=== PATIENT | male | born 1955 | race African-American/Black ===

== ENCOUNTER 2016-11-27 11:49 | Inpatient (IN) | payer OTHER, MEDICARE ==
--- NOTE | 2016-11-27 12:17 | ER Document Report ---
ED Neuro Symptoms/Deficit - General Time seen by provider: 12:13 Mode of Arrival: Medic Information source: Emergency Med Personnel Notes: Patient is a 61-year-old male presenting to the emergency department for stroke- like symptoms. Patient has a history of stage V renal disease and is on dialysis. Patient's baseline is able to ambulate without assistance and is able to speak normally. Patient was at dialysis today at [facility]. During his dialysis treatment today the patient started answering questions inappropriately ; patient also had weak legs with an unsteady gait. Patient nodded his head yes to [facility] staff when asked if he had chest pain; patient was given aspirin at this time. Patient continued to have chest pain with EMS. 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 Patient has a history of three-vessel bypass in 2012, a stent in 2013, type II diabetes mellitus, hypertension, hypercholesterolemia, and the patient is also on Plavix. Patient has a physician in his left upper extremity. Patient is wearing a glove on his left hand. Patient has no known allergies. TRAVEL OUTSIDE OF THE [place] IN LAST 30 DAYS: No - HPI Onset: Other - see HPI note Baseline Gait: Walks w/o assistance Decreased ability to stand/walk: Weak Associated symptoms: Chest pain <ANGEL THOMPSON - Last Filed: 11/27/16 13:04> - General Notes: The patient was brought to emergency room from dialysis by EMS for the onset of strokelike symptoms. They report he normally walks and talks well, but he showed altered mental status about 30 minutes prior to arrival. On emergency room arrival, the patient is alert, he seems to understand and respond appropriately. He does not speak. He is found to have a temperature of 102.3 He does move all of his extremities , he just does not talk. He was given Tylenol and later began to talk some. At this time he is alert and oriented, reports he has had cough and congestion starting 1-2 days ago. He reports he did have dialysis today. His lab work is unremarkable and consistent with a viral type or flu type illness. His chest x-ray does show some basilar densities which could be atelectasis, small effusion, or infiltrate. There is stable cardiomegaly. CT scan shows spotty chronic white matter disease changes with multiple lacunar infarcts primarily in the thalamus and basal ganglia. There is nothing acute seen on the head CT. The patient is not a TPA candidate, he is on Plavix, he had dialysis today, his initial symptoms suggested a fascia possibly due to stroke, but his fever suggested an alternative diagnosis. Treating with Tylenol and time has proven this decision to be correct. I do not think it is possible to exclude a TIA as part of the diagnosis. The patient does smoke about one half pack per day. He does live by himself. His primary care provider is the [facility]. <PAULINO CLIFFORD - Last Filed: 11/27/16 16:19> - General Stated Complaint: STROKE ALERT - Related Data Allergies/Adverse Reactions: No Known Allergies Allergy (Verified 11/17/14 17:17) Past Medical History - General Information source: Patient - Social History Smoking Status: Current Every Day Smoker Family History: None - Past Medical History Cardiac Medical History: Reports: Hx Coronary Artery Disease, Hx Hypercholesterolemia, Hx Hypertension Endocrine Medical History: Reports: Hx Diabetes Mellitus Type 2 Renal/ Medical History: Reports: Hx End Stage Renal Disease - Stage V with dialysis, Hx Hemodialysis Musculoskeltal Medical History: Reports Hx Arthritis - generalized Past Surgical History: Reports: Hx Cardiac Surgery - bypass 2012, 1 stent 2012, Hx Coronary Artery Bypass Graft, Hx Coronary Stent, Hx Orthopedic Surgery, Hx Vascular Surgery - Immunizations Immunizations up to date: Yes Hx Diphtheria, Pertussis, Tetanus Vaccination: Yes Hx Pneumococcal Vaccination: 07/07/14 <ANGEL THOMPSON - Last Filed: 11/27/16 13:04> Review of Systems - Review of Systems Constitutional: No symptoms reported EENT: No symptoms reported Cardiovascular: No symptoms reported Respiratory: No symptoms reported Gastrointestinal: No symptoms reported Genitourinary: No symptoms reported Male Genitourinary: No symptoms reported Musculoskeletal: No symptoms reported Skin: No symptoms reported Hematologic/Lymphatic: No symptoms reported Neurological/Psychological: See HPI -: Yes All other systems reviewed and negative <ANGEL THOMPSON - Last Filed: 11/27/16 13:04> Physical Exam - Vital signs Interpretation: Febrile - General General appearance: Alert, Other - Patient is asphasic In distress: Mild - HEENT Head: Normocephalic, Atraumatic Eyes: Normal Pupils: PERRL Mucous membranes: Moist - Respiratory Respiratory status: No respiratory distress Chest status: Nontender Breath sounds: Normal Chest palpation: Normal - Cardiovascular Rhythm: Regular Heart sounds: Normal auscultation Murmur: No - Abdominal Inspection: Normal Distension: No distension Bowel sounds: Normal Tenderness: Nontender Organomegaly: No organomegaly - Back Back: Normal, Nontender - Extremities General upper extremity: Normal inspection, Normal ROM, Other - Decreased strength in the left hand, however patient has a fistula in the left upper arm which may have caused some and neurovascular damage; patient is also wearing a glove on his left hand General lower extremity: Normal inspection, Normal ROM, Normal strength - Neurological Neuro grossly intact: Yes Cognition: Normal Jamee Coma Scale Eye Opening: Spontaneous [place] Coma Scale Verbal: None Jamee Coma Scale Motor: Obeys Commands Jamee Coma Scale Total: 11 Speech: Other - Patient is not talking, but does clear his throat once during exam <ANGEL THOMPSON - Last Filed: 11/27/16 13:04> - Vital signs Vitals: Resp Pulse Ox 23 H 94 11/27/16 12:06 11/27/16 12:06 <PAULINO CLIFFORD - Last Filed: 11/27/16 16:19> Course - Laboratory Result Diagrams: 11/27/16 12:18 11/27/16 12:18 <ANGEL THOMPSON - Last Filed: 11/27/16 13:04> - Re-evaluation Re-evalutation: 11/27/16 16:18 The patient's flu test eventually came back and is negative. Given that he was febrile, seemed confused with neurological impairment, has had a congested cough for few days, has a chest x-ray that has left basilar densities and pneumonia cannot be excluded, he will be started on antibiotics. - Vital Signs Vital signs: Temp Pulse Resp BP Pulse Ox 102.3 F H 90 27 H 149/64 H 95 11/27/16 12:27 11/27/16 12:34 11/27/16 14:31 11/27/16 14:31 11/27/16 14:31 - Laboratory Result Diagrams: 11/27/16 12:18 11/27/16 12:18 Laboratory results interpreted by me: 11/27/16 11/27/16 11/27/16 12:18 12:18 13:15 Hgb 13.4 L RDW 15.2 H Lymphocytes % (Manual) 6 L Chloride 93 L Creatinine 4.61 H Est GFR ( Amer) 16 L Est GFR (Non-Af Amer) 13 L Alkaline Phosphatase 139 H Total Protein 8.6 H Urine Protein 100 H Urine Glucose (UA) 50 H - Diagnostic Test Radiology reviewed: Image reviewed, Reports reviewed - Chest x-ray shows left basilar density, atelectasis versus effusion versus infiltrate. There is stable cardiomegaly. CT scan shows spotty chronic white matter disease with multiple lacunar infarcts, primarily in the [place] and basal ganglia. - EKG Interpretation by Me EKG shows normal: Sinus rhythm, [place], Intervals, ST-T Waves. abnormal: QRS Complexes - Old anterior infarct VS LVH Rate: Normal - 90 Rhythm: NSR P Waves: LAE When compared to previous EKG there are: No significant change - Consults Dr. Grande Time consulted: 16:05 Consulted provider: will come to ER <PAULINO CLIFFORD - Last Filed: 11/27/16 16:19> Critical Care Note - Critical Care Note Total time excluding time spent on procedures (mins): 35 <PAULINO CLIFFORD - Last Filed: 11/27/16 16:19> ED Alteplase Inc/Exc Criteria - Inclusion Criteria: 1: Patient presented to ED within 3 hours of acute ischemic stroke symptom onset ? -: Yes 2: Did baseline CT exclude intracranial hemorrhage and/or other risk factors? -: Yes 3: Is the age of the patient 18 years of age or greater? -: Yes : If any of the above questions are answered "NO" then stop, patient is not a candidate for Alteplase, : If all of the above questions are answered "YES" then continue with Exclusion Criteria. - Exclusion Criteria: 1: Is there evidence of intracranial hemorrhage on baseline CT? -: No 2: Is there suspicion of subarachnoid hemorrhage (even if CT negative)? -: No 3: Is there a history of serious head trauma, recent previous stroke or PR within 3 months? -: No 4: Does the patient have a clinical presentation consistent with PR or post-PR pericarditis? -: No 5: Is there history of intracranial hemorrhage? -: No 6: On repeated measurement is Systolic BP greater than 185mmHg or Diastolic BP greater that 110 mmHg and is aggressive treatment needed to reduce blood pressure to these limits (e.g. constant infusion of an anti-hypertensive)? -: No 7: Did the patient awake with stroke symptoms? -: No 8: Has the patient had a lumbar puncture or an arterial puncture at a non- compressile site within 7 days? -: No 9: With in the last 14 days did the patient have surgery or major trauma? -: No 10: Is the patient or less than 2 weeks? -: No 11: Was there any active bleeding or acute trauma? -: No 12: Does the patient have intracranial neoplasm, arteriovenous malformation or aneurysm? -: No 13: Does the patient have abnormal glucose (less than 50 or greater than 400mg/ dl)? Record glucose in Comment. -: No 14: Patient has rapidly improving symptoms at the time Alteplase is to be Administered. -: No 15: Does the patient have any risks for bleeding, including but not limited to: a.: Current use of Coumadin with PT greater than 15 seconds or INR greater than 1.7. b.: Current use of Pradaxa (Dabigatran). c.: Heparin administereed within the past 48 hours and PTT elevated. d.: Platelet count less than 100,000/mm. e.: Major surgery or serious trauma within 14 days. f.: Gastrointestinal or gynecological urinary bleeding within 14 days. g.: Myocardial Infarction (PR) within 3 months. -: Yes - patient is on Plavix, patient is a dialysis patient who had dialysis today : If the answer to any of the above questions is "YES" then stop, the patient is not a candidate for Alteplase. : If the answer to all of the above questions is "NO" then the patient may be eligible for the Administration of Alteplase. : If the patient is noted to have seizure activity at onset of Stroke symptoms; Consult Neurologist for further evaluation. - The patient is: -: Included and is eligible to receive Alteplase. *Initiate bed placement at higher level of care* --: No Reviewd risks & benefits of thrombolytic therapy: I have reviewed the risks and benefits of thrombolytic therapy with the patient and/or his/her family. -: Excluded and not eligible to receive Alteplase for the above exclusions. -: Excluded and not eligible to receive Alteplase for other reasons (specify in comments): <DARRIN,PAULINO - Last Filed: 11/27/16 16:19> ED NIH Stroke Scale Discharge <ANGEL THOMPSON - Last Filed: 11/27/16 13:04> - Discharge Admitting Provider: Hospitalist Unit Admitted: IMCU <PAULINO CLIFFORD - Last Filed: 11/27/16 16:19> - Discharge Clinical Impression: Aphasia, Influenza-like illness, Chronic renal failure, stage 5 Fever Qualifiers: Fever type: unspecified Qualified Code(s): R50.9 - Fever, unspecified TIA (transient ischemic attack) Qualifiers: Transient cerebral ischemia type: unspecified Qualified Code(s): G45.9 - Transient cerebral ischemic attack, unspecified Condition: Stable Disposition: ADMITTED INPATIENT Referrals: ESDRAS DE LA GARZA MD [Primary Care Provider] - Follow up as needed Scribe Documentation - Scribe Written by Scribe:: Angel Thompson 11/27/16 12:55 acting as scribe for :: Darrin <ANGEL THOMPSON - Last Filed: 11/27/16 13:04>
[2016-11-27 12:43] LABS: PARTIAL THROMBOPLASTIN TIME 34.1 SEC (23.5-35.8)
[2016-11-27 12:45] LABS: PROTHROMBIN TIME 14.2 SEC (11.4-15.4)
[2016-11-27 12:46] LABS: HEMOGLOBIN 13.4 g/dL (13.5-17.0); HGB HCT DIFFERENCE 0.2; MEAN CORPUSCULAR HEMOGLOBIN 30.8 pg (27.0-33.4); MEAN CORPUSCULAR HGB CONC 33.5 g/dL (32.0-36.0); MEAN CORPUSCULAR VOLUME 92 fl (80-97); RED BLOOD COUNT 4.35 10^6/uL (4.35-5.55); RED CELL DISTRIBUTION WIDTH 15.2 % (11.5-14.0); WHITE BLOOD COUNT 8.2 10^3/uL (4.0-10.5)
[2016-11-27 13:05] LABS: ALANINE AMINOTRANSFERASE 30 U/L (21-72); ALBUMIN 4.8 g/dL (3.5-5.0); ALKALINE PHOSPHATASE 139 U/L (38-126); ANION GAP 19 (5-19); ASPARTATE AMINO TRANSFERASE 18 U/L (17-59); BILIRUBIN,TOTAL 1.2 mg/dL (0.2-1.3); BLOOD UREA NITROGEN 18 mg/dL (7-20); CALCIUM 8.5 mg/dL (8.4-10.2); CARBON DIOXIDE 30 mmol/L (22-30); CHLORIDE 93 mmol/L (98-107); CREATINE KINASE 128 U/L (55-170); CREATININE RESULT 4.61 mg/dL (0.52-1.25); GLUCOSE 92 mg/dL (75-110); POTASSIUM 3.9 mmol/L (3.6-5.0); TOTAL PROTEIN 8.6 g/dL (6.3-8.2)
[2016-11-27 13:09] LABS: CREATINE KINASE MB 1.21 ng/mL (<4.55)
[2016-11-27 13:16] LABS: TROPONIN I < 0.012 ng/mL
[2016-11-27 13:27] LABS: ANISOCYTOSIS SLIGHT; BASOPHILS % (MANUAL) 1 % (0-2); EOSINOPHILS % (MANUAL) 3 % (0-6); LYMPHOCYTES % (MANUAL) 6 % (13-45); POLYCHROMASIA SLIGHT; TOTAL CELLS COUNTED 100; TOXIC GRANULATION SLIGHT; TOXIC VACUOLATION PRESENT
[2016-11-27 13:50] LABS: APPEARANCE,URINE SLIGHTLY-CLOUDY; BILIRUBIN,URINE NEGATIVE (NEGATIVE); GLUCOSE, URINE 50 mg/dL (NEGATIVE); KETONES,URINE NEGATIVE (NEGATIVE); LEUKOCYTE ESTERASE,URINE NEGATIVE (NEGATIVE); NITRITE,URINE NEGATIVE (NEGATIVE); PROTEIN,URINE 100 mg/dL (NEGATIVE); URINE SPECIFIC GRAVITY 1.014; UROBILINOGEN,URINE NEGATIVE mg/dL (<2.0)
[2016-11-27] MEDS ORDERED: ACETAMINOPHEN 325 MG TABLET PO ONE (14:03)
[2016-11-27] MEDS ORDERED: CEFTRIAXONE 1 GM/D5W RTU 50 ML IV ONE (16:17)
[2016-11-27] MEDS ORDERED: AZITHROMYCIN INJ 500 MG VIAL IV ONE (16:18)
[2016-11-27] MEDS ORDERED: ONDANSETRON HCL INJ/PF 4 MG/2 ML SDV IV PRN (16:37)
--- NOTE | 2016-11-27 18:33 | PDOC H&P ---
History of Present Illness Admission Date/PCP: 11/27/16 16:45 FOZIA KINGSTON MD Patient complains of: Inability to talk History of Present Illness: ANASTASIA PERALTA is a 61 year old male who presents to the emergency department from hemodialysis when he suddenly became aphasic. He had just completed his usual session and showed no effects until he suddenly became unresponsive. Reportedly his eyes were open but he was having difficulty following commands and was nonverbal. He is followed by Dr. Vallejo in nephrology and Dr. Sullivan at the [facility]. On arrival in the emergency department he was noted to be febrile at 102.3 and his aphasia gradually resolved since about time I saw him he was back to baseline. He remembers completing his dialysis and then having difficulty understanding what people were saying to him and getting his words out. He denies headache, vision changes, hearing changes, numbness tingling, difficulty swallowing, unilateral weakness and states she's never had anything like this before. He states he was in his usual state of health prior to this. He denies chest pain, palpitations, fever and chills prior today, cough with phlegm or shortness of breath. Chest x-ray shows possible left greater than right basilar airspace disease so we were asked to admit the patient for further evaluation of possible TIA and possible community acquired pneumonia. Past Medical History Cardiac Medical History: Reports: Coronary Artery Disease, Hyperlipidema, Hypertension Denies: Myocardial Infarction Pulmonary Medical History: Denies: Asthma, Bronchitis, Chronic Obstructive Pulmonary Disease (COPD), Pneumonia, Tuberculosis Neurological Medical History: Denies: Seizures Endocrine Medical History: Reports: Diabetes Mellitus Type 2 Renal/ Medical History: Reports: End Stage Renal Disease - Stage V with dialysis Musculoskeltal Medical History: Reports: Arthritis - generalized Psychiatric Medical History: Denies: Depression Hematology: Reports: Anemia - currently Past Surgical History Past Surgical History: Reports: Coronary Artery Bypass Graft, Coronary Stent, Orthopedic Surgery, Vascular Surgery Denies: Pacemaker Social History Smoking Status: Current Every Day Smoker Frequency of Alcohol Use: None Hx Recreational Drug Use: No Hx Prescription Drug Abuse: No - Advance Directive Resuscitation Status: Full Code Family History Family History: None Parental Family History Reviewed: Yes Children Family History Reviewed: Yes Sibling(s) Family History Reviewed.: Yes Medication/Allergy Home Medications: Amlodipine Besylate [Norvasc 10 mg Tablet] 10 mg PO DAILY 11/27/16 Aspirin [Aspirin 81 mg Chewable Tablet] 81 mg PO DAILY 11/27/16 B Complex & C No.20/Folic Acid [Renal Caps Softgel] 1 cap PO DAILY 11/27/16 Calcium Acetate [Phoslo 667 mg Capsule] 2 cap PO ASDIR PRN 11/27/16 Carvedilol [Coreg 25 mg Tablet] 25 mg PO Q12 11/27/16 Clonidine HCl [Catapres 0.1 mg Tablet] 0.1 mg PO Q8 11/27/16 Docusate Calcium [Stool Softener] 240 mg PO BID 11/27/16 Ferrous Sulfate 324 mg PO BID 11/27/16 Hydralazine HCl [Apresoline 25 mg Tablet] 25 mg PO Q8 11/27/16 Insulin Aspart [Novolog Insulin (Aspart) 100 unit/mL] 0 units SQ ASDIR PRN 11/27 Insulin Glargine,Hum.rec.anlog [Lantus] 10 units SQ QHS 11/27/16 Isosorbide Mononitrate [Imdur 60 mg Tablet.er] 60 mg PO DAILY 11/27/16 Losartan Potassium [Cozaar 100 mg Tablet] 100 mg PO QAM 11/27/16 Oxycodone HCl/Acetaminophen [Percocet 5-325 mg Tablet] 1 tab PO Q6HP PRN Pravastatin Sodium [Pravachol] 40 mg PO QHS 11/27/16 Allergies/Adverse Reactions: No Known Allergies Allergy (Verified 11/17/14 17:17) Review of Systems Constitutional: ABSENT: chills, fever(s), headache(s), weight gain, weight loss Eyes: ABSENT: visual disturbances Ears: ABSENT: hearing changes Cardiovascular: ABSENT: chest pain, dyspnea on exertion, edema, orthropnea, palpitations Respiratory: ABSENT: cough, hemoptysis Gastrointestinal: ABSENT: abdominal pain, constipation, diarrhea, hematemesis, hematochezia, nausea, vomiting Genitourinary: ABSENT: dysuria, hematuria Musculoskeletal: ABSENT: joint swelling Integumentary: ABSENT: rash, wounds Neurological: PRESENT: abnormal speech, confusion, dizziness. ABSENT: abnormal gait, focal weakness, lack of coordination, numbness, paresthesias, syncope, tingling Psychiatric: ABSENT: anxiety, depression Endocrine: ABSENT: cold intolerance, heat intolerance, polydipsia, polyuria Hematologic/Lymphatic: ABSENT: easy bleeding, easy bruising Physical Exam Vital Signs: Temp Pulse Resp BP Pulse Ox 100.6 F H 76 22 H 128/69 H 96 11/27/16 17:00 11/27/16 17:00 11/27/16 17:01 11/27/16 17:01 11/27/16 17:01 PHYSICAL EXAM GENERAL: NAD; well developed, well nourished; no obese; alert and oriented to person, place, time, situation; speech clear and lucid. HEENT: normocephalic, atraumatic; EOMI, PERRLA, no conjunctival injection, no scleral icterus; oral mucosa moist, neck supple, no LAD, normal ROM RESPIRATORY: no accessory muscle use, no increased WOB, good air entry bilaterally; no wheezes, rales, rhonchi; bibasilar inspiratory crackles CARDIO: no JVD; RRR; no systolic murmur; no tachycardia VASCULAR: no carotid bruit; no abdominal bruit; no pallor; 2+ radial, DP pulse ; normal capillary refill; left arm AV fistula with palpable thrill and audible bruit GI: soft; nondistended; normal bowel sounds; no hepato spleno megaly; no rebound, rigidity, guarding; nontender NEURO: normal patella reflexes; normal sensation; normal motor function; no gait abnls; no dysarthria; no nystagmus; tongue protrudes midline; normal finger to nose; able to cross midline with finger to ear MSK: 5/5 strength; normal ROM hips; ambulatory without assistance; no tenderness EXTREMITIES: no calf tender; no palpable cords in calf; no clubbing, cyanosis , pedal edema PSYCH: normal affect, normal mood SKIN: warm; moist; no petechiae; no telengectasias; no jaundice; no rash Results Laboratory Results: Labs reviewed, no leukocytosis, serum creatinine at baseline, electrolyte unremarkable, LFTs unremarkable, first troponin and CK-MB were negative EKG Comments: EKG shows sinus rhythm with a rate of 90, corrected QT interval of 455 and no ischemic changes. Impressions: Chest X-Ray 11/27/16 11:51 IMPRESSION: Left basilar densities as noted above. Cardiomegaly. Other findings as noted above Head CT 11/27/16 11:51 IMPRESSION: Spotty chronic white matter disease. No CT evidence of acute findings. Status: Image reviewed by me - Appears to me to be bibasilar right equal to left airspace disease when compared to prior chest x-ray does look different. Assessment & Plan - Diagnosis (1) Pneumonia Qualifiers: Pneumonia type: due to unspecified organism Lung location: lower lobe of lung Is this a current diagnosis for this admission?: YesPlan: Start empiric Rocephin and azithromycin for community acquired pneumonia. I suspect this is the source of his fever and perhaps even his aphasia as a once his fever broke his symptoms resolved. Follow-up blood cultures from the ER as he is clearly at risk for bacteremias (2) Aphasia Is this a current diagnosis for this admission?: YesPlan: Unclear etiology but likely related to the above. We'll perform carotid Dopplers and noncontrasted MRI of the brain to look for acute ischemic disease. CT scan shows old lacunar infarcts raising the possibility of same. (3) Chronic renal failure, stage 5 Is this a current diagnosis for this admission?: YesPlan: Consult Dr. Vallejo for her hemodialysis orders. (4) TIA (transient ischemic attack) Qualifiers: Transient cerebral ischemia type: unspecified Qualified Code(s): G45.9 - Transient cerebral ischemic attack, unspecified Is this a current diagnosis for this admission?: YesPlan: As above. Neuro checks through the night. (5) Type I diabetes mellitus Qualifiers: Diabetes mellitus complication status: with kidney complications Diabetes mellitus complication detail: with chronic kidney disease Chronic kidney disease stage: on chronic dialysis Qualified Code(s): E10.22 - Type 1 diabetes mellitus with diabetic chronic kidney disease; N18.6 - End stage renal disease; Z99.2 - Dependence on renal dialysis Is this a current diagnosis for this admission?: YesPlan: Continue home basal bolus insulin. - Time Time Spent: Greater than 70 Minutes Medications reviewed and adjusted accordingly: Yes Anticipated discharge: Home Within: within 48 hours
[2016-11-27] MEDS: HEPARIN SOD (PORCINE) 5,000 UNIT/ML 1 ML SYRINGE SUBCUT SCH (21:50)
--- NOTE | 2016-11-27 22:03 | EKG REPORT ---
SEVERITY:- ABNORMAL ECG - SINUS RHYTHM PROBABLE LEFT ATRIAL ABNORMALITY ANTERIOR INFARCT, AGE INDETERMINATE : Confirmed by: Angela Alba MD 27-Nov-2016 22:02:53
[2016-11-28] MEDS: ACETAMINOPHEN 325 MG TABLET PO PRN ×3 (00:09→23:03)
[2016-11-28] MEDS: LANSOPRAZOLE 15 MG TAB.RAP.DR PO SCH (05:42)
[2016-11-28] MEDS: HEPARIN SOD (PORCINE) 5,000 UNIT/ML 1 ML SYRINGE SUBCUT SCH ×3 (05:42→23:05)
[2016-11-28 07:34] LABS: ABSOLUTE BASOPHILS # (AUTO) 0.1 10^3/uL (0.0-0.2); ABSOLUTE EOSINOPHILS # (AUTO) 0.1 10^3/uL (0.0-0.6); ABSOLUTE LYMPHOCYTES (AUTO) 0.3 10^3/uL (0.5-4.7); ABSOLUTE MONOCYTES (AUTO) 0.9 10^3/uL (0.1-1.4); ABSOLUTE NEUT (AUTO) 3.7 10^3/uL (1.7-8.2); BASOPHILS % (AUTO) 1.7 % (0-2); EOSINOPHILS % (AUTO) 2.2 % (0-6); HEMATOCRIT 40.1 % (37.9-51.0); HEMOGLOBIN 13.3 g/dL (13.5-17.0); HGB HCT DIFFERENCE -0.2; LYMPHOCYTES % (AUTO) 5.6 % (13-45); MEAN CORPUSCULAR HEMOGLOBIN 30.4 pg (27.0-33.4); MEAN CORPUSCULAR HGB CONC 33.1 g/dL (32.0-36.0); MEAN CORPUSCULAR VOLUME 92 fl (80-97); MONOCYTES % (AUTO) 18.4 % (3-13); RED BLOOD COUNT 4.37 10^6/uL (4.35-5.55); RED CELL DISTRIBUTION WIDTH 15.2 % (11.5-14.0); SEGMENTED NEUTROPHILS % (AUTO) 72.1 % (42-78); WHITE BLOOD COUNT 5.2 10^3/uL (4.0-10.5)
[2016-11-28] MEDS: ASPIRIN 81 MG TABLET, ENT COATED PO SCH (10:40)
[2016-11-28] MEDS ORDERED: CALCIUM ACETATE 667 MG CAPSULE PO PRN (11:09)
[2016-11-28] MEDS ORDERED: OXYCODONE-ACETAMINOPHEN 5-325 MG TABLET PO PRN (11:09)
[2016-11-28] MEDS ORDERED: INSULIN LISPRO 100 UNIT/ML 3 ML VIAL SUBCUT PRN (11:12)
[2016-11-28] MEDS ORDERED: DEXTROSE 40% GEL 15 GM TUBE PO PRN ×2 (11:12)
[2016-11-28] MEDS ORDERED: GLUCAGON,HUMAN RECOMB 1 MG INJ IM PRN (11:12)
[2016-11-28] MEDS ORDERED: DEXTROSE 50%-WATER 25 GM/50 ML DISP.SYRIN IV PRN ×2 (11:12)
[2016-11-28] MEDS ORDERED: AMLODIPINE BESYLATE 10 MG TABLET PO ONE (13:00)
--- NOTE | 2016-11-28 13:38 | PDOC PROGRESS REPORT ---
Subjective Progress Note for:: 11/28/16 Subjective:: Reason for visit: Follow-up TIA, pneumonia Hospital course: ANASTASIA PERALTA is a 61 year old male who presents to the emergency department from hemodialysis when he suddenly became aphasic. He had just completed his usual session and showed no effects until he suddenly became unresponsive. Reportedly his eyes were open but he was having difficulty following commands and was nonverbal. He is followed by Dr. Vallejo in nephrology and Dr. Sullivan at the [place]. On arrival in the emergency department he was noted to be febrile at 102.3 and his aphasia gradually resolved since about time I saw him he was back to baseline. He remembers completing his dialysis and then having difficulty understanding what people were saying to him and getting his words out. He denies headache, vision changes, hearing changes, numbness tingling, difficulty swallowing, unilateral weakness and states she's never had anything like this before. He states he was in his usual state of health prior to this. He denies chest pain, palpitations, fever and chills prior today, cough with phlegm or shortness of breath. Chest x-ray shows possible left greater than right basilar airspace disease so we were asked to admit the patient for further evaluation of possible TIA and possible community acquired pneumonia. Patient was admitted to the hospital monitored overnight without any significant arrhythmias, his neurologic test through the night were normal. He has not had recurrence of his symptoms of aphasia. He continues to have at least low-grade fevers 100.8 again today. He underwent an MRI that was negative for acute ischemic disease. Carotid Dopplers show bilateral plaque but no hemodynamically significant stenosis. Subjective: Patient reports no recurrence of his neurologic symptoms, no confusion, dysphagia, odynophagia, slurred speech, unilateral weakness, headache , numbness tingling, chest pain or palpitations. He is unaware of his fevers. ROS: per HPI plus a total of 10 systems reviewed, pertinent positives and negatives noted above, remaining systems negative. Physical Exam Vital Signs: Temp Pulse Resp BP Pulse Ox 100.8 F H 86 16 161/66 H 90 L 11/28/16 12:05 11/28/16 12:05 11/28/16 12:05 11/28/16 12:05 11/28/16 12:05 Intake & Output 11/27/16 11/28/16 11/29/16 06:59 06:59 06:59 Intake Total 240 Balance 240 Weight 71.3 kg PHYSICAL EXAM GENERAL: NAD; well developed, well nourished; no obese; alert and oriented to person, place, time, situation; speech clear and lucid. HEENT: normocephalic, atraumatic; EOMI, PERRLA, no conjunctival injection, no scleral icterus; oral mucosa moist, RESPIRATORY: no accessory muscle use, no increased WOB, good air entry bilaterally; no wheezes, rales, rhonchi; persistent bibasilar inspiratory crackles CARDIO: no JVD; RRR; no systolic murmur; no tachycardia VASCULAR: no carotid bruit; no abdominal bruit; no pallor; 2+ radial, DP pulse ; normal capillary refill; left arm AV fistula with palpable thrill and audible bruit GI: soft; nondistended; normal bowel sounds; no hepato spleno megaly; no rebound, rigidity, guarding; nontender NEURO: normal patella reflexes; normal sensation; normal motor function; no gait abnls; no dysarthria; MSK: 5/5 strength; normal ROM hips; ambulatory without assistance; no tenderness EXTREMITIES: no calf tender; no palpable cords in calf; no clubbing, cyanosis ; trace bilateral pedal edema PSYCH: normal affect, normal mood SKIN: warm; moist; no petechiae; no telengectasias; no jaundice; no rash Results Laboratory Results: 11/28/16 07:19 11/28/16 07:19 WBC 5.2 RBC 4.37 Hgb 13.3 L Hct 40.1 MCV 92 MCH 30.4 MCHC 33.1 RDW 15.2 H Plt Count 177 Seg Neutrophils % 72.1 Lymphocytes % 5.6 L Monocytes % 18.4 H Eosinophils % 2.2 Basophils % 1.7 Absolute Neutrophils 3.7 Absolute Lymphocytes 0.3 L Absolute Monocytes 0.9 Absolute Eosinophils 0.1 Absolute Basophils 0.1 Labs reviewed, no significant change. Impressions: Head MRI 11/27/16 00:00 IMPRESSION: ATROPHY AND CHRONIC MICRO-VASCULAR ISCHEMIC CHANGES. OTHERWISE NORMAL MRI OF THE BRAIN WITHOUT INTRAVENOUS GADOLINIUM CONTRAST. Chest X-Ray 11/27/16 11:51 IMPRESSION: Left basilar densities as noted above. Cardiomegaly. Other findings as noted above Head CT 11/27/16 11:51 IMPRESSION: Spotty chronic white matter disease. No CT evidence of acute findings. Carotid Doppler Study 11/28/16 00:00 IMPRESSION: NO HEMODYNAMICALLY SIGNIFICANT STENOSIS. Status: Imported from PACS - Reports reviewed Assessment & Plan - Diagnosis (1) Pneumonia Qualifiers: Pneumonia type: due to unspecified organism Lung location: lower lobe of lung Is this a current diagnosis for this admission?: YesPlan: Continue empiric Rocephin and azithromycin for community acquired pneumonia. I suspect this is the source of his fever and perhaps even his aphasia as a once his fever broke his symptoms resolved. Follow-up blood cultures from the ER as he is clearly at risk for bacteremias (2) Aphasia Is this a current diagnosis for this admission?: YesPlan: Unclear etiology but likely related to the above and resolved without recurrence. Evaluation otherwise negative. Continue antiplatelet therapy and statin therapy from home. (3) Chronic renal failure, stage 5 Is this a current diagnosis for this admission?: YesPlan: Consult Dr. Vallejo for her hemodialysis orders. (4) TIA (transient ischemic attack) Qualifiers: Transient cerebral ischemia type: unspecified Qualified Code(s): G45.9 - Transient cerebral ischemic attack, unspecified Is this a current diagnosis for this admission?: YesPlan: As above. Neuro checks were negative through the night. (5) Type I diabetes mellitus Qualifiers: Diabetes mellitus complication status: with kidney complications Diabetes mellitus complication detail: with chronic kidney disease Chronic kidney disease stage: on chronic dialysis Qualified Code(s): E10.22 - Type 1 diabetes mellitus with diabetic chronic kidney disease; N18.1 - Chronic kidney disease, stage 1 Is this a current diagnosis for this admission?: YesPlan: Continue home basal bolus insulin. (6) Hypertension associated with chronic kidney disease due to type 2 diabetes mellitus Is this a current diagnosis for this admission?: YesPlan: Resume home regimen and titrate to effect. - Time Time Spent with patient: 25-34 minutes Medications reviewed and adjusted accordingly: Yes Anticipated discharge: Home Within: within 24 hours - Plan Summary Plan Summary: At this point we are hostage to his culture result I'm hesitant to discharge him without knowing for sure there is not a bacteremia contributed to his presentation.
[2016-11-28] MEDS: CLONIDINE HCL 0.1 MG TABLET PO SCH ×2 (14:58→23:06)
[2016-11-28] MEDS: HYDRALAZINE HCL 25 MG TABLET PO SCH ×2 (14:58→23:04)
[2016-11-28] MEDS: CEFTRIAXONE 1 GM/D5W RTU 1 GM/50 ML RTUPB IV SCH (17:04)
[2016-11-28] MEDS: DOCUSATE SODIUM 100 MG CAPSULE PO SCH (17:05)
[2016-11-28] MEDS: FERROUS SULFATE 325 MG TABLET PO SCH (17:06)
[2016-11-28] MEDS: CALCIUM ACETATE 667 MG CAPSULE PO SCH (17:06)
[2016-11-28] MEDS: AZITHROMYCIN 500 MG in DEXTROSE 5%-WATER 250 ML IV SCH (17:38)
[2016-11-28] MEDS ORDERED: (PENDING PHARMACY ID) (Docusate Calcium [Stool Softener] 240 MG) PO SCH (18:00)
[2016-11-28] MEDS ORDERED: (PENDING PHARMACY ID) (Ferrous Sulfate [Ferrous Sulfate] 324 MG) PO SCH (18:00)
[2016-11-28] MEDS ORDERED: (PENDING PHARMACY ID) (Pravastatin Sodium [Pravachol] 40 MG) PO SCH (22:00)
[2016-11-28] MEDS ORDERED: INSULIN GLARGINE,HUM.REC.ANLOG 1,000 UNIT/10 ML UNIT SUBCUT SCH ×2 (22:00)
[2016-11-28] MEDS ORDERED: ATORVASTATIN CALCIUM 10 MG TABLET PO SCH (22:00)
[2016-11-28] MEDS: CARVEDILOL 12.5 MG TABLET PO SCH (23:03)
[2016-11-28] MEDS: ATORVASTATIN CALCIUM 10 MG TABLET PO SCH (23:04)
[2016-11-29] MEDS: LANSOPRAZOLE 15 MG TAB.RAP.DR PO SCH (06:24)
[2016-11-29] MEDS: HEPARIN SOD (PORCINE) 5,000 UNIT/ML 1 ML SYRINGE SUBCUT SCH ×3 (06:25→22:28)
[2016-11-29] MEDS: HYDRALAZINE HCL 25 MG TABLET PO SCH ×3 (06:25→22:28)
[2016-11-29] MEDS: CLONIDINE HCL 0.1 MG TABLET PO SCH ×3 (06:25→22:28)
[2016-11-29] MEDS: AMLODIPINE BESYLATE 10 MG TABLET PO SCH (13:27)
[2016-11-29] MEDS: CALCIUM ACETATE 667 MG CAPSULE PO SCH ×2 (13:27→18:13)
[2016-11-29] MEDS: ISOSORBIDE MONONITRATE 60 MG TAB.ER.24H PO SCH (13:27)
[2016-11-29] MEDS: ASPIRIN 81 MG TABLET, ENT COATED PO SCH (13:28)
[2016-11-29] MEDS: FERROUS SULFATE 325 MG TABLET PO SCH ×2 (13:28→18:17)
[2016-11-29] MEDS: CARVEDILOL 12.5 MG TABLET PO SCH ×2 (13:28→22:27)
[2016-11-29] MEDS: DOCUSATE SODIUM 100 MG CAPSULE PO SCH ×2 (13:29→18:12)
[2016-11-29 15:31] LABS: BLOOD UREA NITROGEN 59 mg/dL (7-20); CALCIUM 8.3 mg/dL (8.4-10.2); CARBON DIOXIDE 23 mmol/L (22-30); CHLORIDE 91 mmol/L (98-107); CREATININE RESULT 9.27 mg/dL (0.52-1.25); GLUCOSE 203 mg/dL (75-110); MAGNESIUM 2.1 mg/dL (1.6-2.3); SODIUM 134.9 mmol/L (137-145)
[2016-11-29 15:33] LABS: ANION GAP 21 (5-19)
--- NOTE | 2016-11-29 16:48 | PDOC PROGRESS REPORT ---
Subjective Progress Note for:: 11/29/16 Subjective:: Reason for visit: Follow-up TIA, pneumonia Hospital course: ANASTASIA PERALTA is a 61 year old male who presents to the emergency department from hemodialysis when he suddenly became aphasic. He had just completed his usual session and showed no effects until he suddenly became unresponsive. Reportedly his eyes were open but he was having difficulty following commands and was nonverbal. He is followed by Dr. Vallejo in nephrology and Dr. Sullivan at the [place]. On arrival in the emergency department he was noted to be febrile at 102.3 and his aphasia gradually resolved since about time I saw him he was back to baseline. He remembers completing his dialysis and then having difficulty understanding what people were saying to him and getting his words out. He denies headache, vision changes, hearing changes, numbness tingling, difficulty swallowing, unilateral weakness and states she's never had anything like this before. He states he was in his usual state of health prior to this. He denies chest pain, palpitations, fever and chills prior today, cough with phlegm or shortness of breath. Chest x-ray shows possible left greater than right basilar airspace disease so we were asked to admit the patient for further evaluation of possible TIA and possible community acquired pneumonia. Patient was admitted to the hospital monitored overnight without any significant arrhythmias, his neurologic test through the night were normal. He has not had recurrence of his symptoms of aphasia. He continues to have at least low-grade fevers 100.8 again today. He underwent an MRI that was negative for acute ischemic disease. Carotid Dopplers show bilateral plaque but no hemodynamically significant stenosis. Subjective: His temperature seems to have broken, he continues to complain of a dry hacking cough largely nonproductive of phlegm but overall feels better than when he came in. He's had no recurrence of his neurologic symptoms. Currently he denies chest pain, palpitations, nausea vomiting or diarrhea. ROS: per HPI plus a total of 10 systems reviewed, pertinent positives and negatives noted above, remaining systems negative. Physical Exam Vital Signs: Temp Pulse Resp BP Pulse Ox 98.6 F 74 16 112/82 94 11/29/16 11:02 11/29/16 11:02 11/29/16 11:02 11/29/16 11:02 11/29/16 11:02 Intake & Output 11/28/16 11/29/16 11/30/16 06:59 06:59 06:59 Intake Total 1030 Output Total 0 Balance 1030 Weight 72.6 kg PHYSICAL EXAM GENERAL: NAD; well developed, well nourished; no obese; alert and oriented to person, place, time, situation; speech clear and lucid. HEENT: normocephalic, atraumatic; EOMI, PERRLA, no conjunctival injection, no scleral icterus; oral mucosa moist, RESPIRATORY: no accessory muscle use, no increased WOB, good air entry bilaterally; no wheezes, rales, rhonchi; persistent bibasilar inspiratory crackles unchanged CARDIO: no JVD; RRR; no systolic murmur; no tachycardia VASCULAR: no carotid bruit; no abdominal bruit; no pallor; 2+ radial, DP pulse ; normal capillary refill; left arm AV fistula with palpable thrill and audible bruit GI: soft; nondistended; normal bowel sounds; no hepato spleno megaly; no rebound, rigidity, guarding; nontender NEURO: normal patella reflexes; normal sensation; normal motor function; no gait abnls, ambulating in the room without assistance; no dysarthria; MSK: 5/5 strength; normal ROM hips; no tenderness EXTREMITIES: no calf tender; no palpable cords in calf; no clubbing, cyanosis ; trace bilateral pedal edema PSYCH: normal affect, normal mood SKIN: warm; moist; no petechiae; no telengectasias; no jaundice; no rash Results Laboratory Results: 11/29/16 11:40 11/29/16 11/29/16 11:40 11:40 Sodium 134.9 L Potassium 4.0 Chloride 91 L Carbon Dioxide 23 Anion Gap 21 H BUN 59 H Creatinine 9.27 H Est GFR ( Amer) 7 L Est GFR (Non-Af Amer) 6 L Glucose 203 H Calcium 8.3 L Phosphorus 6.5 H Magnesium 2.1 Assessment & Plan - Diagnosis (1) Pneumonia Qualifiers: Pneumonia type: due to unspecified organism Lung location: lower lobe of lung Is this a current diagnosis for this admission?: YesPlan: Continue empiric Rocephin and azithromycin for community acquired pneumonia. I suspect this is the source of his fever and perhaps even his aphasia as a once his fever broke his symptoms resolved. blood cultures from the ER negative for bacteremias (2) Aphasia Is this a current diagnosis for this admission?: YesPlan: Unclear etiology but likely related to the above and resolved without recurrence. Evaluation otherwise negative. Continue antiplatelet therapy and statin therapy from home. (3) Chronic renal failure, stage 5 Is this a current diagnosis for this admission?: YesPlan: Consulted Dr. Vallejo anticipate hemodialysis tomorrow. (4) TIA (transient ischemic attack) Qualifiers: Transient cerebral ischemia type: unspecified Qualified Code(s): G45.9 - Transient cerebral ischemic attack, unspecified Is this a current diagnosis for this admission?: YesPlan: Continue antiplatelet and statin therapy and antihypertensives As noted above. Neuro checks were negative and he said no recurrence. (5) Type I diabetes mellitus Qualifiers: Diabetes mellitus complication status: with kidney complications Diabetes mellitus complication detail: with chronic kidney disease Chronic kidney disease stage: on chronic dialysis Qualified Code(s): E10.22 - Type 1 diabetes mellitus with diabetic chronic kidney disease; N18.1 - Chronic kidney disease, stage 1 Is this a current diagnosis for this admission?: YesPlan: Continue home basal bolus insulin. Blood sugars under 200 during this hospitalization (6) Hypertension associated with chronic kidney disease due to type 2 diabetes mellitus Is this a current diagnosis for this admission?: YesPlan: Pretty well-controlled on home regimen; titrate to effect. - Time Time Spent with patient: 25-34 minutes Anticipated discharge: Home Within: within 24 hours - Plan Summary Plan Summary: Disposition discharge home after dialysis tomorrow.
[2016-11-29] MEDS: CEFTRIAXONE 1 GM/D5W RTU 1 GM/50 ML RTUPB IV SCH (18:18)
[2016-11-29] MEDS: AZITHROMYCIN 500 MG in DEXTROSE 5%-WATER 250 ML IV SCH (18:22)
--- NOTE | 2016-11-29 19:41 | PDOC CONSULTATION ---
Consultation Consult Date: 11/29/16 Consult reason:: Evaluation towards hemodialysis. History of Present Illness Admission Date/PCP: 11/28/16 12:54 FOZIA KINGSTON MD History of Present Illness: ANASTASIA PERALTA is a 61 year old male who presents to the emergency department from [facility] when he suddenly became aphasic and weak on his right side. He says he is quite vague about what really happened to him in that time . He thinks he could have become unresponsive. Reportedly his eyes were open but he was having difficulty following commands and was nonverbal. Then sent to the ER from the dialysis unit for further evaluation and management. On arrival in the emergency department he was noted to be febrile at 102.3 and his aphasia gradually resolved over a period of may be 3 -4 hours or so. He remembers completing his dialysis and then having difficulty understanding what people were saying to him and getting his words out. He denies headache, vision changes, hearing changes, numbness tingling, difficulty swallowing, unilateral weakness and states she's never had anything like this before. He states he was in his usual state of health prior to this. He denies chest pain , palpitations, fever and chills prior today, cough with phlegm or shortness of breath. Chest x-ray shows possible left greater than right basilar airspace disease. He has been admitted in undergoing a provisional diagnosis of left-sided pneumonia and TIA. Currently he feels he is almost back to his normal self. He is able to talk in understand and comprehend. He has got good strength on on his right side. Past Medical History Cardiac Medical History: Reports: Coronary Artery Disease, Hyperlipidemia, Hypertension-primary Denies: Myocardial Infarction Pulmonary Medical History: Denies: Asthma, Bronchitis, Chronic Obstructive Pulmonary Disease (COPD), Pneumonia, Tuberculosis Neurological Medical History: Denies: Seizures Endocrine Medical History: Reports: Diabetes Mellitus Type 2 Renal/ Medical History: Reports: End Stage Renal Disease - Stage V with dialysis Musculoskeltal Medical History: Reports: Arthritis - generalized Psychiatric Medical History: Denies: Depression Past Surgical History Past Surgical History: Reports: Coronary Artery Bypass Graft, Coronary Stent, Orthopedic Surgery, Vascular Surgery Denies: Pacemaker Social History Smoking Status: Current Some Day Smoker Cigarettes Packs Per Day: 0.5 Number of Years Smokin Frequency of Alcohol Use: None Hx Recreational Drug Use: No Drugs: None Hx Prescription Drug Abuse: No - Advance Directive Resuscitation Status: Full Code Family History Parental Family History Reviewed: Yes - negative for ESRD Children Family History Reviewed: No Sibling(s) Family History Reviewed.: No Medication/Allergy Home Medications: Amlodipine Besylate [Norvasc 10 mg Tablet] 10 mg PO DAILY 11/27/16 Aspirin [Aspirin 81 mg Chewable Tablet] 81 mg PO DAILY 11/27/16 B Complex & C No.20/Folic Acid [Renal Caps Softgel] 1 cap PO DAILY 11/27/16 Calcium Acetate [Phoslo 667 mg Capsule] 2 cap PO ASDIR PRN 11/27/16 Carvedilol [Coreg 25 mg Tablet] 25 mg PO Q12 11/27/16 Clonidine HCl [Catapres 0.1 mg Tablet] 0.1 mg PO Q8 11/27/16 Docusate Calcium [Stool Softener] 240 mg PO BID 11/27/16 Ferrous Sulfate 324 mg PO BID 11/27/16 Hydralazine HCl [Apresoline 25 mg Tablet] 25 mg PO Q8 11/27/16 Insulin Aspart [Novolog Insulin (Aspart) 100 unit/mL] 0 units SQ ASDIR PRN 11/27 Insulin Glargine,Hum.rec.anlog [Lantus] 10 units SQ QHS 11/27/16 Isosorbide Mononitrate [Imdur 60 mg Tablet.er] 60 mg PO DAILY 11/27/16 Losartan Potassium [Cozaar 100 mg Tablet] 100 mg PO QAM 11/27/16 Oxycodone HCl/Acetaminophen [Percocet 5-325 mg Tablet] 1 tab PO Q6HP PRN Pravastatin Sodium [Pravachol] 40 mg PO QHS 11/27/16 Allergies/Adverse Reactions: No Known Allergies Allergy (Verified 11/17/14 17:17) Review of Systems Review of Systems: Constitutional: [PRESENT: as per HPI. ABSENT: chills, fever(s), headache(s), weight gain, weight loss] Eyes: [ABSENT: visual disturbances] Ears: [ABSENT: hearing changes] Cardiovascular: [ABSENT: chest pain, dyspnea on exertion, edema, orthropnea, palpitations] Respiratory: [ABSENT: cough, hemoptysis] Gastrointestinal: [ABSENT: abdominal pain, constipation, diarrhea, hematemesis, hematochezia, nausea, vomiting] Genitourinary: [ABSENT: dysuria, hematuria] Musculoskeletal: [ABSENT: joint swelling] Integumentary: [ABSENT: rash, wounds] Psychiatric: [ABSENT: anxiety, depression, homicidal ideation, suicidal ideation ] Endocrine: [ABSENT: cold intolerance, heat intolerance, polydipsia, polyuria] Hematologic/Lymphatic: [ABSENT: easy bleeding, easy bruising, lymphadenopathy] Physical Exam Vital Signs: Temp Pulse Resp BP Pulse Ox 99.1 F 72 16 129/51 H 92 11/29/16 15:12 11/29/16 15:12 11/29/16 15:12 11/29/16 15:12 11/29/16 15:12 Intake & Output 11/28/16 11/29/16 11/30/16 06:59 06:59 06:59 Intake Total 1030 350 Output Total 0 0 Balance 1030 350 Weight 72.6 kg General appearance: PRESENT: no acute distress Eye exam: PRESENT: conjunctiva pink, EOMI, PERRLA. ABSENT: nystagmus, periorbital swelling, scleral icterus Mouth exam: PRESENT: moist, neck supple Neck exam: ABSENT: lymphadenopathy, meningismus, tenderness, thyromegaly, tracheal deviation Respiratory exam: PRESENT: clear to auscultation lor, symmetrical. ABSENT: crackles, rhonchi Cardiovascular exam: PRESENT: +S1, +S2, systolic murmur GI/Abdominal exam: PRESENT: soft. ABSENT: distended, firm, mass, tenderness Extremities exam: ABSENT: pedal edema Neurological exam: PRESENT: alert, awake, oriented to person, oriented to place , oriented to time. ABSENT: motor sensory deficit Psychiatric exam: PRESENT: flat affect Skin exam: PRESENT: normal color, warm. ABSENT: cyanosis, dry, erythema, mottled Results Laboratory Results: 11/29/16 11:40 11/29/16 11/29/16 11:40 11:40 Sodium 134.9 L Potassium 4.0 Chloride 91 L Carbon Dioxide 23 Anion Gap 21 H BUN 59 H Creatinine 9.27 H Est GFR ( Amer) 7 L Est GFR (Non-Af Amer) 6 L Glucose 203 H Calcium 8.3 L Phosphorus 6.5 H Magnesium 2.1 Impressions: Head MRI 11/27/16 00:00 IMPRESSION: ATROPHY AND CHRONIC MICRO-VASCULAR ISCHEMIC CHANGES. OTHERWISE NORMAL MRI OF THE BRAIN WITHOUT INTRAVENOUS GADOLINIUM CONTRAST. Chest X-Ray 11/27/16 11:51 IMPRESSION: Left basilar densities as noted above. Cardiomegaly. Other findings as noted above Head CT 11/27/16 11:51 IMPRESSION: Spotty chronic white matter disease. No CT evidence of acute findings. Carotid Doppler Study 11/28/16 00:00 IMPRESSION: NO HEMODYNAMICALLY SIGNIFICANT STENOSIS. Assessment & Plan - Diagnosis (1) Hypertension associated with chronic kidney disease due to type 2 diabetes mellitus Is this a current diagnosis for this admission?: YesPlan: Controlled (2) Pneumonia Qualifiers: Pneumonia type: due to unspecified organism Lung location: lower lobe of lung Is this a current diagnosis for this admission?: YesPlan: On Antibiotics. Cultures negative. (3) TIA (transient ischemic attack) Qualifiers: Transient cerebral ischemia type: unspecified Qualified Code(s): G45.9 - Transient cerebral ischemic attack, unspecified Is this a current diagnosis for this admission?: YesPlan: Has made complete recovery. So far evaluations neurologically including carotid Dopplers are negative for any significant stenosis. (4) CKD (chronic kidney disease) stage V requiring chronic dialysis Plan: Plan for dialysis in the morning. Orders have been placed.
[2016-11-29] MEDS ORDERED: INSULIN GLARGINE,HUM.REC.ANLOG 1,000 UNIT/10 ML UNIT SUBCUT SCH (22:00)
[2016-11-29] MEDS: ATORVASTATIN CALCIUM 10 MG TABLET PO SCH (22:27)
[2016-11-30 07:00] LABS: HEMATOCRIT 34.8 % (37.9-51.0); HEMOGLOBIN 11.7 g/dL (13.5-17.0); HGB HCT DIFFERENCE 0.3; MEAN CORPUSCULAR HEMOGLOBIN 30.7 pg (27.0-33.4); MEAN CORPUSCULAR HGB CONC 33.6 g/dL (32.0-36.0); MEAN CORPUSCULAR VOLUME 91 fl (80-97); RED BLOOD COUNT 3.81 10^6/uL (4.35-5.55); RED CELL DISTRIBUTION WIDTH 15.4 % (11.5-14.0); WHITE BLOOD COUNT 3.5 10^3/uL (4.0-10.5)
[2016-11-30] MEDS: LANSOPRAZOLE 15 MG TAB.RAP.DR PO SCH (07:20)
[2016-11-30] MEDS: HEPARIN SOD (PORCINE) 5,000 UNIT/ML 1 ML SYRINGE SUBCUT SCH ×2 (07:21→14:29)
[2016-11-30 07:37] LABS: BLOOD UREA NITROGEN 67 mg/dL (7-20); CALCIUM 8.5 mg/dL (8.4-10.2); CARBON DIOXIDE 24 mmol/L (22-30); CHLORIDE 90 mmol/L (98-107); CREATININE RESULT 11.12 mg/dL (0.52-1.25); GLUCOSE 119 mg/dL (75-110); SODIUM 135.1 mmol/L (137-145)
[2016-11-30 07:52] LABS: ANION GAP 21 (5-19)
[2016-11-30] MEDS: FERROUS SULFATE 325 MG TABLET PO SCH ×2 (14:29→18:44)
[2016-11-30] MEDS: ISOSORBIDE MONONITRATE 60 MG TAB.ER.24H PO SCH (14:29)
[2016-11-30] MEDS: ASPIRIN 81 MG TABLET, ENT COATED PO SCH (14:29)
[2016-11-30] MEDS: CALCIUM ACETATE 667 MG CAPSULE PO SCH ×2 (14:29→18:44)
[2016-11-30] MEDS: HYDRALAZINE HCL 25 MG TABLET PO SCH (14:29)
[2016-11-30] MEDS: CLONIDINE HCL 0.1 MG TABLET PO SCH (14:29)
[2016-11-30] MEDS: DOCUSATE SODIUM 100 MG CAPSULE PO SCH ×2 (14:29→18:44)
[2016-11-30] MEDS: CARVEDILOL 12.5 MG TABLET PO SCH (14:29)
[2016-11-30] MEDS: AMLODIPINE BESYLATE 10 MG TABLET PO SCH (14:29)
--- NOTE | 2016-11-30 15:49 | PDOC PROGRESS REPORT ---
Subjective Progress Note for:: 11/30/16 Subjective:: Patient was seen on hemodialysis today. He is undergoing dialysis without any issues.Orders were discussed with Vivienne the treating dialysis nurse. Will remove 1 L of fluid. It looks like he has made a complete recovery of the deficits that he came in with and is in the process of being discharged home soon. Physical Exam Vital Signs: Temp Pulse Resp BP Pulse Ox 98.8 F 66 20 131/70 H 90 L 11/30/16 12:15 11/30/16 12:15 11/30/16 12:15 11/30/16 12:15 11/30/16 12:15 Intake & Output 11/29/16 11/30/16 12/01/16 06:59 06:59 06:59 Intake Total 1030 837 360 Output Total 0 0 Balance 1030 837 360 Weight 72.6 kg 71.3 kg General appearance: PRESENT: no acute distress Respiratory exam: PRESENT: clear to auscultation lor. ABSENT: crackles, rhonchi Cardiovascular exam: PRESENT: +S1, +S2, systolic murmur GI/Abdominal exam: PRESENT: soft. ABSENT: distended, firm, mass, tenderness Neurological exam: PRESENT: alert, awake, oriented to person, oriented to place , oriented to time Results Laboratory Results: 11/30/16 06:51 11/30/16 06:51 11/30/16 11/30/16 06:51 06:51 WBC 3.5 L RBC 3.81 L Hgb 11.7 L Hct 34.8 L MCV 91 MCH 30.7 MCHC 33.6 RDW 15.4 H Plt Count 137 L Sodium 135.1 L Potassium 4.0 Chloride 90 L Carbon Dioxide 24 Anion Gap 21 H BUN 67 H Creatinine 11.12 H Est GFR ( Amer) 6 L Est GFR (Non-Af Amer) 5 L Glucose 119 H Calcium 8.5 Impressions: Head MRI 11/27/16 00:00 IMPRESSION: ATROPHY AND CHRONIC MICRO-VASCULAR ISCHEMIC CHANGES. OTHERWISE NORMAL MRI OF THE BRAIN WITHOUT INTRAVENOUS GADOLINIUM CONTRAST. Chest X-Ray 11/27/16 11:51 IMPRESSION: Left basilar densities as noted above. Cardiomegaly. Other findings as noted above Head CT 11/27/16 11:51 IMPRESSION: Spotty chronic white matter disease. No CT evidence of acute findings. Carotid Doppler Study 11/28/16 00:00 IMPRESSION: NO HEMODYNAMICALLY SIGNIFICANT STENOSIS. Assessment & Plan - Diagnosis (1) Hypertension associated with chronic kidney disease due to type 2 diabetes mellitus Is this a current diagnosis for this admission?: Yes (2) Pneumonia Qualifiers: Pneumonia type: due to unspecified organism Lung location: lower lobe of lung Is this a current diagnosis for this admission?: YesPlan: On Antibiotics. Cultures negative. (3) TIA (transient ischemic attack) Qualifiers: Transient cerebral ischemia type: unspecified Qualified Code(s): G45.9 - Transient cerebral ischemic attack, unspecified Is this a current diagnosis for this admission?: Yes (4) CKD (chronic kidney disease) stage V requiring chronic dialysis Plan: He is undergoing dialysis currently. No issues seen on dialysis. Orders as discussed with the treating dialysis nurse.
[2016-11-30 16:59] VITALS: BP 143/67
[2016-11-30] MEDS: AZITHROMYCIN 500 MG in DEXTROSE 5%-WATER 250 ML IV SCH (18:44)
[2016-11-30] MEDS: CEFTRIAXONE 1 GM/D5W RTU 1 GM/50 ML RTUPB IV SCH (18:44)
--- NOTE | 2016-12-01 14:52 | PDOC DISCHARGE SUMMARY ---
General - Admit/Disc Date/PCP Admission Date/Primary Care Provider: 11/28/16 12:54 FOZIA KINGSTON MD Discharge Date: 11/30/16 - Discharge Diagnosis (1) Pneumonia Is this a current diagnosis for this admission?: YesSummary: Continue another week of outpatient oral antibiotics. (2) Aphasia Is this a current diagnosis for this admission?: YesSummary: Completely resolved without recurrence and likely related to the high fever on presentation from the above. He has remained afebrile over the last 48 hours. (3) Chronic renal failure, stage 5 Is this a current diagnosis for this admission?: YesSummary: Resume his usual hemodialysis regimen per nephrology's instructions. (4) TIA (transient ischemic attack) Is this a current diagnosis for this admission?: YesSummary: Resolution of his symptoms, continue antiplatelet therapy as primary prophylaxis. (5) Type I diabetes mellitus Is this a current diagnosis for this admission?: Yes (6) Hypertension associated with chronic kidney disease due to type 2 diabetes mellitus Is this a current diagnosis for this admission?: Yes - Additional Information Resuscitation Status: Full Code Discharge Diet: Other (Comments) - RENAL Discharge Activity: Activity As Tolerated Home Medications: Amlodipine Besylate [Norvasc 10 mg Tablet] 10 mg PO DAILY 11/27/16 Aspirin [Aspirin 81 mg Chewable Tablet] 81 mg PO DAILY 11/27/16 B Complex & C No.20/Folic Acid [Renal Caps Softgel] 1 cap PO DAILY 11/27/16 Calcium Acetate [Phoslo 667 mg Capsule] 2 cap PO ASDIR PRN 11/27/16 Carvedilol [Coreg 25 mg Tablet] 25 mg PO Q12 11/27/16 Clonidine HCl [Catapres 0.1 mg Tablet] 0.1 mg PO Q8 11/27/16 Docusate Calcium [Stool Softener] 240 mg PO BID 11/27/16 Ferrous Sulfate 324 mg PO BID 11/27/16 Hydralazine HCl [Apresoline 25 mg Tablet] 25 mg PO Q8 11/27/16 Insulin Aspart [Novolog Insulin (Aspart) 100 unit/mL] 0 units SQ ASDIR PRN 11/27 Insulin Glargine,Hum.rec.anlog [Lantus] 10 units SQ QHS 11/27/16 Isosorbide Mononitrate [Imdur 60 mg Tablet.er] 60 mg PO DAILY 11/27/16 Losartan Potassium [Cozaar 100 mg Tablet] 100 mg PO QAM 11/27/16 Oxycodone HCl/Acetaminophen [Percocet 5-325 mg Tablet] 1 tab PO Q6HP PRN Pravastatin Sodium [Pravachol] 40 mg PO QHS 11/27/16 Acetaminophen [Tylenol 325 mg Tablet] 650 mg PO Q4HP PRN tablet 11/30/16 Azithromycin 500 mg PO DAILY #7 tablet 11/30/16 Cefdinir [Omnicef 300 mg Capsule] 1 cap PO Q48HS #5 capsule 11/30/16 History of Present Illness Patient complains of: ANASTASIA PERALTA is a 61 year old male who presents to the emergency department from hemodialysis when he suddenly became aphasic. History of Present Illness: He had just completed his usual session and showed no effects until he suddenly became unresponsive. Reportedly his eyes were open but he was having difficulty following commands and was nonverbal. Hospital Course Hospital Course: On arrival in the emergency department he was noted to be febrile at 102.3 and his aphasia gradually resolved since about time I saw him he was back to baseline. He remembers completing his dialysis and then having difficulty understanding what people were saying to him and getting his words out. He denies headache, vision changes, hearing changes, numbness tingling, difficulty swallowing, unilateral weakness and states she's never had anything like this before. He states he was in his usual state of health prior to this. He denies chest pain, palpitations, fever and chills prior today, cough with phlegm or shortness of breath. Chest x-ray shows possible left greater than right basilar airspace disease so we were asked to admit the patient for further evaluation of possible TIA and possible community acquired pneumonia. Patient was admitted to the hospital monitored overnight without any significant arrhythmias, his neurologic test through the night were normal. He has not had recurrence of his symptoms of aphasia. He continues to have at least low-grade fevers 100.8 for the first 24 hours. He underwent an MRI that was negative for acute ischemic disease. Carotid Dopplers show bilateral plaque but no hemodynamically significant stenosis. He was started on appropriate antibiotics for community-acquired pneumonia and gradually over the course of the next several days showed improvement in his respiratory status and decreased cough and phlegm and resolution of his fevers. Nephrology was consult and perform hemodialysis during his hospitalization anticipating return to his usual regimen at discharge. On the day of discharge the patient is back to baseline, he does complain of weakness which is common after his hemodialysis session, but he expresses no concerns to me about being discharged home today. Physical Exam Vital Signs: Temp Pulse Resp BP Pulse Ox 98.8 F 66 20 143/67 H 90 L 11/30/16 16:57 11/30/16 16:57 11/30/16 16:57 11/30/16 16:57 11/30/16 16:57 Intake & Output 11/30/16 12/01/16 12/02/16 06:59 06:59 06:59 Intake Total 837 537 Output Total 0 1800 Balance 837 -1263 Weight 71.3 kg PHYSICAL EXAM GENERAL: NAD; well developed, well nourished; no obese; alert and oriented to person, place, time, situation; speech clear and lucid. HEENT: normocephalic, atraumatic; EOMI, PERRLA, no conjunctival injection, no scleral icterus; oral mucosa moist, RESPIRATORY: no accessory muscle use, no increased WOB, good air entry bilaterally; no wheezes, rales, rhonchi; persistent bibasilar inspiratory crackles unchanged CARDIO: no JVD; RRR; no systolic murmur; no tachycardia VASCULAR: no carotid bruit; no abdominal bruit; no pallor; 2+ radial, DP pulse ; normal capillary refill; left arm AV fistula with palpable thrill and audible bruit GI: soft; nondistended; normal bowel sounds; no hepato spleno megaly; no rebound, rigidity, guarding; nontender NEURO: normal patella reflexes; normal sensation; normal motor function; no gait abnls, ambulating in the room without assistance; no dysarthria; MSK: 5/5 strength; normal ROM hips; no tenderness EXTREMITIES: no calf tender; no palpable cords in calf; no clubbing, cyanosis ; trace bilateral pedal edema PSYCH: normal affect, normal mood SKIN: warm; moist; no petechiae; no telengectasias; no jaundice; no rash Results Laboratory Results: 11/30/16 06:51 11/30/16 06:51 Impressions: Head MRI 11/27/16 00:00 IMPRESSION: ATROPHY AND CHRONIC MICRO-VASCULAR ISCHEMIC CHANGES. OTHERWISE NORMAL MRI OF THE BRAIN WITHOUT INTRAVENOUS GADOLINIUM CONTRAST. Chest X-Ray 11/27/16 11:51 IMPRESSION: Left basilar densities as noted above. Cardiomegaly. Other findings as noted above Head CT 11/27/16 11:51 IMPRESSION: Spotty chronic white matter disease. No CT evidence of acute findings. Carotid Doppler Study 11/28/16 00:00 IMPRESSION: NO HEMODYNAMICALLY SIGNIFICANT STENOSIS. Qualifiers PATEINT BEING DISCHARGED WITH ANY OF THE FOLLOWING DIAGNOSIS?: No VTE patient discharged on overlapping Therapy?: Yes Plan Discharge Plan: Follow-up with his PCP in one week, resume his usual hemodialysis regimen. Return to the emergency department for any change in his condition. Time Spent: Greater than 30 Minutes
== END 2016-11-30 19:28 | disposition home or self-care (01) | DRG 194 ==
LOC: ER 11:49 → EH 16:37 → INTOOBSV 16:37 → EH 16:45 → UNDOADMIN 16:45 → 3S 19:06 → OBSVTOIN 11-28 12:54
PROVIDERS: ADMIT Internal Medicine; ATTEND Internal Medicine
PROC: 5A1D00Z (ICD-10-PCS; principal; 2016-11-30)
DX: J18.9 Pneumonia, unspecified organism (principal); G45.9 Transient cerebral ischemic attack, unspecified; R47.01 Aphasia; N18.5 Chronic kidney disease, stage 5; I12.0 Hypertensive chronic kidney disease with stage 5 chronic kidney disease or end stage renal disease; E10.22 Type 1 diabetes mellitus with diabetic chronic kidney disease; Z99.2 Dependence on renal dialysis; Z79.4 Long term (current) use of insulin
CPT/HCPCS: 36415; 51701; 70450; 70551; 71010; 80048; 80053; 81001; 82550; 82553; 82962; 83605; 83735; 84100; 84484; 85025; 85027; 85610; 85730; 87040; 87804; 93005; 93010; 93880; 94799; 99291; G0378; J0456; J0696; J1644; J1815; J3490; J7060

== ENCOUNTER 2016-12-03 11:33 | Inpatient (IN) | payer OTHER, MEDICARE ==
[2016-12-03] MEDS ORDERED: NORMAL SALINE 1000 ML 1,000 ML IV ONE (11:55)
[2016-12-03 11:59] LABS: VENOUS BLOOD BASE EXCESS 4.7 mmol/L; VENOUS BLOOD HCO3 30.1 mmol/L (20-32); VENOUS BLOOD PH 7.42 (7.30-7.42)
[2016-12-03 12:00] LABS: ABSOLUTE BASOPHILS # (AUTO) 0.1 10^3/uL (0.0-0.2); ABSOLUTE EOSINOPHILS # (AUTO) 0.1 10^3/uL (0.0-0.6); ABSOLUTE LYMPHOCYTES (AUTO) 1.2 10^3/uL (0.5-4.7); EOSINOPHILS % (AUTO) 2.6 % (0-6); HEMATOCRIT 35.4 % (37.9-51.0); HEMOGLOBIN 11.7 g/dL (13.5-17.0); HGB HCT DIFFERENCE -0.3; LYMPHOCYTES % (AUTO) 21.6 % (13-45); MEAN CORPUSCULAR HEMOGLOBIN 30.3 pg (27.0-33.4); MEAN CORPUSCULAR VOLUME 92 fl (80-97); MONOCYTES % (AUTO) 19.3 % (3-13); RED BLOOD COUNT 3.85 10^6/uL (4.35-5.55); RED CELL DISTRIBUTION WIDTH 15.2 % (11.5-14.0); SEGMENTED NEUTROPHILS % (AUTO) 55.5 % (42-78); WHITE BLOOD COUNT 5.3 10^3/uL (4.0-10.5)
[2016-12-03 12:08] LABS: PROTHROMBIN TIME 14.4 SEC (11.4-15.4)
[2016-12-03 12:11] LABS: ALANINE AMINOTRANSFERASE 38 U/L (21-72); ALBUMIN 3.7 g/dL (3.5-5.0); ALKALINE PHOSPHATASE 72 U/L (38-126); ASPARTATE AMINO TRANSFERASE 26 U/L (17-59); BILIRUBIN,TOTAL 0.8 mg/dL (0.2-1.3); BLOOD UREA NITROGEN 55 mg/dL (7-20); CALCIUM 8.4 mg/dL (8.4-10.2); CHLORIDE 93 mmol/L (98-107); CREATININE RESULT 9.54 mg/dL (0.52-1.25); GLUCOSE 163 mg/dL (75-110); TOTAL PROTEIN 6.9 g/dL (6.3-8.2)
[2016-12-03 12:22] LABS: CARBON DIOXIDE 28 mmol/L (22-30); SODIUM 141.2 mmol/L (137-145)
[2016-12-03 12:29] LABS: ANION GAP 20 (5-19)
--- NOTE | 2016-12-03 12:42 | ER Document Report ---
ED General - General Chief Complaint: Respiratory Distress Stated Complaint: RESPIRATORY PROBLEMS Mode of Arrival: Medic Information source: Patient Notes: 61-year-old male history of dialysis who was recently admitted for pneumonia presents with complaints of shortness breath difficult to breathing. Patient notes that he was just discharged one week ago, denies any fevers or chills admits to difficulty breathing TRAVEL OUTSIDE OF THE [place] IN LAST 30 DAYS: No - HPI Onset: Last week Onset/Duration: Persistent Quality of pain: Achy Severity: Mild Pain Level: 1 Associated symptoms: Nonproductive cough, Shortness of breath Exacerbated by: Movement, Walking Relieved by: Denies Similar symptoms previously: Yes Recently seen / treated by doctor: Yes - Related Data Allergies/Adverse Reactions: No Known Allergies Allergy (Verified 11/17/14 17:17) Past Medical History - Social History Smoking Status: Current Every Day Smoker Cigarette use (# per day): Yes Chew tobacco use (# tins/day): No Smoking Education Provided: Yes - Patient counselled regarding cessation for 4 minutes Family History: None - Past Medical History Cardiac Medical History: Reports: Hx Coronary Artery Disease, Hx Heart Attack, Hx Hypercholesterolemia, Hx Hypertension Pulmonary Medical History: Denies: Hx Asthma, Hx Bronchitis, Hx COPD, Hx Pneumonia, Hx Tuberculosis Neurological Medical History: Denies: Hx Cerebrovascular Accident, Hx Seizures Endocrine Medical History: Reports: Hx Diabetes Mellitus Type 2 Renal/ Medical History: Reports: Hx End Stage Renal Disease - Stage V with dialysis, Hx Hemodialysis. Denies: Hx Peritoneal Dialysis - HEMODIALYSIS Musculoskeltal Medical History: Reports Hx Arthritis - generalized Psychiatric Medical History: Denies: Hx Depression Past Surgical History: Reports: Hx Cardiac Surgery - bypass 2012, 1 stent 2013, Hx Coronary Artery Bypass Graft, Hx Coronary Stent, Hx Orthopedic Surgery, Hx Vascular Surgery. Denies: Hx Pacemaker - Immunizations Immunizations up to date: Yes Hx Diphtheria, Pertussis, Tetanus Vaccination: Yes Hx Pneumococcal Vaccination: 07/07/14 Review of Systems - Review of Systems Notes: PHYSICAL EXAMINATION: GENERAL: Well-appearing, well-nourished and in mild respiratory distress hypotensive HEAD: Atraumatic, normocephalic. EYES: Pupils equal round and reactive to light, extraocular movements intact, sclera anicteric, conjunctiva are normal. ENT: Nares patent, oropharynx clear without exudates. Moist mucous membranes. NECK: Normal range of motion, supple without lymphadenopathy LUNGS: Coarse rhonchi all throughout HEART: Regular rate and rhythm without murmurs ABDOMEN: Soft, nontender, nondistended abdomen. No guarding, no rebound. No masses appreciated. Musculoskeletal: Normal range of motion, no pitting or edema. No cyanosis. NEUROLOGICAL: Cranial nerves grossly intact. Normal speech, normal gait. Normal sensory, motor exams PSYCH: Normal mood, normal affect. SKIN: Warm, Dry, normal turgor, no rashes or lesions noted. Physical Exam - Vital signs Vitals: Temp Pulse Resp BP Pulse Ox 97.4 F 63 21 H 84/57 L 100 12/03/16 11:58 12/03/16 11:58 12/03/16 11:58 12/03/16 11:58 12/03/16 11:58 Course - Re-evaluation Re-evalutation: 12/03/16 12:42 Patient was immediately put on BiPAP on arrival, expect CHF exacerbation secondary to chronic kidney disease patient did have dialysis on Saturday - Vital Signs Vital signs: Temp Pulse Resp BP Pulse Ox 97.4 F 60 21 H 93/57 L 100 12/03/16 11:58 12/03/16 12:25 12/03/16 11:58 12/03/16 12:25 12/03/16 12:25 - Laboratory Result Diagrams: 12/03/16 11:38 12/03/16 11:38 Laboratory results interpreted by me: 12/03/16 12/03/16 12/03/16 11:38 11:38 12:47 RBC 3.85 L Hgb 11.7 L Hct 35.4 L RDW 15.2 H Plt Count 146 L Monocytes % 19.3 H Chloride 93 L Anion Gap 20 H BUN 55 H Creatinine 9.54 H Est GFR ( Amer) 7 L Est GFR (Non-Af Amer) 6 L Glucose 163 H Urine Protein >=500 H Urine Blood SMALL H Critical Care Note - Critical Care Note Total time excluding time spent on procedures (mins): 37 Comments: minutes of critical care time spent in direct contact evaluating and reevaluating the patient, treating symptoms, reviewing labs and studies and speaking with family and consultants excluding any procedures Discharge - Discharge Clinical Impression: Chronic renal failure, stage 5 Hypotension Qualifiers: Hypotension type: unspecified hypotension type Qualified Code(s): I95.9 - Hypotension, unspecified Condition: Serious Disposition: ADMITTED INPATIENT Admitting Provider: Hospitalist Unit Admitted: ICU
[2016-12-03 13:17] LABS: APPEARANCE,URINE CLOUDY; BILIRUBIN,URINE NEGATIVE (NEGATIVE); GLUCOSE, URINE NEGATIVE (NEGATIVE); KETONES,URINE NEGATIVE (NEGATIVE); LEUKOCYTE ESTERASE,URINE NEGATIVE (NEGATIVE); NITRITE,URINE NEGATIVE (NEGATIVE); PROTEIN,URINE >=500 mg/dL (NEGATIVE); URINE SPECIFIC GRAVITY 1.019; UROBILINOGEN,URINE NEGATIVE mg/dL (<2.0)
[2016-12-03] MEDS ORDERED: GLUCAGON,HUMAN RECOMB 1 MG INJ IM PRN (13:49)
[2016-12-03] MEDS ORDERED: DEXTROSE 50%-WATER 25 GM/50 ML DISP.SYRIN IV PRN ×2 (13:49)
[2016-12-03] MEDS ORDERED: DEXTROSE 40% GEL 15 GM TUBE PO PRN ×2 (13:49)
[2016-12-03] MEDS ORDERED: ACETAMINOPHEN 325 MG TABLET PO PRN (13:54)
[2016-12-03] MEDS ORDERED: CEFEPIME 2 GM/D5W RTU 50 ML IV SCH (14:00)
[2016-12-03] MEDS: HEPARIN SOD (PORCINE) 5,000 UNIT/ML 1 ML SYRINGE SUBCUT SCH ×2 (15:31→22:45)
--- NOTE | 2016-12-03 15:33 | EKG REPORT ---
SEVERITY:- ABNORMAL ECG - SINUS RHYTHM INCOMPLETE RIGHT BUNDLE BRANCH BLOCK BORDERLINE INFERIOR Q WAVES PROBABLE ANTERIOR INFARCT, OLD : Confirmed by: Migue Marquez MD 03-Dec-2016 15:32:29
--- NOTE | 2016-12-03 16:10 | PDOC H&P ---
History of Present Illness Admission Date/PCP: 12/03/16 13:50 ESDRAS DE LA GARZA MD Patient complains of: shortness of breath and cough, weakness History of Present Illness: ANASTASIA PERALTA is a 61 year old male returns to the ED from home just 4 days removed from discharge from [place] after treatment of pneumonia with complaints of progressive SOA, cough productive of white phlegm, wheezing and fatigue. he denies the fevers that brought him to our attention a few days ago and has not had any recurrence of the aphasia either. he also reports never filling the Rx for the antibiotics I sent him home with to finish treatment for the pneumonia. he was seen in the [place] clinic earlier today and found hypoxic with RA sat of only 87% and low SBP in the 90's and was sent to the ED for further evaluation. here he remains hypotensive and hypoxic, placed on BiPAP for incrased WOB with good improvement in his condition and given 1L bolus of NS with stabilization of his BPs. we were asked to admit for further evaluation and management. Of note he is an end-stage renal disease patient of Dr. Lawrence and was dialyzed this past Saturday, apparently his dry weight was increased due to some borderline blood pressures at that time. He is normally dialyzed on Saturday. Past Medical History Cardiac Medical History: Reports: Coronary Artery Disease, Myocardial Infarction , Hyperlipidema, Hypertension Pulmonary Medical History: Denies: Asthma, Bronchitis, Chronic Obstructive Pulmonary Disease (COPD), Pneumonia, Tuberculosis Neurological Medical History: Denies: Seizures Endocrine Medical History: Reports: Diabetes Mellitus Type 2 Renal/ Medical History: Reports: End Stage Renal Disease - Stage V with dialysis Musculoskeltal Medical History: Reports: Arthritis - generalized Psychiatric Medical History: Denies: Depression Hematology: Reports: Anemia - currently Past Surgical History Past Surgical History: Reports: Coronary Artery Bypass Graft, Coronary Stent, Orthopedic Surgery, Vascular Surgery Denies: Pacemaker Social History Smoking Status: Current Every Day Smoker Frequency of Alcohol Use: None Hx Recreational Drug Use: No Drugs: None Hx Prescription Drug Abuse: No - Advance Directive Resuscitation Status: Full Code Family History Family History: None Parental Family History Reviewed: Yes Children Family History Reviewed: Yes Sibling(s) Family History Reviewed.: Yes Medication/Allergy Home Medications: Amlodipine Besylate [Norvasc 10 mg Tablet] 10 mg PO DAILY 11/27/16 Aspirin [Aspirin 81 mg Chewable Tablet] 81 mg PO DAILY 11/27/16 B Complex & C No.20/Folic Acid [Renal Caps Softgel] 1 cap PO DAILY 11/27/16 Calcium Acetate [Phoslo 667 mg Capsule] 2 cap PO ASDIR PRN 11/27/16 Carvedilol [Coreg 25 mg Tablet] 25 mg PO Q12 11/27/16 Clonidine HCl [Catapres 0.1 mg Tablet] 0.1 mg PO Q8 11/27/16 Docusate Calcium [Stool Softener] 240 mg PO BID 11/27/16 Ferrous Sulfate 324 mg PO BID 11/27/16 Hydralazine HCl [Apresoline 25 mg Tablet] 25 mg PO Q8 11/27/16 Insulin Aspart [Novolog Insulin (Aspart) 100 unit/mL] 0 units SQ ASDIR PRN 11/27 Insulin Glargine,Hum.rec.anlog [Lantus] 10 units SQ QHS 11/27/16 Isosorbide Mononitrate [Imdur 60 mg Tablet.er] 60 mg PO DAILY 11/27/16 Losartan Potassium [Cozaar 100 mg Tablet] 100 mg PO QAM 11/27/16 Oxycodone HCl/Acetaminophen [Percocet 5-325 mg Tablet] 1 tab PO Q6HP PRN Pravastatin Sodium [Pravachol] 40 mg PO QHS 11/27/16 Acetaminophen [Tylenol 325 mg Tablet] 650 mg PO Q4HP PRN tablet 11/30/16 Azithromycin 500 mg PO DAILY #7 tablet 11/30/16 Cefdinir [Omnicef 300 mg Capsule] 1 cap PO Q48HS #5 capsule 11/30/16 Allergies/Adverse Reactions: No Known Allergies Allergy (Verified 11/17/14 17:17) Review of Systems Constitutional: ABSENT: chills, fever(s), headache(s), weight gain, weight loss Eyes: ABSENT: visual disturbances Ears: ABSENT: hearing changes Cardiovascular: ABSENT: chest pain, dyspnea on exertion, edema, orthropnea, palpitations Respiratory: PRESENT: cough, dyspnea. ABSENT: hemoptysis Gastrointestinal: ABSENT: abdominal pain, constipation, diarrhea, hematemesis, hematochezia, nausea, vomiting Genitourinary: ABSENT: dysuria, hematuria Musculoskeletal: ABSENT: joint swelling Integumentary: ABSENT: rash, wounds Neurological: ABSENT: abnormal gait, abnormal speech, confusion, dizziness, focal weakness, syncope Psychiatric: ABSENT: anxiety, depression, homidical ideation, suicidal ideation Endocrine: ABSENT: cold intolerance, heat intolerance, polydipsia, polyuria Hematologic/Lymphatic: ABSENT: easy bleeding, easy bruising Physical Exam Vital Signs: Temp Pulse Resp BP Pulse Ox 97.4 F 60 25 H 89/57 L 100 12/03/16 11:58 12/03/16 12:25 12/03/16 14:01 12/03/16 13:31 12/03/16 14:01 PHYSICAL EXAM GENERAL: NAD; well developed, well nourished; no obese; alert and oriented to person, place, time, situation HEENT: normocephalic, atraumatic; EOMI, PERRLA, no conjunctival injection, no scleral icterus; oral mucosa dry; neck supple, no LAD, normal ROM RESPIRATORY: no accessory muscle use, mild increased WOB, good air entry bilaterally; no wheezes, rales, rhonchi; bilateral inspiratory crackles CARDIO: no JVD; no systolic murmur; no tachycardia VASCULAR: no carotid bruit; no pallor; 2+ radial, DP pulse; normal capillary refill GI: soft; nondistended; normal bowel sounds; no hepato spleno megaly; no rebound, rigidity, guarding; nontender NEURO: normal patella reflexes; normal motor function; no gait abnls; no dysarthria; no nystagmus; tongue protrudes midline; MSK: 5/5 strength; normal ROM hips; ambulatory assistance; no tenderness EXTREMITIES: no calf tender; no palpable cords in calf; no clubbing, cyanosis , bilateral trace pedal edema PSYCH: Very flat affect, stoic SKIN: warm; moist; no petechiae; no telengectasias; no jaundice; no rash Results Laboratory Results: 12/03/16 13:55 Lactic Acid 1.0 Labs reviewed, CBC shows WBCs of 5.3 H&H of 12 and 35, platelets of 146, blood gas shows a normal pH, serum chemistries show a normal sodium and potassium chloride and bicarbonate with an elevated anion gap and BUN/creatinine 55 and 9.5 Impressions: Chest X-Ray 12/03/16 11:38 IMPRESSION: Interval improvement as noted above. Chest CT 12/03/16 13:20 IMPRESSION: Bibasilar atelectasis or pneumonia along with small effusions left greater than right there is bilateral pleural thickening which is nonspecific. Status: Image reviewed by me - Agree with radiology Assessment & Plan - Diagnosis (1) Pneumonia Qualifiers: Pneumonia type: due to unspecified organism Lung location: lower lobe of lung Is this a current diagnosis for this admission?: YesPlan: Most likely he decompensated and required readmission to the hospital due to noncompliance with the prescription antibiotics provided. As a result of a shortened course, recent hospitalization and chronic exposure to medical field will cover with broad-spectrum antibiotics including cefepime and Levaquin in renal dosing. We have no indication of MRSA as his previous cultures were negative but would not hesitate to add coverage if he were to decompensate further. (2) Hypotension Qualifiers: Hypotension type: unspecified hypotension type Qualified Code(s): I95.9 - Hypotension, unspecified Is this a current diagnosis for this admission?: YesPlan: Maintaining euvolemic is problematic in this end-stage renal disease patient who makes little urine at baseline. We'll continue IV fluids for now in an effort to avoid vasopressors. (3) Chronic renal failure, stage 5 Is this a current diagnosis for this admission?: YesPlan: Consult Dr. Vallejo his primary gas line installer for dialysis recommendations. (4) Coronary atherosclerosis Is this a current diagnosis for this admission?: YesPlan: He does not endorse cardiac type chest pain and his EKG looks unchanged from just a week ago. Continue usual home regimen. Check echocardiogram for wall motion abnormalities and LV function. (5) Type I diabetes mellitus Qualifiers: Diabetes mellitus complication status: with kidney complications Diabetes mellitus complication detail: with chronic kidney disease Chronic kidney disease stage: on chronic dialysis Qualified Code(s): E10.22 - Type 1 diabetes mellitus with diabetic chronic kidney disease; N18.1 - Chronic kidney disease, stage 1 Is this a current diagnosis for this admission?: YesPlan: Continue his usual basal bolus regimen and monitor for effect. - Time Time Spent: 50 to 70 Minutes Medications reviewed and adjusted accordingly: Yes - Inpatient Certification Medical Necessity: Significant Comorbidiites Make Outpatient Treatment Too Risky , Need For IV Fluids, Need for IV Antibiotics, Risk of Complication if Not Cared For in Hospital
[2016-12-03] MEDS ORDERED: NORMAL SALINE 1000 ML 1,000 ML IV PRN (19:00)
[2016-12-03] MEDS: INSULIN LISPRO 100 UNIT/ML 3 ML VIAL SUBCUT PRN (22:45)
[2016-12-03] MEDS: GUAIFENESIN 600 MG TABLET.SA PO SCH (22:45)
[2016-12-03] MEDS: INSULIN GLARGINE,HUM.REC.ANLOG 300 UNIT/3 ML INSULN.PEN SUBCUT SCH (22:46)
[2016-12-03] MEDS: CEFEPIME 1 GM/D5W RTU 1 GM/50 ML RTUPB IV SCH (22:46)
[2016-12-04] MEDS: LANSOPRAZOLE 15 MG TAB.RAP.DR PO SCH (06:30)
[2016-12-04] MEDS: HEPARIN SOD (PORCINE) 5,000 UNIT/ML 1 ML SYRINGE SUBCUT SCH ×3 (06:30→22:31)
[2016-12-04 07:00] LABS: ABSOLUTE EOSINOPHILS # (AUTO) 0.2 10^3/uL (0.0-0.6); ABSOLUTE LYMPHOCYTES (AUTO) 1.3 10^3/uL (0.5-4.7); ABSOLUTE MONOCYTES (AUTO) 0.9 10^3/uL (0.1-1.4); ABSOLUTE NEUT (AUTO) 3.3 10^3/uL (1.7-8.2); BASOPHILS % (AUTO) 0.8 % (0-2); BLOOD UREA NITROGEN 63 mg/dL (7-20); CALCIUM 7.7 mg/dL (8.4-10.2); CREATININE RESULT 9.94 mg/dL (0.52-1.25); EOSINOPHILS % (AUTO) 3.5 % (0-6); GLUCOSE 57 mg/dL (75-110); HEMATOCRIT 33.7 % (37.9-51.0); HEMOGLOBIN 11.1 g/dL (13.5-17.0); HGB HCT DIFFERENCE -0.4; LYMPHOCYTES % (AUTO) 22.2 % (13-45); MEAN CORPUSCULAR HEMOGLOBIN 30.4 pg (27.0-33.4); MEAN CORPUSCULAR HGB CONC 32.9 g/dL (32.0-36.0); MEAN CORPUSCULAR VOLUME 93 fl (80-97); MONOCYTES % (AUTO) 15.4 % (3-13); RED BLOOD COUNT 3.64 10^6/uL (4.35-5.55); SEGMENTED NEUTROPHILS % (AUTO) 58.1 % (42-78); WHITE BLOOD COUNT 5.7 10^3/uL (4.0-10.5)
[2016-12-04 07:10] LABS: CARBON DIOXIDE 23 mmol/L (22-30); CHLORIDE 100 mmol/L (98-107); SODIUM 142.7 mmol/L (137-145)
[2016-12-04 07:12] LABS: ANION GAP 20 (5-19)
--- NOTE | 2016-12-04 08:03 | PDOC PROGRESS REPORT ---
Subjective Progress Note for:: 12/04/16 Subjective:: Patient is doing much better this morning His blood pressure stable Is sitting up with just nasal O2 and having breakfast ; he is scheduled later this morning for that for hemodialysis He has no chest pain no shortness of breath Physical Exam Vital Signs: Temp Pulse Resp BP Pulse Ox 97.8 F 76 17 118/58 L 98 12/03/16 21:51 12/03/16 18:16 12/04/16 07:01 12/04/16 07:01 12/04/16 07:01 Intake & Output 12/03/16 12/04/16 12/05/16 00:59 00:59 00:59 Weight 71.7 kg General appearance: PRESENT: no acute distress, cooperative Head exam: PRESENT: atraumatic, normocephalic Eye exam: PRESENT: conjunctiva pink, EOMI, PERRLA. ABSENT: scleral icterus Neck exam: ABSENT: carotid bruit, JVD, lymphadenopathy, thyromegaly Respiratory exam: PRESENT: decreased breath sounds, wheezes - At the bases bilaterally Decreased breath sounds. ABSENT: accessory muscle use Cardiovascular exam: PRESENT: RRR. ABSENT: diastolic murmur, rubs, systolic murmur Pulses: PRESENT: normal dorsalis pedis pul GI/Abdominal exam: PRESENT: normal bowel sounds, soft. ABSENT: distended, guarding, mass, organolmegaly, rebound, tenderness Rectal exam: PRESENT: deferred Extremities exam: PRESENT: full ROM. ABSENT: calf tenderness, clubbing, pedal edema Neurological exam: PRESENT: alert, awake, oriented to person, oriented to place , oriented to time, oriented to situation, CN II-XII grossly intact. ABSENT: motor sensory deficit Skin exam: PRESENT: dry, intact, warm. ABSENT: cyanosis, rash Results Laboratory Results: 12/04/16 06:26 12/04/16 06:26 12/03/16 12/04/16 12/04/16 13:55 06: 06:26 WBC 5.7 RBC 3.64 L Hgb 11.1 L Hct 33.7 L MCV 93 MCH 30.4 MCHC 32.9 RDW 16.0 H Plt Count 143 L Seg Neutrophils % 58.1 Lymphocytes % 22.2 Monocytes % 15.4 H Eosinophils % 3.5 Basophils % 0.8 Absolute Neutrophils 3.3 Absolute Lymphocytes 1.3 Absolute Monocytes 0.9 Absolute Eosinophils 0.2 Absolute Basophils 0.0 Sodium 142.7 Potassium 4.0 Chloride 100 Carbon Dioxide 23 Anion Gap 20 H BUN 63 H Creatinine 9.94 H Est GFR ( Amer) 6 L Est GFR (Non-Af Amer) 5 L Glucose 57 L Lactic Acid 1.0 Calcium 7.7 L Impressions: Chest X-Ray 12/03/16 11:38 IMPRESSION: Interval improvement as noted above. Chest CT 12/03/16 13:20 IMPRESSION: Bibasilar atelectasis or pneumonia along with small effusions left greater than right there is bilateral pleural thickening which is nonspecific. Assessment & Plan - Diagnosis (1) Hypotension Qualifiers: Hypotension type: unspecified hypotension type Qualified Code(s): I95.9 - Hypotension, unspecified Is this a current diagnosis for this admission?: YesPlan: Patient had transient hypotension and responded to IV fluids He did not need pressors ? "Could he have been dry " At this time we will discontinue IV fluids; and patient is scheduled for dialysis (2) Pneumonia Qualifiers: Pneumonia type: due to unspecified organism Lung location: lower lobe of lung Is this a current diagnosis for this admission?: YesPlan: Continue the present management We'll review antibiotic treatment Noted that during his past admission all cultures were negative (3) CKD (chronic kidney disease) stage V requiring chronic dialysis Is this a current diagnosis for this admission?: Yes (4) Coronary atherosclerosis Qualifiers: [place] vs. transplanted heart: [place] heart Associated angina: angina presence unspecified Is this a current diagnosis for this admission?: YesPlan: Patient has no chest pain This no evidence of an acute coronary syndrome (5) Type I diabetes mellitus Qualifiers: Diabetes mellitus complication status: with kidney complications Diabetes mellitus complication detail: with chronic kidney disease Chronic kidney disease stage: on chronic dialysis Qualified Code(s): E10.22 - Type 1 diabetes mellitus with diabetic chronic kidney disease; N18.1 - Chronic kidney disease, stage 1 Is this a current diagnosis for this admission?: YesPlan: Continue the present management - Time Time Spent with patient: We will downgrade the patient to CU Discuss dialysis with Dr. Vallejo Time Spent with patient: 25-34 minutes
[2016-12-04] MEDS: GUAIFENESIN 600 MG TABLET.SA PO SCH ×2 (10:32→22:32)
[2016-12-04] MEDS: IPRATROPIUM/ALBUTEROL 0.5-2.5 MG/3 ML AMPUL NEB PRN (11:13)
[2016-12-04] MEDS: INSULIN LISPRO 100 UNIT/ML 3 ML VIAL SUBCUT PRN ×2 (12:46→18:44)
[2016-12-04] MEDS: LEVOFLOXACIN 250 MG/D5W RTU 250 MG/50 ML RTUPB IV SCH (16:00)
--- NOTE | 2016-12-04 17:53 | XCELERA REPORT ---
[address] [address] Transthoracic Echocardiogram Report Name: ANASTASIA PERALTA Age: 61 yrs Gender: Male : 1955 Patient Status: Inpatient Patient Location: [id number]\S\315\S\A Study Date: 12/04/2016 03:16 PM Height: 68 in Weight: 158 lb BSA: 1.8 m2 Procedure: A complete two-dimensional transthoracic echocardiogram was performed (2D, M-mode, spectral and color flow Doppler). The study was technically difficult with many images being suboptimal in quality. Reason For Study: hypoxia and shock Ordering Physician: OTF HELM Performed By: Ariane Stahl Interpretation Summary The left ventricular ejection fraction is normal. Doppler measurements suggest pseudonormalized left ventricular relaxation, which is associated with grade II/IV or mild to moderate diastolic dysfunction Wall motion cannot be accurately commented on, but no definite regional wall motion abnormalities noted. There is mild concentric left ventricular hypertrophy. The left ventricle is grossly normal size. The right ventricular systolic function is normal. The left atrium is mildly dilated. The right atrium is mildly dilated. There is a mild to moderate amount of mitral regurgitation There is no mitral valve stenosis. No aortic regurgitation is present. There is no aortic valve stenosis There is a trace to mild amount of tricuspid regurgitation There is mild pulmonary hypertension by echo Right ventricular systolic pressure is estimated to be elevated at 30- 40mmHg. There is no pericardial effusion. MMode/2D Measurements \T\ Calculations RVDd: 3.3 cm LVIDd: 5.0 cmFS: 28.5 % Ao root diam: 2.8 cm IVSd: 1.3 cm LVIDs: 3.6 cmEDV(Teich): 117.8 ml LVPWd: 1.2 cmESV(Teich): 53.3 ml Ao root area: 6.3 cm2 EF(Teich): 54.8 % LA dimension: 4.1 cm LVOT diam: 2.0 cm LVOT area: 3.1 cm2 Doppler Measurements \T\ Calculations MV E max heber: MV P1/2t max heber: Ao V2 max: LV V1 max P.7 cm/sec 100.2 cm/sec 132.5 cm/sec 2.7 mmHg MV A max heber: MV P1/2t: 78.1 msec Ao max PG: LV V1 max: 89.3 cm/sec MVA(P1/2t): 2.8 cm2 7.0 mmHg 82.8 cm/sec MV E/A: 1.1 MV dec slope: KAYCEE(V,D): 1.9 cm2LV dP/dt: 375.7 cm/sec2 1010 mmHg/s PA V2 max: TR max heber: 77.0 cm/sec 285.1 cm/sec PA max PG: TR max P.5 mmHg 2.4 mmHg Left Ventricle The left ventricle is grossly normal size. There is mild concentric left ventricular hypertrophy. The left ventricular ejection fraction is normal. Doppler measurements suggest pseudonormalized left ventricular relaxation, which is associated with grade II/IV or mild to moderate diastolic dysfunction. Wall motion cannot be accurately commented on, but no definite regional wall motion abnormalities noted. Right Ventricle The right ventricle is grossly normal size. There is normal right ventricular wall thickness. The right ventricular systolic function is normal. Atria The right atrium is mildly dilated. The left atrium is mildly dilated. Interarterial septum not well visualized and not well dopplered. Cannot comment on ASD/PFO presence. Mitral Valve The mitral valve leaflets are sclerotic, but show no functional abnormalities. There is no mitral valve stenosis. There is a mild to moderate amount of mitral regurgitation. Aortic Valve The aortic valve is mildly calcified. There is no aortic valve stenosis. No aortic regurgitation is present. Tricuspid Valve The tricuspid valve is not well visualized secondary to technical limitations. There is no tricuspid stenosis. There is a trace to mild amount of tricuspid regurgitation. There is mild pulmonary hypertension by echo. Right ventricular systolic pressure is estimated to be elevated at 30-40mmHg. Pulmonic Valve The pulmonic valve is not well visualized. Great Vessels The aortic root is not well visualized. The inferior vena cava was not well visualized. Effusions There is no pericardial effusion. : OTF HELM > Fely Cordero
[2016-12-04] MEDS ORDERED: VANCOMYCIN HCL 1,000 MG in DEXTROSE 5%-WATER 250 ML IV ONE (22:00)
[2016-12-04] MEDS: INSULIN GLARGINE,HUM.REC.ANLOG 300 UNIT/3 ML INSULN.PEN SUBCUT SCH (22:28)
[2016-12-04] MEDS ORDERED: INSULIN GLARGINE,HUM.REC.ANLOG 1,000 UNIT/10 ML UNIT SUBCUT ONE (22:28)
[2016-12-04] MEDS: CEFEPIME 1 GM/D5W RTU 1 GM/50 ML RTUPB IV SCH (23:56)
[2016-12-05 04:56] LABS: ABSOLUTE EOSINOPHILS # (AUTO) 0.1 10^3/uL (0.0-0.6); ABSOLUTE MONOCYTES (AUTO) 0.8 10^3/uL (0.1-1.4); ABSOLUTE NEUT (AUTO) 4.1 10^3/uL (1.7-8.2); BASOPHILS % (AUTO) 0.7 % (0-2); EOSINOPHILS % (AUTO) 1.7 % (0-6); HEMATOCRIT 33.2 % (37.9-51.0); HGB HCT DIFFERENCE -0.2; LYMPHOCYTES % (AUTO) 16.9 % (13-45); MEAN CORPUSCULAR HEMOGLOBIN 30.4 pg (27.0-33.4); MEAN CORPUSCULAR HGB CONC 33.1 g/dL (32.0-36.0); MEAN CORPUSCULAR VOLUME 92 fl (80-97); MONOCYTES % (AUTO) 13.7 % (3-13); RED BLOOD COUNT 3.61 10^6/uL (4.35-5.55); RED CELL DISTRIBUTION WIDTH 15.2 % (11.5-14.0); WHITE BLOOD COUNT 6.1 10^3/uL (4.0-10.5)
[2016-12-05 05:06] LABS: BLOOD UREA NITROGEN 66 mg/dL (7-20); CALCIUM 8.1 mg/dL (8.4-10.2); CARBON DIOXIDE 22 mmol/L (22-30); CHLORIDE 102 mmol/L (98-107); CREATININE RESULT 11.14 mg/dL (0.52-1.25); GLUCOSE 95 mg/dL (75-110); POTASSIUM 3.8 mmol/L (3.6-5.0); SODIUM 143.7 mmol/L (137-145)
[2016-12-05 05:17] LABS: ANION GAP 20 (5-19)
[2016-12-05] MEDS: LANSOPRAZOLE 15 MG TAB.RAP.DR PO SCH (06:27)
[2016-12-05] MEDS: HEPARIN SOD (PORCINE) 5,000 UNIT/ML 1 ML SYRINGE SUBCUT SCH ×3 (06:27→22:38)
[2016-12-05] MEDS: IPRATROPIUM/ALBUTEROL 0.5-2.5 MG/3 ML AMPUL NEB PRN (08:44)
[2016-12-05] MEDS ORDERED: OXYCODONE-ACETAMINOPHEN 5-325 MG TABLET PO PRN (10:47)
--- NOTE | 2016-12-05 10:55 | PDOC PROGRESS REPORT ---
Subjective Progress Note for:: 12/05/16 Subjective:: Patient is undergoing dialysis He was somewhat dyspneic earlier today this morning, and his O2 sat was only 87 % on room air He is now on 2 L nasal cannula He has been wheezing on and off He has no chest pain no abdominal pain nausea vomiting no fever no chills Physical Exam Vital Signs: Temp Pulse Resp BP Pulse Ox 98.6 F 57 L 22 H 128/55 H 98 12/05/16 04:31 12/05/16 08:44 12/05/16 08:44 12/05/16 04:31 12/05/16 08:44 Intake & Output 12/04/16 12/05/16 12/06/16 00:59 00:59 00:59 Intake Total 1380 1009 Balance 1380 1009 Weight 73.3 kg 75.1 kg General appearance: PRESENT: no acute distress Head exam: PRESENT: atraumatic, normocephalic Eye exam: PRESENT: conjunctiva pink, EOMI, PERRLA. ABSENT: scleral icterus Neck exam: ABSENT: carotid bruit, JVD, lymphadenopathy, thyromegaly Respiratory exam: PRESENT: wheezes. ABSENT: accessory muscle use Cardiovascular exam: PRESENT: RRR. ABSENT: diastolic murmur, rubs, systolic murmur GI/Abdominal exam: PRESENT: normal bowel sounds, soft. ABSENT: distended, guarding, mass, organolmegaly, rebound, tenderness Extremities exam: PRESENT: full ROM. ABSENT: calf tenderness, clubbing, pedal edema Neurological exam: PRESENT: alert, awake, oriented to person, oriented to place , oriented to time, oriented to situation, CN II-XII grossly intact. ABSENT: motor sensory deficit Results Laboratory Results: 12/05/16 04:34 12/05/16 04:34 12/05/16 12/05/16 04:34 04:34 WBC 6.1 RBC 3.61 L Hgb 11.0 L Hct 33.2 L MCV 92 MCH 30.4 MCHC 33.1 RDW 15.2 H Plt Count 177 Seg Neutrophils % 67.0 Lymphocytes % 16.9 Monocytes % 13.7 H Eosinophils % 1.7 Basophils % 0.7 Absolute Neutrophils 4.1 Absolute Lymphocytes 1.0 Absolute Monocytes 0.8 Absolute Eosinophils 0.1 Absolute Basophils 0.0 Sodium 143.7 Potassium 3.8 Chloride 102 Carbon Dioxide 22 Anion Gap 20 H BUN 66 H Creatinine 11.14 H Est GFR ( Amer) 6 L Est GFR (Non-Af Amer) 5 L Glucose 95 Calcium 8.1 L Impressions: Chest X-Ray 12/03/16 11:38 IMPRESSION: Interval improvement as noted above. Chest CT 12/03/16 13:20 IMPRESSION: Bibasilar atelectasis or pneumonia along with small effusions left greater than right there is bilateral pleural thickening which is nonspecific. Assessment & Plan - Diagnosis (1) Hypotension Qualifiers: Hypotension type: unspecified hypotension type Qualified Code(s): I95.9 - Hypotension, unspecified Is this a current diagnosis for this admission?: YesPlan: Was likely secondary to dehydration has resolved Patient is morning is hypertensive and antihypertensive medications were resumed Dialysis is ongoing (2) Pneumonia Qualifiers: Pneumonia type: due to unspecified organism Lung location: lower lobe of lung Is this a current diagnosis for this admission?: YesPlan: Hospital-acquired pneumonia We will continue treatment with cefepime and vancomycin and Levaquin Sputum for culture pending (3) CKD (chronic kidney disease) stage V requiring chronic dialysis Is this a current diagnosis for this admission?: YesPlan: Continue dialysis Saturday and Saturday during hospitalization (4) Coronary atherosclerosis Qualifiers: [place] vs. transplanted heart: [place] heart Associated angina: angina presence unspecified Is this a current diagnosis for this admission?: Yes (5) Type I diabetes mellitus Qualifiers: Diabetes mellitus complication status: with kidney complications Diabetes mellitus complication detail: with chronic kidney disease Chronic kidney disease stage: on chronic dialysis Qualified Code(s): E10.22 - Type 1 diabetes mellitus with diabetic chronic kidney disease; N18.1 - Chronic kidney disease, stage 1 Is this a current diagnosis for this admission?: YesPlan: Blood sugars are running low will hold Lantus (6) COPD exacerbation Is this a current diagnosis for this admission?: YesPlan: Patient is a heavy smoker he has a lot of wheezing COPD exacerbation is contributing to hypoxemia We will add steroids and continue nebs - Time Time Spent with patient: We will keep the patient in the hospital for another 24-48 hours until stable Time Spent with patient: 25-34 minutes
[2016-12-05] MEDS ORDERED: CLONIDINE HCL 0.1 MG TABLET PO ONE (12:00)
[2016-12-05] MEDS ORDERED: CARVEDILOL 12.5 MG TABLET PO ONE (12:00)
[2016-12-05] MEDS ORDERED: PREDNISONE 20 MG TABLET PO ONE (12:00)
[2016-12-05] MEDS ORDERED: AMLODIPINE BESYLATE 10 MG TABLET PO ONE (12:30)
[2016-12-05] MEDS ORDERED: ISOSORBIDE MONONITRATE 60 MG TAB.ER.24H PO ONE (12:30)
[2016-12-05] MEDS: GUAIFENESIN 600 MG TABLET.SA PO SCH ×2 (13:15→22:38)
[2016-12-05] MEDS: LEVOFLOXACIN 250 MG/D5W RTU 250 MG/50 ML RTUPB IV SCH (15:41)
[2016-12-05] MEDS: HYDRALAZINE HCL 25 MG TABLET PO SCH ×2 (15:41→22:38)
--- NOTE | 2016-12-05 16:17 | PDOC PROGRESS REPORT ---
Subjective Progress Note for:: 12/05/16 Subjective:: was just admitted and discharged just a few days days ago with a diagnosis of pneumonia and possible TIA. He has been readmitted with history of shortness of breath and wheezing and hypoxia when he was seen at the [facility]. Evaluations in the ER here revealed that the patient was not only hypoxic but he was also hypotensive. He had a normal white count. Chest x-ray showed bilateral atelectasis and possible pneumonia. He was fluid resuscitated and began on antibiotics and has been admitted for further evaluations and management. I have been reconsulted to take care of his dialysis needs.Reviewed all his medications and labs. Patient presently feels comfortable. He denies any history of chest pains fever chills. Patient is being seen on hemodialysis. Dialysis orders were discussed with the treating nurse. He is undergoing dialysis without any issues. We will not try to extract much fluid off him and may be try for may be a liter as tolerated. Physical Exam Vital Signs: Temp Pulse Resp BP Pulse Ox 98.4 F 63 16 123/66 92 12/05/16 13:07 12/05/16 13:07 12/05/16 13:07 12/05/16 13:07 12/05/16 13:07 Intake & Output 12/04/16 12/05/16 12/06/16 06:59 06:59 06:59 Intake Total 2389 Balance 2389 Weight 71.7 kg 75.1 kg General appearance: PRESENT: no acute distress Respiratory exam: PRESENT: clear to auscultation lor, decreased breath sounds, rhonchi - Few scattered.. ABSENT: crackles Cardiovascular exam: PRESENT: +S1, +S2 GI/Abdominal exam: PRESENT: soft. ABSENT: mass, tenderness Extremities exam: ABSENT: pedal edema Neurological exam: PRESENT: alert, awake, oriented to person, oriented to place , oriented to time Skin exam: PRESENT: dry. ABSENT: cyanosis, mottled, rash Results Laboratory Results: 12/05/16 04:34 12/05/16 04:34 12/05/16 12/05/16 04:34 04:34 WBC 6.1 RBC 3.61 L Hgb 11.0 L Hct 33.2 L MCV 92 MCH 30.4 MCHC 33.1 RDW 15.2 H Plt Count 177 Seg Neutrophils % 67.0 Lymphocytes % 16.9 Monocytes % 13.7 H Eosinophils % 1.7 Basophils % 0.7 Absolute Neutrophils 4.1 Absolute Lymphocytes 1.0 Absolute Monocytes 0.8 Absolute Eosinophils 0.1 Absolute Basophils 0.0 Sodium 143.7 Potassium 3.8 Chloride 102 Carbon Dioxide 22 Anion Gap 20 H BUN 66 H Creatinine 11.14 H Est GFR ( Amer) 6 L Est GFR (Non-Af Amer) 5 L Glucose 95 Calcium 8.1 L Impressions: Chest X-Ray 12/03/16 11:38 IMPRESSION: Interval improvement as noted above. Chest CT 12/03/16 13:20 IMPRESSION: Bibasilar atelectasis or pneumonia along with small effusions left greater than right there is bilateral pleural thickening which is nonspecific. Assessment & Plan - Diagnosis (1) Respiratory failure Plan: On oxygen. He has been begun on steroids. Discussed with Dr. Fountain also discussed with her the possibility of excluding pulmonary embolism. We have begun him for also hospital-acquired pneumonia coverage and the vancomycin was given to him the other day. We will continue on vancomycin maintenance postdialysis. I also did discuss with Dr. Horton for evaluation towards evaluation and exclusion of possible pulmonary embolism. Unfortunately his CT scan done yesterday was without contrast. We will go ahead and order a VQ scan to (2) Hypotension Qualifiers: Hypotension type: unspecified hypotension type Qualified Code(s): I95.9 - Hypotension, unspecified Is this a current diagnosis for this admission?: YesPlan: stable post fluid resuscitation. Continue to monitor. Need to exclude pulmonary embolism. I discussed with the hospitalist (3) Pneumonia Qualifiers: Pneumonia type: due to unspecified organism Lung location: lower lobe of lung Is this a current diagnosis for this admission?: YesPlan: On appropriate antibiotics and and have also included vancomycin for hospital acquired pneumonia as well. (4) CKD (chronic kidney disease) stage V requiring chronic dialysis Is this a current diagnosis for this admission?: YesPlan: Patient undergoing dialysis without any issues. Orders were discussed with the treating nurse. Will not remove much fluid. He is on a 3K bath.
[2016-12-05] MEDS: DOCUSATE SODIUM 100 MG CAPSULE PO SCH (17:30)
[2016-12-05] MEDS: FERROUS SULFATE 325 MG TABLET PO SCH (17:30)
[2016-12-05] MEDS: INSULIN LISPRO 100 UNIT/ML 3 ML VIAL SUBCUT PRN ×2 (17:31→22:50)
[2016-12-05] MEDS ORDERED: VANCOMYCIN HCL 750 MG in DEXTROSE 5%-WATER 250 ML IV SCH (18:00)
[2016-12-05] MEDS ORDERED: (PENDING PHARMACY ID) (Docusate Calcium [Stool Softener] 240 MG) PO SCH (18:00)
[2016-12-05] MEDS ORDERED: (PENDING PHARMACY ID) (Ferrous Sulfate [Ferrous Sulfate] 324 MG) PO SCH (18:00)
[2016-12-05] MEDS ORDERED: (PENDING PHARMACY ID) (Pravastatin Sodium [Pravachol] 40 MG) PO SCH (22:00)
[2016-12-05] MEDS: ATORVASTATIN CALCIUM 10 MG TABLET PO SCH (22:37)
[2016-12-05] MEDS: CARVEDILOL 12.5 MG TABLET PO SCH (22:37)
[2016-12-05] MEDS: CEFEPIME 1 GM/D5W RTU 1 GM/50 ML RTUPB IV SCH (22:38)
[2016-12-05] MEDS: CLONIDINE HCL 0.1 MG TABLET PO SCH (22:38)
[2016-12-05] MEDS: INSULIN GLARGINE,HUM.REC.ANLOG 300 UNIT/3 ML INSULN.PEN SUBCUT SCH (22:45)
[2016-12-06] MEDS: FERROUS SULFATE 325 MG TABLET PO SCH ×2 (06:07→18:56)
[2016-12-06] MEDS: LANSOPRAZOLE 15 MG TAB.RAP.DR PO SCH (06:07)
[2016-12-06] MEDS: HYDRALAZINE HCL 25 MG TABLET PO SCH ×2 (06:08→13:40)
[2016-12-06] MEDS: CLONIDINE HCL 0.1 MG TABLET PO SCH ×2 (06:08→13:40)
[2016-12-06] MEDS: HEPARIN SOD (PORCINE) 5,000 UNIT/ML 1 ML SYRINGE SUBCUT SCH ×3 (06:08→22:30)
[2016-12-06 06:32] LABS: ABSOLUTE LYMPHOCYTES (AUTO) 0.6 10^3/uL (0.5-4.7); ABSOLUTE MONOCYTES (AUTO) 0.7 10^3/uL (0.1-1.4); ABSOLUTE NEUT (AUTO) 5.2 10^3/uL (1.7-8.2); BASOPHILS % (AUTO) 0.3 % (0-2); EOSINOPHILS % (AUTO) 0.1 % (0-6); HEMATOCRIT 34.5 % (37.9-51.0); HEMOGLOBIN 11.6 g/dL (13.5-17.0); HGB HCT DIFFERENCE 0.3; LYMPHOCYTES % (AUTO) 8.7 % (13-45); MEAN CORPUSCULAR HEMOGLOBIN 30.9 pg (27.0-33.4); MEAN CORPUSCULAR HGB CONC 33.5 g/dL (32.0-36.0); MEAN CORPUSCULAR VOLUME 92 fl (80-97); MONOCYTES % (AUTO) 11.1 % (3-13); RED BLOOD COUNT 3.75 10^6/uL (4.35-5.55); RED CELL DISTRIBUTION WIDTH 15.7 % (11.5-14.0); SEGMENTED NEUTROPHILS % (AUTO) 79.8 % (42-78); WHITE BLOOD COUNT 6.5 10^3/uL (4.0-10.5)
[2016-12-06] MEDS: LOSARTAN POTASSIUM 50 MG TABLET PO SCH (08:39)
[2016-12-06] MEDS: INSULIN LISPRO 100 UNIT/ML 3 ML VIAL SUBCUT PRN ×4 (08:40→22:32)
[2016-12-06] MEDS ORDERED: AZITHROMYCIN 500 MG PO SCH (10:00)
--- NOTE | 2016-12-06 10:47 | PDOC PROGRESS REPORT ---
Subjective Progress Note for:: 12/06/16 Subjective:: Patient is certainly doing a much better today He has minimal shortness of breath no chest pain He is oxygenating adequately on room air at rest Lung scan vent ventilation perfusion was negative for PE Physical Exam Vital Signs: Temp Pulse Resp BP Pulse Ox 97.9 F 64 19 111/52 L 93 12/06/16 07:43 12/06/16 07:43 12/06/16 07:43 12/06/16 07:43 12/06/16 07:43 Intake & Output 12/05/16 12/06/16 12/07/16 00:59 00:59 00:59 Intake Total 1380 1732 85 Output Total 1000 Balance 1380 732 85 Weight 73.3 kg 75.1 kg 75 kg General appearance: PRESENT: no acute distress, well-developed, well-nourished Head exam: PRESENT: atraumatic, normocephalic Eye exam: PRESENT: conjunctiva pink, EOMI, PERRLA. ABSENT: scleral icterus Ear exam: PRESENT: normal external ear exam Mouth exam: PRESENT: moist, tongue midline Neck exam: ABSENT: carotid bruit, JVD, lymphadenopathy, thyromegaly Respiratory exam: PRESENT: clear to auscultation lor. ABSENT: rales, rhonchi, wheezes Cardiovascular exam: PRESENT: RRR. ABSENT: diastolic murmur, rubs, systolic murmur Pulses: PRESENT: normal dorsalis pedis pul Vascular exam: PRESENT: normal capillary refill GI/Abdominal exam: PRESENT: normal bowel sounds, soft. ABSENT: distended, guarding, mass, organolmegaly, rebound, tenderness Rectal exam: PRESENT: deferred Extremities exam: PRESENT: full ROM. ABSENT: calf tenderness, clubbing, pedal edema Neurological exam: PRESENT: alert, awake, oriented to person, oriented to place , oriented to time, oriented to situation, CN II-XII grossly intact. ABSENT: motor sensory deficit Psychiatric exam: PRESENT: appropriate affect, normal mood. ABSENT: homicidal ideation, suicidal ideation Skin exam: PRESENT: dry, intact, warm. ABSENT: cyanosis, rash Results Laboratory Results: 12/06/16 06:00 12/05/16 04:34 12/06/16 06:00 WBC 6.5 RBC 3.75 L Hgb 11.6 L Hct 34.5 L MCV 92 MCH 30.9 MCHC 33.5 RDW 15.7 H Plt Count 239 Seg Neutrophils % 79.8 H Lymphocytes % 8.7 L Monocytes % 11.1 Eosinophils % 0.1 Basophils % 0.3 Absolute Neutrophils 5.2 Absolute Lymphocytes 0.6 Absolute Monocytes 0.7 Absolute Eosinophils 0.0 Absolute Basophils 0.0 Impressions: Chest X-Ray 12/03/16 11:38 IMPRESSION: Interval improvement as noted above. Chest CT 12/03/16 13:20 IMPRESSION: Bibasilar atelectasis or pneumonia along with small effusions left greater than right there is bilateral pleural thickening which is nonspecific. Lung Scan-VQ NM 12/05/16 16:02 IMPRESSION: There is mismatch between the ventilation and perfusion due to low likely intrinsic lung disease/respiratory effort. There is homogeneous distribution of the SMA in the lungs therefore need no evidence of pulmonary embolus. Assessment & Plan - Diagnosis (1) Hypotension Qualifiers: Hypotension type: unspecified hypotension type Qualified Code(s): I95.9 - Hypotension, unspecified Is this a current diagnosis for this admission?: YesPlan: Likely to be secondary to dehydration and early sepsis has resolved (2) Pneumonia Qualifiers: Pneumonia type: due to unspecified organism Lung location: lower lobe of lung Is this a current diagnosis for this admission?: YesPlan: bibasilar infiltrates Patient is treated as hospital-acquired pneumonia with broad-spectrum antibiotic including vancomycin We will continue 24 hours of IV antibiotic Blood cultures were negative (3) CKD (chronic kidney disease) stage V requiring chronic dialysis Is this a current diagnosis for this admission?: YesPlan: Patient is scheduled for dialysis tomorrow; we will send him home after dialysis if stable (4) Coronary atherosclerosis Qualifiers: [place] vs. transplanted heart: [place] heart Associated angina: angina presence unspecified Is this a current diagnosis for this admission?: Yes (5) Type I diabetes mellitus Qualifiers: Diabetes mellitus complication status: with kidney complications Diabetes mellitus complication detail: with chronic kidney disease Chronic kidney disease stage: on chronic dialysis Qualified Code(s): E10.22 - Type 1 diabetes mellitus with diabetic chronic kidney disease; N18.1 - Chronic kidney disease, stage 1 Is this a current diagnosis for this admission?: YesPlan: Continue insulin regimen (6) COPD exacerbation Is this a current diagnosis for this admission?: YesPlan: Continue nebs and steroids
[2016-12-06] MEDS: DOCUSATE SODIUM 100 MG CAPSULE PO SCH ×2 (10:49→18:56)
[2016-12-06] MEDS: ASPIRIN 81 MG TABLET, CHEWABLE PO SCH (10:49)
[2016-12-06] MEDS: AZITHROMYCIN 250 MG TABLET PO SCH (10:49)
[2016-12-06] MEDS: GUAIFENESIN 600 MG TABLET.SA PO SCH ×2 (10:50→22:34)
[2016-12-06] MEDS: PREDNISONE 20 MG TABLET PO SCH (10:50)
[2016-12-06] MEDS: CARVEDILOL 12.5 MG TABLET PO SCH (10:50)
[2016-12-06] MEDS: ISOSORBIDE MONONITRATE 60 MG TAB.ER.24H PO SCH (10:50)
[2016-12-06] MEDS: AMLODIPINE BESYLATE 10 MG TABLET PO SCH (10:50)
[2016-12-06] MEDS: INSULIN GLARGINE,HUM.REC.ANLOG 300 UNIT/3 ML INSULN.PEN SUBCUT SCH (22:00)
[2016-12-06] MEDS: ATORVASTATIN CALCIUM 10 MG TABLET PO SCH (22:33)
[2016-12-06] MEDS: CEFEPIME 1 GM/D5W RTU 1 GM/50 ML RTUPB IV SCH (22:35)
[2016-12-07] MEDS: CLONIDINE HCL 0.1 MG TABLET PO SCH ×3 (01:35→14:36)
[2016-12-07] MEDS: HYDRALAZINE HCL 25 MG TABLET PO SCH ×3 (01:35→14:36)
[2016-12-07] MEDS: CARVEDILOL 12.5 MG TABLET PO SCH ×2 (01:35→14:36)
[2016-12-07 05:24] LABS: HEMATOCRIT 29.6 % (37.9-51.0); HEMOGLOBIN 9.9 g/dL (13.5-17.0); HGB HCT DIFFERENCE 0.1; MEAN CORPUSCULAR HEMOGLOBIN 30.7 pg (27.0-33.4); MEAN CORPUSCULAR HGB CONC 33.6 g/dL (32.0-36.0); MEAN CORPUSCULAR VOLUME 92 fl (80-97); RED BLOOD COUNT 3.24 10^6/uL (4.35-5.55); RED CELL DISTRIBUTION WIDTH 15.4 % (11.5-14.0); WHITE BLOOD COUNT 9.7 10^3/uL (4.0-10.5)
[2016-12-07 05:56] LABS: BLOOD UREA NITROGEN 53 mg/dL (7-20); CREATININE RESULT 8.38 mg/dL (0.52-1.25); GLUCOSE 228 mg/dL (75-110)
[2016-12-07 06:09] LABS: ANION GAP 17 (5-19); CARBON DIOXIDE 24 mmol/L (22-30); CHLORIDE 95 mmol/L (98-107); POTASSIUM 4.1 mmol/L (3.6-5.0); SODIUM 136.3 mmol/L (137-145)
[2016-12-07] MEDS: LOSARTAN POTASSIUM 50 MG TABLET PO SCH (08:14)
[2016-12-07] MEDS: HEPARIN SOD (PORCINE) 5,000 UNIT/ML 1 ML SYRINGE SUBCUT SCH ×2 (08:14→14:36)
[2016-12-07] MEDS: FERROUS SULFATE 325 MG TABLET PO SCH (08:14)
[2016-12-07] MEDS: LANSOPRAZOLE 15 MG TAB.RAP.DR PO SCH (08:14)
[2016-12-07] MEDS ORDERED: LEVOFLOXACIN 500 MG TABLET PO SCH (10:00)
[2016-12-07] MEDS ORDERED: EPOETIN ALFA 10,000 UNIT in SYRINGE, DISPOSABLE, 1 EACH IV PRN (12:30)
[2016-12-07 13:41] VITALS: BP 129/66
[2016-12-07] MEDS: ISOSORBIDE MONONITRATE 60 MG TAB.ER.24H PO SCH (14:36)
[2016-12-07] MEDS: AMLODIPINE BESYLATE 10 MG TABLET PO SCH (14:36)
[2016-12-07] MEDS: DOCUSATE SODIUM 100 MG CAPSULE PO SCH (14:39)
[2016-12-07] MEDS: ASPIRIN 81 MG TABLET, CHEWABLE PO SCH (14:39)
[2016-12-07] MEDS: GUAIFENESIN 600 MG TABLET.SA PO SCH (14:39)
[2016-12-07] MEDS: PREDNISONE 20 MG TABLET PO SCH (14:40)
[2016-12-07] MEDS: AZITHROMYCIN 250 MG TABLET PO SCH (14:40)
--- NOTE | 2016-12-08 17:36 | PDOC DISCHARGE SUMMARY ---
General - Admit/Disc Date/PCP Admission Date/Primary Care Provider: 12/03/16 13:50 ESDRAS DE LA GARZA MD Discharge Date: 12/07/16 - Discharge Diagnosis (1) Hypotension Is this a current diagnosis for this admission?: YesSummary: Patient responded to IV fluids He did not need pressors And his blood pressures remained stable after fluid boluses Hypotension was secondary to early sepsis and dehydration (2) Pneumonia Is this a current diagnosis for this admission?: YesSummary: Chest CT showed bibasilar infiltrates Patient was treated with broad-spectrum antibiotics initially Cultures were negative He was discharged on Levaquin His condition improved (3) CKD (chronic kidney disease) stage V requiring chronic dialysis Is this a current diagnosis for this admission?: YesSummary: Patient continued hemodialysis during his admission (4) Coronary atherosclerosis Is this a current diagnosis for this admission?: Yes (5) Type I diabetes mellitus Is this a current diagnosis for this admission?: YesSummary: His home regimen was continued (6) COPD exacerbation Is this a current diagnosis for this admission?: YesSummary: Patient was treated with nebs and improved - Additional Information Resuscitation Status: Full Code Discharge Activity: Activity As Tolerated, Balance Activity w/Rest Home Medications: Amlodipine Besylate [Norvasc 10 mg Tablet] 10 mg PO DAILY 11/27/16 Aspirin [Aspirin 81 mg Chewable Tablet] 81 mg PO DAILY 11/27/16 B Complex & C No.20/Folic Acid [Renal Caps Softgel] 1 cap PO DAILY 11/27/16 Calcium Acetate [Phoslo 667 mg Capsule] 2 cap PO ASDIR PRN 11/27/16 Carvedilol [Coreg 25 mg Tablet] 25 mg PO Q12 11/27/16 Clonidine HCl [Catapres 0.1 mg Tablet] 0.1 mg PO Q8 11/27/16 Docusate Calcium [Stool Softener] 240 mg PO BID 11/27/16 Ferrous Sulfate 324 mg PO BID 11/27/16 Hydralazine HCl [Apresoline 25 mg Tablet] 25 mg PO Q8 11/27/16 Insulin Aspart [Novolog Insulin (Aspart) 100 unit/mL] 0 units SQ ASDIR PRN 11/27 Insulin Glargine,Hum.rec.anlog [Lantus] 10 units SQ QHS 11/27/16 Isosorbide Mononitrate [Imdur 60 mg Tablet.er] 60 mg PO DAILY 11/27/16 Losartan Potassium [Cozaar 100 mg Tablet] 100 mg PO QAM 11/27/16 Oxycodone HCl/Acetaminophen [Percocet 5-325 mg Tablet] 1 tab PO Q6HP PRN Pravastatin Sodium [Pravachol] 40 mg PO QHS 11/27/16 Acetaminophen [Tylenol 325 mg Tablet] 650 mg PO Q4HP PRN tablet 11/30/16 Levofloxacin [Levaquin 500 mg Tablet] 500 mg PO Q2D@1000 #5 tablet 12/07/16 History of Present Illness Patient complains of: shotness of breath ; hypotension History of Present Illness: ANASTASIA PERALTA is a 61 year old male returns to the ED from home just 4 days removed from discharge from [place] after treatment of pneumonia with complaints of progressive SOB, cough productive of white phlegm, wheezing and fatigue. he denies the fevers that brought him to our attention a few days ago and has not had any recurrence of the aphasia either. he also reports never filling the Rx for the antibiotics I sent him home with to finish treatment for the pneumonia. he was seen in the [place] clinic earlier today and found hypoxic with RA sat of only 87% and low SBP in the 90's and was sent to the ED for further evaluation. here he remains hypotensive and hypoxic, placed on BiPAP for incrased WOB with good improvement in his condition and given 1L bolus of NS with stabilization of his BPs. we were asked to admit for further evaluation and management. Of note he is an end-stage renal disease patient of Dr. Coleys and was dialyzed this past Saturday, apparently his dry weight was increased due to some borderline blood pressures at that time. He is normally dialyzed on Saturday. Hospital Course Hospital Course: Patient was admitted with hypotension, pneumonia and early sepsis He did improve during her short stay in the hospital A lung scan ventilation perfusion was negative for PE A CT of the chest was consistent with bibasilar pneumonia All cultures remained negative Patient was discharged on Levaquin Physical Exam Vital Signs: Temp Pulse Resp BP Pulse Ox 98.4 F 80 16 129/66 H 92 12/07/16 14:46 12/07/16 14:46 12/07/16 14:46 12/07/16 14:46 12/07/16 14:46 Intake & Output 12/07/16 12/08/16 12/09/16 00:59 00:59 00:59 Intake Total 566 5 Output Total 1999 Balance 566 -1994 Weight 75 kg 76 kg General appearance: PRESENT: no acute distress, well-developed, well-nourished Head exam: PRESENT: atraumatic, normocephalic Eye exam: PRESENT: conjunctiva pink, EOMI, PERRLA. ABSENT: scleral icterus Ear exam: PRESENT: normal external ear exam Mouth exam: PRESENT: moist, tongue midline Neck exam: ABSENT: carotid bruit, JVD, lymphadenopathy, thyromegaly Respiratory exam: PRESENT: clear to auscultation lor. ABSENT: rales, rhonchi, wheezes Cardiovascular exam: PRESENT: RRR. ABSENT: diastolic murmur, rubs, systolic murmur Pulses: PRESENT: normal dorsalis pedis pul Vascular exam: PRESENT: normal capillary refill GI/Abdominal exam: PRESENT: normal bowel sounds, soft. ABSENT: distended, guarding, mass, organolmegaly, rebound, tenderness Rectal exam: PRESENT: deferred Extremities exam: PRESENT: full ROM. ABSENT: calf tenderness, clubbing, pedal edema Neurological exam: PRESENT: alert, awake, oriented to person, oriented to place , oriented to time, oriented to situation, CN II-XII grossly intact. ABSENT: motor sensory deficit Psychiatric exam: PRESENT: appropriate affect, normal mood. ABSENT: homicidal ideation, suicidal ideation Skin exam: PRESENT: dry, intact, warm. ABSENT: cyanosis, rash Results Laboratory Results: 12/07/16 05:03 12/07/16 05:03 12/03/16 13:55 Blood Blood Culture - Final NO GROWTH IN 5 DAYS 12/07/16 05:03 12/07/16 05:03 MCV 92 fl (80-97) 12/07/16 05:03 MCH 30.7 pg (27.0-33.4) 12/07/16 05:03 MCHC 33.6 g/dL (32.0-36.0) 12/07/16 05:03 RDW 15.4 % (11.5-14.0) H 12/07/16 05:03 Seg Neutrophils % 79.8 % (42-78) H 12/06/16 06:00 Lymphocytes % 8.7 % (13-45) L 12/06/16 06:00 Monocytes % 11.1 % (3-13) 12/06/16 06:00 Eosinophils % 0.1 % (0-6) 12/06/16 06:00 Basophils % 0.3 % (0-2) 12/06/16 06:00 Absolute Neutrophils 5.2 10^3/uL (1.7-8.2) 12/06/16 06:00 Absolute Lymphocytes 0.6 10^3/uL (0.5-4.7) 12/06/16 06:00 Absolute Monocytes 0.7 10^3/uL (0.1-1.4) 12/06/16 06:00 Absolute Eosinophils 0.0 10^3/uL (0.0-0.6) 12/06/16 06:00 Absolute Basophils 0.0 10^3/uL (0.0-0.2) 12/06/16 06:00 VBG pH 7.42 (7.30-7.42) 12/03/16 11:38 VBG pCO2 48.0 mmHg (35-63) 12/03/16 11:38 VBG HCO3 30.1 mmol/L (20-32) 12/03/16 11:38 VBG Base Excess 4.7 mmol/L 12/03/16 11:38 Chloride 95 mmol/L (98-107) L 12/07/16 05:03 Carbon Dioxide 24 mmol/L (22-30) 12/07/16 05:03 Anion Gap 17 (5-19) 12/07/16 05:03 Est GFR ( Amer) 8 (>60) L 12/07/16 05:03 Est GFR (Non-Af Amer) 7 (>60) L 12/07/16 05:03 Glucose 228 mg/dL (75-110) H 12/07/16 05:03 Lactic Acid 1.0 mmol/L (0.7-2.1) 12/03/16 13:55 Calcium 8.0 mg/dL (8.4-10.2) L 12/07/16 05:03 Total Bilirubin 0.8 mg/dL (0.2-1.3) 12/03/16 11:38 AST 26 U/L (17-59) 12/03/16 11:38 ALT 38 U/L (21-72) 12/03/16 11:38 Alkaline Phosphatase 72 U/L (38-126) 12/03/16 11:38 Total Protein 6.9 g/dL (6.3-8.2) 12/03/16 11:38 Albumin 3.7 g/dL (3.5-5.0) 12/03/16 11:38 Urine Color DARK YELLOW 12/03/16 12:47 Urine Appearance CLOUDY 12/03/16 12:47 Urine pH 5.0 (5.0-9.0) 12/03/16 12:47 Ur Specific [place] 1.019 12/03/16 12:47 Urine Protein >=500 mg/dL (NEGATIVE) H 12/03/16 12:47 Urine Glucose (UA) NEGATIVE mg/dL (NEGATIVE) 12/03/16 12:47 Urine Ketones NEGATIVE mg/dL (NEGATIVE) 12/03/16 12:47 Urine Blood SMALL (NEGATIVE) H 12/03/16 12:47 Urine Nitrite NEGATIVE (NEGATIVE) 12/03/16 12:47 Ur Leukocyte Esterase NEGATIVE (NEGATIVE) 12/03/16 12:47 Urine WBC (Auto) 2 /HPF 12/03/16 12:47 Urine RBC (Auto) 5 /HPF 12/03/16 12:47 12/03/16 13:55 Blood Blood Culture - Final NO GROWTH IN 5 DAYS 12/03/16 11:38 Blood Blood Culture - Final NO GROWTH IN 5 DAYS 12/04/16 10:35 Gram Stain - Final Sputum Sputum Culture - Final Yeast, Not Carol Albicans Normal Jessika 12/03/16 13:55 Blood Culture - Final Blood NO GROWTH IN 5 DAYS 12/03/16 12:47 Urine Culture - Final Catheterized Urine NO GROWTH 2 DAYS 12/03/16 11:38 Blood Culture - Final Blood NO GROWTH IN 5 DAYS 11/27/16 13:50 Blood Culture - Final Blood NO GROWTH IN 5 DAYS 11/27/16 12:18 Blood Culture - Final Blood NO GROWTH IN 5 DAYS Impressions: Chest X-Ray 12/03/16 11:38 IMPRESSION: Interval improvement as noted above. Chest CT 12/03/16 13:20 IMPRESSION: Bibasilar atelectasis or pneumonia along with small effusions left greater than right there is bilateral pleural thickening which is nonspecific. Lung Scan-VQ NM 12/05/16 16:02 IMPRESSION: There is mismatch between the ventilation and perfusion due to low likely intrinsic lung disease/respiratory effort. There is homogeneous distribution of the SMA in the lungs therefore need no evidence of pulmonary embolus. Plan Discharge Plan: Discharged home follow-up with Dr. Vallejo at dialysis as scheduled Time Spent: Greater than 30 Minutes
== END 2016-12-07 15:03 | disposition home or self-care (01) | DRG 871 ==
LOC: ER 11:33 → EH 13:50 → UNDOADMIN 13:51 → EH 13:51 → 3W 12-04 13:45
PROC: 5A1D60Z (ICD-10-PCS; principal; 2016-12-05)
DX: A41.9 Sepsis, unspecified organism (principal); J18.9 Pneumonia, unspecified organism; I12.0 Hypertensive chronic kidney disease with stage 5 chronic kidney disease or end stage renal disease; N18.5 Chronic kidney disease, stage 5; J44.1 Chronic obstructive pulmonary disease with (acute) exacerbation; I25.10 Atherosclerotic heart disease of native coronary artery without angina pectoris; I95.9 Hypotension, unspecified; E78.5 Hyperlipidemia, unspecified; E11.22 Type 2 diabetes mellitus with diabetic chronic kidney disease; F17.210 Nicotine dependence, cigarettes, uncomplicated; I25.2 Old myocardial infarction; Z99.2 Dependence on renal dialysis; Z86.73 Personal history of transient ischemic attack (TIA), and cerebral infarction without residual deficits
CPT/HCPCS: 36415; 51701; 71010; 71250; 78582; 80048; 80053; 81001; 82803; 82962; 83605; 85025; 85027; 85610; 87040; 87070; 87086; 87205; 93005; 93010; 93306; 94660; 96360; 99291; A9540; A9567; J0692; J1644; J1815; J1956; J3370; J3490; J7060; J7512; J7620; Q4081; Q9969

== ENCOUNTER 2017-01-31 15:15 | Emergency (ER) | payer OTHER, MEDICARE ==
--- NOTE | 2017-01-31 17:46 | ER Document Report ---
ED Skin Rash/Insect Bite/Abscs - General Mode of Arrival: Ambulatory Information source: Patient TRAVEL OUTSIDE OF THE [place] IN LAST 30 DAYS: No - HPI Patient complains to provider of: Tender/swollen area Onset: Other - see HPI note Similar symptoms previously: No Recently seen / treated by doctor: No - General Chief Complaint: Abscess Stated Complaint: POSSIBLE ABSCESS Notes: Patient is a 62-year-old male presenting to the emergency department for an abscess to his right buttocks. Patient states he noticed a few days ago. Patient denies any fever, chills, nausea, vomiting, chest pain or shortness of breath. Patient's primary care physician is at the [place] [facility]. Patient is a diabetic and is on insulin. (ANGEL CROSS) - Related Data Allergies/Adverse Reactions: No Known Allergies Allergy (Verified 01/31/17 17:42) Past Medical History - General Information source: Patient - Social History Smoking Status: Unknown if Ever Smoked Family History: None Patient has suicidal ideation: No Patient has homicidal ideation: No - Past Medical History Cardiac Medical History: Reports: Hx Coronary Artery Disease, Hx Heart Attack, Hx Hypercholesterolemia, Hx Hypertension Endocrine Medical History: Reports: Hx Diabetes Mellitus Type 2 Renal/ Medical History: Reports: Hx End Stage Renal Disease - Stage V with dialysis, Hx Hemodialysis Musculoskeltal Medical History: Reports Hx Arthritis - generalized Past Surgical History: Reports: Hx Cardiac Surgery - bypass 2012, 1 stent 2012, Hx Coronary Artery Bypass Graft, Hx Coronary Stent, Hx Orthopedic Surgery, Hx Vascular Surgery - Immunizations Immunizations up to date: Yes Hx Diphtheria, Pertussis, Tetanus Vaccination: Yes Hx Pneumococcal Vaccination: 07/07/14 Review of Systems - Review of Systems Constitutional: No symptoms reported EENT: No symptoms reported Cardiovascular: No symptoms reported Respiratory: No symptoms reported Gastrointestinal: No symptoms reported Genitourinary: No symptoms reported Male Genitourinary: No symptoms reported Musculoskeletal: No symptoms reported Skin: See HPI Hematologic/Lymphatic: No symptoms reported Neurological/Psychological: No symptoms reported -: Yes All other systems reviewed and negative Physical Exam - Vital signs Interpretation: Normal - General General appearance: Appears well, Alert In distress: Mild - HEENT Head: Normocephalic, Atraumatic Eyes: Normal Pupils: PERRL Mucous membranes: Moist - Respiratory Respiratory status: No respiratory distress Chest status: Nontender Breath sounds: Normal Chest palpation: Normal - Cardiovascular Rhythm: Regular Heart sounds: Normal auscultation Murmur: No - Abdominal Inspection: Normal Distension: No distension Bowel sounds: Normal Tenderness: Nontender Organomegaly: No organomegaly - Back Back: Normal, Nontender - Extremities General upper extremity: Normal inspection, Normal ROM, Normal strength General lower extremity: Normal inspection, Normal ROM, Normal strength - Neurological Neuro grossly intact: Yes Cognition: Normal Orientation: AAOx4 [place] Coma Scale Eye Opening: Spontaneous [place] Coma Scale Verbal: Oriented Jame[place] Coma Scale Motor: Obeys Commands [place] Coma Scale Total: 15 Speech: Normal - Psychological Associated symptoms: Normal affect, Normal mood - Skin Skin Temperature: Warm Skin Moisture: Dry Skin irregularity: Abscess - dime-sized area of discreet swelling on the inner aspect of his right buttocks. It is indurated locally but no abscess formation, no crepitus, necrosis or cellulitis; it does not go anywhere near the anal area and is not perirectal in nature Course - Re-evaluation Re-evalutation: 01/31/17 17:46 Patient presents the emergency department with a bump on the inner aspect of his but. Says never had anything like that before been going on for a couple days he is insulin-dependent diabetic and dialysis but no fevers chills nausea vomiting or systemic complaints. Denies any history of MRSA or injury. On examination he is well-appearing nontoxic no acute distress and afebrile he has a dime-sized area of discreet swelling on the inner aspect of his right buttocks. It is indurated locally but no abscess formation no crepitus necrosis or cellulitis it does not go anywhere near the anal area and is not perirectal in nature. Clinical had started him on antibiotics warm soaks he has a follow- up appointment with his doctor tomorrow discussed reasons for ED return sooner ( ASHLEY VILLASENOR) - Vital Signs Vital signs: Temp Pulse Resp BP Pulse Ox 97.8 F 81 16 104/53 L 98 01/31/17 18:01 01/31/17 18:01 01/31/17 18:01 01/31/17 18:01 01/31/17 18:01 Discharge - Discharge Clinical Impression: abscess to the buttocks Condition: Stable Disposition: HOME, SELF-CARE Instructions: Abscess ([facility]) Additional Instructions: Abscess You have an abscess (boil). This a pus-forming infection, usually due to staph. Some boils may be left to drain on their own, but most require lancing. From the time the tender lump first appears, it may be three or four days before the abscess is ready to ani. Local heat and rest help at this stage of treatment. An antibiotic may prevent spread of the infection. Once the abscess is opened, packing may be placed into it. This is done so pus is not sealed inside by premature closure of the cavity. The packing will be removed at your follow-up visit or you may be advised to remove it yourself at home. Sometimes this packing must be replaced a few times during healing. The wound will heal with surprisingly little scar. Depending on the size and location of an abscess, healing can take one to four weeks. You may shower and wash the area around the incision site two or three times a day. Antibiotics may be prescribed, but are usually not necessary after an abscess has been drained. If you develop fever, chilling, worsening pain, or increasing swelling in the area, call the doctor or return immediately. Follow-up with your primary care physician tomorrow as scheduled return for increasing worsening or new symptoms Prescriptions: Clindamycin HCl 300 mg PO BID #14 capsule Referrals: MATI POOLE MD [Primary Care Provider] - Follow up as needed Scribe Attestation: 01/31/17 17:48 I personally performed the services described in the documentation reviewed the documentation recorded by my scribe in my presence and it accurately and completely records my words and actions (ASHLEY VILLASENOR) Scribe Documentation - Scribe Written by Rocael:: Angel Cross 01/31/17 18:33 acting as scribe for :: Cody
[2017-01-31 18:02] VITALS: BP 104/53
== END 2017-01-31 17:48 | disposition home or self-care (01) ==
LOC: ER 15:15
DX: L02.31 Cutaneous abscess of buttock (principal)
CPT/HCPCS: 99282

== ENCOUNTER 2017-07-17 06:49 | Day surgery (SDC) | payer OTHER, MEDICARE ==
[2017-07-12 10:57] LABS: HEMOGLOBIN 11.6 g/dL (13.5-17.0); HGB HCT DIFFERENCE 0.8; MEAN CORPUSCULAR HEMOGLOBIN 30.6 pg (27.0-33.4); MEAN CORPUSCULAR VOLUME 90 fl (80-97); RED BLOOD COUNT 3.78 10^6/uL (4.35-5.55); RED CELL DISTRIBUTION WIDTH 14.9 % (11.5-14.0); WHITE BLOOD COUNT 6.6 10^3/uL (4.0-10.5)
--- NOTE | 2017-07-12 11:15 | EKG REPORT ---
SEVERITY:- ABNORMAL ECG - SINUS RHYTHM LEFT ATRIAL ABNORMALITY : Confirmed by: Angela Alba MD 12-Jul-2017 11:14:36
[2017-07-12 11:32] LABS: BLOOD UREA NITROGEN 37 mg/dL (7-20); CALCIUM 9.7 mg/dL (8.4-10.2); CARBON DIOXIDE 25 mmol/L (22-30); CREATININE RESULT 6.89 mg/dL (0.52-1.25); GLUCOSE 177 mg/dL (75-110); POTASSIUM 4.9 mmol/L (3.6-5.0)
[2017-07-12 11:39] LABS: CHLORIDE 102 mmol/L (98-107); SODIUM 145.5 mmol/L (137-145)
[2017-07-12 11:44] LABS: ANION GAP 19 (5-19)
[~2017-07-17 06:49] MED LIST: LACTATED RINGERS 1000 ML IV PRN; LIDOCAINE 0.5% INJ-PF (5 MG/ML) 50 ML SDV SUBCUT PRN; METRONIDAZOLE 500 MG/NS RTU 100 ML IV PRN
[2017-07-17] MEDS ORDERED: LIDOCAINE 2% JELLY 30 ML TUBE ONE (06:53)
[2017-07-17] MEDS ORDERED: LIDOCAINE 1%/EPINEPHRINE INJ 20 ML VIAL ONE (06:53)
[2017-07-17 07:47] LABS: POTASSIUM 4.2 mmol/L (3.6-5.0)
[2017-07-17] MEDS ORDERED: CARVEDILOL 12.5 MG TABLET PO ONE (08:00)
[2017-07-17 08:32] LABS: PROTHROMBIN TIME 14.8 SEC (11.4-15.4)
[2017-07-17 08:33] LABS: PARTIAL THROMBOPLASTIN TIME 33.4 SEC (23.5-35.8)
[2017-07-17] MEDS ORDERED: FENTANYL CITRATE INJ/PF 100 MCG/2 ML AMPUL ONE (08:41)
[2017-07-17] MEDS ORDERED: ACETAMINOPHEN 100 ML IV ONE (08:41)
[2017-07-17] MEDS ORDERED: MIDAZOLAM 2 MG/2 ML INJ ONE (08:41)
[2017-07-17] MEDS ORDERED: PROPOFOL INJ 200 MG/20 ML VIAL IV ONE (08:41)
[2017-07-17] MEDS ORDERED: OXYCODONE-ACETAMINOPHEN 5-325 MG TABLET PO PRN ×3 (09:22→10:07)
[2017-07-17] MEDS ORDERED: MORPHINE SULFATE 10 MG/ML INJ IV PRN (09:22)
[2017-07-17] MEDS ORDERED: DIPHENHYDRAMINE HCL 50 MG/ML VIAL IV PRN (09:22)
[2017-07-17] MEDS ORDERED: PROMETHAZINE HCL INJ 25 MG/1 ML VIAL IV PRN ×2 (09:22)
[2017-07-17] MEDS ORDERED: MEPERIDINE HCL/PF INJ 25 MG/1 ML DISP.SYRIN IV PRN (09:22)
[2017-07-17] MEDS ORDERED: FENTANYL CITRATE INJ/PF 100 MCG/2 ML AMPUL IV PRN ×3 (09:22)
--- NOTE | 2017-07-17 10:03 | Operative Report ---
Operative Report PREOPERATIVE DIAGNOSIS: Right perianal abscess, chronic POSTOPERATIVE DIAGNOSIS: Same OPERATION: 1. Examination under anesthesia, including rigid anoscopy. 2. Complete excision of right perianal abscess cavity, packing of wound open SURGEON: NICANOR JACOBO ORNAMENTAL IRON ERECTOR: MIRIAN PAIZ ANESTHESIA: Spinal TISSUE REMOVED OR ALTERED: Abscess cavity , contents COMPLICATIONS: None ESTIMATED BLOOD LOSS: 20 cc INTRAOPERATIVE FINDINGS: See below PROCEDURE: Patient was taken to the preop holding area to the main operating room where spinal anesthesia was induced. Patient was placed in the prone jackknife position buttocks spread, hair clipped, and perianal tissue taped for maximum exposure. The perineum and perianal tissue was prepped and draped sterile fashion. Surgical plan and surgical timeout conducted Findings were significant for a chronically draining right perianal abscess approximately 5 cm from the anal verge in the patient's mid right lateral position. We made a radial incision approximately 2 cm in length, expressed some pus and some chronic, gritty granulation tissue. We now created an ellipse involving initial again incision removing a quarter size section of skin. We used a curet and hemostat to break up further loculations which tracked anteriorly and posteriorly. Graph perianal examination revealed no evidence of fissure; there were collapsed hemorrhoids. The anal canal was dilated up after injecting 1% lidocaine plain in a perianal fashion. Was able to easily admit the bullet rigid endoscope and examined the anoderm, as well as the dentate line. We removed in a circumferential fashion and did not see or feel a fistula in ano. We injected peroxide in a controlled fashion into our previously treated abscess cavity and we did not see any communication with the anal canal. We now spent an additional 15-20 minutes gently excising the abscess cavity tracks. There were 2 1 tracking posteriorly and then tapering into the coccygeal subcutaneous tissue: There was no direct tracking towards the anal canal midline. Another element of the abscess cavity tracked anteriorly and towards the anal cavity. This had the potential to develop into a fistula in ano but once we took the level of dissection from the abscess cavity through the anal fat, the fibrous tract seem to and right in the peripheral fibers of the external anal sphincter. Therefore the was stopped at this point. We irrigated out the abscess cavity thoroughly, and reinspected with peroxide to see if we could confirm a communication and there was none identified with the anal canal. We felt the operation was complete. We did a very thorough debridement of the chronic abscess cavity fibrous rim. No significant violation to the internal anal sphincter. hemostasis was achieved with cautery , Avitene, and the wound packed with quarter-inch gauze. Patient tolerated procedure well. He was taken to the recovery room in stable condition. LORA Hollis assisted with skin retraction, suctioning and wound packing
--- NOTE | 2017-07-17 10:07 | PDOC DISCHARGE SUMMARY ---
Discharge Summary (SDC) - Discharge Final Diagnosis: ALBINA RECTAL ABSCESS Date of Surgery: 07/17/17 Discharge Date: 07/17/17 Condition: Stable Treatment or Instructions: [facility] [address], [place] [address] Hemorrhoid or Anal Surgery Discharge Instructions 1. General Information: a. DO NOT DRIVE a car or operate dangerous machinery for 4-7 days or while taking narcotic prescription pain pills. b. DO NOT consume alcohol, tranquilizers, sleeping medications or any non- prescribed medications for 24 hours unless approved by your doctor or as long as taking narcotic prescription medications. c. DO NOT make important decisions or sign any important papers for the next 24 hours. d. Have a responsible person with you tonight. 2. Activity Restrictions: 2- 4 weeks. a. Avoid heavy lifting or straining until you feel more comfortable. b. It is fine to go for walks, up and down steps, ride in a car. 3. Treatment: a. Keep area clean and dry. You may use Tucks or any other medicated wipe to clean area after bowel movement. b. You may shower in 24 hours. Remove tape and out dressing. While in shower, allow area to get wet with warm water and soap then remove packing. You do not need to pack the area again. Keep the area covered with additional 4x4 and tape or you may use a panty liner. b. You will follow up with [facility] for wound evaluation. Further treatment of wound will be discussed at that time. 4. Medications: a. You may take the prescription tablets for pain one tablet every 4-6 hours. (_Toradol___). b. Stop the narcotic when able since you cannot take it and drive and they cause constipation. You may switch to plain Tylenol, Advil or Aleve as you transition from the narcotic. Many adults find good pain relief with Advil 600- 800 mg three times a day with meals for short courses. This can cause indigestion, ulcers, and kidney problems with long-term use. c. Resume all normal medications unless a change is specified by your doctors. d. Stool softeners are encouraged to help you for 2-4 weeks to maintain a soft stool and avoid more painful bowel movements due to pain medication. Colace is often used. e. A numbing cream may be prescribed, this can be applied after sitz baths around the perianal area before the sight is covered with a gauze pad. f. Constipation is very common after anal surgery and you may take over-the- counter medications to help stimulate the bowel such as Milk of Magnesia, Senokot tablets, prune juice and drink plenty of water. 5. Diet: a. Begin with clear liquids and if you do well you may then advance to normal foods low in fat and protein at first. Smaller portion size may be [place] the first night. b. Acidic (orange juice, tomato), foods high in ruffage (grapes, celery, asparagus) and spicy foods should be avoided for comfort the first 2-3 weeks since they can cause more burning sensation with bowel movements. 6..Follow Up Care: a. Please call the office to schedule a follow up appointment with your doctor for 1 week. In the event of any postoperative problems or questions or you may call the office during business hours or the On-Call physician evenings and weekends at [facility]. [facility] [phone] I understand the instructions for my postoperative care as described above and a copy has been given to me. Patient/Significant Other Witness Date Prescriptions: Ketorolac Tromethamine [Toradol 10 mg Tablet] 10 mg PO Q6HP PRN #25 tablet PRN Reason: Referrals: MATI POOLE MD [Primary Care Provider] - Discharge Diet: As Tolerated Discharge Activity: No Lifting/Push/Pulling Report the Following to Your Physician Immediately: Nausea, Vomiting, Fever over 101 Degrees, Unusual Bleeding, Increased Soreness
[2017-07-17] MEDS ORDERED: ONDANSETRON HCL INJ/PF 4 MG/2 ML SDV IV PRN (10:08)
[2017-07-17 17:01] VITALS: BP 164/84
== END 2017-07-17 17:20 | disposition home or self-care (01) ==
LOC: OROUT 06:49
PROVIDERS: ATTEND Surgery
PROC: 0DBQ0ZX Excision of Anus, Open Approach, Diagnostic (ICD-10-PCS; principal; 2017-07-17 09:00)
DX: K61.1 Rectal abscess (principal); K64.8 Other hemorrhoids; F17.210 Nicotine dependence, cigarettes, uncomplicated; E11.9 Type 2 diabetes mellitus without complications; N18.6 End stage renal disease; R07.9 Chest pain, unspecified; Z96.659 Presence of unspecified artificial knee joint; Z95.1 Presence of aortocoronary bypass graft; Z79.899 Other long term (current) drug therapy; Z79.4 Long term (current) use of insulin; Z99.2 Dependence on renal dialysis
CPT/HCPCS: 93005; 36415 ×2; 82947; 84132; 85027; 85610; 85730; 80048; 88304 ×2; 93010; 46922; J2250; J3010; J3490; J2704; J0131; 902

== ENCOUNTER 2018-08-04 08:44 | Day surgery (SDC) | payer OTHER, MEDICARE ==
[~2018-08-04 08:44] MED LIST changes: -LACTATED RINGERS 1000 ML IV PRN; -LIDOCAINE 0.5% INJ-PF (5 MG/ML) 50 ML SDV SUBCUT PRN; -METRONIDAZOLE 500 MG/NS RTU 100 ML IV PRN; +PROPOFOL INJ 200 MG/20 ML VIAL IV ONE
[2018-08-04 11:12] VITALS: BP 122/87
--- NOTE | 2018-08-04 11:32 | EKG REPORT ---
SEVERITY:- ABNORMAL ECG - SINUS RHYTHM MULTIFORM VENTRICULAR PREMATURE COMPLEXES PROBABLE LEFT ATRIAL ABNORMALITY PROBABLE LEFT VENTRICULAR HYPERTROPHY ANTERIOR Q WAVES, POSSIBLY DUE TO LVH : Confirmed by: Angela Alba MD 04-Aug-2018 11:32:25
--- NOTE | 2018-08-04 14:00 | Operative Report ---
Operative Report DATE OF SURGERY: 08/04/18 Operative Report: The risks, benefits and alternatives of the procedure including the risk of bleeding, perforation requiring surgery are explained to the patient in detail and informed consent is obtained. Patient is taken back to the endoscopy suite and placed in a left, lateral decubital position. Timeout was called. Propofol medication is administered. A rectal examination is done which did not reveal any masses, tears or fissures. An Olympus videoscope was introduced into the patient's rectum. The scope was then carefully advanced all the way to the cecum. The cecum was identified by the usual anatomical landmarks including the ileocecal valve as well as the appendiceal office. Photodocumentation is obtained. The scope was then sequentially pulled back via the various segments of the colon including the ascending colon, hepatic flexure, transverse colon, splenic flexure, descending colon and finally to the rectosigmoid portions of the colon. Retroflexion maneuvers performed. PREOPERATIVE DIAGNOSIS: Colorectal cancer screening, personal history of polyp POSTOPERATIVE DIAGNOSIS: Hepatic flexure polyp that is removed via snare polypectomy and retrieved. Rectal polyp is removed via biopsy forceps. The polyp is suggestive more of a hyperplastic polyp. Internal hemorrhoids OPERATION: Colonoscopy with snare polypectomy. Colonoscopy with biopsy SURGEON: SOPHIE CAPUTO ANESTHESIA: LMAC TISSUE REMOVED OR ALTERED: As noted above. COMPLICATIONS: None. ESTIMATED BLOOD LOSS: None. INTRAOPERATIVE FINDINGS: As noted above. PROCEDURE: Patient tolerated the procedure well. No immediate postprocedure complications are noted. Patient discharged in good condition. Discharge date 08/04/2018. Discharge diet: Regular. Discharge activity: Regular. 2-3-week follow-up to discuss findings. Patient is instructed call the office or proceed to the emergency room should there be any further proximal questions. 3-year surveillance colonoscopy.
== END 2018-08-04 10:53 | disposition home or self-care (01) ==
LOC: END 08:44
PROVIDERS: ATTEND Internal Medicine Gastroenterology
DX: Z12.11 Encounter for screening for malignant neoplasm of colon (principal); D12.6 Benign neoplasm of colon, unspecified; D12.8 Benign neoplasm of rectum; K64.8 Other hemorrhoids; F17.210 Nicotine dependence, cigarettes, uncomplicated; Z86.010 Personal history of colon polyps; E11.22 Type 2 diabetes mellitus with diabetic chronic kidney disease; I12.0 Hypertensive chronic kidney disease with stage 5 chronic kidney disease or end stage renal disease; N18.5 Chronic kidney disease, stage 5; D55.1 Anemia due to other disorders of glutathione metabolism; Z99.2 Dependence on renal dialysis; E11.42 Type 2 diabetes mellitus with diabetic polyneuropathy; N25.81 Secondary hyperparathyroidism of renal origin; I73.9 Peripheral vascular disease, unspecified; I25.9 Chronic ischemic heart disease, unspecified; I25.2 Old myocardial infarction
CPT/HCPCS: 45380; 45385; 36415; 82962; 84132; 88305 ×2; 93005; 93010; J2704; 811

== ENCOUNTER 2019-06-10 08:46 | Day surgery (SDC) | payer OTHER, MEDICARE ==
[~2019-06-10 08:46] MED LIST changes: +CHONDR SU A NA/HYALUR INTRAOC KIT (SURGICARE) ONE; +EPINEPHRINE INJ/PF 1 MG/1 ML AMPULE ONE; +FENTANYL CITRATE INJ/PF 100 MCG/2 ML AMPUL ONE; +KETOROLAC TROMETHAMINE 0.45% 4 DROP/0.4 ML DROPERETTE OD PRN; +LIDOCAINE 1% INJ-PF (10 MG/ML) 30 ML SDV ONE; +MIDAZOLAM 2 MG/2 ML INJ ONE; +ONDANSETRON HCL INJ/PF 4 MG/2 ML SDV ONE; -PROPOFOL INJ 200 MG/20 ML VIAL IV ONE; +TETRACAINE HCL 0.5% OPH SOLN 0.6 ML DROPERETTE OD PRN
[2019-06-10] MEDS: CYCLOPENTOLATE 0.2%/PHENYLEPHRINE 1% OPH SOLN 2 ML OD PRN ×3 (09:10→09:30)
[2019-06-10] MEDS: TROPICAMIDE 1% OPH SOLN 3 ML OD PRN ×3 (09:10→09:30)
[2019-06-10] MEDS: BESIFLOXACIN HCL 0.6% OPH SUSP 5 ML BOTTLE OD PRN ×3 (09:10→10:03)
[2019-06-10] MEDS: TETRACAINE HCL 0.5% OPH SOLN 4 ML OD PRN ×2 (09:10→09:40)
[2019-06-10] MEDS: TOBRAMYCIN SULFATE/DEXAMETH OPH OINTMENT 3.5 GM ONE ×2 (10:03)
[2019-06-10] MEDS: DORZOLAMIDE HCL 2%/TIMOLOL MALEAT 0.5% OPH SOLN 10 ML OD PRN ×2 (10:03)
== END 2019-06-10 10:43 | disposition home or self-care (01) ==
LOC: SC 08:46
PROVIDERS: ATTEND Ophthalmology
DX: H25.11 Age-related nuclear cataract, right eye (principal); E78.00 Pure hypercholesterolemia, unspecified; I25.2 Old myocardial infarction; Z79.82 Long term (current) use of aspirin; I49.9 Cardiac arrhythmia, unspecified; E11.22 Type 2 diabetes mellitus with diabetic chronic kidney disease; I12.0 Hypertensive chronic kidney disease with stage 5 chronic kidney disease or end stage renal disease; N18.6 End stage renal disease; Z99.2 Dependence on renal dialysis; Z79.4 Long term (current) use of insulin
CPT/HCPCS: 82962; 00142; 66984; V2632; J2250; J3490 ×4; J0171; J3010; J2405; 142

== ENCOUNTER 2019-06-24 07:08 | Day surgery (SDC) | payer OTHER, MEDICARE ==
[~2019-06-24 07:08] MED LIST changes: +BESIFLOXACIN HCL 0.6% OPH SUSP 5 ML BOTTLE OD PRN; +BUPIVACAINE HCL 0.75% INJ/PF (7.5 MG/1 ML) 10 ML SDV OD PRN; -CHONDR SU A NA/HYALUR INTRAOC KIT (SURGICARE) ONE; +CYCLOPENTOLATE 0.2%/PHENYLEPHRINE 1% OPH SOLN 2 ML OD PRN; +DORZOLAMIDE HCL 2%/TIMOLOL MALEAT 0.5% OPH SOLN 10 ML OD PRN; -EPINEPHRINE INJ/PF 1 MG/1 ML AMPULE ONE; -FENTANYL CITRATE INJ/PF 100 MCG/2 ML AMPUL ONE; +KETOROLAC TROMETHAMINE 0.45% 4 DROP/0.4 ML DROPERETTE OS PRN; -LIDOCAINE 1% INJ-PF (10 MG/ML) 30 ML SDV ONE; -MIDAZOLAM 2 MG/2 ML INJ ONE; -ONDANSETRON HCL INJ/PF 4 MG/2 ML SDV ONE; +TROPICAMIDE 1% OPH SOLN 15 ML OD PRN
[2019-06-24] MEDS: CYCLOPENTOLATE 0.2%/PHENYLEPHRINE 1% OPH SOLN 2 ML OS PRN ×3 (07:36→08:01)
[2019-06-24] MEDS: TROPICAMIDE 1% OPH SOLN 15 ML OS PRN ×3 (07:36→08:01)
[2019-06-24] MEDS: BESIFLOXACIN HCL 0.6% OPH SUSP 5 ML BOTTLE OS PRN ×4 (07:37→08:30)
[2019-06-24] MEDS: TETRACAINE HCL 0.5% OPH SOLN 4 ML OS PRN ×4 (07:38→08:09)
[2019-06-24] MEDS ORDERED: MIDAZOLAM 2 MG/2 ML INJ ONE (07:48)
[2019-06-24] MEDS ORDERED: FENTANYL CITRATE INJ/PF 100 MCG/2 ML AMPUL ONE (07:48)
[2019-06-24] MEDS: LIDOCAINE 1% INJ-PF (10 MG/ML) 30 ML SDV ONE ×2 (08:20)
[2019-06-24] MEDS: CHONDR SU A NA/HYALUR INTRAOC KIT (SURGICARE) ONE ×2 (08:20)
[2019-06-24] MEDS: EPINEPHRINE INJ/PF 1 MG/1 ML AMPULE ONE ×2 (08:20)
[2019-06-24] MEDS: TOBRAMYCIN SULFATE/DEXAMETH OPH OINTMENT 3.5 GM ONE ×2 (08:30)
[2019-06-24] MEDS: DORZOLAMIDE HCL 2%/TIMOLOL MALEAT 0.5% OPH SOLN 10 ML OS PRN ×2 (08:30)
== END 2019-06-24 09:03 | disposition home or self-care (01) ==
LOC: SC 07:08
PROVIDERS: ATTEND Ophthalmology
DX: H25.12 Age-related nuclear cataract, left eye (principal); I12.0 Hypertensive chronic kidney disease with stage 5 chronic kidney disease or end stage renal disease; E11.22 Type 2 diabetes mellitus with diabetic chronic kidney disease; N18.6 End stage renal disease; E78.00 Pure hypercholesterolemia, unspecified; Z99.2 Dependence on renal dialysis; Z98.41 Cataract extraction status, right eye; Z79.4 Long term (current) use of insulin
CPT/HCPCS: 82962; 00142; 66984; V2632; J2250; J3490 ×4; J0171; J3010; 142

== ENCOUNTER 2019-08-10 21:11 | Inpatient (IN) | payer OTHER, MEDICARE ==
[2019-08-10] MEDS ORDERED: NORMAL SALINE 250 ML IV PRN (21:56)
--- NOTE | 2019-08-10 22:02 | ER Document Report ---
ED General - General Stated Complaint: RESPIRATORY DISTRESS Time Seen by Provider: 08/10/19 21:49 Notes: Patient is a 64-year-old male, with past medical history of cardiac arrest, type 2 diabetes, end-stage renal disease on hemodialysis, hypertension, CVA, GI bleed, and pneumonia who presents emergency department with diaphoresis, hypoxia according to the nursing staff at [facility]. He is unable to give me any history. According to his records from [facility], he was at dialysis on July 20 and went into cardiac arrest. He was then discharged from [facility] to [facility] on August 05. According to the prison, he was in respiratory distress today. No fever reported. He opens eyes to pain. Localizes to pain and makes uncomprehensable sounds. Patient protecting his airway. TRAVEL OUTSIDE OF THE [place] IN LAST 30 DAYS: No - Related Data Allergies/Adverse Reactions: No Known Allergies Allergy (Verified 06/22/19 10:50) Home Medications: see received paper work Past Medical History - Social History Smoking Status: Unknown if Ever Smoked Family History: None Patient has suicidal ideation: No Patient has homicidal ideation: No - Past Medical History Cardiac Medical History: Reports: Hx Coronary Artery Disease - 3 CLOGGED ARTERIES, Hx Heart Attack - 2007, Hx Hypercholesterolemia, Hx Hypertension - MEDICATED Pulmonary Medical History: Denies: Hx Asthma, Hx Bronchitis, Hx COPD, Hx Pneumonia, Hx Tuberculosis Neurological Medical History: Denies: Hx Cerebrovascular Accident, Hx Seizures Endocrine Medical History: Reports: Hx Diabetes Mellitus Type 2 Renal/ Medical History: Reports: Hx End Stage Renal Disease - Stage V with dialysis, Hx Hemodialysis. Denies: Hx Peritoneal Dialysis GI Medical History: Denies: Hx Hepatitis, Hx Hiatal Hernia, Hx Ulcer Musculoskeletal Medical History: Denies Hx Arthritis Psychiatric Medical History: Denies: Hx Depression Infectious Medical History: Denies: Hx Hepatitis Past Surgical History: Reports: Hx Cardiac Surgery - bypass 2012, 1 stent 2012, Hx Coronary Artery Bypass Graft, Hx Coronary Stent, Hx Open Heart Surgery, Hx Orthopedic Surgery, Hx Vascular Surgery. Denies: Hx Pacemaker - Immunizations Immunizations up to date: Yes Hx Diphtheria, Pertussis, Tetanus Vaccination: No Hx Pneumococcal Vaccination: 07/07/14 Review of Systems - Review of Systems -: Yes ROS unobtainable due to patient's medical condition Physical Exam - Vital signs Vitals: Resp BP 19 80/52 L 08/10/19 21:31 08/10/19 21:31 - Notes Notes: PHYSICAL EXAMINATION: GENERAL: Appears older than stated age. HEAD: Normocephalic, atraumatic. EYES: PERRL, conjunctiva normal, all extraocular movements intact, sclera nonicteric ENT: Dry mucous membranes. NECK: Supple, no noticeable swelling, redness, rash. Normal range of motion. LUNGS: Equal breath sounds, diminshed bilaterally CARDIOVASCULAR: S1-S2, regular rate, regular rhythm. Radial pulses 2+, normal. ABDOMEN: Normoactive bowel sounds. Soft, nontender, no guarding, no rebound tenderness, and no masses palpated. EXTREMITIES: Normal strength and range of motion, no pitting or edema. No cyanosis. NEUROLOGICAL: GCS 9. Response to painful stimuli. Localizes to pain. Opens eyes to pain. PSYCH: Normal mood, normal affect. SKIN: Warm, dry. No rash, lesions, ulcerations noted. Normal skin turgor. Course - Re-evaluation Re-evalutation: 08/10/19 21:55 Patient's blood pressure is systolic in the 80s. He received 250 mL bolus of normal saline at this time. 08/11/19 01:0 I reevaluated the patient and the patient is now able to talk to me. I let him know that he has pneumonia and they will attempt to get him admitted to the hospital. 08/11/19 01:[address] of the head shows bilateral basal ganglia calcification, patient has a history of anoxic brain injury from when he was seen over at his cardiac arrest on 08/05/2019 where he was taken to [facility]. This most likely was from then. Chest x-ray shows right basilar pneumonia. Urinalysis shows a moderate amount of blood. Chemistries show that his cre atinine is elevated, but the patient is on dialysis. He received a 250 mL bolus and responded well and his blood pressure was better. Patient's troponin is indeterminate at this time. 08/11/19 01:[address] Ferimn. The patient will be admitted to [facility]. - Vital Signs Vital signs: Temp Pulse Resp BP Pulse Ox 98.5 F 116 H 14 121/69 95 08/12/19 03:24 08/12/19 07:00 08/12/19 03:24 08/12/19 03:24 08/12/19 03:24 - Laboratory Result Diagrams: 08/12/19 04:46 08/12/19 04:46 Laboratory results interpreted by me: 08/10/19 08/10/19 08/10/19 22:13 22:20 22:54 WBC 12.0 H RBC 3.94 L Hgb 12.2 L MCHC 31.7 L RDW 18.6 H Lymph % (Auto) 10.4 L [place] % (Auto) 14.6 H Absolute Neuts (auto) 8.5 H Absolute Monos (auto) 1.8 H ABG pO2 132.0 H ABG HCO3 24.4 H ABG O2 Saturation 98.8 H Anion Gap BUN Creatinine Est GFR ( Amer) Est GFR (MDRD) Non-Af Glucose Lactic Acid Direct Bilirubin CK-MB (CK-2) Total Protein Urine Protein 100 H Urine Glucose (UA) 50 H Urine Blood MODERATE H 08/10/19 08/10/19 08/10/19 22:54 22:54 22:54 WBC RBC Hgb MCHC RDW Lymph % (Auto) [place] % (Auto) Absolute Neuts (auto) Absolute Monos (auto) ABG pO2 ABG HCO3 ABG O2 Saturation Anion Gap 20 H BUN 53 H Creatinine 10.34 H Est GFR ( Amer) 6 L Est GFR (MDRD) Non-Af 5 L Glucose 200 H Lactic Acid 3.2 H Direct Bilirubin 0.8 H CK-MB (CK-2) 4.63 H Total Protein 8.3 H Urine Protein Urine Glucose (UA) Urine Blood Discharge - Discharge Clinical Impression: Altered mental status Qualifiers: Altered mental status type: coma Coma depth: Kerens coma 9-12 Coma timing: unspecified coma timing Qualified Code(s): R40.2420 - Ke[place] coma scale score 9-12, unspecified time Condition: Stable Disposition: ADMITTED INPATIENT Admitting Provider: Zander (Hospitalist) Unit Admitted: [facility]
[2019-08-10 22:43] LABS: ARTERIAL BLOOD BASE EXCESS 0.7 mmol/L; ARTERIAL BLOOD FIO2 28%; ARTERIAL BLOOD H2CO3 1.09 mmol/L (1.05-1.35); ARTERIAL BLOOD HCO3 24.4 mmol/L (20-24); ARTERIAL BLOOD O2 SATURATION 98.8 % (94-98); ARTERIAL BLOOD PCO2 36.3 mmHg (35-45); ARTERIAL BLOOD PH 7.45 (7.35-7.45); ARTERIAL BLOOD TOTAL CO2 25.6 mmol/L (23-27)
--- NOTE | 2019-08-10 22:54 | RADIOLOGY REPORT (SQ) ---
EXAM DESCRIPTION: XR CHEST 1 VIEW COMPLETED DATE/TME: 08/10/2019 21:18 CLINICAL HISTORY: 64 years, Male, difficulty breathing COMPARISON: None. NUMBER OF VIEWS: TECHNIQUE: LIMITATIONS: None. FINDINGS: There may be patchy infiltrate at the right lung base, raising the possibility of pneumonia. The heart is normal in size. There is evidence of prior thoracic surgery. Pulmonary vascularity appears normal. There are atherosclerotic changes and tortuosity of the thoracic aorta. There is a left subclavian vascular stent. IMPRESSION: Possible right basilar pneumonia. Other findings as described. copyright 2010 [employer]- All Rights Reserved
[2019-08-10 23:03] LABS: APPEARANCE,URINE CLOUDY; BILIRUBIN,URINE NEGATIVE (NEGATIVE); COLOR,URINE AMBER; GLUCOSE, URINE 50 mg/dL (NEGATIVE); KETONES,URINE NEGATIVE (NEGATIVE); LEUKOCYTE ESTERASE,URINE NEGATIVE (NEGATIVE); NITRITE,URINE NEGATIVE (NEGATIVE); PROTEIN,URINE 100 mg/dL (NEGATIVE); URINE SPECIFIC GRAVITY 1.017; UROBILINOGEN,URINE NEGATIVE mg/dL (<2.0)
[2019-08-10 23:25] LABS: ABSOLUTE BASOPHILS # (AUTO) 0.2 10^3/uL (0.0-0.2); ABSOLUTE EOSINOPHILS # (AUTO) 0.4 10^3/uL (0.0-0.6); ABSOLUTE LYMPHOCYTES (AUTO) 1.3 10^3/uL (0.5-4.7); ABSOLUTE MONOCYTES (AUTO) 1.8 10^3/uL (0.1-1.4); ABSOLUTE NEUT (AUTO) 8.5 10^3/uL (1.7-8.2); BASOPHILS % (AUTO) 1.2 % (0-2); HEMATOCRIT 38.4 % (37.9-51.0); HEMOGLOBIN 12.2 g/dL (13.5-17.0); LYMPHOCYTES % (AUTO) 10.4 % (13-45); MEAN CORPUSCULAR HEMOGLOBIN 30.9 pg (27.0-33.4); MEAN CORPUSCULAR HGB CONC 31.7 g/dL (32.0-36.0); MEAN CORPUSCULAR VOLUME 97 fl (80-97); MONOCYTES % (AUTO) 14.6 % (3-13); PLATELET COUNT 259 10^3/uL (150-450); RED BLOOD COUNT 3.94 10^6/uL (4.35-5.55); RED CELL DISTRIBUTION WIDTH 18.6 % (11.5-14.0); SEGMENTED NEUTROPHILS % (AUTO) 70.8 % (42-78); TOTAL CELLS COUNTED % (AUTO) 100 %
[2019-08-10 23:36] LABS: CREATINE KINASE MB 4.63 ng/mL (<4.55); TROPONIN I 0.017 ng/mL
[2019-08-10 23:48] LABS: ALBUMIN 4.2 g/dL (3.5-5.0); ALKALINE PHOSPHATASE 100 U/L (38-126); ASPARTATE AMINO TRANSFERASE 46 U/L (17-59); BILIRUBIN,DIRECT 0.8 mg/dL (0.0-0.4); BILIRUBIN,TOTAL 1.2 mg/dL (0.2-1.3); BLOOD UREA NITROGEN 53 mg/dL (7-20); CALCIUM 10.2 mg/dL (8.4-10.2); CARBON DIOXIDE 23 mmol/L (22-30); CHLORIDE 100 mmol/L (98-107); GLUCOSE 200 mg/dL (75-110); POTASSIUM 4.8 mmol/L (3.6-5.0); TOTAL PROTEIN 8.3 g/dL (6.3-8.2)
[2019-08-11 00:03] LABS: ANION GAP 20 (5-19)
--- NOTE | 2019-08-11 00:19 | RADIOLOGY REPORT (SQ) ---
EXAM DESCRIPTION: CT head without contrast CLINICAL HISTORY: 64 years Male, AMS COMPARISON: CT head 11/27/2016 TECHNIQUE: Axial images of the head were performed without the use of intravenous contrast, with sagittal and coronal reformatted images. This exam was performed according to our departmental dose-optimization program which includes use of Automated Exposure Control, adjustment of the mA and/or kV according to patient size and/or use of iterative reconstruction technique. FINDINGS: No evidence of acute hemorrhage or infarct. No evidence of mass or hydrocephalus. There is a considerable amount of bilateral basal ganglia calcification, a new finding, as compared with the prior study. There is cortical atrophy and chronic white matter ischemic changes. IMPRESSION: No acute finding. Considerable amount of bilateral basal ganglia calcification, a new finding, as compared with the prior CT scan. Please correlate clinically.
[2019-08-11] MEDS ORDERED: CEFEPIME 1 GM/D5W RTU 1 GM/50 ML RTUPB IV ONE ×2 (01:01→01:50)
[2019-08-11] MEDS ORDERED: ACETAMINOPHEN 325 MG TABLET PO PRN (01:54)
[2019-08-11] MEDS ORDERED: GUAIFENESIN SYRP 200 MG/10 ML UDC PO PRN (01:54)
[2019-08-11] MEDS ORDERED: LEVALBUTEROL HCL NEB 0.63 MG/3 ML AMPUL NEB PRN (02:02)
[2019-08-11] MEDS ORDERED: GLUCAGON,HUMAN RECOMB 1 MG INJ IM PRN (02:02)
[2019-08-11] MEDS ORDERED: DEXTROSE 50%-WATER 25 GM/50 ML DISP.SYRIN IV PRN ×2 (02:02)
[2019-08-11] MEDS ORDERED: DEXTROSE 40% GEL 15 GM TUBE PO PRN ×2 (02:02)
[2019-08-11] MEDS ORDERED: PROMETHAZINE HCL INJ 25 MG/1 ML VIAL IV PRN ×2 (02:05→19:24)
--- NOTE | 2019-08-11 03:22 | RADIOLOGY REPORT (SQ) ---
EXAM DESCRIPTION: CT CHEST WITHOUT IV CONTRAST COMPLETED DATE/TME: 08/11/2019 00:00 CLINICAL HISTORY: 64 years, Male, AMS, hypovolemia, hypoxia COMPARISON: 12/03/2016 TECHNIQUE: Axial CT images of the chest were obtained without contrast. Sagittal and coronal reformats were performed. Images stored on PACS. All CT scanners at this facility use dose modulation, iterative reconstruction, and/or weight based dosing when appropriate to reduce radiation dose to as low as reasonably achievable (ALARA). [facility]: Dose Right [facility]: CareDose [facility]: Dose Right [facility]: Teradose 4D [facility]: [employer] LIMITATIONS: None. FINDINGS: The visualized portions of the thyroid gland are normal. The central airways are patent. The heart size is stable. There is no pericardial effusion. There are atherosclerotic calcifications of the coronary arteries. Left subclavian stents are noted. There is no mediastinal or hilar lymphadenopathy. There is centrilobular emphysematous changes. There is bibasilar subsegmental atelectasis. There is no focal consolidation. There is no pneumothorax. There are tiny bilateral pleural effusions. There are no lytic or blastic bone lesions. The visualized portions of the upper abdomen demonstrate no acute abnormality. There are extensive vascular calcifications along the upper abdomen. Contrast is noted within the colon and stomach. IMPRESSION: Tiny bilateral pleural effusions. Centrilobular emphysema. TECHNICAL DOCUMENTATION: Quality ID # [id number]: Final reports with documentation of one or more dose reduction techniques (e.g., Automated exposure control, adjustment of the mA and/or kV according to patient size, use of iterative reconstruction technique) copyright 2011 [employer]- All Rights Reserved
[2019-08-11 03:49] LABS: CREATINE KINASE MB 4.97 ng/mL (<4.55); TROPONIN I 0.016 ng/mL
--- NOTE | 2019-08-11 05:11 | PDOC H&P ---
History of Present Illness Admission Date/PCP: 08/11/2019 01:19 MORRIS HARDY MD Patient complains of: Respiratory distress History of Present Illness: ANASTASIA PERALTA is a 64 year old male who presented to the emergency room with acute respiratory distress. Patient is a [facility] patient at [facility] and was found to be hypoxic and diaphoretic by their staff. EMS was called and the patient was sent to the emergency room for further evaluation treatment. In the ER he was found to be hypoxic, hypotensive and lethargic though responsive to pain. After treatment with a fluid bolus and supplemental oxygen at 2 L/min per nasal cannula his O2 sat ronny from 87 to the mid 90s and he became alert reportedly at his baseline. 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 Chest x-ray revealed a possible right basilar pneumonia, white blood count was elevated at 12,000 and his serum lactate was elevated at 3.2. He is noted to be an end-stage renal disease patient on hemodialysis every Saturday, and Saturday. He was subsequently admitted to the hospital for further evaluation and treatment. Past Medical History Cardiac Medical History: Reports: Coronary Artery Disease - Three-vessel disease, Myocardial Infarction - 2007, Hyperlipidema, Hypertension Pulmonary Medical History: Denies: Asthma, Bronchitis, Chronic Obstructive Pulmonary Disease (COPD), Pneumonia, Tuberculosis EENT Medical History: Denies: Cataracts, Ears - Hearing aids Neurological Medical History: Reports: Other - And anoxic brain injury secondary to cardiac arrest 07/20/2019 Denies: Hemorrhagic CVA, Ischemic CVA, Seizures Endocrine Medical History: Reports: Diabetes Mellitus Type 2 Denies: Diabetes Mellitus Type 1, Hyperthyroidism, Hypothyroidism, Obesity Renal/ Medical History: Reports: End Stage Renal Disease - Stage V on hemodialysis Saturday, and Saturday Denies: Nephrolithiasis Malignancy Medical History: Reports: None GI Medical History: Denies: Cirrhosis, Hepatitis, Hiatal Hernia Musculoskeltal Medical History: Denies: Arthritis, Gout Skin Medical History: Denies: Eczema, Psoriasis Psychiatric Medical History: Denies: Alcohol Dependency, Depression, Substance Abuse, Tobacco Dependency Traumatic Medical History: Reports: None Hematology: Reports: Anemia - Chronic Denies: Bleeding Tendencies Infectious Medical History: Reports: None Past Surgical History Past Surgical History: Reports: Cardiac Catheterization, Coronary Artery Bypass Graft, Coronary Stent, Orthopedic Surgery, Vascular Surgery - Dialysis graft/shunt placement Social History Information Source: Outside Facility Records Lives with: [facility] Smoking Status: Former Smoker Electronic Cigarette use?: No Frequency of Alcohol Use: None Hx Recreational Drug Use: No Drugs: None Hx Prescription Drug Abuse: No - Advance Directive Resuscitation Status: Full Code Surrogate healthcare decision maker:: Sona Humphrey Family History Family History: CAD, CVA. denies: DM, Malignancy Parental Family History Reviewed: Yes Children Family History Reviewed: No Sibling(s) Family History Reviewed.: Yes Medication/Allergy Home Medications: Apixaban [Eliquis 5 mg Tablet] 5 mg PO BID MDD TAKE AFTER 10MG DOSING 08/11/19 Apixaban [Eliquis 5 mg Tablet] 10 mg PO [id number] 08/11/19 Bisacodyl [Dulcolax 10 mg Supp.rect] 10 mg NH DAILYP PRN 08/11/19 Insulin Aspart [Novolog Insulin (Aspart) 100 unit/mL] 0 units SQ .PERSLIDINGSCALE 08/11/19 Insulin Aspart [Novolog Insulin (Aspart) 100 unit/mL] 6 units SQ AC 08/11/19 Insulin Glargine,Hum.rec.anlog [Lantus Insulin 100 Unit/1 ml 10 ml] 8 units SQ DAILY 08/11/19 Ipratropium/Albuterol Sulfate [Duoneb 3 ml Ampul] 3 ml NEB RTQ4HP PRN 08/11/19 Labetalol HCl [Normodyne 200 mg Tablet] 200 mg PO BID 08/11/19 Lanthanum Carbonate [Fosrenol 500 mg Chewable Tablet] 500 mg PO QID 08/11/19 Pantoprazole Sodium [Protonix [address] Tablet] 40 mg PO DAILY 08/11/19 Polyethylene Glycol 3350 [Miralax Powder 17 gm/Packet] 17 gm PO DAILYP PRN 08/11/19 Pravastatin Sodium [Pravachol] 40 mg PO DAILY 08/11/19 Acetaminophen [Tylenol 325 mg Tablet] 650 mg PO Q4HP PRN tablet 08/13/19 Allergies/Adverse Reactions: No Known Allergies Allergy (Verified 06/22/19 10:50) Review of Systems ROS unobtainable: Due to mental status - Due to patient's anoxic brain injury he is unable to provide accurate and meaningful answers for a review of systems. Physical Exam Vital Signs: Temp Pulse Resp BP Pulse Ox 98.7 F 102 H 23 H 109/76 100 08/10/19 23:02 08/10/19 23:02 08/11/19 00:30 08/11/19 00:30 08/11/19 00:30 Intake & Output 08/09/19 08/10/19 08/11/19 23:59 23:59 23:59 Intake Total 250 Balance 250 Weight 81.647 kg General appearance: PRESENT: no acute distress, cooperative, other - On O2 at 2 L/min per nasal cannula at the time of my evaluation Head exam: PRESENT: atraumatic, normocephalic Eye exam: PRESENT: conjunctiva pink. ABSENT: conjunctival injection, scleral icterus Ear exam: PRESENT: normal external ear exam. ABSENT: bleeding, drainage Mouth exam: PRESENT: dry mucosa, neck supple Neck exam: ABSENT: thyromegaly, tracheal deviation Respiratory exam: PRESENT: clear to auscultation lor, symmetrical, unlabored Cardiovascular exam: PRESENT: RRR. ABSENT: clicks, gallop, rubs Pulses: PRESENT: normal carotid pulses, normal dorsalis pedis pul Vascular exam: PRESENT: normal capillary refill. ABSENT: pallor GI/Abdominal exam: PRESENT: normal bowel sounds, soft Rectal exam: PRESENT: deferred Extremities exam: ABSENT: joint swelling, pedal edema Musculoskeletal exam: ABSENT: deformity, dislocation Neurological exam: PRESENT: alert, CN II-XII grossly intact. ABSENT: oriented to person, oriented to place, oriented to time, oriented to situation, motor sensory deficit Psychiatric exam: PRESENT: depressed - Very slow responses, seems tearful, flat affect Skin exam: PRESENT: dry, intact, warm, other - Stage II decubitus ulcer of sacral area, stage II decubitus ulcer left heel. ABSENT: jaundice, rash, urticaria Results Laboratory Results: 08/10/19 22:54 08/10/19 22:54 08/10/19 08/10/19 08/10/19 22:13 22:20 22:54 WBC 12.0 H RBC 3.94 L Hgb 12.2 L Hct 38.4 MCV 97 MCH 30.9 MCHC 31.7 L RDW 18.6 H Plt Count 259 Seg Neutrophils % 70.8 Carbonic Acid 1.09 HCO3/H2CO3 Ratio 22:1 ABG pH 7.45 ABG pCO2 36.3 ABG pO2 132.0 H ABG HCO3 24.4 H ABG O2 Saturation 98.8 H ABG Base Excess 0.7 FiO2 28% Sodium Potassium Chloride Carbon Dioxide Anion Gap BUN Creatinine Est GFR ( Amer) Glucose Lactic Acid Calcium Total Bilirubin AST Alkaline Phosphatase Total Protein Albumin Urine Color LEVI Urine Appearance CLOUDY Urine pH 6.0 Ur Specific [place] 1.017 Urine Protein 100 H Urine Glucose (UA) 50 H Urine Ketones NEGATIVE Urine Blood MODERATE H Urine Nitrite NEGATIVE Ur Leukocyte Esterase NEGATIVE Urine WBC (Auto) 3 Urine RBC (Auto) 2 08/10/19 08/10/19 22:54 22:54 WBC RBC Hgb Hct MCV MCH MCHC RDW Plt Count Seg Neutrophils % Carbonic Acid HCO3/H2CO3 Ratio ABG pH ABG pCO2 ABG pO2 ABG HCO3 ABG O2 Saturation ABG Base Excess FiO2 Sodium 143.0 Potassium 4.8 Chloride 100 Carbon Dioxide 23 Anion Gap 20 H BUN 53 H Creatinine 10.34 H Est GFR ( Amer) 6 L Glucose 200 H Lactic Acid 3.2 H Calcium 10.2 Total Bilirubin 1.2 AST 46 Alkaline Phosphatase 100 Total Protein 8.3 H Albumin 4.2 Urine Color Urine Appearance Urine pH Ur Specific [place] Urine Protein Urine Glucose (UA) Urine Ketones Urine Blood Urine Nitrite Ur Leukocyte Esterase Urine WBC (Auto) Urine RBC (Auto) 08/10/19 22:54 CK-MB (CK-2) 4.63 H Troponin I 0.017 Impressions: Chest X-Ray 08/10/19 21:18 IMPRESSION: Possible right basilar pneumonia. Other findings as described. copyright 2010 [employer]- All Rights Reserved Head CT 08/10/19 21:53 IMPRESSION: No acute finding. Considerable amount of bilateral basal ganglia calcification, a new finding, as compared with the prior CT scan. Please correlate clinically. Assessment and Plan - Diagnosis (1) HCAP (healthcare-associated pneumonia) Is this a current diagnosis for this admission?: Yes Plan: 08/11/2019: CT scan performed prior to coming to the floor while patient was still in the ER confirmed my suspicion that there was no pneumonia and the patient's right lower lung, and indeed the radiology opinion had been the area was not definitive for a pneumonia on the original chest x-ray and CT has confirmed the presence of no pneumonia. Patient's antibiotic therapy will be discontinued at this time. (2) Acute encephalopathy Is this a current diagnosis for this admission?: Yes Plan: 08/11/2019: Patient's acute encephalopathy (acute on chronic encephalopathy) was most likely due to his hypovolemia and hypotension. His hypoxia was very easily resolved with 2 L of oxygen per nasal cannula and thus would seem that it may also have been secondary to the hypovolemia which caused the hypotension which caused the encephalopathy which made the patient somnolent/lethargic which resulted in his mild hypoxic state (O2 sat of 87%). (3) Acute hypotension Is this a current diagnosis for this admission?: Yes Plan: Patient did have significant hypovolemia that was corrected by a small fluid bolus given in the ER. Due to patient's end-stage renal disease his vital signs be monitored closely and he will be given small volume boluses as required to maintain adequate blood pressure for organ perfusion. (4) CKD (chronic kidney disease) stage V requiring chronic dialysis Is this a current diagnosis for this admission?: Yes Plan: Consultation for Dr. Dino Vallejo has been placed as the patient will need dialysis today. (5) Hypertension associated with chronic kidney disease due to type 2 diabetes mellitus Is this a current diagnosis for this admission?: Yes Plan: The patient's blood pressure will be monitored closely throughout his hospital stay. At the present time his antihypertensive regiment is being withheld due to his hypotension on admission. (6) Diabetes mellitus type 2 in nonobese Is this a current diagnosis for this admission?: Yes Plan: 08/11/2019: See plan summary. As soon as the patient's med list is confirmed he can be started back on his diabetic regimen. Diabetic diet and Accu-Cheks with sliding scales have been ordered. (7) Coronary artery disease Qualifiers: Coronary Disease-Associated Artery/Lesion type: unspecified vessel or lesion type [place] vs. transplanted heart: [place] heart Associated angina: without angina Qualified Code(s): I25.10 - Atherosclerotic heart disease of [place] coronary artery without angina pectoris Is this a current diagnosis for this admission?: Yes Plan: 08/11/2019: Patient recently had a cardiac arrest as previously noted. He does not appear to be having any current cardiac difficulty and he will be observed for any arrhythmias or other indication that he may be having cardiac ischemia. Serial cardiac enzymes will be obtained. (8) Decubitus ulcers Qualifiers: Pressure injury location: sacral region Pressure injury stage: stage 2 Qualified Code(s): L89.152 - Pressure ulcer of sacral region, stage 2 Is this a current diagnosis for this admission?: Yes Plan: 08/11/2019: Patient's decubitus ulcers have been initially cleaned and covered with dry dressings initially and will be evaluated by the nursing team to decide on appropriate care. - Time Time Spent with patient: 25-34 minutes Medications reviewed and adjusted accordingly: Yes Anticipated discharge: SNF - Inpatient Certification Based on my medical assessment, after consideration of the patient's comorbidi ties, presenting symptoms, or acuity I expect that the services needed warrant INPATIENT care.: Yes I certify that my determination is in accordance with my understanding of Devyn olivia's requirements for reasonable and necessary INPATIENT services [42 CFR 412.3e].: Yes Medical Necessity: Significant Comorbidiites Make Outpatient Treatment Too Risky, Need Close Monitoring Due to Risk of Patient Decompensation, Need For Continuous Telemetry Monitoring, Need for IV Antibiotics, Risk of Complication if Not Cared For in Hospital, Risk of Diagnosis Which Will Require Inpatient Eval/Care/Monitoring
[2019-08-11] MEDS ORDERED: INFLUENZA QUAD (6MOS+) 2019-20 VAC 0.5 ML SYR IM ONE (05:30)
[2019-08-11] MEDS: PANTOPRAZOLE SODIUM 40 MG TABLET.DR PO SCH (05:59)
[2019-08-11] MEDS: HEPARIN SOD (PORCINE) 5,000 UNIT/ML 1 ML VIAL SUBCUT SCH ×2 (05:59→13:31)
--- NOTE | 2019-08-11 09:42 | EKG REPORT ---
SEVERITY:- ABNORMAL ECG - SINUS TACHYCARDIA LVH WITH SECONDARY REPOLARIZATION ABNORMALITY : Confirmed by: Fely Cordero 11-Aug-2019 09:41:40
[2019-08-11 10:28] LABS: CREATINE KINASE MB 6.12 ng/mL (<4.55); TROPONIN I 0.018 ng/mL
[2019-08-11] MEDS: INSULIN REG, HUMAN 100 UNIT/ML 3 ML VIAL (PYX) SUBCUT SCH ×4 (11:03→21:43)
[2019-08-11 14:05] LABS: CREATINE KINASE MB 6.15 ng/mL (<4.55); TROPONIN I 0.02 ng/mL
--- NOTE | 2019-08-11 18:14 | PDOC CONSULTATION ---
Consultation Consult Date: 08/11/19 Provider Consulted: Sukhjinder DIAZ Consult reason:: ESRD for dialysis. History of Present Illness Admission Date/PCP: 08/11/19 02:20 MORRIS HARDY MD History of Present Illness: ANASTASIA PERALTA is a 64 year old male with a past medical history of ESRD on hemodialysis in the background of diabetes mellitus, hypertension was admitted with acute respiratory failure after being found to have difficult to debride by the shelter staff where he resides. 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 Patient is quite lethargic and rather poorly responsive to questions even though he is able to answer his name and barely able to recognize which year. He denies any history of chest pain or shortness of breath. Unable to give me any history of fever or chills. Evaluations in the ER revealed that patient was hypotensive and hypoxic. He was fluid resuscitated and apparently there was some improvement in his mental status as per notes reviewed. Chest x-ray done shows a right basilar pneumonia. Patient was last dialyzed on Saturday.Labs and medications were reviewed. Patient was subsequently seen while undergoing dialysis. Dialysis orders were reviewed with the treating dialysis nurse. 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/20/2019 Denies: Hemorrhagic CVA, Ischemic CVA, Seizures Endocrine Medical History: Reports: Diabetes Mellitus Type 2 Denies: Diabetes Mellitus Type 1, Hyperthyroidism, Hypothyroidism, Obesity Complications of Diabetes: Reports: None Renal/ Medical History: Reports: End Stage Renal Disease - Stage V on hemodialysis Saturday, and Saturday, Secondary Hyperparathyroidism Denies: Nephrolithiasis Malignancy Medical History: Reports: None GI Medical History: Denies: Cirrhosis, Hepatitis, Hiatal Hernia Musculoskeltal Medical History: Denies: Arthritis, Gout Skin Medical History: Denies: Eczema, Psoriasis Psychiatric Medical History: Denies: Alcohol Dependency, Depression, Substance Abuse, Tobacco Dependency Traumatic Medical History: Reports: None Infectious Medical History: Reports: None Hematology Medical History: Reports Anemia of Chronic Kidney Disease Past Surgical History Past Surgical History: Reports: Cardiac Catheterization, Coronary Artery Bypass Graft, Coronary Stent, Orthopedic Surgery, Vascular Surgery - Dialysis graft/shunt placement Denies: Pacemaker Social History Lives with: [facility] Smoking Status: Former Smoker Electronic Cigarette use?: No Frequency of Alcohol Use: None Hx Recreational Drug Use: No Drugs: None Hx Prescription Drug Abuse: No - Advance Directive Resuscitation Status: Full Code Family History Parental Family History Reviewed: No Children Family History Reviewed: No Sibling(s) Family History Reviewed.: No Medication/Allergy Home Medications: Apixaban [Eliquis 5 mg Tablet] 5 mg PO BID MDD TAKE AFTER 10MG DOSING 08/11/19 Apixaban [Eliquis 5 mg Tablet] 10 mg PO [id number] 08/11/19 Bisacodyl [Dulcolax 10 mg Supp.rect] 10 mg AR DAILYP PRN 08/11/19 Insulin Aspart [Novolog Insulin (Aspart) 100 unit/mL] 0 units SQ .PERSLIDINGSCALE 08/11/19 Insulin Aspart [Novolog Insulin (Aspart) 100 unit/mL] 6 units SQ AC 08/11/19 Insulin Glargine,Hum.rec.anlog [Lantus Insulin 100 Unit/1 ml 10 ml] 8 units SQ DAILY 08/11/19 Ipratropium/Albuterol Sulfate [Duoneb 3 ml Ampul] 3 ml NEB [id number] PRN 08/11/19 Labetalol HCl [Normodyne 200 mg Tablet] 200 mg PO BID 08/11/19 Lanthanum Carbonate [Fosrenol 500 mg Chewable Tablet] 500 mg PO QID 08/11/19 Pantoprazole Sodium [Protonix [address] Tablet] 40 mg PO DAILY 08/11/19 Polyethylene Glycol 3350 [Miralax Powder 17 gm/Packet] 17 gm PO DAILYP PRN 08/11/19 Pravastatin Sodium [Pravachol] 40 mg PO DAILY 08/11/19 Allergies/Adverse Reactions: No Known Allergies Allergy (Verified 06/22/19 10:50) Review of Systems ROS unobtainable: Due to mental status Cardiovascular: ABSENT: chest pain, dyspnea on exertion, orthropnea Gastrointestinal: ABSENT: abdominal pain Neurological: PRESENT: abnormal speech, confusion Physical Exam Vital Signs: Temp Pulse Resp BP Pulse Ox 98.2 F 115 H 16 168/79 H 98 08/11/19 11:17 08/11/19 14:00 08/11/19 11:54 08/11/19 11:17 08/11/19 11:54 Intake & Output 08/10/19 08/11/19 08/12/19 06:59 06:59 06:59 Intake Total 300 240 Output Total 75 50 Balance 225 190 Weight 58.8 kg General appearance: PRESENT: no acute distress, disheveled Exam: Was lethargic and was able to only answer who I was and what this year it was. He was unable to recognize the hospital or the month. Eye exam: PRESENT: EOMI, PERRLA. ABSENT: scleral icterus Ear exam: PRESENT: normal external ear exam Mouth exam: PRESENT: neck supple. ABSENT: moist Neck exam: ABSENT: lymphadenopathy, meningismus, tenderness, thyromegaly, tracheal deviation Respiratory exam: ABSENT: clear to auscultation lor, crackles Cardiovascular exam: PRESENT: +S1, +S2 GI/Abdominal exam: PRESENT: normal bowel sounds, soft. ABSENT: organomegaly, tenderness Extremities exam: ABSENT: pedal edema Neurological exam: PRESENT: altered, oriented to person. ABSENT: oriented to place, oriented to time Psychiatric exam: PRESENT: depressed Skin exam: ABSENT: cyanosis, erythema - Both his feet was wrapped in bandages., mottled, rash Results Laboratory Results: 08/10/19 22:54 08/10/19 22:54 08/10/19 08/10/19 08/10/19 22:13 22:20 22:54 WBC 12.0 H RBC 3.94 L Hgb 12.2 L Hct 38.4 MCV 97 MCH 30.9 MCHC 31.7 L RDW 18.6 H Plt Count 259 Seg Neutrophils % 70.8 Carbonic Acid 1.09 HCO3/H2CO3 Ratio 22:1 ABG pH 7.45 ABG pCO2 36.3 ABG pO2 132.0 H ABG HCO3 24.4 H ABG O2 Saturation 98.8 H ABG Base Excess 0.7 FiO2 28% Sodium Potassium Chloride Carbon Dioxide Anion Gap BUN Creatinine Est GFR ( Amer) Glucose Lactic Acid Calcium Total Bilirubin AST Alkaline Phosphatase Total Protein Albumin Urine Color LEVI Urine Appearance CLOUDY Urine pH 6.0 Ur Specific [place] 1.017 Urine Protein 100 H Urine Glucose (UA) 50 H Urine Ketones NEGATIVE Urine Blood MODERATE H Urine Nitrite NEGATIVE Ur Leukocyte Esterase NEGATIVE Urine WBC (Auto) 3 Urine RBC (Auto) 2 08/10/19 08/10/19 08/11/19 22:54 22:54 03:03 WBC RBC Hgb Hct MCV MCH MCHC RDW Plt Count Seg Neutrophils % Carbonic Acid HCO3/H2CO3 Ratio ABG pH ABG pCO2 ABG pO2 ABG HCO3 ABG O2 Saturation ABG Base Excess FiO2 Sodium 143.0 Potassium 4.8 Chloride 100 Carbon Dioxide 23 Anion Gap 20 H BUN 53 H Creatinine 10.34 H Est GFR ( Amer) 6 L Glucose 200 H Lactic Acid 3.2 H 2.2 H Calcium 10.2 Total Bilirubin 1.2 AST 46 Alkaline Phosphatase 100 Total Protein 8.3 H Albumin 4.2 Urine Color Urine Appearance Urine pH Ur Specific [place] Urine Protein Urine Glucose (UA) Urine Ketones Urine Blood Urine Nitrite Ur Leukocyte Esterase Urine WBC (Auto) Urine RBC (Auto) 08/11/19 08/11/19 09:17 13:11 WBC RBC Hgb Hct MCV MCH MCHC RDW Plt Count Seg Neutrophils % Carbonic Acid HCO3/H2CO3 Ratio ABG pH ABG pCO2 ABG pO2 ABG HCO3 ABG O2 Saturation ABG Base Excess FiO2 Sodium Potassium Chloride Carbon Dioxide Anion Gap BUN Creatinine Est GFR ( Amer) Glucose Lactic Acid 2.2 H 2.4 H Calcium Total Bilirubin AST Alkaline Phosphatase Total Protein Albumin Urine Color Urine Appearance Urine pH Ur Specific [place] Urine Protein Urine Glucose (UA) Urine Ketones Urine Blood Urine Nitrite Ur Leukocyte Esterase Urine WBC (Auto) Urine RBC (Auto) 08/10/19 08/11/19 08/11/19 22:54 03:03 03:03 Creatine Kinase 1194 H CK-MB (CK-2) 4.63 H 4.97 H Troponin I 0.017 0.016 08/11/19 08/11/19 08/11/19 09:17 09:17 13:11 Creatine Kinase 1270 H 1172 H CK-MB (CK-2) 6.12 H Troponin I 0.018 08/11/19 13:11 Creatine Kinase CK-MB (CK-2) 6.15 H Troponin I 0.020 Impressions: Chest X-Ray 08/10/19 21:18 IMPRESSION: Possible right basilar pneumonia. Other findings as described. copyright 2011 [employer]- All Rights Reserved Head CT 08/10/19 21:53 IMPRESSION: No acute finding. Considerable amount of bilateral basal ganglia calcification, a new finding, as compared with the prior CT scan. Please correlate clinically. Chest CT 08/11/19 00:00 IMPRESSION: Tiny bilateral pleural effusions. Centrilobular emphysema. TECHNICAL DOCUMENTATION: Quality ID # 436: Final reports with documentation of one or more dose reduction techniques (e.g., Automated exposure control, adjustment of the mA and/or kV according to patient size, use of iterative reconstruction technique) copyright 2011 [employer]- All Rights Reserved Assessment & Plan - Diagnosis (1) ESRD on hemodialysis Plan: Patient is due for dialysis today. He has got altered mental status which could be part of pneumonia/sepsis or it could be part of his recent hypoxic encephalopathy that he suffered from his cardiac arrest or it could be some early uremia. I am going to dialyze him and he was subsequently seen on dialysis. Undergoing dialysis without any issues. Vital signs are stable. Dialysis is being supervised to ensure safe and smooth procedure. Remove no fluid. Dialysis orders reviewed with the treating dialysis nurse. (2) Acute encephalopathy Is this a current diagnosis for this admission?: Yes Plan: Differentials include pneumonia with sepsis, recent hypoxic cardiac arrest living with certain amount of residual encephalopathy or mild early uremia. (3) Acute hypotension Is this a current diagnosis for this admission?: Yes Plan: On admission which seems to have resolved with fluid resuscitation. Monitor. (4) Diabetes mellitus type 2 in nonobese Plan: Monitor for hypoglycemia. Currently looks like he has very poor intake as he is clinically dehydrated as well. (5) HCAP (healthcare-associated pneumonia) Is this a current diagnosis for this admission?: Yes Plan: Has been begun on antibiotics. Cultures pending.
[2019-08-11] MEDS ORDERED: IPRATROPIUM/ALBUTEROL 0.5-2.5 MG/3 ML AMPUL NEB PRN (19:23)
[2019-08-11] MEDS ORDERED: POLYETHYLENE GLYCOL 3350 POWDER 17 GM/1 PACKET PO PRN (19:23)
--- NOTE | 2019-08-11 19:30 | Progress Note ---
Provider Note Provider Note: The patient is a 64-year-old male with a past medical history of coronary artery disease, [place], hyperlipidemia, hypertension, DM 2, ESRD on dialysis, chronic anemia, and most significantly an anoxic brain injury secondary to cardiac arrest mid dialysis 07/20/2019. Patient was admitted early this morning by the transitions rn care coordinator for acute encephalopathy; likely secondary to acute hypotension and hypoxic event. Healthcare associated pneumonia was ruled out by follow-up CT of the chest. Overnight events, vital signs, imaging results, laboratory evaluation, nephrology report, and order set reviewed. Agree with plan of care as established by the previous provider. In addition, have resumed applicable home medications now that they are reconciled. Continue supplemental oxygen and nebulizer treatments as needed to maintain oxygen saturations greater than 89%. Patient did undergo hemodialysis by Dr. Vallejo today. Troponins have been negative x4; do not believe the patient had an acute coronary event. As mentioned above, healthcare associated pneumonia has been ruled out and antibiotics were discontinued by the previous provider. Aspiration precautions. We will need to get in contact with the patient's next of kin to verify his baseline mental status following his anoxic brain injury from earlier this month. It may be that he is at or near his new normal. PT/OT/ST, and Discharge planning are consulted.
[2019-08-11] MEDS: ATORVASTATIN CALCIUM 10 MG TABLET PO SCH (21:49)
[2019-08-11] MEDS ORDERED: LABETALOL HCL 200 MG TABLET PO ONE (22:30)
[2019-08-12 05:22] LABS: HEMATOCRIT 38.7 % (37.9-51.0); HEMOGLOBIN 12.5 g/dL (13.5-17.0); MEAN CORPUSCULAR HEMOGLOBIN 31.1 pg (27.0-33.4); MEAN CORPUSCULAR HGB CONC 32.3 g/dL (32.0-36.0); MEAN CORPUSCULAR VOLUME 96 fl (80-97); PLATELET COUNT 241 10^3/uL (150-450); RED BLOOD COUNT 4.02 10^6/uL (4.35-5.55); RED CELL DISTRIBUTION WIDTH 18.5 % (11.5-14.0); WHITE BLOOD COUNT 9.5 10^3/uL (4.0-10.5)
[2019-08-12 05:44] LABS: ANION GAP 19 (5-19); BLOOD UREA NITROGEN 40 mg/dL (7-20); CALCIUM 9.8 mg/dL (8.4-10.2); CARBON DIOXIDE 24 mmol/L (22-30); CHLORIDE 97 mmol/L (98-107); GLUCOSE 140 mg/dL (75-110); POTASSIUM 4.9 mmol/L (3.6-5.0)
[2019-08-12] MEDS: PANTOPRAZOLE SODIUM 40 MG TABLET.DR PO SCH (06:09)
[2019-08-12] MEDS: INSULIN REG, HUMAN 100 UNIT/ML 3 ML VIAL (PYX) SUBCUT SCH ×4 (09:05→23:06)
[2019-08-12] MEDS ORDERED: (PENDING PHARMACY ID) (Pravastatin Sodium [Pravachol] 40 MG) PO SCH (10:00)
--- NOTE | 2019-08-12 11:23 | PDOC PROGRESS REPORT ---
Subjective Progress Note for:: 08/12/19 Reason For Visit: Patient seen on dialysis. He is not as lethargic as when I saw him yesterday. He is awake but unable to recall events and definitely seems to have deficit in his memory as well. Patient is undergoing dialysis without any issue. Labs and medications were reviewed. Dialysis orders were reviewed with the treating dialysis nurse. Physical Exam Vital Signs: Temp Pulse Resp BP Pulse Ox 98.5 F 116 H 14 121/69 95 08/12/19 03:24 08/12/19 07:00 08/12/19 03:24 08/12/19 03:24 08/12/19 03:24 Intake & Output 08/11/19 08/12/19 08/13/19 06:59 06:59 06:59 Intake Total 300 290 Output Total 75 85 Balance 225 205 Weight 58.8 kg 62.6 kg General appearance: PRESENT: no acute distress, disheveled Respiratory exam: PRESENT: clear to auscultation lor. ABSENT: crackles Cardiovascular exam: PRESENT: +S1, +S2 GI/Abdominal exam: PRESENT: normal bowel sounds, soft. ABSENT: organomegaly, tenderness Extremities exam: ABSENT: pedal edema Neurological exam: PRESENT: altered, awake, oriented to person. ABSENT: o riented to place, oriented to time Results Laboratory Results: 08/12/19 04:46 08/12/19 04:46 08/11/19 08/12/19 08/12/19 13:11 04:46 04:46 WBC 9.5 RBC 4.02 L Hgb 12.5 L Hct 38.7 MCV 96 MCH 31.1 MCHC 32.3 RDW 18.5 H Plt Count 241 Sodium 140.1 Potassium 4.9 Chloride 97 L Carbon Dioxide 24 Anion Gap 19 BUN 40 H Creatinine 8.28 H Est GFR ( Amer) 8 L Glucose 140 H Lactic Acid 2.4 H Calcium 9.8 08/10/19 08/11/19 08/11/19 22:54 03:03 03:03 Creatine Kinase 1194 H CK-MB (CK-2) 4.63 H 4.97 H Troponin I 0.017 0.016 08/11/19 08/11/19 08/11/19 09:17 09:17 13:11 Creatine Kinase 1270 H 1172 H CK-MB (CK-2) 6.12 H Troponin I 0.018 08/11/19 13:11 Creatine Kinase CK-MB (CK-2) 6.15 H Troponin I 0.020 Impressions: Chest X-Ray 08/10/19 21:18 IMPRESSION: Possible right basilar pneumonia. Other findings as described. copyright 2010 [employer]- All Rights Reserved Head CT 08/10/19 21:53 IMPRESSION: No acute finding. Considerable amount of bilateral basal ganglia calcification, a new finding, as compared with the prior CT scan. Please correlate clinically. Chest CT 08/11/19 00:00 IMPRESSION: Tiny bilateral pleural effusions. Centrilobular emphysema. TECHNICAL DOCUMENTATION: Quality ID # 436: Final reports with documentation of one or more dose reduction techniques (e.g., Automated exposure control, adjustment of the mA and/or kV according to patient size, use of iterative reconstruction technique) copyright 2010 [employer]- All Rights Reserved Assessment & Plan - Diagnosis (1) ESRD on hemodialysis Plan: Patient undergoing dialysis today. Vital signs are stable. Dialysis is being supervised to ensure safe and smooth procedure. Will not remove any fluid. Clinically patient seems still to be dehydrated. Dialysis orders were reviewed with the treating dialysis nurse. (2) Acute encephalopathy Is this a current diagnosis for this admission?: Yes Plan: Looks the might have been an acute element that seems to be slightly better as compared to yesterday. See response to dialysis again. I believe however the patient has got permanent issues since he had his hypoxic cardiac arrest in July. (3) Acute hypotension Is this a current diagnosis for this admission?: Yes Plan: Resolved. (4) Diabetes mellitus type 2 in nonobese Plan: Monitor. Avoid hypoglycemia as intake is poor.
[2019-08-12] MEDS: LABETALOL HCL 200 MG TABLET PO SCH ×2 (12:53→17:11)
[2019-08-12] MEDS: APIXABAN 5 MG TABLET PO SCH ×2 (12:53→17:11)
--- NOTE | 2019-08-12 19:55 | PDOC PROGRESS REPORT ---
Subjective Progress Note for:: 08/12/19 Subjective:: The patient is a 64-year-old male with a past medical history of coronary artery disease, [place], hyperlipidemia, hypertension, DM 2, ESRD on dialysis, chronic anemia, and most significantly an anoxic brain injury secondary to cardiac arrest mid dialysis 07/20/2019 who was admitted 08/11/2019 for Acute encephalopathy, hypoxia, and hypotension. Patient was seen on afternoon rounds after returning from dialysis. He is noted to be awake, alert and oriented x3, on room air, and eating his lunch. He cannot recall the events leading up to his admission, but does remember being at [facility] for short-term rehab following his cardiac arrest. He answers all questions appropriately and denies all complaints other than slight fatigue today. He does asked to have his [place] catheter removed. He denies fever, chills, chest pain, palpitations, dyspnea, nausea, vomiting, diarrhea. He does note slight nonproductive cough. He has no other questions or concerns at this time. No concerns per nursing. Reason For Visit: HCAP,ESRD ON HEMODIALYSIS TTS Physical Exam Vital Signs: Temp Pulse Resp BP Pulse Ox 98.5 F 117 H 18 135/72 H 96 08/12/19 16:04 08/12/19 16:04 08/12/19 16:04 08/12/19 16:04 08/12/19 16:04 Intake & Output 08/11/19 08/12/19 08/13/19 06:59 06:59 06:59 Intake Total 300 290 530 Output Total 75 85 0 Balance 225 205 530 Weight 58.8 kg 62.6 kg General appearance: PRESENT: no acute distress, cooperative, thin, well- developed, well-nourished Head exam: PRESENT: atraumatic, normocephalic Eye exam: PRESENT: conjunctiva pink, EOMI, PERRLA. ABSENT: scleral icterus Ear exam: PRESENT: normal external ear exam Mouth exam: PRESENT: moist, tongue midline Respiratory exam: PRESENT: clear to auscultation lor, symmetrical, unlabored, other - Room air. ABSENT: rales, rhonchi, wheezes Cardiovascular exam: PRESENT: RRR, +S1, +S2. ABSENT: diastolic murmur, rubs, systolic murmur Pulses: PRESENT: normal dorsalis pedis pul GI/Abdominal exam: PRESENT: normal bowel sounds, soft. ABSENT: distended, guarding, mass, organolmegaly, rebound, tenderness Rectal exam: PRESENT: deferred Extremities exam: PRESENT: full ROM. ABSENT: calf tenderness, clubbing, pedal edema Neurological exam: PRESENT: alert, awake, oriented to person, oriented to place, oriented to time, oriented to situation, CN II-XII grossly intact, other - Delayed responses. ABSENT: motor sensory deficit Psychiatric exam: PRESENT: flat affect, normal mood. ABSENT: homicidal ideation, suicidal ideation Skin exam: PRESENT: dry, warm. ABSENT: cyanosis, intact - Stage II to sacrum, rash Results Laboratory Results: 08/12/19 04:46 08/12/19 04:46 08/12/19 08/12/19 04:46 04:46 WBC 9.5 RBC 4.02 L Hgb 12.5 L Hct 38.7 MCV 96 MCH 31.1 MCHC 32.3 RDW 18.5 H Plt Count 241 Sodium 140.1 Potassium 4.9 Chloride 97 L Carbon Dioxide 24 Anion Gap 19 BUN 40 H Creatinine 8.28 H Est GFR ( Amer) 8 L Glucose 140 H Calcium 9.8 08/10/19 08/11/19 08/11/19 22:54 03:03 03:03 Creatine Kinase 1194 H CK-MB (CK-2) 4.63 H 4.97 H Troponin I 0.017 0.016 08/11/19 08/11/19 08/11/19 09:17 09:17 13:11 Creatine Kinase 1270 H 1172 H CK-MB (CK-2) 6.12 H Troponin I 0.018 08/11/19 13:11 Creatine Kinase CK-MB (CK-2) 6.15 H Troponin I 0.020 Impressions: Chest X-Ray 08/10/19 21:18 IMPRESSION: Possible right basilar pneumonia. Other findings as described. copyright 2011 [employer]- All Rights Reserved Head CT 08/10/19 21:53 IMPRESSION: No acute finding. Considerable amount of bilateral basal ganglia calcification, a new finding, as compared with the prior CT scan. Please correlate clinically. Chest CT 08/11/19 00:00 IMPRESSION: Tiny bilateral pleural effusions. Centrilobular emphysema. TECHNICAL DOCUMENTATION: Quality ID # 436: Final reports with documentation of one or more dose reduction techniques (e.g., Automated exposure control, adjustment of the mA and/or kV according to patient size, use of iterative reconstruction technique) copyright 2011 [employer]- All Rights Reserved Assessment and Plan - Diagnosis (1) Acute encephalopathy Is this a current diagnosis for this admission?: Yes Plan: Resolved; multifactorial secondary to hypotension and hypoxia. Unclear precipitating events; perhaps dehydration as the patient does continue to have dry skin, poor turgor, and poor p.o. intake. Hypotension and mental status appeared to improve following IV fluids provided while in the ED. Patient is now alert and oriented x4; answers all questions and follows directions appropriately. He does have flat speech with delayed responses; likely approaching his new baseline mental status following his anoxic brain injury from last month. (2) Acute hypotension Is this a current diagnosis for this admission?: Yes Plan: Resolved. Blood pressure is now maintaining 135/70 postdialysis. On exam he does appear to be slightly dehydrated. Continues to have increased p.o. intake today; encouraged fluids. Continue to monitor daily weights and strict I&O's. (3) Diabetes mellitus type 2 in nonobese Is this a current diagnosis for this admission?: Yes Plan: Well-controlled; A1c 6.0%. Consistent carb/cardiac/dialysis diet. Accu-Cheks before meals and at bedtime with Humalog for sliding scale coverage. Hypoglycemia protocol in place. (4) ESRD on hemodialysis Is this a current diagnosis for this admission?: Yes Plan: Nephrology is consulted; dialysis per their expertise. (5) HCAP (healthcare-associated pneumonia) Is this a current diagnosis for this admission?: No Plan: Ruled out by CT. Blood cultures negative at 24 hours. Now maintaining oxygen saturations while on room air. Does not require antibiotic therapy. - Plan Summary Summary: Patient's hypotension and hypoxia were resolved by initial treatment in the emergency room with a small bolus of IV fluids and supplemental oxygen via nasal cannula. The patient was initially treated with cefepime in the emergency room and this will be continued as one drug treatment for a possible HCAP. The chest x-ray evidence for pneumonia is meager at best and the patient's symptoms may well be explained without need of a infectious source with his hypovolemia causing his hypotension and subsequent hypoxia. Consultation with infectious disease for the need to continue treatment for pneumonia may be obtained later today. Nephrology will also be consulted for inpatient dialysis. Patient will have serial CBCs and metabolic profiles with magnesium levels throughout his hospital course. A CT of the chest without contrast has been ordered to help clarify the presence or absence of pneumonia. He will receive routine supportive and symptomatic cares through his hospital course and will be on telemetry bed in [facility]. To be continued on supplemental oxygen and his vital signs were monitored closely with bolus fluids given for any recurrent hypotension. - Time Time Spent with patient: 25-34 minutes Anticipated discharge: SNF Within: within 24 hours - Will discuss with Dr. Vallejo tomorrow; anticipate discharge within 24 hours.
[2019-08-12] MEDS: ATORVASTATIN CALCIUM 10 MG TABLET PO SCH (23:06)
[2019-08-13 06:44] LABS: HEMATOCRIT 39.2 % (37.9-51.0); HEMOGLOBIN 12.7 g/dL (13.5-17.0); MEAN CORPUSCULAR HEMOGLOBIN 31.3 pg (27.0-33.4); MEAN CORPUSCULAR HGB CONC 32.4 g/dL (32.0-36.0); MEAN CORPUSCULAR VOLUME 97 fl (80-97); PLATELET COUNT 235 10^3/uL (150-450); RED BLOOD COUNT 4.06 10^6/uL (4.35-5.55); RED CELL DISTRIBUTION WIDTH 18.2 % (11.5-14.0); WHITE BLOOD COUNT 9.5 10^3/uL (4.0-10.5)
[2019-08-13 06:50] LABS: BLOOD UREA NITROGEN 32 mg/dL (7-20); CALCIUM 10.1 mg/dL (8.4-10.2); GLUCOSE 157 mg/dL (75-110); POTASSIUM 4.2 mmol/L (3.6-5.0)
[2019-08-13 06:56] LABS: CARBON DIOXIDE 25 mmol/L (22-30); CHLORIDE 98 mmol/L (98-107)
[2019-08-13 06:57] LABS: ANION GAP 20 (5-19)
[2019-08-13] MEDS: PANTOPRAZOLE SODIUM 40 MG TABLET.DR PO SCH (07:01)
[2019-08-13] MEDS: INSULIN REG, HUMAN 100 UNIT/ML 3 ML VIAL (PYX) SUBCUT SCH ×2 (08:43→14:55)
[2019-08-13] MEDS: APIXABAN 5 MG TABLET PO SCH (10:02)
[2019-08-13] MEDS: LABETALOL HCL 200 MG TABLET PO SCH (10:02)
--- NOTE | 2019-08-13 11:43 | PDOC TRANSFER SUMMARY ---
Impression - Admit/DC Date/PCP Admission Date/Primary Care Provider: 08/11/19 02:20 MORRIS HARDY MD Discharge Date: 08/13/19 - Discharge Diagnosis (1) Acute encephalopathy Is this a current diagnosis for this admission?: Yes (2) Acute hypotension Is this a current diagnosis for this admission?: Yes (3) Diabetes mellitus type 2 in nonobese Is this a current diagnosis for this admission?: Yes (4) ESRD on hemodialysis Is this a current diagnosis for this admission?: Yes (5) HCAP (healthcare-associated pneumonia) Is this a current diagnosis for this admission?: No - Additional Information Resuscitation Status: Full Code Discharge Diet: Cardiac, Diabetic, Other (Comments) - Dialysis Discharge Activity: Activity As Tolerated, Balance Activity w/Rest, Supervised Activity Referrals: MORRIS HARDY MD [Primary Care Provider] - Follow up as needed Home Medications: Apixaban [Eliquis 5 mg Tablet] 5 mg PO BID MDD TAKE AFTER 10MG DOSING 08/11/19 Apixaban [Eliquis 5 mg Tablet] 10 mg PO [id number] 08/11/19 Bisacodyl [Dulcolax 10 mg Supp.rect] 10 mg LA DAILYP PRN 08/11/19 Insulin Aspart [Novolog Insulin (Aspart) 100 unit/mL] 0 units SQ .PERSLIDINGSCALE 08/11/19 Insulin Aspart [Novolog Insulin (Aspart) 100 unit/mL] 6 units SQ AC 08/11/19 Insulin Glargine,Hum.rec.anlog [Lantus Insulin 100 Unit/1 ml 10 ml] 8 units SQ DAILY 08/11/19 Ipratropium/Albuterol Sulfate [Duoneb 3 ml Ampul] 3 ml NEB RTQ4HP PRN 08/11/19 Labetalol HCl [Normodyne 200 mg Tablet] 200 mg PO BID 08/11/19 Lanthanum Carbonate [Fosrenol 500 mg Chewable Tablet] 500 mg PO QID 08/11/19 Pantoprazole Sodium [Protonix [address] Tablet] 40 mg PO DAILY 08/11/19 Polyethylene Glycol 3350 [Miralax Powder 17 gm/Packet] 17 gm PO DAILYP PRN 08/11/19 Pravastatin Sodium [Pravachol] 40 mg PO DAILY 08/11/19 Acetaminophen [Tylenol 325 mg Tablet] 650 mg PO Q4HP PRN tablet 08/13/19 History of Present Illiness History of Present Illness: Per H&P by Dr. Fermin: ANASTASIA PERALTA is a 64 year old male who presented to the emergency room with acute respiratory distress. Patient is a [facility] patient at [place] and was found to be hypoxic and diaphoretic by their staff. EMS was called and the patient was sent to the emergency room for further evaluation treatment. In the ER he was found to be hypoxic, hypotensive and lethargic though responsive to pain. After treatment with a fluid bolus and supplemental oxygen at 2 L/min per nasal cannula his O2 sat ronny from 87 to the mid 90s and he became alert reportedly at his baseline. 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 Chest x-ray revealed a possible right basilar pneumonia, white blood count was elevated at 12,000 and his serum lactate was elevated at 3.2. He is noted to be an end-stage renal disease patient on hemodialysis every Saturday, and Saturday. He was subsequently admitted to the hospital for further evaluation and treatment. Hospital Course Hospital Course: Patient was admitted to [facility] on continuous cardiac telemetry. He was provided gentle IV fluids while in the emergency department with resolution of his hypotension, hypoxia, and improved alertness. He is now alert and oriented x4; answers all questions and follows all directions appropriately. He does have flat speech with delayed responses but is likely at his new baseline mental status following his recent anoxic brain injury. He has remained normotensive since admission to the floor. Today's blood pressure is 149/77. He has adequate oral intake. We did check the patient's A1c; 6.0%. His blood sugars remained well controlled on sliding scale insulin throughout his stay. Nephrology was consulted and did take the patient to dialysis on both 08/11 and 08/12. Did discuss with Dr. Vallejo today; no concerns from nephrology perspective that need to be addressed in the immediate future. Patient has recovered nicely from nephrology's perspective and he is now stable to discharge with resumption of his prior dialysis schedule. There was some initial concern that the patient may have developed healthcare associated pneumonia; this was ruled out by CT imaging of the chest. Blood cultures remain negative. He is maintaining oxygen saturations while on room air and is a symptomatic. He does not require any antibiotic therapy at this time. The patient is now medically stable for discharge to SNF to resume rehabilitation services. He is advised to follow-up with his primary care provider within 1 week, his toys and games hand finisher as scheduled, and to resume his prior dialysis schedule. He is instructed to take his medications as prescribed and to return to the emergency department as needed for concerning symptoms. Physical Exam Vital Signs: Temp Pulse Resp BP Pulse Ox 99.0 F 116 H 18 149/77 H 97 08/13/19 08:11 08/13/19 08:11 08/13/19 08:11 08/13/19 08:11 08/13/19 08:11 Intake & Output 08/12/19 08/13/19 08/14/19 06:59 06:59 06:59 Intake Total 290 530 Output Total 85 145 Balance 205 385 Weight 62.6 kg 65.4 kg General appearance: PRESENT: no acute distress, cooperative, thin, well- developed, well-nourished Head exam: PRESENT: atraumatic, normocephalic Eye exam: PRESENT: conjunctiva pink, EOMI, PERRLA. ABSENT: scleral icterus Ear exam: PRESENT: normal external ear exam Mouth exam: PRESENT: moist, tongue midline Respiratory exam: PRESENT: clear to auscultation lor, symmetrical, unlabored. ABSENT: rales, rhonchi, wheezes Cardiovascular exam: PRESENT: RRR, +S1, +S2. ABSENT: diastolic murmur, rubs, systolic murmur Pulses: PRESENT: normal dorsalis pedis pul Vascular exam: PRESENT: normal capillary refill GI/Abdominal exam: PRESENT: normal bowel sounds, soft. ABSENT: distended, guarding, mass, organolmegaly, rebound, tenderness Rectal exam: PRESENT: deferred Extremities exam: ABSENT: calf tenderness, clubbing, pedal edema Neurological exam: PRESENT: alert, awake, oriented to person, oriented to place, oriented to time, oriented to situation, CN II-XII grossly intact, other - Delayed responses. ABSENT: motor sensory deficit Psychiatric exam: PRESENT: flat affect, normal mood. ABSENT: homicidal ideation, suicidal ideation Skin exam: PRESENT: dry, intact, warm. ABSENT: cyanosis, rash Results Laboratory Results: WBC 9.5 10^3/uL (4.0-10.5) 08/13/19 06:04 RBC 4.06 10^6/uL (4.35-5.55) L 08/13/19 06:04 Hgb 12.7 g/dL (13.5-17.0) L 08/13/19 06:04 Hct 39.2 % (37.9-51.0) 08/13/19 06:04 MCV 97 fl (80-97) 08/13/19 06:04 MCH 31.3 pg (27.0-33.4) 08/13/19 06:04 MCHC 32.4 g/dL (32.0-36.0) 08/13/19 06:04 RDW 18.2 % (11.5-14.0) H 08/13/19 06:04 Plt Count 235 10^3/uL (150-450) 08/13/19 06:04 Lymph % (Auto) 10.4 % (13-45) L 08/10/19 22:54 [place] % (Auto) 14.6 % (3-13) H 08/10/19 22:54 Eos % (Auto) 3.0 % (0-6) 08/10/19 22:54 Baso % (Auto) 1.2 % (0-2) 08/10/19 22:54 Absolute Neuts (auto) 8.5 10^3/uL (1.7-8.2) H 08/10/19 22:54 Absolute Lymphs (auto) 1.3 10^3/uL (0.5-4.7) 08/10/19 22:54 Absolute Monos (auto) 1.8 10^3/uL (0.1-1.4) H 08/10/19 22:54 Absolute Eos (auto) 0.4 10^3/uL (0.0-0.6) 08/10/19 22:54 Absolute Basos (auto) 0.2 10^3/uL (0.0-0.2) 08/10/19 22:54 Seg Neutrophils % 70.8 % (42-78) 08/10/19 22:54 Carbonic Acid 1.09 mmol/L (1.05-1.35) 08/10/19 22:20 HCO3/H2CO3 Ratio 22:1 08/10/19 22:20 ABG pH 7.45 (7.35-7.45) 08/10/19 22:20 ABG pCO2 36.3 mmHg (35-45) 08/10/19 22:20 ABG pO2 132.0 mmHg (80-100) H 08/10/19 22:20 ABG HCO3 24.4 mmol/L (20-24) H 08/10/19 22:20 ABG Total CO2 25.6 mmol/L (23-27) 08/10/19 22:20 ABG O2 Saturation 98.8 % (94-98) H 08/10/19 22:20 ABG Base Excess 0.7 mmol/L 08/10/19 22:20 FiO2 28% 08/10/19 22:20 Sodium 142.9 mmol/L (137-145) 08/13/19 06:04 Potassium 4.2 mmol/L (3.6-5.0) 08/13/19 06:04 Chloride 98 mmol/L (98-107) 08/13/19 06:04 Carbon Dioxide 25 mmol/L (22-30) 08/13/19 06:04 Anion Gap 20 (5-19) H 08/13/19 06:04 BUN 32 mg/dL (7-20) H 08/13/19 06:04 Creatinine 6.50 mg/dL (0.52-1.25) H 08/13/19 06:04 Est GFR ( Amer) 10 (>60) L 08/13/19 06:04 Est GFR (MDRD) Non-Af 9 (>60) L 08/13/19 06:04 Glucose 157 mg/dL (75-110) H 08/13/19 06:04 POC Glucose 180 mg/dL (70-110) H 08/13/19 08:13 Hemoglobin A1c % 6.0 % (4.7-6.0) 08/12/19 04:46 Lactic Acid 2.4 mmol/L (0.7-2.1) H 08/11/19 13:11 Calcium 10.1 mg/dL (8.4-10.2) 08/13/19 06:04 Total Bilirubin 1.2 mg/dL (0.2-1.3) 08/10/19 22:54 Direct Bilirubin 0.8 mg/dL (0.0-0.4) H 08/10/19 22:54 Neonat Total Bilirubin Not Reportable 08/10/19 22:54 Neonat Direct Bilirubin Not Reportable 08/10/19 22:54 Neonat Indirect Bili Not Reportable 08/10/19 22:54 AST 46 U/L (17-59) 08/10/19 22:54 ALT 20 U/L (<50) 08/10/19 22:54 Alkaline Phosphatase 100 U/L (38-126) 08/10/19 22:54 Creatine Kinase 1172 U/L (55-170) H 08/11/19 13:11 CK-MB (CK-2) 6.15 ng/mL (<4.55) H 08/11/19 13:11 Troponin I 0.020 ng/mL 08/11/19 13:11 Total Protein 8.3 g/dL (6.3-8.2) H 08/10/19 22:54 Albumin 4.2 g/dL (3.5-5.0) 08/10/19 22:54 Urine Color LEVI 08/10/19 22:13 Urine Appearance CLOUDY 08/10/19 22:13 Urine pH 6.0 (5.0-9.0) 08/10/19 22:13 Ur Specific [place] 1.017 08/10/19 22:13 Urine Protein 100 mg/dL (NEGATIVE) H 08/10/19 22:13 Urine Glucose (UA) 50 mg/dL (NEGATIVE) H 08/10/19 22:13 Urine Ketones NEGATIVE mg/dL (NEGATIVE) 08/10/19 22:13 Urine Blood MODERATE (NEGATIVE) H 08/10/19 22:13 Urine Nitrite NEGATIVE (NEGATIVE) 08/10/19 22:13 Urine Bilirubin NEGATIVE (NEGATIVE) 08/10/19 22:13 Urine Urobilinogen NEGATIVE mg/dL (<2.0) 08/10/19 22:13 Ur Leukocyte Esterase NEGATIVE (NEGATIVE) 08/10/19 22:13 Urine WBC (Auto) 3 /HPF 08/10/19 22:13 Urine RBC (Auto) 2 /HPF 08/10/19 22:13 Urine Mucus (Auto) RARE /LPF 08/10/19 22:13 Urine Ascorbic Acid NEGATIVE (NEGATIVE) 08/10/19 22:13 08/10/19 08/11/19 08/11/19 22:54 03:03 09:17 CK-MB (CK-2) 4.63 H 4.97 H 6.12 H Troponin I 0.017 0.016 0.018 08/11/19 13:11 CK-MB (CK-2) 6.15 H Troponin I 0.020 Impressions: Chest X-Ray 08/10/19 21:18 IMPRESSION: Possible right basilar pneumonia. Other findings as described. copyright 2010 [employer]- All Rights Reserved Head CT 08/10/19 21:53 IMPRESSION: No acute finding. Considerable amount of bilateral basal ganglia calcification, a new finding, as compared with the prior CT scan. Please correlate clinically. Chest CT 08/11/19 00:00 IMPRESSION: Tiny bilateral pleural effusions. Centrilobular emphysema. TECHNICAL DOCUMENTATION: Quality ID # [id number]: Final reports with documentation of one or more dose reduction techniques (e.g., Automated exposure control, adjustment of the mA and/or kV according to patient size, use of iterative reconstruction technique) copyright 2010 [employer]- All Rights Reserved Plan Plan of Treatment: Discharge to SNF for continued rehab services. Follow-up with primary care provider within 1 week. Follow-up with established toys and games hand finisher as scheduled. Resume normal dialysis schedule. Return to the emergency department as needed for concerning symptoms. Time Spent: Greater than 30 Minutes Stroke Is this a Stroke Patient?: No Acute Heart Failure - Is this a Heart Failure Patient?: No
[2019-08-13 16:21] VITALS: BP 137/73
== END 2019-08-13 17:05 | DRG 70 ==
LOC: ER 21:11 → EH 08-11 02:20 → 3S 08-11 04:43
PROVIDERS: ADMIT Emergency Medicine; ATTEND Emergency Medicine
PROC: 5A1D70Z Performance of Urinary Filtration, Intermittent, Less than 6 Hours Per Day (ICD-10-PCS; principal; 2019-08-11)
DX: G93.40 Encephalopathy, unspecified (principal); N18.6 End stage renal disease; J96.01 Acute respiratory failure with hypoxia; N25.81 Secondary hyperparathyroidism of renal origin; I12.0 Hypertensive chronic kidney disease with stage 5 chronic kidney disease or end stage renal disease; L89.152 Pressure ulcer of sacral region, stage 2; D63.1 Anemia in chronic kidney disease; I95.9 Hypotension, unspecified; Z99.2 Dependence on renal dialysis; Z86.74 Personal history of sudden cardiac arrest; E11.22 Type 2 diabetes mellitus with diabetic chronic kidney disease; I25.10 Atherosclerotic heart disease of native coronary artery without angina pectoris; E78.5 Hyperlipidemia, unspecified; R21 Rash and other nonspecific skin eruption; I25.2 Old myocardial infarction; Z95.1 Presence of aortocoronary bypass graft; Z87.891 Personal history of nicotine dependence; Z95.5 Presence of coronary angioplasty implant and graft; Z79.01 Long term (current) use of anticoagulants; Z79.4 Long term (current) use of insulin; Z79.82 Long term (current) use of aspirin; Z86.73 Personal history of transient ischemic attack (TIA), and cerebral infarction without residual deficits; Z82.49 Family history of ischemic heart disease and other diseases of the circulatory system
CPT/HCPCS: 36415; 36600; 51702; 70450; 71045; 71250; 80048; 80053; 81001; 82550; 82553; 82803; 82962; 83036; 83605; 84484; 85027; 87040; 87086; 93005; 93010; 96360; 96361; 99285; J0692; J1644; J1815; J3490; J7050

== ENCOUNTER 2019-08-26 12:04 | Inpatient (IN) | payer OTHER, MEDICARE ==
[2019-08-26 12:51] LABS: ABSOLUTE BASOPHILS # (AUTO) 0.1 10^3/uL (0.0-0.2); ABSOLUTE EOSINOPHILS # (AUTO) 0.2 10^3/uL (0.0-0.6); ABSOLUTE LYMPHOCYTES (AUTO) 0.7 10^3/uL (0.5-4.7); ABSOLUTE MONOCYTES (AUTO) 1.6 10^3/uL (0.1-1.4); ABSOLUTE NEUT (AUTO) 11.7 10^3/uL (1.7-8.2); BASOPHILS % (AUTO) 0.5 % (0-2); EOSINOPHILS % (AUTO) 1.1 % (0-6); HEMATOCRIT 37.9 % (37.9-51.0); HEMOGLOBIN 11.9 g/dL (13.5-17.0); LYMPHOCYTES % (AUTO) 5.2 % (13-45); MEAN CORPUSCULAR HEMOGLOBIN 29.6 pg (27.0-33.4); MEAN CORPUSCULAR HGB CONC 31.4 g/dL (32.0-36.0); MEAN CORPUSCULAR VOLUME 94 fl (80-97); PLATELET COUNT 317 10^3/uL (150-450); RED BLOOD COUNT 4.02 10^6/uL (4.35-5.55); RED CELL DISTRIBUTION WIDTH 18.8 % (11.5-14.0); SEGMENTED NEUTROPHILS % (AUTO) 82.2 % (42-78); TOTAL CELLS COUNTED % (AUTO) 100 %; WHITE BLOOD COUNT 14.3 10^3/uL (4.0-10.5)
[2019-08-26 12:53] LABS: VENOUS BLOOD BASE EXCESS 3.8 mmol/L; VENOUS BLOOD HCO3 30.9 mmol/L (20-32); VENOUS BLOOD PCO2 53.8 mmHg (35-63); VENOUS BLOOD PH 7.38 (7.30-7.42)
[2019-08-26 13:00] LABS: INTERNATIONAL RATION (INR) 2.12; PROTHROMBIN TIME 24.1 SEC (11.4-15.4)
--- NOTE | 2019-08-26 13:01 | ER Document Report ---
ED General - General Stated Complaint: POSSIBLE LOW BLOOD PRESSURE Time Seen by Provider: 08/26/19 12:10 Mode of Arrival: Medic Information source: Patient, Transfer Record, Outside Facility Records Cannot obtain history due to: Other - Anoxic brain injury Notes: Patient was being transferred from a half-way facility to the wound clinic this morning whenever the staff at the wound clinic noted his blood pressure was 80/50 per EMS and that he had blackened toes that was a new finding for patient. Staff at the wound clinic advised EMS to bring the patient here for further evaluation. EMS gave patient a 400 mL bolus of normal saline and patient's blood pressure has since improved. Patient does have a history of sacral decubitus as well as wounds to bilateral lower extremities. Patient without any fever. Patient denies any cough cold symptoms chest pain abdominal pain nausea or vomiting. Patient states that he has generalized body aches and feels rough. Patient was admitted earlier this month for pneumonia although presently is not on antibiotics. TRAVEL OUTSIDE OF THE [place] IN LAST 30 DAYS: No - HPI Onset: This afternoon Onset/Duration: Persistent Quality of pain: Achy Pain Level: 1 Associated symptoms: Body/muscle aches. denies: Nonproductive cough, Productive cough, Fever, Vomiting Exacerbated by: Denies Relieved by: Denies Similar symptoms previously: No Recently seen / treated by doctor: Yes - Related Data Allergies/Adverse Reactions: No Known Allergies Allergy (Verified 06/22/19 10:50) Past Medical History - General Information source: Patient, Transfer Record, Outside Facility Records Cannot obtain history due to: Other - History of anoxic brain injury, occasionally confused - Social History Smoking Status: Never Smoker Frequency of alcohol use: None Drug Abuse: None Lives with: Prison Family History: None - Medical History Medical History: Other - Anoxic brain injury - Past Medical History Cardiac Medical History: Reports: Hx Coronary Artery Disease - 3 CLOGGED ARTERIES, Hx Heart Attack - 2007, Hx Hypercholesterolemia, Hx Hypertension - MEDICATED Pulmonary Medical History: Reports: Hx COPD Neurological Medical History: Reports: Other - Anoxic brain injury. Denies: Hx Cerebrovascular Accident, Hx Seizures Endocrine Medical History: Reports: Hx Diabetes Mellitus Type 2 Renal/ Medical History: Reports: Hx End Stage Renal Disease - Stage V with dialysis, Hx Hemodialysis. Denies: Hx Peritoneal Dialysis Past Surgical History: Reports: Hx Cardiac Catheterization, Hx Cardiac Surgery - bypass 2012, 1 stent 2013, Hx Coronary Artery Bypass Graft, Hx Coronary Stent, Hx Open Heart Surgery, Hx Orthopedic Surgery, Hx Vascular Surgery - Stenting to the right lower extremity, dialysis shunt. Denies: Hx Pacemaker - Immunizations Immunizations up to date: Yes Hx Diphtheria, Pertussis, Tetanus Vaccination: No Hx Pneumococcal Vaccination: 07/07/14 Review of Systems - Review of Systems -: Yes ROS unobtainable due to patient's medical condition Constitutional: Malaise, Other - Body aches, Recent illness - Pneumonia earlier this month Cardiovascular: denies: Chest pain Respiratory: denies: Cough, Short of breath Gastrointestinal: denies: Abdominal pain, Vomiting Physical Exam - Vital signs Vitals: Pulse Ox 95 08/26/19 12:05 - General General appearance: Alert In distress: None - HEENT Head: Normocephalic, Atraumatic Eyes: Normal Conjunctiva: Normal Nasal: Normal Mouth/Lips: Normal Mucous membranes: Dry Neck: Normal, Supple - Respiratory Respiratory status: No respiratory distress Chest status: Nontender Breath sounds: Normal. No: Rales, Rhonchi, Stridor, Wheezing Chest palpation: Normal - Cardiovascular Rhythm: Tachycardia Heart sounds: S1 appreciated, S2 appreciated Murmur: No - Abdominal Inspection: Normal Distension: No distension Bowel sounds: Normal Tenderness: Nontender - Back Back: Normal, Tender - mild tenderness to sacral decubitus ulcer, no surrounding erythema - Extremities General upper extremity: Normal inspection, Normal strength General lower extremity: Other - , Dressings to bilateral heels, patient with pressure relieving boots to bilateral lower extremities patient status post right great toe rotation - Neurological Cognition: Normal Jamee Coma Scale Eye Opening: Spontaneous Jamee Coma Scale Verbal: Oriented - Patient speaks very quietly low voice [place] Coma Scale Motor: Obeys Commands [place] Coma Scale Total: 15 - Psychological Associated symptoms: Normal affect - Skin Skin Temperature: Warm Skin Moisture: Dry Skin Color: Other - Blackened toe to the right foot, patient with pressure ulcer to bilateral heels, no surrounding erythema, no edema Course - Re-evaluation Re-evalutation: 08/26/19 14:[address] Julio who recommends starting Zosyn and states that patient will likely need to be admitted for gangrenous toe in a diabetic. Pt with mild tachycardia, HR 110, BP 120's systolic. No noted hypotension during ER stay. Doppler tech at bedside. 08/26/19 15:02 Doppler bindery technician at bedside states that they have to leave momentarily and then will return to finish the study. 08/26/19 17:20 Reviewed results of patient's Doppler studies with Dr. Blanco who recommends transferring patient to a facility has vascular surgery on due to bilateral occluded femoral arteries. No additional anticoagulation advised at this time 08/26/19 17:22 Call placed to [facility] transfer center. 08/26/19 17:[address] Spence who is the vascular surgeon bullion weigher at [facility]. Dr Spence states that patient is likely not a candidate for revascularization procedure given his history of anoxic brain injury, chronic wounds to feet and nonambulatory status. States that patient will likely need medical management and palliative care. Dr. Spence states that he is making this assessment based on the information provided to him during the consultation. Dr. Spence was read the impression off of patient's Doppler study and was advised of white blood cell count and vital signs. Dr. Spence was advised of patient's history of an anoxic brain injury that he is occasionally confused and is nonambulatory. Dr. Spence does not feel that patient warrants transfer at this time. 08/26/19 18:[address] Bonilla regarding patient and need for admission. concerned as the patient has noted arterial occlusion on Doppler and would ideally like to have patient at a facility that has vascular surgery on. Dr. Bonilla advised that Dr. Spence did not feel that patient was a candidate for revascularization procedure and instead likely needed medical management and palliative care. Dr. Roman recommends having our surgicalist to evaluate patient to determine suitability of plan of care at this time. 08/26/19 18:15 Message left with circulating RN for need for consultation with surgeon, Dr. Evans, regarding the patient. 08/26/19 19:44 Called to speak with the circulating RN again as Dr. Evans is still in a case. Circulating RN states that Dr. Evans did come by to see the patient in room 18. Circulating RN advised that this provider will need to consult with Dr. Evans regarding patient's Doppler reports and whether or not he can be managed at this facility or would require transfer. 08/26/19 20:[address] Evans discussed patient's Doppler test with him. Dr. Evans does not feel that patient has a transferable vascular emergency and agrees that patient can be managed medically at this facility and recommends consultation with hospitalist for admission here. 08/26/19 21:[address] Bourgeois who does agreed to accept patient for admission to IMCU floor at this time. - Vital Signs Vital signs: Temp Pulse Resp BP Pulse Ox 98.9 F 25 H 123/80 96 08/26/19 22:00 08/26/19 23:00 08/26/19 23:00 08/26/19 23:00 - Laboratory Result Diagrams: 08/26/19 11:50 08/26/19 11:50 Laboratory results interpreted by me: 08/26/19 08/26/19 08/26/19 11:50 11:50 11:50 WBC 14.3 H RBC 4.02 L Hgb 11.9 L MCHC 31.4 L RDW 18.8 H Lymph % (Auto) 5.2 L Absolute Neuts (auto) 11.7 H Absolute Monos (auto) 1.6 H Seg Neutrophils % 82.2 H PT 24.1 H Chloride 94 L Anion Gap 22 H BUN 48 H Creatinine 6.16 H Est GFR ( Amer) 11 L Est GFR (MDRD) Non-Af 9 L Glucose 295 H Calcium 10.3 H Total Bilirubin 1.4 H Direct Bilirubin 0.9 H AST 89 H Albumin 3.4 L 08/27/19 00:05 Labs- Entire Visit 08/26/19 08/26/19 08/26/19 11:50 11:50 11:50 WBC 14.3 H RBC 4.02 L Hgb 11.9 L Hct 37.9 MCV 94 MCH 29.6 MCHC 31.4 L RDW 18.8 H Plt Count 317 Lymph % (Auto) 5.2 L [place] % (Auto) 11.0 Eos % (Auto) 1.1 Baso % (Auto) 0.5 Absolute Neuts (auto) 11.7 H Absolute Lymphs (auto) 0.7 Absolute Monos (auto) 1.6 H Absolute Eos (auto) 0.2 Absolute Basos (auto) 0.1 Seg Neutrophils % 82.2 H PT 24.1 H INR 2.12 VBG pH VBG pCO2 VBG HCO3 VBG Base Excess Sodium 143.2 Potassium 4.4 Chloride 94 L Carbon Dioxide 27 Anion Gap 22 H BUN 48 H Creatinine 6.16 H Est GFR ( Amer) 11 L Est GFR (MDRD) Non-Af 9 L Glucose 295 H Lactic Acid (Sepsis) Calcium 10.3 H Total Bilirubin 1.4 H Direct Bilirubin 0.9 H Neonat Total Bilirubin Not Reportable Neonat Direct Bilirubin Not Reportable Neonat Indirect Bili Not Reportable AST 89 H ALT 46 Alkaline Phosphatase 100 Troponin I Total Protein 7.2 Albumin 3.4 L 08/26/19 08/26/19 08/26/19 11:50 11:50 11:50 WBC RBC Hgb Hct MCV MCH MCHC RDW Plt Count Lymph % (Auto) [place] % (Auto) Eos % (Auto) Baso % (Auto) Absolute Neuts (auto) Absolute Lymphs (auto) Absolute Monos (auto) Absolute Eos (auto) Absolute Basos (auto) Seg Neutrophils % PT INR VBG pH 7.38 VBG pCO2 53.8 VBG HCO3 30.9 VBG Base Excess 3.8 Sodium Potassium Chloride Carbon Dioxide Anion Gap BUN Creatinine Est GFR ( Amer) Est GFR (MDRD) Non-Af Glucose Lactic Acid (Sepsis) 2.0 Calcium Total Bilirubin Direct Bilirubin Neonat Total Bilirubin Neonat Direct Bilirubin Neonat Indirect Bili AST ALT Alkaline Phosphatase Troponin I 0.035 Total Protein Albumin - Diagnostic Test Radiology reviewed: Reports reviewed Discharge - Discharge Clinical Impression: ESRD on hemodialysis, Vascular occlusion, Hypotensive episode Decubitus ulcers Qualifiers: Pressure injury location: unspecified location Pressure injury stage: unspecified pressure injury stage Qualified Code(s): L89.90 - Pressure ulcer of unspecified site, unspecified stage Leukocytosis Qualifiers: Leukocytosis type: unspecified Qualified Code(s): D72.829 - Elevated white blood cell count, unspecified Condition: Fair Disposition: ADMITTED INPATIENT Admitting Provider: Bk (Hospitalist) Unit Admitted: [facility]
--- NOTE | 2019-08-26 13:14 | RADIOLOGY REPORT (SQ) ---
EXAM DESCRIPTION: FOOT RIGHT COMPLETE COMPLETED DATE/TIME: 08/26/2019 12:58 pm REASON FOR STUDY: decubitus ulcer COMPARISON: None. NUMBER OF VIEWS: Three views. TECHNIQUE: AP, lateral and oblique radiographic images acquired of the right foot. LIMITATIONS: None. FINDINGS: MINERALIZATION: Normal. BONES: Status post trans metatarsal amputation of the 1st toe with mild heterotopic ossification at t he amputated and of the proximal 1st metatarsal. There is no fracture or erosion. JOINTS: The tarsometatarsal alignment is preserved. SOFT TISSUES: No subcutaneous emphysema or radiopaque foreign body. OTHER: No other significant finding. 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 There is no fracture or osseous erosion. TECHNICAL DOCUMENTATION: JOB ID: [id number] [employer]- All Rights Reserved Reading location - IP/workstation name: [email or web address]
--- NOTE | 2019-08-26 13:17 | RADIOLOGY REPORT (SQ) ---
EXAM DESCRIPTION: CHEST SINGLE VIEW COMPLETED DATE/TIME: 08/26/2019 12:58 pm REASON FOR STUDY: low blood pressure COMPARISON: AP view of the chest from 08/10/2019. EXAM PARAMETERS: NUMBER OF VIEWS: One view. TECHNIQUE: Single frontal radiographic view of the chest acquired. RADIATION DOSE: NA LIMITATIONS: None. FINDINGS: LUNGS AND PLEURA: Bilateral pleural effusion and prominent bibasilar interstitial opacitie s. There is no consolidation or pneumothorax. MEDIASTINUM AND HILAR STRUCTURES: Stable mediastinal and hilar contours. HEART AND VASCULAR STRUCTURES: Stable cardiomegaly. BONES: No acute findings. HARDWARE: Endovascular stents that extend from the left axillary vein to the left subclavian vein. OTHER: Status post median sternotomy/CABG. IMPRESSION: Bilateral pleural effusions and probable bibasilar atelectasis or scarring. TECHNICAL DOCUMENTATION: JOB ID: [id number] [employer]- All Rights Reserved Reading location - IP/workstation name: [email or web address]
[2019-08-26 13:19] LABS: ALBUMIN 3.4 g/dL (3.5-5.0); ALKALINE PHOSPHATASE 100 U/L (38-126); ASPARTATE AMINO TRANSFERASE 89 U/L (17-59); BILIRUBIN,DIRECT 0.9 mg/dL (0.0-0.4); BILIRUBIN,TOTAL 1.4 mg/dL (0.2-1.3); BLOOD UREA NITROGEN 48 mg/dL (7-20); CALCIUM 10.3 mg/dL (8.4-10.2); CHLORIDE 94 mmol/L (98-107); GLUCOSE 295 mg/dL (75-110); POTASSIUM 4.4 mmol/L (3.6-5.0); TOTAL PROTEIN 7.2 g/dL (6.3-8.2)
[2019-08-26 13:24] LABS: CARBON DIOXIDE 27 mmol/L (22-30)
[2019-08-26 13:25] LABS: ANION GAP 22 (5-19)
--- NOTE | 2019-08-26 13:40 | EKG REPORT ---
SEVERITY:- ABNORMAL ECG - SINUS TACHYCARDIA LVH WITH SECONDARY REPOLARIZATION ABNORMALITY ANTERIOR Q WAVES, POSSIBLY DUE TO LVH BORDERLINE PROLONGED QT INTERVAL : Confirmed by: Migue Marquez MD 26-Aug-2019 13:39:53
[2019-08-26] MEDS ORDERED: PIPERACILLIN/TAZOBACTAM 2.25 GM VIAL IV ONE (14:39)
--- NOTE | 2019-08-26 16:47 | RADIOLOGY REPORT (SQ) ---
EXAM DESCRIPTION: ARTERIAL LOWER EXTREM BILAT COMPLETED DATE/TIME: 08/26/2019 4:15 pm REASON FOR STUDY: blackened toes COMPARISON: Right foot three views 09/03/2009 TECHNIQUE: Dynamic and static pace scale and color images acquired of the lower extremity arteries. Additional selected spectral images recorded. ABIs were not performed, patient unable to tolerate c ompression at the ankles LIMITATIONS: None. FINDINGS: RIGHT LEG: ABIS: Not performed INFLOW ARTERIES: Normal, no obstruction evident. COMMON FEMORAL ARTERY: There is a patent graft in the distal common femoral artery and distal legal instruments examiner al iliac artery. Multiphasic waveforms. No focal stenosis. PROFUNDA FEMORAL ARTERY: Multiphasic waveforms. Normal, no velocity elevation to suggest focal stenos is. Normal color Doppler evaluation. SUPERFICIAL FEMORAL ARTERY: Occluded POPLITEAL ARTERY:Occluded. PATENT TIBIOPERONEAL TRUNK AND 3 VESSEL RUNOFF: Posterior tibial artery is occluded. There is monoph asic flow in the peroneal artery to the ankle, and monophasic flow in the anterior tibial artery into the dorsalis pedis artery TBI: Not performed. OTHER: No other significant finding. LEFT LEG: ABIS: Not performed INFLOW ARTERIES: Normal, no obstruction evident. COMMON FEMORAL ARTERY: Multiphasic waveforms. Normal common no velocity elevation to suggest focal stenosis. Normal color Doppler evaluation. PROFUNDA FEMORAL ARTERY: Multiphasic waveforms. Heavily diseased with diffuse areas of vessel wall ca lcification and shadowing. No elevated velocity. SUPERFICIAL FEMORAL ARTERY: Occluded POPLITEAL ARTERY:Minimal monophasic flow in the popliteal artery from collateral vessels PATENT TIBIOPERONEAL TRUNK AND 3 VESSEL RUNOFF: Occluded peroneal artery, posterior tibial and anteri or tibial arteries in the left calf TBI: Not performed. OTHER: No other significant finding. IMPRESSION: Bilateral occluded superficial femoral arteries Occluded right popliteal artery. Minimal monophasic flow in the right anterior tibial artery and per christie artery Minimal monophasic flow in the left popliteal artery from collateral vessels. Occluded left calf ves sels. COMMENT: [facility] NORMAL: Greater than 1.0 MINIMAL DISEASE: 0.9 to 1.0 CLAUDICATION: 0.5 to 0.9 SEVERE ARTERIAL DISEASE: Less than 0.5 [facility] NORMAL: Greater than 1.0 (1.2 If Heavy Calcifications) NORMAL TO MILD ISCHEMIA: 0.8 to 1.0 MODERATE ISCHEMIA: 0.4 to 0.8 SEVERE ISCHEMIA: Less than 0.4 TECHNICAL DOCUMENTATION: JOB ID: [id number] [employer]- All Rights Reserved Reading location - IP/workstation name: [email or web address]
[2019-08-26] MEDS ORDERED: MAG HYDROX/AL HYDROX/SIMETH SUSP 30 ML UDCUP PO PRN (21:06)
[2019-08-26] MEDS ORDERED: IPRATROPIUM/ALBUTEROL 0.5-2.5 MG/3 ML AMPUL NEB PRN (21:06)
[2019-08-26] MEDS ORDERED: MAGNESIUM HYDROXIDE SUSP 30 ML UDCUP PO PRN (21:06)
[2019-08-26] MEDS ORDERED: ACETAMINOPHEN 325 MG TABLET PO PRN (21:06)
[2019-08-26] MEDS ORDERED: VANCOMYCIN HCL 1,000 MG in DEXTROSE 5%-WATER 250 ML IV ONE (22:00)
[2019-08-26] MEDS: HEPARIN SOD (PORCINE) 5,000 UNIT/ML 1 ML VIAL SUBCUT SCH (22:52)
[2019-08-26] MEDS: DOCUSATE SODIUM 100 MG CAPSULE PO SCH (22:54)
--- NOTE | 2019-08-26 23:23 | PDOC CONSULTATION ---
Consultation Consult Date: 08/26/19 Provider Consulted: SURGICAL SURGICALIST Consult reason:: dry gangrene bilateral feet, sacral decubitus ulcer History of Present Illness Admission Date/PCP: 08/26/19 21:07 MORRIS HARDY MD History of Present Illness: ANASTASIA PERALTA is a 64 year old male with a history of anoxic brain injury, diabetes, end-stage renal disease requiring dialysis, and severe PAD. The patient presents with low blood pressure, leukocytosis, and evidence of decubiti and dry gangrene of bilateral toes. Patient was sent to the emergency department from his nursing facility for evaluation. Patient was hypotensive and tachycardic in the emergency department, however this has resolved with a fluid bolus. The patient is nonverbal for me. He does not respond appropriately to questions. There is no family present to discuss his medical history. All medical history is obtained from the nurse and the medical chart. Past Medical History Cardiac Medical History: Reports: Coronary Artery Disease - 3 CLOGGED ARTERIES, Myocardial Infarction - 2007, Hyperlipidema, Hypertension - MEDICATED Pulmonary Medical History: Denies: Asthma, Bronchitis, Chronic Obstructive Pulmonary Disease (COPD), Pneumonia, Tuberculosis Neurological Medical History: Reports: Other - anoxic brain injury Denies: Seizures Endocrine Medical History: Reports: Diabetes Mellitus Type 2 Denies: Diabetes Mellitus Type 1, Hyperthyroidism, Hypothyroidism Renal/ Medical History: Reports: End Stage Renal Disease - Stage V with dialysis GI Medical History: Denies: Cirrhosis, Hepatitis, Hiatal Hernia Musculoskeltal Medical History: Denies: Arthritis, Gout Skin Medical History: Denies: Eczema, Psoriasis Psychiatric Medical History: Denies: Depression Hematology: Reports: Anemia - Chronic Denies: Sickle Cell Disease, Bleeding Tendencies Past Surgical History Past Surgical History: Reports: Cardiac Catheterization, Coronary Artery Bypass Graft, Coronary Stent, Orthopedic Surgery, Vascular Surgery Denies: Pacemaker Social History Smoking Status: Unknown if Ever Smoked Electronic Cigarette use?: No Frequency of Alcohol Use: None Hx Recreational Drug Use: No Drugs: None Hx Prescription Drug Abuse: No Family History Family History: None Parental Family History Reviewed: Yes - Chart Children Family History Reviewed: Yes - Chart Sibling(s) Family History Reviewed.: Yes - Chart Medication/Allergy Home Medications: Acetaminophen [Tylenol 325 mg Tablet] 325 mg PO Q4HP PRN 08/26/19 Apixaban [Eliquis 5 mg Tablet] 5 mg PO Q12 08/26/19 Bisacodyl [Dulcolax 10 mg Supp.rect] 10 mg [place] DAILYP PRN 08/26/19 Insulin Aspart [Novolog Insulin (Aspart) 100 unit/mL] 0 unit SQ .SLIDING SCALE 08/26/19 Insulin Aspart [Novolog Insulin (Aspart) 100 unit/mL] 6 unit SQ MEALS 08/26/19 Insulin Glargine,Hum.rec.anlog [Lantus Insulin 100 Unit/1 ml 10 ml] 8 units SQ DAILY 08/26/19 Ipratropium/Albuterol Sulfate [Duoneb 3 ml Ampul] 3 ml NEB Q4HP PRN 08/26/19 Labetalol HCl [Normodyne 200 mg Tablet] 200 mg PO Q12 08/26/19 Lanthanum Carbonate [Fosrenol 500 mg Chewable Tablet] 500 mg PO QID 08/26/19 Pantoprazole Sodium [Protonix [address] Tablet] 40 mg PO DAILY 08/26/19 Polyethylene Glycol 3350 [Miralax Powder 17 gm/Packet] 17 gm PO DAILYP PRN 08/26/19 Pravastatin Sodium [Pravachol] 40 mg PO DAILY 08/26/19 Allergies/Adverse Reactions: No Known Allergies Allergy (Verified 06/22/19 10:50) Review of Systems ROS unobtainable: Due to mental status Physical Exam Vital Signs: Temp Pulse Resp BP Pulse Ox 98.9 F 22 H 127/80 H 96 08/26/19 22:00 08/26/19 22:00 08/26/19 22:00 08/26/19 22:00 Intake & Output 08/25/19 08/26/19 08/27/19 06:59 06:59 06:59 Weight 8 kg General appearance: PRESENT: no acute distress, thin Head exam: PRESENT: atraumatic, normocephalic Eye exam: PRESENT: EOMI, PERRLA. ABSENT: scleral icterus Mouth exam: PRESENT: moist, neck supple Neck exam: ABSENT: tenderness, thyromegaly, tracheal deviation, tracheostomy Respiratory exam: PRESENT: clear to auscultation lor, unlabored. ABSENT: chest wall tenderness, tachypnea, wheezes Cardiovascular exam: ABSENT: tachycardia Pulses: PRESENT: normal radial pulses GI/Abdominal exam: PRESENT: soft. ABSENT: distended, firm, tenderness Rectal exam: PRESENT: other - Brown stool in the vault Extremities exam: PRESENT: other - Dry gangrene to right and left second toes. Dry eschar to right heel. Neurological exam: PRESENT: awake, aphasic Psychiatric exam: ABSENT: agitated, anxious, depressed Focused psych exam: ABSENT: delusional Skin exam: PRESENT: other - Stage III sacral decubitus ulcer with areas of marginal/nonviable tissue present. No overt infection evident. Results Laboratory Results: 08/26/19 11:50 08/26/19 11:50 08/26/19 08/26/19 08/26/19 11:50 11:50 11:50 WBC 14.3 H RBC 4.02 L Hgb 11.9 L Hct 37.9 MCV 94 MCH 29.6 MCHC 31.4 L RDW 18.8 H Plt Count 317 Seg Neutrophils % 82.2 H VBG pH 7.38 VBG pCO2 53.8 VBG HCO3 30.9 VBG Base Excess 3.8 Sodium 143.2 Potassium 4.4 Chloride 94 L Carbon Dioxide 27 Anion Gap 22 H BUN 48 H Creatinine 6.16 H Est GFR ( Amer) 11 L Glucose 295 H Calcium 10.3 H Total Bilirubin 1.4 H AST 89 H Alkaline Phosphatase 100 Total Protein 7.2 Albumin 3.4 L 08/26/19 11:50 Troponin I 0.035 Impressions: Chest X-Ray 08/26/19 12:24 IMPRESSION: Bilateral pleural effusions and probable bibasilar atelectasis or scarring. Foot X-Ray 08/26/19 12:24 IMPRESSION: Status post transmetatarsal amputation of the 1st toe. There is no fracture or osseous erosion. Lower Extremity Ultrasound 08/26/19 14:48 IMPRESSION: Bilateral occluded superficial femoral arteries Occluded right popliteal artery. Minimal monophasic flow in the right anterior tibial artery and peroneal artery Minimal monophasic flow in the left popliteal artery from collateral vessels. Occluded left calf vessels. Assessment & Plan - Diagnosis (1) Sacral decubitus ulcer, stage III Is this a current diagnosis for this admission?: Yes (2) Dry gangrene Is this a current diagnosis for this admission?: Yes - Plan Summary Plan Summary: This is a 64-year-old male with multiple medical problems presenting with leukocytosis, dry gangrene of bilateral feet, and a sacral decubitus ulcer. The patient has long-standing, chronic PAD. He has dry gangrene that is currently not infected. In his current situation, I would recommend observation. His sacral decubitus ulcer, however has evidence of nonviable tissue. The patient is nonambulatory, and discussion should be held with the patient's family regarding appropriate care and treatment of this decubitus. The most aggressive treatment would include debridement and diverting colostomy. With the patient's other significant comorbidities, this may not be feasible or reasonable. Discussion should be held with the family regarding expectations and treatment course. Myself or my surgical colleagues will plan to discuss this with them tomorrow. Will follow.
[2019-08-27] MEDS ORDERED: DEXTROSE 50%-WATER SYRINGE 25 GM/50 ML DOSE IV PRN (01:30)
[2019-08-27] MEDS ORDERED: DEXTROSE 50%-WATER SYRINGE 12.5 GM/25 ML DOSE IV PRN (01:30)
[2019-08-27] MEDS ORDERED: INSULIN LISPRO 100 UNIT/ML 3 ML VIAL SUBCUT ONE (01:30)
[2019-08-27] MEDS ORDERED: DEXTROSE 40% GEL 15 GM TUBE PO PRN (01:30)
[2019-08-27] MEDS ORDERED: GLUCAGON,HUMAN RECOMB 1 MG INJ IM PRN (01:30)
[2019-08-27] MEDS ORDERED: DEXTROSE 40% GEL 15 GM TUBE X 2 PO PRN (01:30)
[2019-08-27] MEDS: PIPERACILLIN SODIUM/TAZOBACTAM 2.25 GM in NORMAL SALINE 50 ML IV SCH ×2 (05:12→17:17)
[2019-08-27] MEDS: HEPARIN SOD (PORCINE) 5,000 UNIT/ML 1 ML VIAL SUBCUT SCH (05:12)
--- NOTE | 2019-08-27 06:31 | PDOC H&P ---
History of Present Illness Admission Date/PCP: 08/26/19 21:07 MORRIS HARDY MD Patient complains of: Bilateral foot gangrene History of Present Illness: ANASTASIA PERALTA is a 64 year old male long-term [facility] resident with an extensive past medical history of anoxic brain injury, end-stage renal failure on hemodialysis, diabetes, coronary artery disease, peripheral vascular and arterial disease status post lower extremity digit amputations and stage III s acral decubiti. He presents from [facility] with reports of low blood pressure and discoloration and numbness to his feet bilaterally. In the emergency room he is found to have hypotension responsive to an IV fluid challenge and bilateral foot gangrene. Surgical list is consulted, he is started on empiric antibiotics and referred to the hospitalist for admission. Fortunately patient denies pain. Past Medical History Cardiac Medical History: Reports: Coronary Artery Disease - 3 CLOGGED ARTERIES, Myocardial Infarction - 2007, Hyperlipidema, Hypertension - MEDICATED Pulmonary Medical History: Reports: Chronic Obstructive Pulmonary Disease (COPD) Denies: Asthma, Bronchitis, Pneumonia, Tuberculosis Neurological Medical History: Reports: Other - Anoxic brain injury Denies: Seizures Endocrine Medical History: Reports: Diabetes Mellitus Type 2 Denies: Diabetes Mellitus Type 1, Hyperthyroidism, Hypothyroidism Renal/ Medical History: Reports: End Stage Renal Disease - Stage V with dialysis GI Medical History: Denies: Cirrhosis, Hepatitis, Hiatal Hernia Musculoskeltal Medical History: Denies: Arthritis, Gout Skin Medical History: Denies: Eczema, Psoriasis Psychiatric Medical History: Denies: Depression Hematology: Reports: Anemia - Chronic Denies: Sickle Cell Disease, Bleeding Tendencies Past Surgical History Past Surgical History: Reports: Cardiac Catheterization, Coronary Artery Bypass Graft, Coronary Stent, Orthopedic Surgery, Vascular Surgery - Stenting to the right lower extremity, dialysis shunt Denies: Pacemaker Social History Information Source: Patient, [facility] Records Lives with: [facility] Smoking Status: Never Smoker Electronic Cigarette use?: No Frequency of Alcohol Use: None Hx Recreational Drug Use: No Drugs: None Hx Prescription Drug Abuse: No - Advance Directive Resuscitation Status: Full Code Family History Family History: Other - Unknown to patient Parental Family History Reviewed: No - Unknown Children Family History Reviewed: No - Unknown Sibling(s) Family History Reviewed.: No - Unknown Medication/Allergy Home Medications: Acetaminophen [Tylenol 325 mg Tablet] 325 mg PO Q4HP PRN 08/26/19 Apixaban [Eliquis 5 mg Tablet] 5 mg PO Q12 08/26/19 Bisacodyl [Dulcolax 10 mg Supp.rect] [address] DAILYP PRN 08/26/19 Insulin Aspart [Novolog Insulin (Aspart) 100 unit/mL] 0 unit SQ .SLIDING SCALE 08/26/19 Insulin Aspart [Novolog Insulin (Aspart) 100 unit/mL] 6 unit SQ MEALS 08/26/19 Insulin Glargine,Hum.rec.anlog [Lantus Insulin 100 Unit/1 ml 10 ml] 8 units SQ DAILY 08/26/19 Ipratropium/Albuterol Sulfate [Duoneb 3 ml Ampul] 3 ml NEB Q4HP PRN 08/26/19 Labetalol HCl [Normodyne 200 mg Tablet] 200 mg PO Q12 08/26/19 Lanthanum Carbonate [Fosrenol 500 mg Chewable Tablet] 500 mg PO QID 08/26/19 Pantoprazole Sodium [Protonix [address] Tablet] 40 mg PO DAILY 08/26/19 Polyethylene Glycol 3350 [Miralax Powder 17 gm/Packet] 17 gm PO DAILYP PRN 08/26/19 Pravastatin Sodium [Pravachol] 40 mg PO DAILY 08/26/19 Allergies/Adverse Reactions: No Known Allergies Allergy (Verified 06/22/19 10:50) Review of Systems Constitutional: PRESENT: as per HPI, anorexia, fatigue, fever(s), weakness, weight loss Eyes: ABSENT: visual disturbances Ears: ABSENT: hearing changes Cardiovascular: ABSENT: chest pain, dyspnea on exertion, edema, orthropnea, palpitations Respiratory: ABSENT: cough, hemoptysis Gastrointestinal: ABSENT: abdominal pain, constipation, diarrhea, hematemesis, hematochezia, nausea, vomiting Genitourinary: ABSENT: dysuria, hematuria Musculoskeletal: PRESENT: as per HPI, other - Left upper extremity flexion contracture, discoloration of the lower extremity bilaterally with global muscular atrophy Integumentary: PRESENT: as per HPI, other - 10 x 12 stage III sacral decubiti, bilateral heel ulcer, bilateral second and third toe gangrene. Neurological: PRESENT: as per HPI, abnormal speech, focal weakness, numbness, paresthesias, weakness Psychiatric: ABSENT: anxiety, depression, homidical ideation, suicidal ideation Endocrine: ABSENT: cold intolerance, heat intolerance, polydipsia, polyuria Hematologic/Lymphatic: ABSENT: easy bleeding, easy bruising Physical Exam Vital Signs: Temp Pulse Resp BP Pulse Ox 98.3 F 95 20 120/74 95 08/27/19 03:54 08/27/19 01:02 08/27/19 03:54 08/27/19 03:54 08/27/19 01:02 Intake & Output 08/25/19 08/26/19 08/27/19 11:59 11:59 11:59 Intake Total 0 Output Total 0 Balance 0 Weight 58.3 kg General appearance: PRESENT: no acute distress, cooperative, thin, well- developed, well-nourished, other - Severely debilitated, temporal wasting and global atrophy Head exam: PRESENT: atraumatic, normocephalic Eye exam: PRESENT: conjunctiva pink, EOMI, PERRLA. ABSENT: scleral icterus Ear exam: PRESENT: normal external ear exam Mouth exam: PRESENT: dry mucosa, tongue midline Neck exam: ABSENT: carotid bruit, JVD, lymphadenopathy, thyromegaly Respiratory exam: PRESENT: clear to auscultation lor. ABSENT: rales, rhonchi, wheezes Cardiovascular exam: PRESENT: RRR. ABSENT: diastolic murmur, rubs, systolic murmur Pulses: PRESENT: normal dorsalis pedis pul Vascular exam: PRESENT: normal capillary refill GI/Abdominal exam: PRESENT: normal bowel sounds, soft. ABSENT: distended, guarding, mass, organolmegaly, rebound, tenderness Rectal exam: PRESENT: deferred Extremities exam: PRESENT: full ROM. ABSENT: calf tenderness, clubbing, pedal edema Neurological exam: PRESENT: alert, awake, oriented to person, oriented to place, oriented to time, oriented to situation, CN II-XII grossly intact. ABSENT: motor sensory deficit Psychiatric exam: PRESENT: appropriate affect, normal mood. ABSENT: homicidal ideation, suicidal ideation Skin exam: PRESENT: dry, intact, warm, other - 10 x 12 stage III sacral decubiti, bilateral heel ulcer, bilateral second and third toe gangrene.. ABSENT: cyanosis, rash Results Laboratory Results: 08/26/19 11:50 08/26/19 11:50 08/26/19 08/26/19 08/26/19 11:50 11:50 11:50 WBC 14.3 H RBC 4.02 L Hgb 11.9 L Hct 37.9 MCV 94 MCH 29.6 MCHC 31.4 L RDW 18.8 H Plt Count 317 Seg Neutrophils % 82.2 H VBG pH 7.38 VBG pCO2 53.8 VBG HCO3 30.9 VBG Base Excess 3.8 Sodium 143.2 Potassium 4.4 Chloride 94 L Carbon Dioxide 27 Anion Gap 22 H BUN 48 H Creatinine 6.16 H Est GFR ( Amer) 11 L Glucose 295 H Calcium 10.3 H Total Bilirubin 1.4 H AST 89 H Alkaline Phosphatase 100 Total Protein 7.2 Albumin 3.4 L 08/26/19 11:50 Troponin I 0.035 Impressions: Chest X-Ray 08/26/19 12:24 IMPRESSION: Bilateral pleural effusions and probable bibasilar atelectasis or scarring. Foot X-Ray 08/26/19 12:24 IMPRESSION: Status post transmetatarsal amputation of the 1st toe. There is no fracture or osseous erosion. Lower Extremity Ultrasound 08/26/19 14:48 IMPRESSION: Bilateral occluded superficial femoral arteries Occluded right popliteal artery. Minimal monophasic flow in the right anterior tibial artery and peroneal artery Minimal monophasic flow in the left popliteal artery from collateral vessels. Occluded left calf vessels. Assessment and Plan - Diagnosis (1) Sepsis Is this a current diagnosis for this admission?: Yes Plan: Secondary to lower extremity peripheral vascular, arterial disease and gangrene. Empiric antibiotics, IV fluid challenge, follow-up CBC, blood culture and surgical consult (2) Hypotensive episode Is this a current diagnosis for this admission?: Yes Plan: Secondary to #1, IV fluid challenge, follow-up lactic acid (3) Decubitus ulcers Qualifiers: Pressure injury location: unspecified location Pressure injury stage: unspecified pressure injury stage Qualified Code(s): L89.90 - Pressure ulcer of unspecified site, unspecified stage Is this a current diagnosis for this admission?: Yes Plan: Secondary to diabetes complicated by end-stage renal failure. Defer to surgery (4) Dry gangrene Is this a current diagnosis for this admission?: Yes Plan: Defer to surgery (5) ESRD on hemodialysis Is this a current diagnosis for this admission?: Yes Plan: No evidence for overload or emergent dialysis, Saturday schedule dialysis, Dr. Mills consulted (6) Diabetes mellitus type 2 in nonobese Is this a current diagnosis for this admission?: Yes Plan: Follow-up outpatient medication reconciliation, Humalog sliding scale QAC. - Time Time Spent with patient: 35 or more minutes - Inpatient Certification Medical Necessity: Need Close Monitoring Due to Risk of Patient Decompensation
[2019-08-27 06:48] LABS: ABSOLUTE BASOPHILS # (AUTO) 0.1 10^3/uL (0.0-0.2); ABSOLUTE EOSINOPHILS # (AUTO) 0.2 10^3/uL (0.0-0.6); ABSOLUTE LYMPHOCYTES (AUTO) 0.7 10^3/uL (0.5-4.7); ABSOLUTE MONOCYTES (AUTO) 1.8 10^3/uL (0.1-1.4); ABSOLUTE NEUT (AUTO) 11.1 10^3/uL (1.7-8.2); BASOPHILS % (AUTO) 0.4 % (0-2); EOSINOPHILS % (AUTO) 1.7 % (0-6); HEMATOCRIT 38.2 % (37.9-51.0); HEMOGLOBIN 12.1 g/dL (13.5-17.0); LYMPHOCYTES % (AUTO) 5.4 % (13-45); MEAN CORPUSCULAR HEMOGLOBIN 29.4 pg (27.0-33.4); MEAN CORPUSCULAR HGB CONC 31.7 g/dL (32.0-36.0); MEAN CORPUSCULAR VOLUME 93 fl (80-97); MONOCYTES % (AUTO) 12.9 % (3-13); PLATELET COUNT 280 10^3/uL (150-450); RED BLOOD COUNT 4.12 10^6/uL (4.35-5.55); RED CELL DISTRIBUTION WIDTH 18.3 % (11.5-14.0); SEGMENTED NEUTROPHILS % (AUTO) 79.6 % (42-78); TOTAL CELLS COUNTED % (AUTO) 100 %
[2019-08-27 06:58] LABS: BLOOD UREA NITROGEN 65 mg/dL (7-20); CALCIUM 10.2 mg/dL (8.4-10.2); CARBON DIOXIDE 26 mmol/L (22-30); CHLORIDE 98 mmol/L (98-107); GLUCOSE 208 mg/dL (75-110); POTASSIUM 4.5 mmol/L (3.6-5.0)
[2019-08-27 07:35] LABS: ANION GAP 20 (5-19)
[2019-08-27] MEDS: INSULIN LISPRO 100 UNIT/ML 3 ML VIAL SUBCUT SCH ×3 (08:10→16:08)
[2019-08-27] MEDS: DOCUSATE SODIUM 100 MG CAPSULE PO SCH (09:02)
[2019-08-27] MEDS ORDERED: NORMAL SALINE 500 ML IV ONE ×2 (09:30→14:45)
--- NOTE | 2019-08-27 11:01 | PDOC CONSULTATION ---
Consultation Consult Date: 08/27/19 Provider Consulted: SHAHEEN VAZQUEZ Consult reason:: I was asked to see the patient and supervise dialysis while here in the hospital. History of Present Illness Admission Date/PCP: 08/26/19 21:07 MORRIS HARDY MD History of Present Illness: ANASTASIA PERALTA is a 64 year old male who is a resident of [facility] with unfortunate history of anoxic brain injury after cardiac arrest during a vascular procedure for his AV fistula last July 20 in [place] for which he was transferred to [facility], ESRD on hemodialysis T-- , coronary artery disease, diabetes mellitus, and peripheral arterial disease who was brought to the emergency room yesterday because of low blood pressure and dark discoloration of bilateral feet. Patient was unable to give an accurate history of how he got to the emergency room. Patient whispers and answers questions appropriately but could not give detailed information's. From records he was found to be hypotensive in the emergency room and was given IV fluids. He was also noted to have bilateral feet gangrene and sacral decubitus ulcer. He is admitted for sepsis associated with hypotension. He was given a dose of IV vancomycin and IV Zosyn and is now currently being continued on IV Zosyn. Arterial duplex ultrasound of his lower extremities showed bilateral occluded femoral arteries, occluded right popliteal artery, minimal flow off right anterior tibial artery and peroneal artery, minimal flow in left popliteal artery and occluded left calf vessels. Patient was evaluated and seen by our surgeon, Dr. Evans. For the dry gangrene in his feet he recommended nothing to be done. However for the decubitus ulcer he recommended discussion with the family regarding further plan and treatment including surgical intervention given his current condition and comorbidities. Patient's last hemodialysis was last Saturday. Patient indicated that he is somewhat short of breath today but comfortable on nasal cannula. He said he has chest pain but could not characterize it nor could he tell me where exactly the pain is. He otherwise did not verbalize any other further complaints. Past Medical History Cardiac Medical History: Reports: Coronary Artery Disease - 3 obstructed ARTERIES, Hyperlipidemia, Hypertension-primary, Myocardial Infarction - 2008, Peripheral Vascular Disease, Other - Cardiac arrest causing anoxic brain injury on 07/20/2019 Pulmonary Medical History: Reports: Chronic Obstructive Pulmonary Disease (COPD) Neurological Medical History: Reports: Other - Anoxic brain injury Endocrine Medical History: Reports: Diabetes Mellitus Type 2 Renal/ Medical History: Reports: End Stage Renal Disease - Stage V with dialysis Hematology Medical History: Reports Anemia of Chronic Kidney Disease Past Surgical History Past Surgical History: Reports: Cardiac Catheterization, Coronary Artery Bypass Graft, Coronary Stent, Dialysis Access Surgery AVF, Orthopedic Surgery, Vascular Surgery - Stenting to the right lower extremity Social History Information Source: [facility] Records Lives with: [facility] Smoking Status: Never Smoker Electronic Cigarette use?: No Frequency of Alcohol Use: None Hx Recreational Drug Use: No Drugs: None Hx Prescription Drug Abuse: No - Advance Directive Resuscitation Status: Full Code Family History Family History: None Parental Family History Reviewed: Yes - Unknown Children Family History Reviewed: Unknown Sibling(s) Family History Reviewed.: Unknown Medication/Allergy Home Medications: Acetaminophen [Tylenol 325 mg Tablet] 325 mg PO Q4HP PRN 08/26/19 Apixaban [Eliquis 5 mg Tablet] 5 mg PO Q12 08/26/19 Bisacodyl [Dulcolax 10 mg Supp.rect] 10 mg TN DAILYP PRN 08/26/19 Insulin Aspart [Novolog Insulin (Aspart) 100 unit/mL] 0 unit SQ .SLIDING SCALE 08/26/19 Insulin Aspart [Novolog Insulin (Aspart) 100 unit/mL] 6 unit SQ MEALS 08/26/19 Insulin Glargine,Hum.rec.anlog [Lantus Insulin 100 Unit/1 ml 10 ml] 8 units SQ DAILY 08/26/19 Ipratropium/Albuterol Sulfate [Duoneb 3 ml Ampul] 3 ml NEB Q4HP PRN 08/26/19 Labetalol HCl [Normodyne 200 mg Tablet] 200 mg PO Q12 08/26/19 Lanthanum Carbonate [Fosrenol 500 mg Chewable Tablet] 500 mg PO QID 08/26/19 Pantoprazole Sodium [Protonix [address] Tablet] 40 mg PO DAILY 08/26/19 Polyethylene Glycol 3350 [Miralax Powder 17 gm/Packet] 17 gm PO DAILYP PRN 08/26/19 Pravastatin Sodium [Pravachol] 40 mg PO DAILY 08/26/19 Allergies/Adverse Reactions: No Known Allergies Allergy (Verified 06/22/19 10:50) Review of Systems All systems: reviewed and no additional remarkable complaints except as stated Review of Systems: Constitutional: ABSENT: chills, fatigue, fever(s), headache(s), weight gain, weight loss Eyes: ABSENT: visual disturbances Ears: ABSENT: hearing changes Cardiovascular: ABSENT: edema, orthropnea, palpitations; reports shortness of breath and nonspecific chest pains Respiratory: ABSENT: cough, dyspnea, hemoptysis Gastrointestinal: ABSENT: abdominal pain, constipation, diarrhea, hematemesis, hematochezia, nausea, vomiting Genitourinary: ABSENT: dysuria, hematuria Musculoskeletal: ABSENT: joint swelling Integumentary: ABSENT: rash, wounds; came in with sacral decubitus ulcer and bilateral feet dry gangrene Neurological: ABSENT: abnormal gait, abnormal speech, confusion, dizziness, focal weakness, numbness, syncope Psychiatric: ABSENT: anxiety, depression Endocrine: ABSENT: cold intolerance, heat intolerance, polydipsia, polyuria Hematologic/Lymphatic: ABSENT: easy bleeding, easy bruising, lymphadenopathy Physical Exam Vital Signs: Temp Pulse Resp BP Pulse Ox 98.7 F 113 H 16 94/56 L 96 08/27/19 08:07 08/27/19 08:07 08/27/19 08:07 08/27/19 08:07 08/27/19 08:07 Intake & Output 08/26/19 08/27/19 08/28/19 06:59 06:59 06:59 Intake Total 50 Output Total 0 Balance 50 Weight 58.3 kg Exam: General appearance: No acute distress, cooperative, well-developed, well- nourished Head exam: PRESENT: atraumatic, normocephalic Eye exam: PRESENT: Conjunctiva [place], EOMI, PERRLA. ABSENT: conjunctival injection, scleral icterus Mouth exam: PRESENT: moist, neck supple, tongue midline Neck exam: PRESENT: full ROM. ABSENT: carotid bruit, JVD, lymphadenopathy, thyromegaly Respiratory exam: PRESENT: Diminished but clear to auscultation bilaterally. ABSENT: rales, rhonchi, stridor, wheezes Cardiovascular exam: PRESENT: RRR, +S1, +S2. ABSENT: systolic murmur Pulses: PRESENT: normal radial pulses, normal dorsalis pedis pulses GI/Abdominal exam: PRESENT: normal bowel sounds, soft. ABSENT: guarding, mass, tenderness Rectal exam: Deferred Extremities exam: PRESENT: full ROM. Bilateral feet with dressing apparently with dry gangrene but I did not personally open the dressing ABSENT: calf tenderness, pedal edema Musculoskeletal: PRESENT: full ROM. ABSENT: deformity but not to place in oriented to place, Oriented to time, reflexes normal, CN II-XII grossly intact. ABSENT: motor sensory deficit] Psychiatric exam: PRESENT: appropriate affect, normal mood. ABSENT: homicidal ideation, suicidal ideation Skin exam: PRESENT: intact, dry, warm. Sacral decubitus ulcer ABSENT: rash Results Laboratory Results: 08/27/19 06:13 08/27/19 06:13 08/26/19 08/26/19 08/26/19 11:50 11:50 11:50 WBC 14.3 H RBC 4.02 L Hgb 11.9 L Hct 37.9 MCV 94 MCH 29.6 MCHC 31.4 L RDW 18.8 H Plt Count 317 Seg Neutrophils % 82.2 H VBG pH 7.38 VBG pCO2 53.8 VBG HCO3 30.9 VBG Base Excess 3.8 Sodium 143.2 Potassium 4.4 Chloride 94 L Carbon Dioxide 27 Anion Gap 22 H BUN 48 H Creatinine 6.16 H Est GFR ( Amer) 11 L Glucose 295 H Calcium 10.3 H Total Bilirubin 1.4 H AST 89 H Alkaline Phosphatase 100 Total Protein 7.2 Albumin 3.4 L 08/27/19 08/27/19 06:13 06:13 WBC 14.0 H RBC 4.12 L Hgb 12.1 L Hct 38.2 MCV 93 MCH 29.4 MCHC 31.7 L RDW 18.3 H Plt Count 280 Seg Neutrophils % 79.6 H VBG pH VBG pCO2 VBG HCO3 VBG Base Excess Sodium 143.8 Potassium 4.5 Chloride 98 Carbon Dioxide 26 Anion Gap 20 H BUN 65 H Creatinine 7.17 H Est GFR ( Amer) 9 L Glucose 208 H Calcium 10.2 Total Bilirubin AST Alkaline Phosphatase Total Protein Albumin 08/26/19 11:50 Troponin I 0.035 Impressions: Chest X-Ray 08/26/19 12:24 IMPRESSION: Bilateral pleural effusions and probable bibasilar atelectasis or scarring. Foot X-Ray 08/26/19 12:24 IMPRESSION: Status post transmetatarsal amputation of the 1st toe. There is no fracture or osseous erosion. Lower Extremity Ultrasound 08/26/19 14:48 IMPRESSION: Bilateral occluded superficial femoral arteries Occluded right popliteal artery. Minimal monophasic flow in the right anterior tibial artery and peroneal artery Minimal monophasic flow in the left popliteal artery from collateral vessels. Occluded left calf vessels. Assessment & Plan - Diagnosis (1) Sepsis Is this a current diagnosis for this admission?: Yes Plan: Patient has leukocytosis and elevated lactic acid. Likely source could be due to decubitus ulcer more than bilateral feet gangrene. Patient had 1 dose of IV vancomycin in the emergency room. Currently continued on IV Zosyn. (2) Hypotensive episode Is this a current diagnosis for this admission?: Yes Plan: Patient was given IV fluid boluses but we cannot really continue to do this because of him being a dialysis patient. At one point if this continues on patient might need to have some pressors if he continues to be full code. (3) Decubitus ulcers Qualifiers: Pressure injury location: unspecified location Pressure injury stage: unspecified pressure injury stage Qualified Code(s): L89.90 - Pressure ulcer of unspecified site, unspecified stage Is this a current diagnosis for this admission?: Yes Plan: Surgery to discuss with family regarding plan. (4) PAD (peripheral artery disease) Is this a current diagnosis for this admission?: Yes Plan: Severe involving lower extremities. (5) Dry gangrene Is this a current diagnosis for this admission?: Yes Plan: Per surgery no intervention needed. (6) ESRD on hemodialysis Is this a current diagnosis for this admission?: Yes Plan: No urgent need for hemodialysis today. We will plan for dialysis tomorrow. (7) Anemia in chronic kidney disease (CKD) Is this a current diagnosis for this admission?: Yes Plan: Procrit as needed to be given during dialysis. (8) Diabetes mellitus type 2 in nonobese Is this a current diagnosis for this admission?: Yes - Notes Notes: Discussed with Dr. Roman from hospitalist service. Thank you very much for this consultation. We will supervise dialysis while the patient is here in the hospital. - Time Time Spent: 50 to 70 Minutes
[2019-08-27] MEDS ORDERED: POLYETHYLENE GLYCOL 3350 POWDER 17 GM/1 PACKET PO PRN (12:46)
[2019-08-27] MEDS ORDERED: BISACODYL 10 MG SUPP.RECT PR PRN (12:46)
[2019-08-27] MEDS ORDERED: ACETAMINOPHEN 325 MG TABLET PO PRN (14:00)
[2019-08-27] MEDS ORDERED: HYDROMORPHONE HCL INJ/PF 2 MG/ML AMPULE IV ONE (16:00)
[2019-08-27] MEDS: LANTHANUM CARBONATE 500 MG TAB.CHEW PO SCH ×2 (16:08→21:27)
[2019-08-27] MEDS ORDERED: NALOXONE HCL INJ/PF 0.4 MG/1 ML SDV ONE ×2 (16:27→16:33)
--- NOTE | 2019-08-27 17:54 | PDOC PROGRESS REPORT ---
Subjective Progress Note for:: 08/27/19 Subjective:: nonverbal and nonresponsive Reason For Visit: ESRD DECUB ULCER, DIABETIC FOOT ULCER Physical Exam Vital Signs: Temp Pulse Resp BP Pulse Ox 98.2 F 109 H 14 120/67 93 08/27/19 12:27 08/27/19 14:00 08/27/19 12:27 08/27/19 12:27 08/27/19 12:27 Intake & Output 08/26/19 08/27/19 08/28/19 06:59 06:59 06:59 Intake Total 50 Output Total 0 Balance 50 Weight 58.3 kg Exam: Right foot is cool with dry gangrene of toes. Has a blister on his right lower leg above right ankle Left ankle and foot are cool with dry gangrene of toes. Has sacral decubitus with unopened skin and appears to have some collection underneath the skin about 7 cm in diameter. Family just arrived this afternoon from [place] and was at bedside when patient being examined. Pt just had a dose of 0.25 Dilaudid which made him more unresponsive. Given 2 doses of IV Narcan which made him able to blink his eyes and improve O2 sauration. Hospitalist came in and evaluated the patient. We would hold off debridement today. Possibly do dialysis early tomorrow then do debridement or vice versa. Talked with the family and obtained consent for debridement of sacral decubitus and right lower leg blister site. Family aware of patient's severe PAD. Results Laboratory Results: 08/27/19 06:13 08/27/19 06:13 08/27/19 08/27/19 06:13 06:13 WBC 14.0 H RBC 4.12 L Hgb 12.1 L Hct 38.2 MCV 93 MCH 29.4 MCHC 31.7 L RDW 18.3 H Plt Count 280 Seg Neutrophils % 79.6 H Sodium 143.8 Potassium 4.5 Chloride 98 Carbon Dioxide 26 Anion Gap 20 H BUN 65 H Creatinine 7.17 H Est GFR ( Amer) 9 L Glucose 208 H Calcium 10.2 08/26/19 08/27/19 11:50 13:00 Troponin I 0.035 0.049 Impressions: Chest X-Ray 08/26/19 12:24 IMPRESSION: Bilateral pleural effusions and probable bibasilar atelectasis or scarring. Foot X-Ray 08/26/19 12:24 IMPRESSION: Status post transmetatarsal amputation of the 1st toe. There is no fracture or osseous erosion. Lower Extremity Ultrasound 08/26/19 14:48 IMPRESSION: Bilateral occluded superficial femoral arteries Occluded right popliteal artery. Minimal monophasic flow in the right anterior tibial artery and peroneal artery Minimal monophasic flow in the left popliteal artery from collateral vessels. Occluded left calf vessels. Assessment & Plan - Diagnosis (1) Anemia in chronic kidney disease (CKD) Is this a current diagnosis for this admission?: Yes (2) Hypotensive episode Is this a current diagnosis for this admission?: Yes (3) PAD (peripheral artery disease) Is this a current diagnosis for this admission?: Yes (4) Sacral decubitus ulcer, stage III Is this a current diagnosis for this admission?: Yes (5) Altered mental status Qualifiers: Altered mental status type: coma Coma depth: [place] coma 9-12 Coma timing: unspecified coma timing Qualified Code(s): R40.2420 - [place] coma scale score 9-12, unspecified time (6) Diabetes mellitus type 2 in nonobese Is this a current diagnosis for this admission?: Yes (7) Hypotension Qualifiers: Hypotension type: unspecified hypotension type Qualified Code(s): I95.9 - Hypotension, unspecified Is this a current diagnosis for this admission?: No (8) CKD (chronic kidney disease) stage V requiring chronic dialysis Is this a current diagnosis for this admission?: Yes - Time Time Spent with patient: 25-34 minutes - Inpatient Certification Medical Necessity: Need Close Monitoring Due to Risk of Patient Decompensation, Need for IV Antibiotics, Need for Surgery - Plan Summary Plan Summary: 64-year-old male diabetic, severe lower extremity arterial insufficiency, ESRD on hemodialysis and episode of anoxic encephalopathy admitted for hypotension after a dialysis yesterday. Has sacral decubitus stage III-IV with dry gangrene of the toes of both feet with the blister along the right lower leg. I had a lengthy lengthy discussion with the brother and sister who just arrived from [place] this afternoon. Patient apparently wanted to be on full code according to the family. Was able to talk to the hospitalist who told me that patient does not look like he is able to make any decisions and therefore the full CODE STATUS is questionable. At any rate the family tells me that patient wants to be a full code. I showed the brother and sister the sacral decubitus and dry gangrene of the toes and they are surprised how bad that there brother looks at this time. Apparently the last time they saw their brother was about a year ago when he was still driving and more alert. Plans: I spoke with the hospitalist and told him that we can do the debridement tomorrow morning when the patient is more stabilized We could discuss DNR status of the patient tomorrow with the patient and with the hospitalist
--- NOTE | 2019-08-27 18:05 | RADIOLOGY REPORT (SQ) ---
EXAM DESCRIPTION: CHEST SINGLE VIEW COMPLETED DATE/TIME: 08/27/2019 5:38 pm REASON FOR STUDY: R/O Aspiration PNA COMPARISON: 08/26/2019 EXAM PARAMETERS: NUMBER OF VIEWS: One view. TECHNIQUE: Single frontal radiographic view of the chest acquired. RADIATION DOSE: NA LIMITATIONS: None. FINDINGS: LUNGS AND PLEURA: Small pleural effusions. MEDIASTINUM AND HILAR STRUCTURES: No masses. Contour normal. HEART AND VASCULAR STRUCTURES: Cardiomegaly. No pulmonary edema. BONES: No acute findings. HARDWARE: Sternotomy wires. Graft markers. OTHER: No other significant finding. IMPRESSION: Cardiomegaly without pulmonary edema. Small pleural effusions. TECHNICAL DOCUMENTATION: JOB ID: [id number] [employer]- All Rights Reserved Reading location - IP/workstation name: [email or web address]
--- NOTE | 2019-08-27 18:16 | PDOC PROGRESS REPORT ---
Subjective Progress Note for:: 08/27/19 Subjective:: Patient laying of chest pain earlier today and endorses some shortness of breath. Patient denies any fevers. It is hard to communicate with patient as patient mostly whispers and sometimes cannot give more than very short responses to indicate if patient adequately understands conversations. Of note patient had episode of mental status change where he was found to be lethargic after receiving a dose of 0.25 mg of Dilaudid. He was given 2 doses of Narcan and became alert and awake. His SPO2 dropped to the 60s during the episode and he was placed on a nonrebreather. On my arrival at the same, patient was alert and awake but not really responding to questions. Patient was taken off nonrebreather and placed on 4 L of oxygen with SPO2 continue to hold as 100%. However patient still not responding to questions but seems to be fully awake alert and protecting his airway. Reason For Visit: ESRD DECUB ULCER, DIABETIC FOOT ULCER Physical Exam Vital Signs: Temp Pulse Resp BP Pulse Ox 98.2 F 109 H 14 120/67 93 08/27/19 12:27 08/27/19 14:00 08/27/19 12:27 08/27/19 12:27 08/27/19 12:27 Intake & Output 08/26/19 08/27/19 08/28/19 06:59 06:59 06:59 Intake Total 50 Output Total 0 Balance 50 Weight 58.3 kg General appearance: PRESENT: no acute distress Neck exam: ABSENT: JVD Respiratory exam: PRESENT: symmetrical, unlabored. ABSENT: crackles, tachypnea, wheezes Cardiovascular exam: PRESENT: +S1, +S2, systolic murmur, tachycardia. ABSENT: irregular rhythm GI/Abdominal exam: PRESENT: normal bowel sounds, soft. ABSENT: rigid, tenderness Extremities exam: PRESENT: other - Cold bilateral lower extremities with hair loss. Dry gangrene both lower extremities at the level of his feet. Skin exam: PRESENT: other - Decubitus ulcer Results Laboratory Results: 08/27/19 06:13 08/27/19 06:13 08/27/19 08/27/19 06:13 06:13 WBC 14.0 H RBC 4.12 L Hgb 12.1 L Hct 38.2 MCV 93 MCH 29.4 MCHC 31.7 L RDW 18.3 H Plt Count 280 Seg Neutrophils % 79.6 H Sodium 143.8 Potassium 4.5 Chloride 98 Carbon Dioxide 26 Anion Gap 20 H BUN 65 H Creatinine 7.17 H Est GFR ( Amer) 9 L Glucose 208 H Calcium 10.2 08/26/19 08/27/19 11:50 13:00 Troponin I 0.035 0.049 Impressions: Foot X-Ray 08/26/19 12:24 IMPRESSION: Status post transmetatarsal amputation of the 1st toe. There is no fracture or osseous erosion. Lower Extremity Ultrasound 08/26/19 14:48 IMPRESSION: Bilateral occluded superficial femoral arteries Occluded right popliteal artery. Minimal monophasic flow in the right anterior tibial artery and peroneal artery Minimal monophasic flow in the left popliteal artery from collateral vessels. Occluded left calf vessels. Chest X-Ray 08/27/19 00:00 IMPRESSION: Cardiomegaly without pulmonary edema. Small pleural effusions. Assessment and Plan - Diagnosis (1) Sepsis Qualifiers: Sepsis type: sepsis due to unspecified organism Sepsis acute organ dysfunction status: with acute organ dysfunction Severe sepsis acute organ dysfunction type: unspecified Severe sepsis shock status: without septic shock Qualified Code(s): A41.9 - Sepsis, unspecified organism; R65.20 - Severe sepsis without septic shock Is this a current diagnosis for this admission?: Yes Plan: Sepsis suspected given hypotension, tachycardia, encephalopathy, lactic acidosis and suspected to be secondary to gangrene in his foot even though it may just be dry gangrene -We will continue with broad-spectrum IV antibiotics -Follow-up blood cultures -Surgery following: No surgical intervention for his dry gangrene -No other source of infection noted at this time. (2) Severe peripheral arterial disease Is this a current diagnosis for this admission?: Yes Plan: -Arterial Dopplers on admission showing occlusion of his superficial femoral arteries bilaterally, occlusion of right popliteal artery, occluded left calf vessels and minimal blood flow in his right anterior tibial and peroneal artery as well as minimal flow in left popliteal artery. -Patient's vascular surgeon Dr. Spence was contacted by the ER provider at time of admission regarding arterial ultrasound findings. Per ER provider, Dr. Spence stated that patient was not a candidate for surgical revascularization given his comorbidities and history of recent cardiac arrest on the anesthesia, and stated that patient should try to undergo medical management and possible palliative care. -Surgery following (3) Decubitus ulcers Qualifiers: Pressure injury location: unspecified location Pressure injury stage: unspecified pressure injury stage Qualified Code(s): L89.90 - Pressure ulcer of unspecified site, unspecified stage Is this a current diagnosis for this admission?: Yes Plan: Patient planned for debridement by surgery in the OR tomorrow. (4) Dry gangrene Is this a current diagnosis for this admission?: Yes Plan: No interventions currently per surgery. Of note, our Surgicalist does recommend patient would ultimately need above-knee amputation given gangrene and the likelihood for gangrene to cause infection especially given patient has occlusive peripheral artery disease in both lower extremities. As advised by patient's vascular surgeon Dr. Spence, patient is not a surgical candidate for revascularization procedure. Given patient's comorbidities and recent cardiac arrest under anesthesia, patient is very high risk for adverse cardiac event for surgery. As such, we will defer amputation at this time. (5) ESRD on hemodialysis Is this a current diagnosis for this admission?: Yes Plan: Nephrology following. Scheduled for Saturday and Saturday dialysis. We will dialyze patient tomorrow after surgical debridement. (6) Hypotensive episode Is this a current diagnosis for this admission?: Yes Plan: Hypotension is resolved. However patient maintaining soft blood pressures at 90s/60s. Apparently patient's blood pressures run soft as advised by his residential. We will monitor. Will start patient on Midodrine. (7) Vascular occlusion Is this a current diagnosis for this admission?: Yes Plan: Plan as discussed under problem #2 (8) Acute encephalopathy Is this a current diagnosis for this admission?: Yes Plan: May be secondary to receiving Dilaudid. Improved with Narcan. (9) Anoxic brain injury Is this a current diagnosis for this admission?: Yes Plan: As reported by residential, patient has been making decisions for himself. On my assessment, patient can respond with very brief sentences questions asked. He seems to understand simple statements but I am concerned that patient is not able to voice understanding of the complexity of his current situation despite attempting to explain it to him several times. It is unclear whether patient truly has capacity to be making his own decisions. For this reason I have consulted psychiatry to assist with capacity assessment. - Time Time Spent with patient: 35 or more minutes
[2019-08-27] MEDS ORDERED: MIDODRINE HCL 5 MG TABLET PO ONE (18:35)
--- NOTE | 2019-08-27 19:14 | ADVANCED CARE ---
- Diagnosis (1) Sepsis Diagnosis Current: Yes (2) Severe peripheral arterial disease Diagnosis Current: Yes (4) Dry gangrene Diagnosis Current: Yes (9) Anoxic brain injury Diagnosis Current: Yes Attendance: Myself Patient, patient's sister and brother. Resuscitation Status: Full Code Discussion: I had an extensive discussion with patient's and his family and explained the severity of his medical conditions. I explained to them that patient has occluded arterial vessels bilaterally in both lower extremities. I also explained that this would typically be treated with peripheral vascularization procedures. However, patient vascular surgeon Dr. Spence who is familiar with patient had advised the patient is not a surgical candidate for revascularization given significant comorbidities. I also explained that patient has suspected sepsis potentially from lower extremity wounds though not certain. I also explained that typically, giving gangrene with severe peripheral arterial disease, and amputation would be ideal and was also supported by surgery staff. However given his comorbidities and recent cardiac arrest while under anesthesia, patient is at very high risk for adverse cardiac event if surgical amputation is pursued. I have also explained that the expected progression and consequences of dry gangrene with severe vascular compromise is worsening of gangrene and subsequent infections. Giving the dilemma that we are facing, we discussed potential options for plan of care including raising the idea of comfort care versus full treatment with antibiotics given that at this time patient is not an ideal surgical candidate. Family still deciding on course of action. He also expressed my concerns about patient's understanding of the true complexity of his situation after I explained it to him and he could not adequately for his back total grasp of what I explained. I have consulted psychiatry to help with capacity assessment. As of now family still wants patient to make his own decisions at least until fully assessed for capacity. Care Planning Goals: Full code and full treatment for now. Family deciding. Capacity assessment by psychiatry pending. Sister is willing to assume role of decision-making if patient is deemed to not have capacity. Time Spent: 40 minutes
[2019-08-27] MEDS: APIXABAN 5 MG TABLET PO SCH (21:28)
[2019-08-27] MEDS ORDERED: LABETALOL HCL 200 MG TABLET PO SCH (22:00)
[2019-08-27] MEDS ORDERED: METOPROLOL TARTRATE PF/INJ 5 MG/5 ML SDV IV ONE (23:30)
[2019-08-27 23:47] LABS: ANION GAP 17 (5-19); BLOOD UREA NITROGEN 74 mg/dL (7-20); CARBON DIOXIDE 26 mmol/L (22-30); CHLORIDE 103 mmol/L (98-107); GLUCOSE 177 mg/dL (75-110); PHOSPHORUS 10.9 mg/dL (2.5-4.5); POTASSIUM 4.9 mmol/L (3.6-5.0)
[2019-08-28] MEDS ORDERED: NORMAL SALINE 1000 ML 1,000 ML IV PRN (05:00)
[2019-08-28] MEDS: PIPERACILLIN SODIUM/TAZOBACTAM 2.25 GM in NORMAL SALINE 50 ML IV SCH ×2 (05:03→18:28)
[2019-08-28 05:20] LABS: HEMATOCRIT 36.4 % (37.9-51.0); HEMOGLOBIN 11.6 g/dL (13.5-17.0); MEAN CORPUSCULAR HEMOGLOBIN 29.6 pg (27.0-33.4); MEAN CORPUSCULAR HGB CONC 31.8 g/dL (32.0-36.0); MEAN CORPUSCULAR VOLUME 93 fl (80-97); PLATELET COUNT 290 10^3/uL (150-450); RED CELL DISTRIBUTION WIDTH 18.7 % (11.5-14.0); WHITE BLOOD COUNT 13.9 10^3/uL (4.0-10.5)
[2019-08-28 05:39] LABS: ANION GAP 19 (5-19); BLOOD UREA NITROGEN 75 mg/dL (7-20); CALCIUM 9.6 mg/dL (8.4-10.2); CARBON DIOXIDE 22 mmol/L (22-30); CHLORIDE 102 mmol/L (98-107); GLUCOSE 160 mg/dL (75-110); POTASSIUM 5.3 mmol/L (3.6-5.0)
[2019-08-28 05:59] LABS: ABSOLUTE LYMPHOCYTES# (MANUAL) 0.7 10^3/uL (0.5-4.7); ABSOLUTE MONOCYTES # (MANUAL) 1.7 10^3/uL (0.1-1.4); BAND NEUTROPHILS % (MANUAL) 1 % (3-5); BASOPHILS % (MANUAL) 0 % (0-2); EOSINOPHILS % (MANUAL) 2 % (0-6); LYMPHOCYTES % (MANUAL) 5 % (13-45); MONOCYTES % (MANUAL) 12 % (3-13); SEGMENTED NEUTROPHILS % (MAN) 80 % (42-78); TOTAL CELLS COUNTED 100
[2019-08-28 06:01] LABS: ANISOCYTOSIS 1+; BURR CELLS SLIGHT; OVALOCYTES SLIGHT; PLATELET COMMENT ADEQUATE; POIKILOCYTOSIS SLIGHT; POLYCHROMASIA SLIGHT; SCHISTOCYTES SLIGHT; TOXIC GRANULATION SLIGHT; TOXIC VACUOLATION PRESENT
--- NOTE | 2019-08-28 09:12 | PDOC PROGRESS REPORT ---
Subjective Progress Note for:: 08/28/19 Subjective:: I am seeing the patient during dialysis treatment this morning. Patient had a brief episode of unresponsiveness and hypoxia when he was given Dilaudid improved with 2 doses of Narcan yesterday. Currently the patient is awake and answering questions through whispering. His blood pressure is relatively low but acceptable. He did not verbalize any problems no complaints. He is so far tolerating dialysis without any issues. He is supposed to have debridement of his decubitus ulcer today. Reason For Visit: ESRD DECUB ULCER, DIABETIC FOOT ULCER Physical Exam Vital Signs: Temp Pulse Resp BP Pulse Ox 98.2 F 101 H 14 130/75 H 100 08/28/19 03:24 08/28/19 07:00 08/28/19 03:24 08/28/19 03:24 08/28/19 03:24 Intake & Output 08/27/19 08/28/19 08/29/19 06:59 06:59 06:59 Intake Total 50 595 Output Total 0 0 Balance 50 595 Weight 58.3 kg 59.8 kg Vitals during dialysis: Blood pressure 104/61, heart rate of 112, blood flow rate of 400 mL/min and dialysate flow rate of 800 mL/min. Exam: General appearance: PRESENT: no acute distress, cooperative, well-developed, well-nourished Head exam: PRESENT: atraumatic, normocephalic Eye exam: PRESENT: conjunctiva slightly pale PERRLA. ABSENT: scleral icterus Neck exam: ABSENT: JVD Respiratory exam: PRESENT: Diminished breath sounds. ABSENT: crackles, rales, rhonchi, unlabored, wheezes Cardiovascular exam: PRESENT: Regular rate rhythm -+S1, +S2. ABSENT: diastolic murmur, systolic murmur GI/Abdominal exam: PRESENT: normal bowel sounds, soft. ABSENT: guarding, mass, tenderness Extremities exam: ABSENT: No edema Neurological exam: PRESENT: alert, awake, oriented to person, place but not to time. Skin exam: PRESENT: dry, warm, bilateral feet ulcers covered with dressing Results Laboratory Results: 08/28/19 05:05 08/28/19 05:05 08/27/19 08/28/19 08/28/19 23:24 05:05 05:05 WBC 13.9 H RBC 3.90 L Hgb 11.6 L Hct 36.4 L MCV 93 MCH 29.6 MCHC 31.8 L RDW 18.7 H Plt Count 290 Seg Neutrophils % Not Reportable Sodium 145.7 H 142.9 Potassium 4.9 5.3 H Chloride 103 102 Carbon Dioxide 26 22 Anion Gap 17 19 BUN 74 H 75 H Creatinine 7.90 H 8.22 H Est GFR ( Amer) 8 L 8 L Glucose 177 H 160 H Lactic Acid Calcium 10.0 9.6 Phosphorus 10.9 H Magnesium 2.3 08/28/19 05:05 WBC RBC Hgb Hct MCV MCH MCHC RDW Plt Count Seg Neutrophils % Sodium Potassium Chloride Carbon Dioxide Anion Gap BUN Creatinine Est GFR ( Amer) Glucose Lactic Acid 1.5 Calcium Phosphorus Magnesium 08/26/19 08/27/19 11:50 13:00 Troponin I 0.035 0.049 Impressions: Foot X-Ray 08/26/19 12:24 IMPRESSION: Status post transmetatarsal amputation of the 1st toe. There is no fracture or osseous erosion. Lower Extremity Ultrasound 08/26/19 14:48 IMPRESSION: Bilateral occluded superficial femoral arteries Occluded right popliteal artery. Minimal monophasic flow in the right anterior tibial artery and peroneal artery Minimal monophasic flow in the left popliteal artery from collateral vessels. Occluded left calf vessels. Chest X-Ray 08/27/19 00:00 IMPRESSION: Cardiomegaly without pulmonary edema. Small pleural effusions. Assessment & Plan - Diagnosis (1) ESRD on hemodialysis Is this a current diagnosis for this admission?: Yes Plan: We will do dialysis today for 3 hours, using the patient's AV fistula, with 2 potassium bath, blood flow rate of 400 mL per minute, dialysate flow rate of 800 mL per minute, ultrafiltration 1.5 to 2 L as tolerated, no heparin and no Procrit. (2) Sepsis Qualifiers: Sepsis type: sepsis due to unspecified organism Sepsis acute organ dysfunction status: with acute organ dysfunction Severe sepsis acute organ dysfunction type: unspecified Severe sepsis shock status: without septic shock Qualified Code(s): A41.9 - Sepsis, unspecified organism; R65.20 - Severe sepsis without septic shock Is this a current diagnosis for this admission?: Yes Plan: Possible source would be his sacral decubitus ulcer, currently on antibiotics with IV Zosyn per hospitalist. (3) Hypotensive episode Is this a current diagnosis for this admission?: Yes Plan: Blood pressure still relatively low at this time so we will monitor the patient carefully with ultrafiltration during dialysis. (4) Decubitus ulcers Qualifiers: Pressure injury location: unspecified location Pressure injury stage: unspecified pressure injury stage Qualified Code(s): L89.90 - Pressure ulcer of unspecified site, unspecified stage Is this a current diagnosis for this admission?: Yes Plan: Plan for debridement by surgery today. (5) PAD (peripheral artery disease) Is this a current diagnosis for this admission?: Yes Plan: Severe and not a candidate for surgical revascularization, previously followed by vascular surgeon Dr. Spence in [place]. (6) Dry gangrene Is this a current diagnosis for this admission?: Yes Plan: Bilateral feet, no intervention at this time. (7) Anemia in chronic kidney disease (CKD) Is this a current diagnosis for this admission?: Yes Plan: Procrit on dialysis as needed. No need for Procrit today. (8) Diabetes mellitus type 2 in nonobese Is this a current diagnosis for this admission?: Yes - Time Time with patient: 15-25 minutes
[2019-08-28] MEDS ORDERED: MIDODRINE HCL 5 MG TABLET PO SCH (10:00)
--- NOTE | 2019-08-28 13:41 | PDOC PROGRESS REPORT ---
Subjective Progress Note for:: 08/28/19 Subjective:: Patient is doing well today still whispering to answer questions. Does not appear confused as he was yesterday and afternoon. Reason For Visit: ESRD DECUB ULCER, DIABETIC FOOT ULCER Physical Exam Vital Signs: Temp Pulse Resp BP Pulse Ox 98.2 F 101 H 14 130/75 H 100 08/28/19 03:24 08/28/19 07:00 08/28/19 03:24 08/28/19 03:24 08/28/19 03:24 Intake & Output 08/27/19 08/28/19 08/29/19 06:59 06:59 06:59 Intake Total 50 595 Output Total 0 0 1400 Balance 50 595 -1400 Weight 58.3 kg 59.8 kg General appearance: PRESENT: no acute distress Neck exam: ABSENT: JVD Respiratory exam: PRESENT: clear to auscultation lor, symmetrical, unlabored. ABSENT: tachypnea, wheezes Cardiovascular exam: PRESENT: RRR, +S1, +S2, systolic murmur GI/Abdominal exam: PRESENT: normal bowel sounds, soft. ABSENT: rebound, rigid, tenderness Extremities exam: PRESENT: other - Gangrene in bilateral lower extremities with nonpalpable DP and PT pulses bilaterally. Cold extremities Musculoskeletal exam: ABSENT: ambulatory Neurological exam: PRESENT: alert, awake, oriented to person, oriented to place Results Laboratory Results: 08/28/19 05:05 08/28/19 05:05 08/27/19 08/28/19 08/28/19 23:24 05:05 05:05 WBC 13.9 H RBC 3.90 L Hgb 11.6 L Hct 36.4 L MCV 93 MCH 29.6 MCHC 31.8 L RDW 18.7 H Plt Count 290 Seg Neutrophils % Not Reportable Sodium 145.7 H 142.9 Potassium 4.9 5.3 H Chloride 103 102 Carbon Dioxide 26 22 Anion Gap 17 19 BUN 74 H 75 H Creatinine 7.90 H 8.22 H Est GFR ( Amer) 8 L 8 L Glucose 177 H 160 H Lactic Acid Calcium 10.0 9.6 Phosphorus 10.9 H Magnesium 2.3 08/28/19 05:05 WBC RBC Hgb Hct MCV MCH MCHC RDW Plt Count Seg Neutrophils % Sodium Potassium Chloride Carbon Dioxide Anion Gap BUN Creatinine Est GFR ( Amer) Glucose Lactic Acid 1.5 Calcium Phosphorus Magnesium 08/26/19 08/27/19 11:50 13:00 Troponin I 0.035 0.049 Impressions: Foot X-Ray 08/26/19 12:24 IMPRESSION: Status post transmetatarsal amputation of the 1st toe. There is no fracture or osseous erosion. Lower Extremity Ultrasound 08/26/19 14:48 IMPRESSION: Bilateral occluded superficial femoral arteries Occluded right popliteal artery. Minimal monophasic flow in the right anterior tibial artery and peroneal artery Minimal monophasic flow in the left popliteal artery from collateral vessels. Occluded left calf vessels. Chest X-Ray 08/27/19 00:00 IMPRESSION: Cardiomegaly without pulmonary edema. Small pleural effusions. Assessment and Plan - Diagnosis (1) Sepsis Qualifiers: Sepsis type: sepsis due to unspecified organism Sepsis acute organ dysfunction status: with acute organ dysfunction Severe sepsis acute organ dysfunction type: unspecified Severe sepsis shock status: without septic shock Qualified Code(s): A41.9 - Sepsis, unspecified organism; R65.20 - Severe sepsis without septic shock Is this a current diagnosis for this admission?: Yes Plan: Sepsis suspected given hypotension, tachycardia, encephalopathy, lactic acidosis on admission and suspected to be secondary to gangrene in his foot even though it may just be dry gangrene -We will continue with broad-spectrum IV antibiotics -Follow-up blood cultures which are negative so far -Surgery following: No surgical intervention for his dry gangrene -No other source of infection noted at this time. (2) Severe peripheral arterial disease Is this a current diagnosis for this admission?: Yes Plan: -Arterial Dopplers on admission showing occlusion of his superficial femoral arteries bilaterally, occlusion of right popliteal artery, occluded left calf vessels and minimal blood flow in his right anterior tibial and peroneal artery as well as minimal flow in left popliteal artery. -Patient's vascular surgeon Dr. Spence was contacted by the ER provider at time of admission regarding arterial ultrasound findings. Per ER provider, Dr. Spence stated that patient was not a candidate for surgical revascularization given his comorbidities and history of recent cardiac arrest on the anesthesia, and stated that patient should try to undergo medical management and possible palliative care. -Surgery following (3) Decubitus ulcers Qualifiers: Pressure injury location: unspecified location Pressure injury stage: unspecified pressure injury stage Qualified Code(s): L89.90 - Pressure ulcer of unspecified site, unspecified stage Is this a current diagnosis for this admission?: Yes Plan: OR debridement by surgery today (4) Dry gangrene Is this a current diagnosis for this admission?: Yes Plan: No interventions currently per surgery. Of note, our Surgicalist does recommend patient would ultimately need above-knee amputation given gangrene and the lik elihood for gangrene to cause infection especially given patient has occlusive peripheral artery disease in both lower extremities. As advised by patient's vascular surgeon Dr. Spence, patient is not a surgical candidate for revascularization procedure. Given patient's comorbidities and recent cardiac arrest under anesthesia, patient is very high risk for adverse cardiac event for surgery. As such, we will defer amputation at this time. (5) ESRD on hemodialysis Is this a current diagnosis for this admission?: Yes Plan: Nephrology following. Scheduled for Saturday and Saturday dialysis. Dialysis today. Midodrine given before dialysis (6) Hypotensive episode Is this a current diagnosis for this admission?: Yes Plan: Hypotension is resolved. However patient maintaining soft blood pressures at 90s/60s. Apparently patient's blood pressures run soft as advised by his half-way. We will monitor. BP improved with Midodrine yesterday and today. I will continue patient on midodrine 2.5 mg 3 times daily (7) Acute encephalopathy Is this a current diagnosis for this admission?: Yes Plan: Resolved. Avoid all narcotics. (8) Anoxic brain injury Is this a current diagnosis for this admission?: Yes Plan: As reported by half-way, patient has been making decisions for himself. On my assessment, patient can respond with very brief sentences questions asked. He seems to understand simple statements but I am concerned that patient is not able to voice understanding of the complexity of his current situation despite attempting to explain it to him several times. It is unclear whether patient truly has capacity to be making his own decisions. For this reason I have consulted psychiatry to assist with capacity assessment. -Awaiting psychiatry assessment for capacity - Time Time Spent with patient: Less than 15 minutes
[2019-08-28] MEDS ORDERED: MIDODRINE HCL 5 MG TABLET PO ONE ×2 (14:27→18:00)
[2019-08-28] MEDS ORDERED: NORMAL SALINE 1000 ML 1,000 ML IV ONE (14:30)
[2019-08-28] MEDS ORDERED: NORMAL SALINE 1000 ML 500 ML IV ONE (15:00)
[2019-08-28] MEDS: LANTHANUM CARBONATE 500 MG TAB.CHEW PO SCH ×3 (15:37→21:38)
[2019-08-28] MEDS: INSULIN LISPRO 100 UNIT/ML 3 ML VIAL SUBCUT SCH ×3 (15:37→17:46)
[2019-08-28] MEDS: INSULIN GLARGINE,HUM.REC.ANLOG 1,000 UNIT/10 ML VIAL SUBCUT SCH (15:38)
[2019-08-28] MEDS: APIXABAN 5 MG TABLET PO SCH ×2 (15:38→21:39)
[2019-08-28] MEDS: PANTOPRAZOLE SODIUM 40 MG TABLET.DR PO SCH (15:39)
--- NOTE | 2019-08-28 16:26 | PSYCHOLOGICAL NOTE ---
Psych Note - Psych Note Date seen by psych provider: 08/28/19 Time seen by psych provider: 01:40 Psych Note: Reason for Consult: Capacity ANASTASIA PERALTA is a 64 year old male long-term long-term resident with an extensive past medical history of anoxic brain injury, end-stage renal failure on hemodialysis, diabetes, coronary artery disease, peripheral vascular and arterial disease status post lower extremity digit amputations and stage III sacral decubiti. Patient is alert to person month and year. He is unable to identify any other orientation questions. Conversational speech is whispered which makes him difficult to hear and understand. Patient was able to answer some questions however when becomes confused has significant response delay when the question is repeated he will state he does not know. Patient was unable to engage in the writing portion of screening as he could not hold the pen. Patient is noted to hold an odd posture with his hand and did not move it throughout evaluation. Patient was evaluated and following evaluation, the patient is recommended for guardianship as he failed to demonstrate an appreciation for appropriate self- care, means to maintain safety, and ability to appropriate communicate is basic needs. His insight and judgment are severely compromised and has impaired his ability to participate in plan of care and life decisions regarding personal, legal, financial and medical. He is recommended for a higher level of care that includes 24 hour supervision, treatment and care. If warranted, given current medical status, patient is encouraged to follow up with neurology for is reports anoxic brain injury and stoke. Dr. Frankel was consulted and the care management of this patient; attending physicians in agreement with recommendations and disposition.
--- NOTE | 2019-08-28 17:19 | Operative Report ---
Nonrecallable Operative Report DATE OF SURGERY: 08/28/19 PREOPERATIVE DIAGNOSIS: Sacral decubiti POSTOPERATIVE DIAGNOSIS: Stage IV sacral decubiti OPERATION: Wide debridement sacral decubiti SURGEON: PORFIRIO BAR ANESTHESIA: Local TISSUE REMOVED OR ALTERED: 14 x 16 cm section of sacral skin subcutaneous tissue and fat COMPLICATIONS: None ESTIMATED BLOOD LOSS: 20 cc INTRAOPERATIVE FINDINGS: Stage IV sacral decubiti PROCEDURE: After appropriate timeout site verification patient was placed in the right lateral decubitus position on the hospital bed. The sacral area was prepped and draped in usual sterile fashion. Using 1% lidocaine without epinephrine a skin wheal was raised underneath the lead III decubiti. Using a 11 blade circumferentially the decubitus was from normal skin and dissection was carried down with the 11 blade to the presacral fascia. The muscle and subcutaneous tissue and pus and fat were all removed with the 11 blade. Hemostasis was obtained with digital pressure or number of Prolene sutures were placed on the presacral fascia. Wound was then dressed with a saline soaked gauze sponge and ABD dressing. The patient tolerated the procedure well.
[2019-08-28] MEDS: ACETAMINOPHEN 325 MG TABLET PO PRN (22:44)
[2019-08-29] MEDS: ACETAMINOPHEN 325 MG TABLET PO PRN (05:59)
[2019-08-29] MEDS: PIPERACILLIN SODIUM/TAZOBACTAM 2.25 GM in NORMAL SALINE 50 ML IV SCH ×2 (06:00→17:15)
--- NOTE | 2019-08-29 07:58 | PDOC PROGRESS REPORT ---
Subjective Progress Note for:: 08/29/19 Reason For Visit: ESRD DECUB ULCER, DIABETIC FOOT ULCER Physical Exam Vital Signs: Temp Pulse Resp BP Pulse Ox 98.3 F 111 H 20 119/64 100 08/29/19 03:32 08/29/19 03:32 08/29/19 03:32 08/29/19 03:32 08/29/19 03:32 Intake & Output 08/28/19 08/29/19 08/30/19 06:59 06:59 06:59 Intake Total 595 970 50 Output Total 0 1400 Balance 595 -430 50 Weight 59.8 kg 63.4 kg General appearance: PRESENT: no acute distress Head exam: PRESENT: normocephalic Eye exam: PRESENT: EOMI Neck exam: PRESENT: full ROM Respiratory exam: PRESENT: clear to auscultation lor Cardiovascular exam: PRESENT: RRR Pulses: PRESENT: normal radial pulses GI/Abdominal exam: PRESENT: soft Rectal exam: PRESENT: other - large sacral decubuti debrided yesterday still some dark underlying muscle, no obvious purulence 2-3 areas of venous bleeding controlled with surture will cont dressing changes in 12-24 hrs. \ Neurological exam: PRESENT: altered Skin exam: PRESENT: dry Results Laboratory Results: 08/28/19 05:05 08/28/19 05:05 08/26/19 08/27/19 11:50 13:00 Troponin I 0.035 0.049 Impressions: Foot X-Ray 08/26/19 12:24 IMPRESSION: Status post transmetatarsal amputation of the 1st toe. There is no fracture or osseous erosion. Lower Extremity Ultrasound 08/26/19 14:48 IMPRESSION: Bilateral occluded superficial femoral arteries Occluded right popliteal artery. Minimal monophasic flow in the right anterior tibial artery and peroneal artery Minimal monophasic flow in the left popliteal artery from collateral vessels. Occluded left calf vessels. Chest X-Ray 08/27/19 00:00 IMPRESSION: Cardiomegaly without pulmonary edema. Small pleural effusions. Assessment & Plan - Time Time Spent with patient: 25-34 minutes - Plan Summary Plan Summary: large sacral decubuti debrided yesterday still some dark underlying muscle, no obvious purulence 2-3 areas of venous bleeding controlled with surture will cont dressing changes in 12-24 hrs.
[2019-08-29] MEDS: LANTHANUM CARBONATE 500 MG TAB.CHEW PO SCH ×4 (10:20→22:00)
[2019-08-29] MEDS: MIDODRINE HCL 5 MG TABLET PO SCH ×4 (10:21→17:15)
[2019-08-29] MEDS: APIXABAN 5 MG TABLET PO SCH (10:21)
[2019-08-29] MEDS: PANTOPRAZOLE SODIUM 40 MG TABLET.DR PO SCH (10:23)
[2019-08-29] MEDS: INSULIN LISPRO 100 UNIT/ML 3 ML VIAL SUBCUT SCH ×3 (10:24→17:14)
[2019-08-29] MEDS: INSULIN GLARGINE,HUM.REC.ANLOG 1,000 UNIT/10 ML VIAL SUBCUT SCH (10:25)
--- NOTE | 2019-08-29 11:44 | PDOC PROGRESS REPORT ---
Subjective Progress Note for:: 08/29/19 Subjective:: Patient states that he is breathing fine with only very mild shortness of breath. Patient denies any fever or chills. I had extensive conversation with patient, sister and brother as well as his neighbors regarding goals of care. Please refer to my advance planning note for further details. Reason For Visit: ESRD DECUB ULCER, DIABETIC FOOT ULCER Physical Exam Vital Signs: Temp Pulse Resp BP Pulse Ox 97.6 F 97 18 110/61 100 08/29/19 07:59 08/29/19 07:59 08/29/19 07:59 08/29/19 07:59 08/29/19 07:59 Intake & Output 08/28/19 08/29/19 08/30/19 06:59 06:59 06:59 Intake Total 595 970 50 Output Total 0 1400 Balance 595 -430 50 Weight 59.8 kg 63.4 kg General appearance: PRESENT: no acute distress, cooperative Neck exam: ABSENT: JVD Respiratory exam: PRESENT: clear to auscultation lor, symmetrical, unlabored. ABSENT: tachypnea, wheezes Cardiovascular exam: PRESENT: RRR, +S1, +S2. ABSENT: tachycardia GI/Abdominal exam: PRESENT: normal bowel sounds, soft. ABSENT: rebound, rigid, tenderness Extremities exam: PRESENT: other - Gangrene in bilateral lower extremities with nonpalpable DP and PT pulses bilaterally. Cold extremities in the feet. Musculoskeletal exam: ABSENT: ambulatory Neurological exam: PRESENT: alert, awake Results Laboratory Results: 08/28/19 05:05 08/28/19 05:05 08/26/19 08/27/19 11:50 13:00 Troponin I 0.035 0.049 Impressions: Foot X-Ray 08/26/19 12:24 IMPRESSION: Status post transmetatarsal amputation of the 1st toe. There is no fracture or osseous erosion. Lower Extremity Ultrasound 08/26/19 14:48 IMPRESSION: Bilateral occluded superficial femoral arteries Occluded right popliteal artery. Minimal monophasic flow in the right anterior tibial artery and peroneal artery Minimal monophasic flow in the left popliteal artery from collateral vessels. Occluded left calf vessels. Chest X-Ray 08/27/19 00:00 IMPRESSION: Cardiomegaly without pulmonary edema. Small pleural effusions. Assessment and Plan - Diagnosis (1) Sepsis Qualifiers: Sepsis type: sepsis due to unspecified organism Sepsis acute organ dysfunction status: with acute organ dysfunction Severe sepsis acute organ dysfunction type: unspecified Severe sepsis shock status: without septic shock Qualified Code(s): A41.9 - Sepsis, unspecified organism; R65.20 - Severe sepsis without septic shock Is this a current diagnosis for this admission?: Yes Plan: Sepsis suspected given hypotension, tachycardia, encephalopathy, lactic acidosis on admission and suspected to be secondary to gangrene in his foot even though it may just be dry gangrene -We will continue with broad-spectrum IV antibiotics -Follow-up blood cultures which are negative so far -Surgery following: No surgical intervention for his dry gangrene -No other source of infection noted at this time. (2) Severe peripheral arterial disease Is this a current diagnosis for this admission?: Yes Plan: -Arterial Dopplers on admission showing occlusion of his superficial femoral arteries bilaterally, occlusion of right popliteal artery, occluded left calf vessels and minimal blood flow in his right anterior tibial and peroneal artery as well as minimal flow in left popliteal artery. -Patient's vascular surgeon Dr. Spence was contacted by the ER provider at time of admission regarding arterial ultrasound findings. Per ER provider, Dr. Spence stated that patient was not a candidate for surgical revascularization given his comorbidities and history of recent cardiac arrest on the anesthesia, and stated that patient should try to undergo medical management and possible palliative care. -Surgery following (3) Decubitus ulcers Qualifiers: Pressure injury location: unspecified location Pressure injury stage: unspecified pressure injury stage Qualified Code(s): L89.90 - Pressure ulcer of unspecified site, unspecified stage Is this a current diagnosis for this admission?: Yes Plan: Bedside debridement done by surgery yesterday. Wound was evaluated and sutured this morning given some bleeding. I will hold Eliquis until Saturday given significant wound bleeding this morning. (4) Dry gangrene Is this a current diagnosis for this admission?: Yes Plan: No interventions currently per surgery. Of note, our Surgicalist does recommend patient would ultimately need above-knee amputation given gangrene and the likelihood for gangrene to cause infection especially given patient has occlusive peripheral artery disease in both lower extremities. As advised by [facility]'s vascular surgeon Dr. Spence, patient is not a surgical candidate for revascularization procedure either. Given patient's significant comorbidities and recent cardiac arrest under anesthesia, patient is very high risk for adverse cardiac event for surgery. As such, we will defer amputation at this time. (5) ESRD on hemodialysis Is this a current diagnosis for this admission?: Yes Plan: Nephrology following. Scheduled for Saturday and Saturday dialysis. Dialysis today. (6) Hypotensive episode Is this a current diagnosis for this admission?: Yes Plan: Hypotension is resolved. However patient maintaining soft blood pressures often at 90s/60s. Apparently patient's blood pressures run soft as advised by his detention. I will continue patient on midodrine 2.5 mg 3 times daily (7) Acute encephalopathy Is this a current diagnosis for this admission?: Yes Plan: Resolved. Avoid all narcotics. (8) Anoxic brain injury Is this a current diagnosis for this admission?: Yes Plan: As reported by detention, patient had been making decisions for himself. On my assessment, patient can respond with very brief sentences questions asked. He seems to understand simple statements but I am concerned that patient is not able to voice understanding of the complexity of his current situation despite attempting to explain it to him several times. I feel that patient truly does not have capacity to be making his own decisions about such complex matters involving his plan of care. For this reason I consulted psychiatry to assist with capacity assessment. Psychiatry has evaluated and also deemed that patient lacks capacity to make his own decisions and we are recommending guardianship. Patient's sister Sona Humphrey ([phone]) and brother Andrew Bower ([phone]) are willing to assume responsibility as decision makers for patient and have agreed that the primary person of contact be the sister Sona. - Plan Summary Summary: After extensive conversation with patient, patient's sister and brother as well as patient's neighbor, patient's family wishes for DNR/DNI, no overly aggressive measures such as IV pressors with central line placement but to continue treatment otherwise. Referred to advanced care planning note from today for further details. - Time Time Spent with patient: 35 or more minutes
--- NOTE | 2019-08-29 15:01 | ADVANCED CARE ---
- Diagnosis (2) Severe peripheral arterial disease Diagnosis Current: Yes (5) ESRD on hemodialysis Diagnosis Current: Yes (8) Anoxic brain injury Diagnosis Current: Yes Attendance: Patient, patient's sister Sona Humphrey ([phone]), patient's brother Andrew Bower ([phone]), patient's neighbor. Resuscitation Status: Do Not Resuscitate Discussion: Is served as a follow-up to my initial conversation about advanced care planning. Once again, I discussed patient's current comorbidities, touching on the expected progression of his peripheral vascular disease and vascular occlusion, gangrene likely will for subsequent infections. Also discussed potential prognosis and surgical risks. Of note, patient has been determined to lack capacity for decision-making regarding his complex plan of care upon evaluation by psychiatry and myself due to his inability to demonstrate understanding for the complexity of his medical situation. From my information regarding this, referred to my progress notes, and previous advance planning note and psychiaty evaluation note. Psychiatry has recommended the patient be appointed guardianship. Patient has no spouse but has estranged children who refused to partake in patient's care and Sona (patient's sister) has been the primary contact for patient. Patient's [id number] automatically. Patient's sister and his brother Andrew Bower who are both willing to assume decision-making role for patient. They both agree that Sona should be the primary contact in case of an emergency. Patient's sister and brother have decided to proceed with changing resuscitation status to DNR/DNR. They do not want any overly aggressive treatment measures such as IV pressors should patient decline significantly. However, they would still like to continue treatment with antibiotics and other needed treatments including dialysis. They will be traveling back to [facility]. Document(s) Completed: None Time Spent: 35 minutes
--- NOTE | 2019-08-29 17:34 | EKG REPORT ---
SEVERITY:- ABNORMAL ECG - SINUS TACHYCARDIA VENTRICULAR PREMATURE COMPLEX ANTERIOR INFARCT, AGE INDETERMINATE NONSPECIFIC T ABNORMALITIES, INFERIOR LEADS LA ENLARGEMENT : Confirmed by: Migue Marquez MD 29-Aug-2019 17:33:40
[2019-08-29] MEDS ORDERED: NORMAL SALINE 1000 ML 1,000 ML IV ONE (20:45)
[2019-08-29] MEDS ORDERED: DILTIAZEM HCL 60 MG TABLET PO ONE (20:45)
[2019-08-30 05:05] LABS: HEMATOCRIT 36.2 % (37.9-51.0); HEMOGLOBIN 11.5 g/dL (13.5-17.0); MEAN CORPUSCULAR HEMOGLOBIN 29.4 pg (27.0-33.4); MEAN CORPUSCULAR HGB CONC 31.8 g/dL (32.0-36.0); MEAN CORPUSCULAR VOLUME 92 fl (80-97); PLATELET COUNT 315 10^3/uL (150-450); RED BLOOD COUNT 3.93 10^6/uL (4.35-5.55); RED CELL DISTRIBUTION WIDTH 18.7 % (11.5-14.0); WHITE BLOOD COUNT 16.6 10^3/uL (4.0-10.5)
[2019-08-30 05:22] LABS: ANION GAP 19 (5-19); BLOOD UREA NITROGEN 61 mg/dL (7-20); CALCIUM 9.8 mg/dL (8.4-10.2); CARBON DIOXIDE 25 mmol/L (22-30); CHLORIDE 96 mmol/L (98-107); GLUCOSE 209 mg/dL (75-110); POTASSIUM 4.5 mmol/L (3.6-5.0)
[2019-08-30 05:50] LABS: ABSOLUTE LYMPHOCYTES# (MANUAL) 0.7 10^3/uL (0.5-4.7); ABSOLUTE MONOCYTES # (MANUAL) 0.8 10^3/uL (0.1-1.4); ANISOCYTOSIS 2+; BASOPHILS % (MANUAL) 0 % (0-2); EOSINOPHILS % (MANUAL) 5 % (0-6); LYMPHOCYTES % (MANUAL) 4 % (13-45); MONOCYTES % (MANUAL) 5 % (3-13); PLATELET COMMENT ADEQUATE; SEGMENTED NEUTROPHILS % (MAN) 86 % (42-78); TEAR DROP CELLS SLIGHT; TOTAL CELLS COUNTED 100
[2019-08-30] MEDS: PIPERACILLIN SODIUM/TAZOBACTAM 2.25 GM in NORMAL SALINE 50 ML IV SCH (05:55)
[2019-08-30] MEDS: LANTHANUM CARBONATE 500 MG TAB.CHEW PO SCH ×4 (08:00→22:24)
[2019-08-30] MEDS: INSULIN LISPRO 100 UNIT/ML 3 ML VIAL SUBCUT SCH ×6 (08:00→17:25)
[2019-08-30] MEDS: MIDODRINE HCL 5 MG TABLET PO SCH ×3 (09:45→17:25)
[2019-08-30] MEDS: INSULIN GLARGINE,HUM.REC.ANLOG 1,000 UNIT/10 ML VIAL SUBCUT SCH (09:49)
[2019-08-30] MEDS: PANTOPRAZOLE SODIUM 40 MG TABLET.DR PO SCH (09:49)
[2019-08-30] MEDS: ACETAMINOPHEN 325 MG TABLET PO PRN (14:29)
--- NOTE | 2019-08-30 14:54 | PDOC PROGRESS REPORT ---
Subjective Progress Note for:: 08/30/19 Subjective:: Patient says that he feels better today. Denies any shortness of breath, chest pain, fevers or chills. Patient ate his meals yesterday with assistance. Reason For Visit: ESRD DECUB ULCER, DIABETIC FOOT ULCER Physical Exam Vital Signs: Temp Pulse Resp BP Pulse Ox 98.3 F 91 17 97/63 L 100 08/30/19 12:00 08/30/19 12:00 08/30/19 12:00 08/30/19 12:00 08/30/19 12:00 Intake & Output 08/29/19 08/30/19 08/31/19 06:59 06:59 06:59 Intake Total 970 1330 Output Total 1400 0 Balance -430 1330 Weight 63.4 kg 65.9 kg General appearance: PRESENT: no acute distress, cooperative Head exam: PRESENT: normocephalic Neck exam: ABSENT: JVD Respiratory exam: PRESENT: clear to auscultation lor, unlabored. ABSENT: tachypnea, wheezes Cardiovascular exam: PRESENT: irregular rhythm, +S1, +S2. ABSENT: tachycardia GI/Abdominal exam: PRESENT: normal bowel sounds, soft. ABSENT: rebound, rigid, tenderness Musculoskeletal exam: ABSENT: ambulatory Neurological exam: PRESENT: alert, awake, oriented to person, oriented to place Results Laboratory Results: 08/30/19 04:52 08/30/19 04:52 08/30/19 08/30/19 04:52 04:52 WBC 16.6 H RBC 3.93 L Hgb 11.5 L Hct 36.2 L MCV 92 MCH 29.4 MCHC 31.8 L RDW 18.7 H Plt Count 315 Seg Neutrophils % Not Reportable Sodium 140.1 Potassium 4.5 Chloride 96 L Carbon Dioxide 25 Anion Gap 19 BUN 61 H Creatinine 6.29 H Est GFR ( Amer) 11 L Glucose 209 H Calcium 9.8 08/26/19 08/27/19 11:50 13:00 Troponin I 0.035 0.049 Impressions: Foot X-Ray 08/26/19 12:24 IMPRESSION: Status post transmetatarsal amputation of the 1st toe. There is no fracture or osseous erosion. Lower Extremity Ultrasound 08/26/19 14:48 IMPRESSION: Bilateral occluded superficial femoral arteries Occluded right popliteal artery. Minimal monophasic flow in the right anterior tibial artery and peroneal artery Minimal monophasic flow in the left popliteal artery from collateral vessels. Occluded left calf vessels. Chest X-Ray 08/27/19 00:00 IMPRESSION: Cardiomegaly without pulmonary edema. Small pleural effusions. Assessment and Plan - Diagnosis (1) Sepsis Qualifiers: Sepsis type: sepsis due to unspecified organism Sepsis acute organ dysfunction status: with acute organ dysfunction Severe sepsis acute organ dysfunction type: unspecified Severe sepsis shock status: without septic shock Qualified Code(s): A41.9 - Sepsis, unspecified organism; R65.20 - Severe sepsis without septic shock Is this a current diagnosis for this admission?: Yes Plan: Sepsis suspected on admission given hypotension, tachycardia, encephalopathy, lactic acidosis and suspected to be secondary to gangrene in his foot and ulcers -blood cultures are negative -Surgery following: No surgical intervention for his dry gangrene -No other source of infection noted at this time. -Patient has received broad-spectrum IV antibiotics for 3.5 days. Continue on Augmentin for 14-21 days. However given patient's severe vascular compromise in his lower extremities, leg infection/wounds may be difficult to treat and may recur. Family aware of this likelihood. (2) Severe peripheral arterial disease Is this a current diagnosis for this admission?: Yes Plan: -Arterial Dopplers on admission showing occlusion of his superficial femoral arteries bilaterally, occlusion of right popliteal artery, occluded left calf vessels and minimal blood flow in his right anterior tibial and peroneal artery as well as minimal flow in left popliteal artery. -Patient's vascular surgeon Dr. Spence was contacted by the ER provider at time of admission regarding arterial ultrasound findings. Per ER provider, Dr. Spence stated that patient was not a candidate for surgical revasculari zation given his comorbidities and history of recent cardiac arrest on the anesthesia, and stated that patient should try to undergo medical management and possible palliative care. -Surgery following (3) Decubitus ulcers Qualifiers: Pressure injury location: unspecified location Pressure injury stage: unspecified pressure injury stage Qualified Code(s): L89.90 - Pressure ulcer of unspecified site, unspecified stage Is this a current diagnosis for this admission?: Yes Plan: Bedside debridement done by surgery yesterday. Wound was evaluated and sutured this morning given some bleeding. I will hold Eliquis until Saturday given significant wound bleeding this morning. (4) Dry gangrene Is this a current diagnosis for this admission?: Yes Plan: No interventions currently per surgery. Of note, our Surgicalist does recommend patient would ultimately need above-knee amputation given gangrene and the likelihood for gangrene to cause infection especially given patient has occlusive peripheral artery disease in both lower extremities. As advised by patient's vascular surgeon Dr. Spence, patient is not a surgical candidate for revascularization procedure either. Given patient's significant comorbidities and recent cardiac arrest under anesthesia, patient is very high risk for adverse cardiac event for surgery. As such, we will defer amputation at this time. (5) ESRD on hemodialysis Is this a current diagnosis for this admission?: Yes Plan: Nephrology following. Scheduled for Saturday and Saturday dialysis. Dialysis today. (6) Hypotensive episode Is this a current diagnosis for this admission?: Yes Plan: Hypotension is resolved. However patient maintaining soft blood pressures often at 90s/60s. Apparently patient's blood pressures run soft as advised by his usp. I will continue patient on midodrine 2.5 mg 3 times daily with parameters to hold if SBP >105 (7) Acute encephalopathy Is this a current diagnosis for this admission?: Yes Plan: Resolved. Avoid all narcotics. (8) Anoxic brain injury Is this a current diagnosis for this admission?: Yes Plan: As reported by usp, patient had been making decisions for himself. On my assessment, patient can respond with very brief sentences questions asked. He seems to understand simple statements but I am concerned that patient is not able to voice understanding of the complexity of his current situation despite attempting to explain it to him several times. I feel that patient truly does not have capacity to be making his own decisions about such complex matters involving his plan of care. For this reason I consulted psychiatry to assist with capacity assessment. Psychiatry has evaluated and also deemed that patient lacks capacity to make his own decisions and we are recommending guardianship. Patient's sister Sona Humphrey ([phone]) and brother Andrew Bower ([phone]) are willing to assume responsibility as decision makers for patient and have agreed that the primary person of contact be the sister Sona. (9) APC (atrial premature contractions) Is this a current diagnosis for this admission?: Yes Plan: Started on Lopressor given frequent APCs. Monitor BP. - Plan Summary Summary: After extensive conversation with patient, patient's sister and brother as well as patient's neighbor on 08/29/19, patient's family wishes for DNR/DNI, no overly aggressive measures such as IV pressors with central line placement but to continue treatment otherwise. Refer to advanced care planning notes for further details. Currently, patient is now tuned up. We are working through potential placement options as patient's sister does not want him to go back to [place] given dissatisfaction with his care there. She ultimately wants for patient to be transferred to [place] where she lives so patient is close to her. However, this will likely not be possible to arrange this from [place] and patient will likely need to be discharged to a local facility from which arrangements can be made for transport to [place]. Our Engineering Agent/store planner is working with family to figure out best approach to this. - Time Time Spent with patient: 15-24 minutes
--- NOTE | 2019-08-30 16:20 | PDOC PROGRESS REPORT ---
Subjective Progress Note for:: 08/30/19 Subjective:: Barely communicative Reason For Visit: ESRD DECUB ULCER, DIABETIC FOOT ULCER Physical Exam Vital Signs: Temp Pulse Resp BP Pulse Ox 97.7 F 101 H 16 116/66 100 08/30/19 15:28 08/30/19 15:28 08/30/19 15:28 08/30/19 15:28 08/30/19 15:28 Intake & Output 08/29/19 08/30/19 08/31/19 06:59 06:59 06:59 Intake Total 970 1330 150 Output Total 1400 0 Balance -430 1330 150 Weight 63.4 kg 65.9 kg Exam: Sacral decubitus is dry with minimal retained necrotic tissue Results Laboratory Results: 08/30/19 04:52 08/30/19 04:52 08/30/19 08/30/19 04:52 04:52 WBC 16.6 H RBC 3.93 L Hgb 11.5 L Hct 36.2 L MCV 92 MCH 29.4 MCHC 31.8 L RDW 18.7 H Plt Count 315 Seg Neutrophils % Not Reportable Sodium 140.1 Potassium 4.5 Chloride 96 L Carbon Dioxide 25 Anion Gap 19 BUN 61 H Creatinine 6.29 H Est GFR ( Amer) 11 L Glucose 209 H Calcium 9.8 08/26/19 08/27/19 11:50 13:00 Troponin I 0.035 0.049 Impressions: Foot X-Ray 08/26/19 12:24 IMPRESSION: Status post transmetatarsal amputation of the 1st toe. There is no fracture or osseous erosion. Lower Extremity Ultrasound 08/26/19 14:48 IMPRESSION: Bilateral occluded superficial femoral arteries Occluded right popliteal artery. Minimal monophasic flow in the right anterior tibial artery and peroneal artery Minimal monophasic flow in the left popliteal artery from collateral vessels. Occluded left calf vessels. Chest X-Ray 08/27/19 00:00 IMPRESSION: Cardiomegaly without pulmonary edema. Small pleural effusions. Assessment & Plan - Diagnosis (1) Anemia in chronic kidney disease (CKD) Is this a current diagnosis for this admission?: Yes (2) Hypotensive episode Is this a current diagnosis for this admission?: Yes (3) PAD (peripheral artery disease) Is this a current diagnosis for this admission?: Yes (4) Sacral decubitus ulcer, stage III Is this a current diagnosis for this admission?: Yes (5) Altered mental status Qualifiers: Altered mental status type: coma Coma depth: Jamee coma 9-12 Coma timin g: unspecified coma timing Qualified Code(s): R40.2420 - Wilton coma scale score 9-12, unspecified time (6) Diabetes mellitus type 2 in nonobese Is this a current diagnosis for this admission?: Yes (7) Hypotension Qualifiers: Hypotension type: unspecified hypotension type Qualified Code(s): I95.9 - Hypotension, unspecified Is this a current diagnosis for this admission?: No (8) CKD (chronic kidney disease) stage V requiring chronic dialysis Is this a current diagnosis for this admission?: Yes - Time Time Spent with patient: 15-24 minutes - Plan Summary Plan Summary: Patient is ,tamiko a DNR Plan: Continue with wet todry dressings over sacral decube q 12 hrs Will sign off Call for questions
[2019-08-30] MEDS ORDERED: AMOXICILLIN TR/POT CLAVULANATE 500-125 MG TAB PO SCH (22:00)
[2019-08-30] MEDS: METOPROLOL TARTRATE 25 MG TABLET PO SCH (22:25)
[2019-08-31] MEDS ORDERED: NORMAL SALINE 1000 ML 1,000 ML IV PRN (05:00)
[2019-08-31 05:41] LABS: HEMATOCRIT 34.8 % (37.9-51.0); HEMOGLOBIN 11.1 g/dL (13.5-17.0); MEAN CORPUSCULAR HGB CONC 31.9 g/dL (32.0-36.0); MEAN CORPUSCULAR VOLUME 91 fl (80-97); PLATELET COUNT 324 10^3/uL (150-450); RED BLOOD COUNT 3.83 10^6/uL (4.35-5.55); RED CELL DISTRIBUTION WIDTH 18.5 % (11.5-14.0); WHITE BLOOD COUNT 23.1 10^3/uL (4.0-10.5)
[2019-08-31 05:55] LABS: ABSOLUTE LYMPHOCYTES# (MANUAL) 2.5 10^3/uL (0.5-4.7); ABSOLUTE MONOCYTES # (MANUAL) 1.4 10^3/uL (0.1-1.4); BASOPHILS % (MANUAL) 1 % (0-2); EOSINOPHILS % (MANUAL) 0 % (0-6); LYMPHOCYTES % (MANUAL) 11 % (13-45); MONOCYTES % (MANUAL) 6 % (3-13); SEGMENTED NEUTROPHILS % (MAN) 82 % (42-78); TOTAL CELLS COUNTED 100
[2019-08-31 05:59] LABS: ANISOCYTOSIS 1+; BURR CELLS 1+; PLATELET COMMENT ADEQUATE; POIKILOCYTOSIS 1+; TOXIC GRANULATION 1+; TOXIC VACUOLATION PRESENT
[2019-08-31 07:33] LABS: BLOOD UREA NITROGEN 78 mg/dL (7-20); CALCIUM 9.2 mg/dL (8.4-10.2); GLUCOSE 208 mg/dL (75-110); POTASSIUM 4.5 mmol/L (3.6-5.0)
[2019-08-31 07:38] LABS: CARBON DIOXIDE 21 mmol/L (22-30); CHLORIDE 95 mmol/L (98-107)
[2019-08-31 07:42] LABS: ANION GAP 20 (5-19)
[2019-08-31] MEDS: INSULIN LISPRO 100 UNIT/ML 3 ML VIAL SUBCUT SCH ×6 (07:56→18:00)
[2019-08-31] MEDS: LANTHANUM CARBONATE 500 MG TAB.CHEW PO SCH ×4 (07:56→22:36)
[2019-08-31] MEDS ORDERED: DOXYCYCLINE HYCLATE 100 MG TABLET PO SCH (10:00)
--- NOTE | 2019-08-31 11:45 | PDOC PROGRESS REPORT ---
Subjective Progress Note for:: 08/31/19 Reason For Visit: Patient seen today on dialysis. Notes were reviewed and discussions were done with the patient as well as with the treating dialysis nurse. He is being admitted with history of sepsis secondary to worsening peripheral vascular disease affecting both his lower extremities with gangrene as well as sacral decubitus ulcers. He has had debridement done at the sacral decubitus ulcers bedside. Currently on review of his medications he is just on clindamycin p.o. /IV. So far cultures are negative. Patient undergoing dialysis without any issues. He denies any history of chest pain, shortness of breath, abdominal pains, fever or chills. Dialysis orders were reviewed. Labs and medications were reviewed. Did review notes from hospitalist from yesterday after discussions were done with his brother and sister. He has now been made DNR/DNI. However apparently it looks like he is going to undergo dialysis indefinitely. However no definitive procedures are being planned for worsening gangrene of both his lower extremities including amputation. He is not a candidate for revascularization given his baseline comorbidities including anoxic brain encephalopathy. Physical Exam Vital Signs: Temp Pulse Resp BP Pulse Ox 97.7 F 101 H 18 144/79 H 97 08/31/19 07:28 08/31/19 07:28 08/31/19 07:28 08/31/19 07:28 08/31/19 07:28 Intake & Output 08/30/19 08/31/19 09/01/19 06:59 06:59 06:59 Intake Total 1330 390 Output Total 0 Balance 1330 390 Weight 65.9 kg 65.3 kg General appearance: PRESENT: no acute distress Respiratory exam: PRESENT: clear to auscultation lor, decreased breath sounds. ABSENT: chest wall tenderness, crackles Cardiovascular exam: PRESENT: +S1, +S2 GI/Abdominal exam: PRESENT: normal bowel sounds, soft. ABSENT: organomegaly, tenderness Extremities exam: ABSENT: pedal edema - He has bandages around both his lower extremities but he has also got evidences of dry gangrene of his both feet. Neurological exam: PRESENT: altered - Patient is lethargic but answering questions very minimally with a delay., oriented to person. ABSENT: oriented to place Psychiatric exam: PRESENT: depressed Results Laboratory Results: 08/31/19 05:13 08/31/19 06:53 08/31/19 08/31/19 05:13 06:53 WBC 23.1 H RBC 3.83 L Hgb 11.1 L Hct 34.8 L MCV 91 MCH 29.0 MCHC 31.9 L RDW 18.5 H Plt Count 324 Seg Neutrophils % Not Reportable Sodium 136.4 L Potassium 4.5 Chloride 95 L Carbon Dioxide 21 L Anion Gap 20 H BUN 78 H Creatinine 7.18 H Est GFR ( Amer) 9 L Glucose 208 H Calcium 9.2 08/26/19 08/27/19 11:50 13:00 Troponin I 0.035 0.049 Impressions: Foot X-Ray 08/26/19 12:24 IMPRESSION: Status post transmetatarsal amputation of the 1st toe. There is no fracture or osseous erosion. Lower Extremity Ultrasound 08/26/19 14:48 IMPRESSION: Bilateral occluded superficial femoral arteries Occluded right popliteal artery. Minimal monophasic flow in the right anterior tibial artery and peroneal artery Minimal monophasic flow in the left popliteal artery from collateral vessels. Occluded left calf vessels. Chest X-Ray 08/27/19 00:00 IMPRESSION: Cardiomegaly without pulmonary edema. Small pleural effusions. Assessment & Plan - Diagnosis (1) Dry gangrene Is this a current diagnosis for this admission?: Yes Plan: Patient is got gangrene of both lower extremities. Apparently is not a candidate for revascularization given his underlying baseline comorbidities including anoxic brain encephalopathy. He is also high risk of definitive procedures like amputation. Apparently he is going to be most likely in palliative care given his unfortunate comorbidities. Note that he has been made DNR/DNI. He is in the process of being moved to [place] where his sister resides. (2) ESRD on hemodialysis Is this a current diagnosis for this admission?: Yes Plan: Patient currently undergoing dialysis without any issues. Vital signs are stable. Dialysis is being supervised to ensure safe and smooth procedure.Plan to remove approximately 2 L as tolerated. Dialysis orders were reviewed with the treating dialysis nurse. (3) Leukocytosis Qualifiers: Leukocytosis type: unspecified Qualified Code(s): D72.829 - Elevated white blood cell count, unspecified Plan: Rising white count is quite worrisome for worsening sepsis. As per hospitalist. (4) PAD (peripheral artery disease) Is this a current diagnosis for this admission?: Yes Plan: Severe progressive vascular disease/gangrene of both lower extremities. As mentioned earlier. (5) Sacral decubitus ulcer, stage III Is this a current diagnosis for this admission?: Yes Plan: Status post bedside debridement. As per surgical/hospitalist. (6) Anoxic brain injury Is this a current diagnosis for this admission?: Yes Plan: Status quo. Patient lethargic and responds to questions slowly with a delay.
--- NOTE | 2019-08-31 12:32 | PDOC PROGRESS REPORT ---
Subjective Progress Note for:: 08/31/19 Subjective:: Patient feels well today. Denies shortness of breath, chest pain, dizziness or lightheadedness. Reason For Visit: ESRD DECUB ULCER, DIABETIC FOOT ULCER Physical Exam Vital Signs: Temp Pulse Resp BP Pulse Ox 97.7 F 101 H 18 144/79 H 97 08/31/19 07:28 08/31/19 07:28 08/31/19 07:28 08/31/19 07:28 08/31/19 07:28 Intake & Output 08/30/19 08/31/19 09/01/19 06:59 06:59 06:59 Intake Total 1330 390 Output Total 0 Balance 1330 390 Weight 65.9 kg 65.3 kg General appearance: PRESENT: no acute distress, cooperative Neck exam: ABSENT: JVD Respiratory exam: PRESENT: clear to auscultation lor, symmetrical, unlabored. ABSENT: rhonchi, tachypnea, wheezes Cardiovascular exam: PRESENT: RRR, +S1, +S2. ABSENT: tachycardia GI/Abdominal exam: PRESENT: normal bowel sounds Neurological exam: PRESENT: alert, awake, oriented to person, oriented to place Psychiatric exam: ABSENT: agitated, anxious Results Laboratory Results: 08/31/19 05:13 08/31/19 06:53 08/31/19 08/31/19 05:13 06:53 WBC 23.1 H RBC 3.83 L Hgb 11.1 L Hct 34.8 L MCV 91 MCH 29.0 MCHC 31.9 L RDW 18.5 H Plt Count 324 Seg Neutrophils % Not Reportable Sodium 136.4 L Potassium 4.5 Chloride 95 L Carbon Dioxide 21 L Anion Gap 20 H BUN 78 H Creatinine 7.18 H Est GFR ( Amer) 9 L Glucose 208 H Calcium 9.2 08/26/19 08/27/19 11:50 13:00 Troponin I 0.035 0.049 Impressions: Foot X-Ray 08/26/19 12:24 IMPRESSION: Status post transmetatarsal amputation of the 1st toe. There is no fracture or osseous erosion. Lower Extremity Ultrasound 08/26/19 14:48 IMPRESSION: Bilateral occluded superficial femoral arteries Occluded right popliteal artery. Minimal monophasic flow in the right anterior tibial artery and peroneal artery Minimal monophasic flow in the left popliteal artery from collateral vessels. Occluded left calf vessels. Chest X-Ray 08/27/19 00:00 IMPRESSION: Cardiomegaly without pulmonary edema. Small pleural effusions. Assessment and Plan - Diagnosis (1) Sepsis Qualifiers: Sepsis type: sepsis due to unspecified organism Sepsis acute organ dysfunction status: with acute organ dysfunction Severe sepsis acute organ dysfunction type: unspecified Severe sepsis shock status: without septic shock Qualified Code(s): A41.9 - Sepsis, unspecified organism; R65.20 - Severe sepsis without septic shock Is this a current diagnosis for this admission?: Yes Plan: Sepsis suspected on admission given hypotension, tachycardia, encephalopathy, lactic acidosis and suspected to be secondary to gangrene in his foot and ulcers -blood cultures are negative -Surgery followed: No surgical intervention for his dry gangrene -No other source of infection noted at this time. -Patient has received broad-spectrum IV antibiotics for 3.5 days and Augmentin for 2 days and now on clindamycin today. However given patient's severe vascular compromise in his lower extremities, leg infection/wounds may be difficult to treat and may recur. Family aware of this likelihood. -Leukocytosis trended up further today. Given this, I have changed antibiotics from Augmentin to clindamycin. Will monitor trend. (2) Severe peripheral arterial disease Is this a current diagnosis for this admission?: Yes Plan: -Arterial Dopplers on admission showing occlusion of his superficial femoral arteries bilaterally, occlusion of right popliteal artery, occluded left calf vessels and minimal blood flow in his right anterior tibial and peroneal artery as well as minimal flow in left popliteal artery. -Patient's vascular surgeon Dr. Spence was contacted by the ER provider at time of admission regarding arterial ultrasound findings. Per ER provider, Dr. Spence stated that patient was not a candidate for surgical revascula rization given his comorbidities and history of recent cardiac arrest on the anesthesia, and stated that patient should try to undergo medical management and possible palliative care. (3) Decubitus ulcers Qualifiers: Pressure injury location: unspecified location Pressure injury stage: unspecified pressure injury stage Qualified Code(s): L89.90 - Pressure ulcer of unspecified site, unspecified stage Is this a current diagnosis for this admission?: Yes Plan: Bedside debridement done by surgery during this admission. Needs adequate nutrition and frequent repositioning. (4) Dry gangrene Is this a current diagnosis for this admission?: Yes Plan: No interventions currently per surgery. Of note, our Surgicalist does recommend patient would ultimately need above-knee amputation given gangrene and the likelihood for gangrene to cause infection especially given patient has occlusive peripheral artery disease in both lower extremities. As advised by patient's vascular surgeon Dr. Spence, patient is not a surgical candidate for revascularization procedure either. Given patient's significant comorbidities and recent cardiac arrest under anesthesia, patient is very high risk for adverse cardiac event for surgery. As such, we will defer amputation at this time. (5) ESRD on hemodialysis Is this a current diagnosis for this admission?: Yes Plan: Nephrology following. Seen at dialysis today. Apparently patient's blood pressures often run soft as advised by his fdc. I will continue patient on midodrine 2.5 mg 3 times daily with parameters to hold if SBP >105 (6) Anoxic brain injury Is this a current diagnosis for this admission?: Yes Plan: As reported by fdc, patient had been making decisions for himself. On my assessment, patient can respond with very brief sentences when questions are asked. He seems to understand simple statements but I was concerned that patient does not able to adequately voice understanding of more complex situations such as the complexity of his current situation despite attempts to explain it to him several times. I feel that patient truly does not have capacity to be making his own decisions about such complex matters involving his plan of care. For this reason, I consulted psychiatry to assist with capacity assessment who also believe that patient lacks capacity to make his own decisions and are recommending guardianship. Patient's sister Sona Humphrey ([phone]) and brother Andrew Bower ([phone]) have assumed responsibility as decision makers for patient and have agreed that the primary person of contact be the sister Sona. (7) APC (atrial premature contractions) Is this a current diagnosis for this admission?: Yes Plan: Started on Lopressor given frequent APCs. Monitor BP. - Plan Summary Summary: After extensive conversation with patient, patient's sister and brother as well as patient's neighbor on 08/29/19, patient's family wishes for DNR/DNI, no overly aggressive measures such as IV pressors with central line placement but to continue treatment otherwise. Refer to advanced care planning notes for further details. We are working through potential placement options as patient's sister does not want him to go back to [place] given dissatisfaction with his care there. She ultimately wants for patient to be transferred to [place] where she lives so patient is close to her. However, this will likely not be possible to arrange this from [place] and patient will likely need to [facility] from which arrangements can be made for transport to [place]. Our Pipe Line Inspector/strategic planner is working with family to figure out best approach to this. Refer to discharge planning notes for more details. Medically, patient's leukocytosis has started to worsen over the past 2 days. For this reason, I have changed patient's antibiotic regimen from Augmentin (initially on Vanc-Zosyn) to clindamycin. If leukocytosis starts to trend down, patient can be cleared for discharge with antibiotics for about 14 to 21 days for his gangrene & infected ulcers and follow-up with his vascular surgeon Dr. Spence. - Time Time Spent with patient: Less than 15 minutes
[2019-08-31] MEDS: APIXABAN 5 MG TABLET PO SCH ×2 (13:08→22:36)
[2019-08-31] MEDS: METOPROLOL TARTRATE 25 MG TABLET PO SCH ×2 (13:08→22:36)
[2019-08-31] MEDS: MIDODRINE HCL 5 MG TABLET PO SCH ×3 (13:09→18:13)
[2019-08-31] MEDS: PANTOPRAZOLE SODIUM 40 MG TABLET.DR PO SCH (13:10)
[2019-08-31] MEDS: CLINDAMYCIN 300 MG/D5W RTU 300 MG/50 ML RTUPB IV SCH ×2 (13:11→18:13)
[2019-08-31] MEDS: INSULIN GLARGINE,HUM.REC.ANLOG 1,000 UNIT/10 ML VIAL SUBCUT SCH (13:22)
[2019-08-31] MEDS ORDERED: ACETAMINOPHEN 325 MG TABLET PO PRN (15:19)
[2019-09-01] MEDS: CLINDAMYCIN 300 MG/D5W RTU 300 MG/50 ML RTUPB IV SCH (01:00)
[2019-09-01] MEDS: CLINDAMYCIN HCL 150 MG CAPSULE PO SCH ×4 (06:15→23:01)
[2019-09-01 07:22] LABS: HEMATOCRIT 34.7 % (37.9-51.0); HEMOGLOBIN 10.9 g/dL (13.5-17.0); MEAN CORPUSCULAR HEMOGLOBIN 28.7 pg (27.0-33.4); MEAN CORPUSCULAR HGB CONC 31.5 g/dL (32.0-36.0); MEAN CORPUSCULAR VOLUME 91 fl (80-97); PLATELET COUNT 395 10^3/uL (150-450); WHITE BLOOD COUNT 19.2 10^3/uL (4.0-10.5)
[2019-09-01 07:28] LABS: ANION GAP 17 (5-19); CALCIUM 9.3 mg/dL (8.4-10.2); CARBON DIOXIDE 27 mmol/L (22-30); CHLORIDE 95 mmol/L (98-107); GLUCOSE 312 mg/dL (75-110); POTASSIUM 4.3 mmol/L (3.6-5.0)
[2019-09-01 07:52] LABS: BLOOD UREA NITROGEN 55 mg/dL (7-20)
[2019-09-01 08:05] LABS: ABSOLUTE LYMPHOCYTES# (MANUAL) 0.6 10^3/uL (0.5-4.7); ABSOLUTE MONOCYTES # (MANUAL) 1.7 10^3/uL (0.1-1.4); BASOPHILS % (MANUAL) 0 % (0-2); EOSINOPHILS % (MANUAL) 0 % (0-6); LYMPHOCYTES % (MANUAL) 2 % (13-45); MONOCYTES % (MANUAL) 9 % (3-13); SEGMENTED NEUTROPHILS % (MAN) 88 % (42-78); TOTAL CELLS COUNTED 100
[2019-09-01 08:12] LABS: POLYCHROMASIA SLIGHT
[2019-09-01 08:15] LABS: ANISOCYTOSIS 2+
[2019-09-01 08:16] LABS: PLATELET COMMENT ADEQUATE
[2019-09-01] MEDS: INSULIN LISPRO 100 UNIT/ML 3 ML VIAL SUBCUT SCH ×6 (08:23→16:59)
[2019-09-01] MEDS: LANTHANUM CARBONATE 500 MG TAB.CHEW PO SCH ×4 (08:23→21:38)
[2019-09-01] MEDS: APIXABAN 5 MG TABLET PO SCH ×2 (10:22→21:38)
[2019-09-01] MEDS: PANTOPRAZOLE SODIUM 40 MG TABLET.DR PO SCH (10:22)
[2019-09-01] MEDS: METOPROLOL TARTRATE 25 MG TABLET PO SCH ×2 (10:22→21:38)
[2019-09-01] MEDS: INSULIN GLARGINE,HUM.REC.ANLOG 1,000 UNIT/10 ML VIAL SUBCUT SCH (10:25)
[2019-09-01] MEDS: MIDODRINE HCL 5 MG TABLET PO SCH ×3 (10:30→18:31)
--- NOTE | 2019-09-01 16:52 | PDOC PROGRESS REPORT ---
Subjective Progress Note for:: 09/01/19 Reason For Visit: ESRD DECUB ULCER, DIABETIC FOOT ULCER 09/01/2019 Patient came from [facility]. She has end-stage renal disease decubitus ulcer of the buttocks and diabetes Patient has anoxic brain injury secondary to resuscitation efforts 1 month ago. 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 ABSENT: rales, rhonchi, wheezes Cardiovascular exam: PRESENT: RRR. ABSENT: diastolic murmur, rubs, systolic murmur Neurological exam: PRESENT: altered, other - Decreased level of alertness Very little verbal response, patient seems to just stare off Psychiatric exam: PRESENT: flat affect, unusual affect Results Laboratory Results: 09/01/19 06:49 09/01/19 06:49 09/01/19 09/01/19 09/01/19 05:13 05:13 06:49 WBC Cancelled 19.2 H RBC Cancelled 3.80 L Hgb Cancelled 10.9 L Hct Cancelled 34.7 L MCV Cancelled 91 MCH Cancelled 28.7 MCHC Cancelled 31.5 L RDW Cancelled 19.0 H Plt Count Cancelled 395 Seg Neutrophils % Cancelled Not Reportable Sodium Cancelled Potassium Cancelled Chloride Cancelled Carbon Dioxide Cancelled Anion Gap Cancelled BUN Cancelled Creatinine Cancelled Est GFR ( Amer) Cancelled Est GFR (Non-Af Amer) Cancelled Glucose Cancelled Calcium Cancelled 09/01/19 06:49 WBC RBC Hgb Hct MCV MCH MCHC RDW Plt Count Seg Neutrophils % Sodium 139.4 Potassium 4.3 Chloride 95 L Carbon Dioxide 27 Anion Gap 17 BUN 55 H D Creatinine 4.92 H Est GFR ( Amer) 14 L Est GFR (Non-Af Amer) Glucose 312 H Calcium 9.3 08/26/19 13:51 Blood Blood Culture - Final NO GROWTH IN 5 DAYS 08/26/19 11:50 Blood Blood Culture - Final NO GROWTH IN 5 DAYS 08/26/19 08/27/19 11:50 13:00 Troponin I 0.035 0.049 Impressions: Foot X-Ray 08/26/19 12:24 IMPRESSION: Status post transmetatarsal amputation of the 1st toe. There is no fracture or osseous erosion. Lower Extremity Ultrasound 08/26/19 14:48 IMPRESSION: Bilateral occluded superficial femoral arteries Occluded right popliteal artery. Minimal monophasic flow in the right anterior tibial artery and peroneal artery Minimal monophasic flow in the left popliteal artery from collateral vessels. Occluded left calf vessels. Chest X-Ray 08/27/19 00:00 IMPRESSION: Cardiomegaly without pulmonary edema. Small pleural effusions. Assessment and Plan - Diagnosis (1) Anemia in chronic kidney disease (CKD) Is this a current diagnosis for this admission?: Yes (2) Anoxic brain injury Is this a current diagnosis for this admission?: Yes (3) Decubitus ulcers Qualifiers: Pressure injury location: unspecified location Pressure injury stage: unspecified pressure injury stage Qualified Code(s): L89.90 - Pressure ulcer of unspecified site, unspecified stage Is this a current diagnosis for this admission?: Yes (4) Dry gangrene Is this a current diagnosis for this admission?: Yes (5) ESRD on hemodialysis Is this a current diagnosis for this admission?: Yes (6) Vascular occlusion Is this a current diagnosis for this admission?: Yes (7) Diabetes mellitus type 2 in nonobese Is this a current diagnosis for this admission?: Yes - Plan Summary Summary: After extensive conversation with patient, patient's sister and brother as well as patient's neighbor on 08/29/19, patient's family wishes for DNR/DNI, no overly aggressive measures such as IV pressors with central line placement but to continue treatment otherwise. Refer to advanced care planning notes for further details. We are working through potential placement options as patient's sister does not want him to go back to [place] given dissatisfaction with his care there. She ultimately wants for patient to be transferred to [place] where she lives so patient is close to her. However, this will likely not be possible to arrange this from [place] and patient will likely need to be discharged to a local facility from which arrangements can be made for transport to [place]. Our Turret Punch Operator/planner scheduler is working with family to figure out best approach to this. Refer to discharge planning notes for more details. Medically, patient's leukocytosis has started to worsen over the past 2 days. For this reason, I have changed patient's antibiotic regimen from Augmentin (initially on Vanc-Zosyn) to clindamycin. If leukocytosis starts to trend down, patient can be cleared for discharge with antibiotics for about 14 to 21 days for his gangrene & infected ulcers and follow-up with his vascular surgeon Dr. Spence. 09/01/2019 See the note above. She has a slight temperature this morning 99.4, pressure stable 116/67 O2 sat 100% on 3 3 and half liters nasal cannula White count is down slightly from 23,000-19,000 Patient came in with a BUN of 48 is been as high as 78 now is back down to 55 Creatinine when he came in was 6.16 it is been as high as 8.22 it is now down to 4.92 Patient is end-stage renal disease on dialysis Awaiting bed placement, patient recently switch to clindamycin yesterday, will see how patient responds to the clindamycin and hopefully discharge in the next several days once a bed is available - Time Time Spent with patient: 25-34 minutes
[2019-09-02] MEDS: CLINDAMYCIN HCL 150 MG CAPSULE PO SCH ×2 (05:30→12:31)
[2019-09-02] MEDS: INSULIN LISPRO 100 UNIT/ML 3 ML VIAL SUBCUT SCH ×4 (07:02→12:32)
[2019-09-02] MEDS: LANTHANUM CARBONATE 500 MG TAB.CHEW PO SCH ×2 (09:37→12:32)
[2019-09-02] MEDS: APIXABAN 5 MG TABLET PO SCH (09:38)
[2019-09-02] MEDS: INSULIN GLARGINE,HUM.REC.ANLOG 1,000 UNIT/10 ML VIAL SUBCUT SCH (09:39)
[2019-09-02] MEDS: MIDODRINE HCL 5 MG TABLET PO SCH (09:40)
[2019-09-02] MEDS: PANTOPRAZOLE SODIUM 40 MG TABLET.DR PO SCH (09:40)
--- NOTE | 2019-09-02 10:15 | PDOC TRANSFER SUMMARY ---
Impression - Admit/DC Date/PCP Admission Date/Primary Care Provider: 08/26/19 21:07 MORRIS HARDY MD Discharge Date: 09/02/19 - Discharge Diagnosis (1) Anemia in chronic kidney disease (CKD) Is this a current diagnosis for this admission?: Yes (2) Anoxic brain injury Is this a current diagnosis for this admission?: Yes (3) Decubitus ulcers Is this a current diagnosis for this admission?: Yes (4) Dry gangrene Is this a current diagnosis for this admission?: Yes (5) ESRD on hemodialysis Is this a current diagnosis for this admission?: Yes (6) Vascular occlusion Is this a current diagnosis for this admission?: Yes (7) Diabetes mellitus type 2 in nonobese Is this a current diagnosis for this admission?: Yes - Assessment Summary: After extensive conversation with patient, patient's sister and brother as well as patient's neighbor on 08/29/19, patient's family wishes for DNR/DNI, no overly aggressive measures such as IV pressors with central line placement but to continue treatment otherwise. Refer to advanced care planning notes for further details. We are working through potential placement options as patient's sister does not want him to go back to [place] given dissatisfaction with his care there. She ultimately wants for patient to be transferred to [place] where she lives so patient is close to her. However, this will likely not be possible to arrange this from [place] and patient will likely need to be discharged to a local facility from which arrangements can be made for transport to [place]. Our Buffing Machine Operator/store planner is working with family to figure out best approach to this. Refer to discharge planning notes for more details. Medically, patient's leukocytosis has started to worsen over the past 2 days. For this reason, I have changed patient's antibiotic regimen from Augmentin (initially on Vanc-Zosyn) to clindamycin. If leukocytosis starts to trend down, patient can be cleared for discharge with antibiotics for about 14 to 21 days for his gangrene & infected ulcers and follow-up with his vascular surgeon Dr. Spence. 09/01/2019 See the note above. he has a slight temperature this morning 99.4, pressure stable 116/67 O2 sat 100% on 3 3 and half liters nasal cannula White count is down slightly from 23,000-19,000 Patient came in with a BUN of 48 is been as high as 78 now is back down to 55 Creatinine when he came in was 6.16 it is been as high as 8.22 it is now down to 4.92 Patient is end-stage renal disease on dialysis Awaiting bed placement, patient recently switch to clindamycin yesterday, will see how patient responds to the clindamycin and hopefully discharge in the next several days once a bed is available 09/02/2019 Patient will be sent out with clindamycin 300 mg 3 times daily for 3 weeks, midodrine 2.5 mg 3 times daily for 30 days Lopressor 12.5 mg every 12 hours Patient's daughter who lives in [place] will actually try to get the patient transferred closer to home in the next couple of weeks. Patient will also need follow-up with vascular surgery and possible general surgery for amputation if needed. Patient is back to his baseline and medically stable for transfer - Additional Information Resuscitation Status: Do Not Resuscitate Discharge Diet: As Tolerated Discharge Activity: Balance Activity w/Rest Referrals: SHAHEEN VAZQUEZ MD [ACTIVE STAFF] - Follow up as needed Prescriptions: Clindamycin HCl [Cleocin 150 mg Capsule] 300 mg PO Q6 21 Days #66 capsule Metoprolol Tartrate [Lopressor 25 mg Tablet] 12.5 mg PO Q12 30 Days #60 tablet Midodrine HCl [Proamatine 5 mg Tablet] 2.5 mg PO TID 30 Days #45 tablet Home Medications: Acetaminophen [Tylenol 325 mg Tablet] 325 mg PO Q4HP PRN 08/26/19 Apixaban [Eliquis 5 mg Tablet] 5 mg PO Q12 08/26/19 Bisacodyl [Dulcolax 10 mg Supp.rect] 10 mg SC DAILYP PRN 08/26/19 Insulin Aspart [Novolog Insulin (Aspart) 100 unit/mL] 0 unit SQ .SLIDING SCALE 08/26/19 Insulin Aspart [Novolog Insulin (Aspart) 100 unit/mL] 6 unit SQ MEALS 08/26/19 Insulin Glargine,Hum.rec.anlog [Lantus Insulin 100 Unit/1 ml 10 ml] 8 units SQ DAILY 08/26/19 Ipratropium/Albuterol Sulfate [Duoneb 3 ml Ampul] 3 ml NEB Q4HP PRN 08/26/19 Labetalol HCl [Normodyne 200 mg Tablet] 200 mg PO Q12 08/26/19 Lanthanum Carbonate [Fosrenol 500 mg Chewable Tablet] 500 mg PO QID 08/26/19 Pantoprazole Sodium [Protonix [address] Tablet] 40 mg PO DAILY 08/26/19 Polyethylene Glycol 3350 [Miralax Powder 17 gm/Packet] 17 gm PO DAILYP PRN 08/26/19 Pravastatin Sodium [Pravachol] 40 mg PO DAILY 08/26/19 Acetaminophen [Tylenol 325 mg Tablet] 650 mg PO Q8HP PRN tablet 09/02/19 Clindamycin HCl [Cleocin 150 mg Capsule] 300 mg PO Q6 21 Days #66 capsule 09/02/19 Metoprolol Tartrate [Lopressor 25 mg Tablet] 12.5 mg PO Q12 30 Days #60 tablet 09/02/19 Midodrine HCl [Proamatine 5 mg Tablet] 2.5 mg PO TID 30 Days #45 tablet 09/02/19 Additional Information: Oxygen as needed, keep sats above 91% History of Present Illiness History of Present Illness: ANASTASIA PERALTA is a 64 year old male Physical Exam Vital Signs: Temp Pulse Resp BP Pulse Ox 99.2 F 120 H 20 141/65 H 100 09/02/19 03:22 09/02/19 07:00 09/02/19 03:22 09/02/19 03:22 09/02/19 03:22 Intake & Output 09/01/19 09/02/19 09/03/19 06:59 06:59 06:59 Intake Total 760 100 Output Total 1200 Balance -440 100 Weight 64.1 kg 61.1 kg Results Laboratory Results: WBC 19.2 10^3/uL (4.0-10.5) H 09/01/19 06:49 RBC 3.80 10^6/uL (4.35-5.55) L 09/01/19 06:49 Hgb 10.9 g/dL (13.5-17.0) L 09/01/19 06:49 Hct 34.7 % (37.9-51.0) L 09/01/19 06:49 MCV 91 fl (80-97) 09/01/19 06:49 MCH 28.7 pg (27.0-33.4) 09/01/19 06:49 MCHC 31.5 g/dL (32.0-36.0) L 09/01/19 06:49 RDW 19.0 % (11.5-14.0) H 09/01/19 06:49 Plt Count 395 10^3/uL (150-450) 09/01/19 06:49 Lymph % (Auto) Not Reportable 09/01/19 06:49 Clinch % (Auto) Not Reportable 09/01/19 06:49 Eos % (Auto) Not Reportable 09/01/19 06:49 Baso % (Auto) Not Reportable 09/01/19 06:49 Absolute Neuts (auto) Not Reportable 09/01/19 06:49 Absolute Lymphs (auto) Not Reportable 09/01/19 06:49 Absolute Monos (auto) Not Reportable 09/01/19 06:49 Absolute Eos (auto) Not Reportable 09/01/19 06:49 Absolute Basos (auto) Not Reportable 09/01/19 06:49 Total Counted 100 09/01/19 06:49 Seg Neutrophils % Not Reportable 09/01/19 06:49 Seg Neuts % (Manual) 88 % (42-78) H 09/01/19 06:49 Band Neutrophils % 1 % (3-5) L 08/28/19 05:05 Lymphocytes % (Manual) 2 % (13-45) L 09/01/19 06:49 Atypical Lymphs % 1 % (0) 09/01/19 06:49 Monocytes % (Manual) 9 % (3-13) 09/01/19 06:49 Eosinophils % (Manual) 0 % (0-6) 09/01/19 06:49 Basophils % (Manual) 0 % (0-2) 09/01/19 06:49 Abs Neuts (Manual) 16.9 10^3/uL (1.7-8.2) H 09/01/19 06:49 Abs Lymphs (Manual) 0.6 10^3/uL (0.5-4.7) 09/01/19 06:49 Abs Monocytes (Manual) 1.7 10^3/uL (0.1-1.4) H 09/01/19 06:49 Absolute Eos (Manual) 0.0 10^3/uL (0.0-0.6) 09/01/19 06:49 Abs Basophils (Manual) 0.0 10^3/uL (0.0-0.2) 09/01/19 06:49 Toxic Granulation 1+ 08/31/19 05:13 Toxic Vacuolation PRESENT 08/31/19 05:13 Platelet Estimate Cancelled 09/01/19 05:13 Platelet Comment ADEQUATE 09/01/19 06:49 Polychromasia SLIGHT 09/01/19 06:49 Poikilocytosis 1+ 08/31/19 05:13 Anisocytosis 2+ 09/01/19 06:49 Tear Drop Cells SLIGHT 08/30/19 04:52 Ovalocytes SLIGHT 08/28/19 05:05 Phoenix Cells 1+ 08/31/19 05:13 Schistocytes SLIGHT 08/28/19 05:05 PT 24.1 SEC (11.4-15.4) H 08/26/19 11:50 INR 2.12 08/26/19 11:50 VBG pH 7.38 (7.30-7.42) 08/26/19 11:50 VBG pCO2 53.8 mmHg (35-63) 08/26/19 11:50 VBG HCO3 30.9 mmol/L (20-32) 08/26/19 11:50 VBG Base Excess 3.8 mmol/L 08/26/19 11:50 Sodium 139.4 mmol/L (137-145) 09/01/19 06:49 Potassium 4.3 mmol/L (3.6-5.0) 09/01/19 06:49 Chloride 95 mmol/L (98-107) L 09/01/19 06:49 Carbon Dioxide 27 mmol/L (22-30) 09/01/19 06:49 Anion Gap 17 (5-19) 09/01/19 06:49 BUN 55 mg/dL (7-20) H D 09/01/19 06:49 Creatinine 4.92 mg/dL (0.52-1.25) H 09/01/19 06:49 Est GFR ( Amer) 14 (>60) L 09/01/19 06:49 Est GFR (Non-Af Amer) Cancelled 09/01/19 05:13 Est GFR (MDRD) Non-Af 12 (>60) L 09/01/19 06:49 Glucose 312 mg/dL (75-110) H 09/01/19 06:49 POC Glucose 163 mg/dL (70-110) H 09/02/19 05:59 Lactic Acid 1.5 mmol/L (0.7-2.1) 08/28/19 05:05 Lactic Acid (Sepsis) 1.9 mmol/L (0.7-2.1) 08/27/19 17:21 Calcium 9.3 mg/dL (8.4-10.2) 09/01/19 06:49 Phosphorus 10.9 mg/dL (2.5-4.5) H 08/27/19 23:24 Magnesium 2.3 mg/dL (1.6-2.3) 08/27/19 23:24 Total Bilirubin 1.4 mg/dL (0.2-1.3) H 08/26/19 11:50 Direct Bilirubin 0.9 mg/dL (0.0-0.4) H 08/26/19 11:50 Neonat Total Bilirubin Not Reportable 08/26/19 11:50 Neonat Direct Bilirubin Not Reportable 08/26/19 11:50 Neonat Indirect Bili Not Reportable 08/26/19 11:50 AST 89 U/L (17-59) H 08/26/19 11:50 ALT 46 U/L (<50) 08/26/19 11:50 Alkaline Phosphatase 100 U/L (38-126) 08/26/19 11:50 Troponin I 0.049 ng/mL 08/27/19 13:00 Total Protein 7.2 g/dL (6.3-8.2) 08/26/19 11:50 Albumin 3.4 g/dL (3.5-5.0) L 08/26/19 11:50 EGFR Cancelled 09/01/19 05:13 Slides for Path Review Cancelled 09/01/19 05:13 08/26/19 08/27/19 11:50 13:00 Troponin I 0.035 0.049 Impressions: Chest X-Ray 08/26/19 12:24 IMPRESSION: Bilateral pleural effusions and probable bibasilar atelectasis or scarring. Foot X-Ray 08/26/19 12:24 IMPRESSION: Status post transmetatarsal amputation of the 1st toe. There is no fracture or osseous erosion. Lower Extremity Ultrasound 08/26/19 14:48 IMPRESSION: Bilateral occluded superficial femoral arteries Occluded right popliteal artery. Minimal monophasic flow in the right anterior tibial artery and peroneal artery Minimal monophasic flow in the left popliteal artery from collateral vessels. Occluded left calf vessels. Chest X-Ray 08/27/19 00:00 IMPRESSION: Cardiomegaly without pulmonary edema. Small pleural effusions. Stroke Is this a Stroke Patient?: No Acute Heart Failure - Is this a Heart Failure Patient?: No
--- NOTE | 2019-09-02 11:55 | PDOC PROGRESS REPORT ---
Subjective Progress Note for:: 09/02/19 Reason For Visit: Patient seen today on dialysis. He is undergoing dialysis without any issues. Patient remains baseline lethargic and poorly responsive to questions from his baseline insult from anoxic encephalopathy. Labs and medications were reviewed. Dialysis orders were reviewed with the treating dialysis nurse. Physical Exam Vital Signs: Temp Pulse Resp BP Pulse Ox 98.4 F 116 H 16 128/74 H 99 09/02/19 07:29 09/02/19 07:29 09/02/19 07:29 09/02/19 07:29 09/02/19 07:29 Intake & Output 09/01/19 09/02/19 09/03/19 06:59 06:59 06:59 Intake Total 760 100 Output Total 1200 Balance -440 100 Weight 64.1 kg 61.1 kg General appearance: PRESENT: no acute distress Respiratory exam: PRESENT: clear to auscultation lor. ABSENT: crackles Cardiovascular exam: PRESENT: +S1, +S2 GI/Abdominal exam: PRESENT: normal bowel sounds, soft. ABSENT: organomegaly, tenderness Extremities exam: ABSENT: pedal edema Neurological exam: PRESENT: altered Psychiatric exam: PRESENT: depressed Results Laboratory Results: 09/01/19 06:49 09/01/19 06:49 08/26/19 08/27/19 11:50 13:00 Troponin I 0.035 0.049 Impressions: Foot X-Ray 08/26/19 12:24 IMPRESSION: Status post transmetatarsal amputation of the 1st toe. There is no fracture or osseous erosion. Lower Extremity Ultrasound 08/26/19 14:48 IMPRESSION: Bilateral occluded superficial femoral arteries Occluded right popliteal artery. Minimal monophasic flow in the right anterior tibial artery and peroneal artery Minimal monophasic flow in the left popliteal artery from collateral vessels. Occluded left calf vessels. Chest X-Ray 08/27/19 00:00 IMPRESSION: Cardiomegaly without pulmonary edema. Small pleural effusions. Assessment & Plan - Diagnosis (1) Dry gangrene Is this a current diagnosis for this admission?: Yes Plan: Patient is got gangrene of both lower extremities. Apparently is not a candidate for revascularization given his underlying baseline comorbidities including anoxic brain encephalopathy. He is also high risk of definitive procedures like amputation. Apparently he is going to be most likely in palliative care given his unfortunate comorbidities. Note that he has been made DNR/DNI. He is in the process of being moved to [place] where his sister resides. (2) ESRD on hemodialysis Is this a current diagnosis for this admission?: Yes Plan: Patient currently undergoing dialysis without any issues. Vital signs are stable. Dialysis is being supervised to ensure safe and smooth procedure.Plan to remove approximately 1 L as tolerated. Dialysis orders were reviewed with the treating dialysis nurse. (3) Leukocytosis Qualifiers: Leukocytosis type: unspecified Qualified Code(s): D72.829 - Elevated white blood cell count, unspecified Plan: Rising white count. As per hospitalist. (4) PAD (peripheral artery disease) Is this a current diagnosis for this admission?: Yes Plan: Severe progressive vascular disease/gangrene of both lower extremities. As mentioned earlier. (5) Sacral decubitus ulcer, stage III Is this a current diagnosis for this admission?: Yes Plan: Status post bedside debridement. As per surgical/hospitalist. (6) Anoxic brain injury Is this a current diagnosis for this admission?: Yes Plan: Status quo. Patient lethargic and responds to questions slowly with a delay.
[2019-09-02] MEDS: METOPROLOL TARTRATE 25 MG TABLET PO SCH (12:32)
[2019-09-02 15:23] VITALS: BP 106/63
== END 2019-09-02 15:47 | DRG 853 ==
LOC: ER 12:04 → EH 21:07 → 3S 08-27 00:44
PROVIDERS: ADMIT Internal Medicine; ATTEND Internal Medicine
PROC: 0KBP0ZZ Excision of Left Hip Muscle, Open Approach (ICD-10-PCS; principal; 2019-08-28)
PROC: 0KBN0ZZ Excision of Right Hip Muscle, Open Approach (ICD-10-PCS; 2019-08-28)
PROC: 5A1D70Z Performance of Urinary Filtration, Intermittent, Less than 6 Hours Per Day (ICD-10-PCS; 2019-08-28)
DX: A41.9 Sepsis, unspecified organism (principal); L89.153 Pressure ulcer of sacral region, stage 3; L89.154 Pressure ulcer of sacral region, stage 4; I74.3 Embolism and thrombosis of arteries of the lower extremities; E11.52 Type 2 diabetes mellitus with diabetic peripheral angiopathy with gangrene; I96 Gangrene, not elsewhere classified; I12.0 Hypertensive chronic kidney disease with stage 5 chronic kidney disease or end stage renal disease; L97.518 Non-pressure chronic ulcer of other part of right foot with other specified severity; N18.5 Chronic kidney disease, stage 5; G93.1 Anoxic brain damage, not elsewhere classified; G93.40 Encephalopathy, unspecified; R65.20 Severe sepsis without septic shock; L89.629 Pressure ulcer of left heel, unspecified stage; L89.619 Pressure ulcer of right heel, unspecified stage; E11.621 Type 2 diabetes mellitus with foot ulcer; D63.1 Anemia in chronic kidney disease; I25.10 Atherosclerotic heart disease of native coronary artery without angina pectoris; E78.00 Pure hypercholesterolemia, unspecified; E11.22 Type 2 diabetes mellitus with diabetic chronic kidney disease; I49.1 Atrial premature depolarization; R53.83 Other fatigue; T40.2X5A Adverse effect of other opioids, initial encounter; Y92.230 Patient room in hospital as the place of occurrence of the external cause; Z66 Do not resuscitate; I25.2 Old myocardial infarction; Z99.2 Dependence on renal dialysis; Z95.1 Presence of aortocoronary bypass graft; Z95.5 Presence of coronary angioplasty implant and graft; Z79.01 Long term (current) use of anticoagulants; Z79.4 Long term (current) use of insulin; Z79.51 Long term (current) use of inhaled steroids; Z79.899 Other long term (current) drug therapy; Z89.429 Acquired absence of other toe(s), unspecified side
CPT/HCPCS: 36415; 71045; 80048; 80053; 82803; 82962; 83605; 83735; 84100; 84484; 85025; 85610; 87040; 93005; 93010; 93925; 94667; 94668; 94799; 96365; 99285; J1170; J1644; J1815; J2310; J2543; J3370; J3490; J7030; J7040; J7060; J7620

== ENCOUNTER 2019-09-08 22:38 | Emergency (ER) | payer OTHER, MEDICARE ==
[2019-09-08] MEDS ORDERED: DEXTROSE 50%-WATER 25 GM/50 ML DISP.SYRIN IV ONE ×2 (22:50→22:54)
[2019-09-08] MEDS ORDERED: NORMAL SALINE 1000 ML 1,000 ML IV ONE (22:52)
--- NOTE | 2019-09-08 22:59 | ER Document Report ---
ED General - General Chief Complaint: Unresponsive Stated Complaint: UNRESPONSIVE Time Seen by Provider: 09/08/19 22:44 Primary Care Provider: MORRIS HARDY MD [Primary Care Provider] - Follow up as needed Mode of Arrival: Medic Information source: Emergency Med Personnel Cannot obtain history due to: Altered mental status TRAVEL OUTSIDE OF THE [place] IN LAST 30 DAYS: No - HPI Onset: Other - last known normal reported 2 days ago Onset/Duration: Gradual Severity: Severe Pain Level: 2 Similar symptoms previously: No Recently seen / treated by doctor: No Notes: 64 year old male with a history of Anoxic Brain Injury, ESRD, COPD, DM, HTN, HLD, PVD (has dry gangrene of toes) from a SNF brought in by EMS for altered mental status, low blood sugar, and low blood pressure. The patient was just discharged from the Hospital on Sep 02 and he was apparently made a DNR/DNI at that time. The patient is brought back to the ER today and EMS tells me the fa maria alejandra has reversed the patient's DNR status. The patient is unable to give any history at this time. On ER arrival he was hypotensive, hypoglycemic, and he has dry gangrene of his toes and a large sacral decubitus ulcer - Related Data Allergies/Adverse Reactions: No Known Allergies Allergy (Verified 06/22/19 10:50) Past Medical History - Social History Smoking Status: Current Every Day Smoker Frequency of alcohol use: None Drug Abuse: None Family History: Other - Unknown to patient - Past Medical History Cardiac Medical History: Reports: Hx Coronary Artery Disease - 3 CLOGGED ARTERIES, Hx Heart Attack - 2007, Hx Hypercholesterolemia, Hx Hypertension - MEDICATED Pulmonary Medical History: Reports: Hx COPD Denies: Hx Asthma, Hx Bronchitis, Hx Pneumonia, Hx Tuberculosis Neurological Medical History: Denies: Hx Cerebrovascular Accident, Hx Seizures Endocrine Medical History: Reports: Hx Diabetes Mellitus Type 2. Denies: Hx Diabetes Mellitus Type 1, Hx Hyperthyroidism, Hx Hypothyroidism Renal/ Medical History: Reports: Hx End Stage Renal Disease - Stage V with dialysis, Hx Hemodialysis. Denies: Hx Peritoneal Dialysis GI Medical History: Denies: Hx Cirrhosis, Hx Hepatitis, Hx Hiatal Hernia, Hx Ulcer Musculoskeletal Medical History: Denies Hx Arthritis, Denies Hx Gout Skin Medical History: Denies Hx Eczema, Denies Hx Psoriasis Psychiatric Medical History: Denies: Hx Depression Infectious Medical History: Denies: Hx Hepatitis Past Surgical History: Reports: Hx Cardiac Catheterization, Hx Cardiac Surgery - bypass 2013, 1 stent 2013, Hx Coronary Artery Bypass Graft, Hx Coronary Stent, Hx Open Heart Surgery, Hx Orthopedic Surgery, Hx Vascular Surgery - Stenting to the right lower extremity, dialysis shunt. Denies: Hx Pacemaker - Immunizations Immunizations up to date: Yes Hx Diphtheria, Pertussis, Tetanus Vaccination: No Hx Pneumococcal Vaccination: 07/07/14 Review of Systems - Review of Systems Constitutional: Weakness, Other - altered mental status EENT: No symptoms reported Cardiovascular: No symptoms reported Respiratory: No symptoms reported Gastrointestinal: No symptoms reported Genitourinary: No symptoms reported Male Genitourinary: No symptoms reported Musculoskeletal: No symptoms reported Skin: Other - dry gangrene of his toes, large sacral decubitus ulcer Neurological/Psychological: Other - altered mental status Physical Exam - Vital signs Vitals: Temp Pulse Resp BP Pulse Ox 99.2 F 104 H 13 103/55 L 96 09/08/19 22:38 09/08/19 22:38 09/08/19 22:38 09/08/19 22:38 09/08/19 22:38 - Notes Notes: GENERAL: Chronically ill appearing, minimally responsive, responding to painful stimuli however HEAD: Atraumatic, normocephalic. EYES: Pupils equal round and reactive to light, extraocular movements intact, sclera anicteric, conjunctiva are normal. ENT: Nares patent, oropharynx clear without exudates. Moist mucous membranes. NECK: Normal range of motion, supple without lymphadenopathy or JVD. LUNGS: Breath sounds clear to auscultation bilaterally and equal. No wheezes rales or rhonchi. HEART: Regular rate and rhythm without murmurs, rubs or gallops. ABDOMEN: Soft, nontender, normoactive bowel sounds. No guarding, no rebound. No masses appreciated. EXTREMITIES: Normal range of motion, no pitting or edema. Dry gangrene of toes bilaterally NEUROLOGICAL: Patient is altered but responds to painful stimuli PSYCH: Normal mood, normal affect. SKIN: Warm, Dry, normal turgor, gangrene of toes bilaterally. Large sacral decubitus ulcer about size of softball. Course - Re-evaluation Re-evalutation: 09/09/19 01:57 The patient was sent to the ER for hypotension, hypoglycemia, and decreased men georgina status. The patient had a full dialysis yesterday during the day. The patient became more alert and awake in this ER after he was given 1L of fluids and IV dextrose. The patient was just admitted to this hospital and discharged on 09/02/19 for several chronic issues including gangrene of his toes, a large sacral decubitus ulcer, and elevated WBC count. The patient continues to have these issues and he will continue to have these issues going forward. The patient is chronically very ill. Based on his last discharge summary, the patient's brother and sister agreed that the patient should be DNR. Apparently however they reversed this decision when the patient's care facility said the patient was not responsive. The patient is now answering yes and no to questions. A nurse who worked with the patient on his last admission said he seems to be at his baseline at this point. The patient is on Clindamycin at the SNF and he has been blood culture negative to date on several draws. Will send patient back to his facility. Patient was likely hypotensive and hypoglycemic today due to poor PO intake and due to him having dialysis. Patient's WBC was as high as it is now when he was discharged recently. - Vital Signs Vital signs: Temp Pulse Resp BP Pulse Ox 99.2 F 104 H 14 107/55 L 94 09/08/19 22:40 09/08/19 22:38 09/09/19 01:21 09/09/19 01:21 09/09/19 01:21 - Laboratory Result Diagrams: 09/08/19 22:50 09/08/19 22:50 Laboratory results interpreted by me: 09/08/19 09/08/19 09/08/19 22:50 22:50 22:50 WBC 23.6 H RBC 2.98 L Hgb 8.4 L Hct 27.3 L MCHC 30.8 L RDW 20.2 H Seg Neuts % (Manual) 92 H Lymphocytes % (Manual) 2 L Abs Neuts (Manual) 21.7 H PT 19.7 H BUN 31 H Creatinine 2.66 H Est GFR ( Amer) 29 L Est GFR (MDRD) Non-Af 24 L Total Bilirubin 1.6 H Direct Bilirubin 0.9 H AST 77 H Albumin 2.6 L Discharge - Discharge Clinical Impression: Hypoglycemia Hypotension Qualifiers: Hypotension type: hypotension due to hypovolemia Qualified Code(s): I95.89 - Other hypotension; E86.1 - Hypovolemia Altered mental state Qualifiers: Altered mental status type: unspecified Qualified Code(s): R41.82 - Altered mental status, unspecified Condition: Fair Disposition: HOME-SNF (ED ONLY) Instructions: Hypoglycemia ([facility]), Hypotension ([facility]) Additional Instructions: Follow up with your primary care doctor as soon as possible. Continue taking your previously prescribed antibiotics. Your blood pressure was low today likely from a combination of poor PO intake and having diaylsis. You have chronic gangrene of your toes and a chronic bed sore. If you would like to have surgical care of these chronic issues, speak with your doctor. Referrals: MORRIS HARDY MD [Primary Care Provider] - Follow up as needed
[2019-09-08 23:05] LABS: HEMATOCRIT 27.3 % (37.9-51.0); HEMOGLOBIN 8.4 g/dL (13.5-17.0); MEAN CORPUSCULAR HEMOGLOBIN 28.2 pg (27.0-33.4); MEAN CORPUSCULAR HGB CONC 30.8 g/dL (32.0-36.0); MEAN CORPUSCULAR VOLUME 92 fl (80-97); PLATELET COUNT 440 10^3/uL (150-450); RED BLOOD COUNT 2.98 10^6/uL (4.35-5.55); RED CELL DISTRIBUTION WIDTH 20.2 % (11.5-14.0); WHITE BLOOD COUNT 23.6 10^3/uL (4.0-10.5)
[2019-09-08 23:20] LABS: INTERNATIONAL RATION (INR) 1.65; PROTHROMBIN TIME 19.7 SEC (11.4-15.4)
[2019-09-08 23:23] LABS: ABSOLUTE LYMPHOCYTES# (MANUAL) 0.5 10^3/uL (0.5-4.7); ABSOLUTE MONOCYTES # (MANUAL) 1.4 10^3/uL (0.1-1.4); BASOPHILS % (MANUAL) 0 % (0-2); EOSINOPHILS % (MANUAL) 0 % (0-6); LYMPHOCYTES % (MANUAL) 2 % (13-45); MONOCYTES % (MANUAL) 6 % (3-13); SEGMENTED NEUTROPHILS % (MAN) 92 % (42-78); TOTAL CELLS COUNTED 100
[2019-09-08 23:25] LABS: ANISOCYTOSIS 2+; HYPOCHROMASIA SLIGHT; PLATELET COMMENT ADEQUATE
[2019-09-08 23:41] LABS: ALBUMIN 2.6 g/dL (3.5-5.0); ALKALINE PHOSPHATASE 85 U/L (38-126); ANION GAP 17 (5-19); ASPARTATE AMINO TRANSFERASE 77 U/L (17-59); BILIRUBIN,DIRECT 0.9 mg/dL (0.0-0.4); BILIRUBIN,TOTAL 1.6 mg/dL (0.2-1.3); BLOOD UREA NITROGEN 31 mg/dL (7-20); CALCIUM 8.4 mg/dL (8.4-10.2); CARBON DIOXIDE 24 mmol/L (22-30); CHLORIDE 100 mmol/L (98-107); GLUCOSE 75 mg/dL (75-110); POTASSIUM 3.6 mmol/L (3.6-5.0); TOTAL PROTEIN 6.4 g/dL (6.3-8.2)
--- NOTE | 2019-09-08 23:42 | RADIOLOGY REPORT (SQ) ---
EXAM DESCRIPTION: XR CHEST 1 VIEW COMPLETED DATE/TME: 09/08/2019 22:46 CLINICAL HISTORY: 64 years Male, eval for pneumonia COMPARISON: 08/27/19 NUMBER OF VIEWS/TECHNIQUE: 1/AP FINDINGS: Small bibasilar effusion/obscuration of the costophrenic angles. Lungs of increased volume, and normal cardiac silhouette. Sternotomy. Cardiac/mediastinal hardware/clips. No pneumothorax. Stable bony thorax. Vascular grafts in the level of the upper mediastinum to the proximal left axilla. IMPRESSION: No significant change.
--- NOTE | 2019-09-09 01:16 | RADIOLOGY REPORT (SQ) ---
EXAM: CT HEAD WITHOUT IV CONTRAST CLINICAL INDICATION: 64-year-old male with altered mental status. COMPARISON: 08/10/2019. TECHNIQUE: CT brain without contrast. This exam was performed according to our departmental dose optimization program which includes use of automated exposure control, adjustment of the mA and/or kV according to patient size and/or use of iterative reconstruction technique. FINDINGS: Multifocal regions of patchy hypoattenuation are present in a subcortical and periventricular deep white matter distribution, nonspecific; however, most likely represent small vessel ischemic disease, age indeterminate. The ventricles, and sulci are enlarged suggesting underlying volume loss, stable in comparison to the previous examination. The pace-white matter differentiation is preserved. There is no mass effect, midline shift, intra- or extra-axial fluid collection/acute hemorrhage. The osseous structures are unremarkable. The paranasal sinuses and mastoid air cells are clear. IMPRESSION: 1. No acute intracranial abnormalities. Nonspecific white matter change most likely small vessel ischemic disease, age indeterminate. 2. CT is insensitive for early evaluation of acute stroke. If there is clinical concern for acute ischemia, an MRI may be considered.
[2019-09-09 03:11] VITALS: BP 100/56
--- NOTE | 2019-09-09 11:45 | EKG REPORT ---
SEVERITY:- ABNORMAL ECG - SINUS TACHYCARDIA ATRIAL PREMATURE COMPLEX SHORT CA INTERVAL, ACCELERATED AV CONDUCTION PROBABLE LEFT ATRIAL ABNORMALITY LVH WITH SECONDARY REPOLARIZATION ABNORMALITY ANTERIOR Q WAVES, POSSIBLY DUE TO LVH : Confirmed by: Angela Alba MD 09-Sep-2019 11:44:32
--- NOTE | 2019-09-09 11:45 | EKG REPORT ---
SEVERITY:- ABNORMAL ECG - SINUS RHYTHM WITH SHORT AL INTERVAL LVH WITH SECONDARY REPOLARIZATION ABNORMALITY BORDERLINE INFERIOR Q WAVES ST DEPRESSION, CONSIDER ISCHEMIA, INF LEADS : Confirmed by: Angela Alba MD 09-Sep-2019 11:45:12
== END 2019-09-09 03:15 ==
LOC: ER 22:38
DX: E11.649 Type 2 diabetes mellitus with hypoglycemia without coma (principal); I95.89 Other hypotension; E86.1 Hypovolemia; R41.82 Altered mental status, unspecified; I96 Gangrene, not elsewhere classified; L89.159 Pressure ulcer of sacral region, unspecified stage; E11.52 Type 2 diabetes mellitus with diabetic peripheral angiopathy with gangrene; F17.200 Nicotine dependence, unspecified, uncomplicated; I25.2 Old myocardial infarction; I12.0 Hypertensive chronic kidney disease with stage 5 chronic kidney disease or end stage renal disease; E11.22 Type 2 diabetes mellitus with diabetic chronic kidney disease; N18.6 End stage renal disease; Z99.2 Dependence on renal dialysis; Z95.1 Presence of aortocoronary bypass graft
CPT/HCPCS: 99285; 93005 ×2; 96361; 96374; 36415; 87040; 82962; 85025; 85610; 87077; 80053; 84484; 83605; 87150 ×26; 71045; 70450; 93010 ×2; J3490; J7030; 87186